=== PATIENT | female | born 1960 | race Two or more races ===

== ENCOUNTER 2016-09-22 09:34 | Day surgery (SDC) | payer OTHER ==
[2016-09-22 10:49] VITALS: BMI 33.9
[2016-09-22] MEDS ORDERED: PROPOFOL 20 ML ONE (11:37)
[2016-09-22] MEDS ORDERED: ONDANSETRON 4 MG/2 ML VIAL ONE (12:05)
[2016-09-22 12:24] VITALS: TEMP 97.8
[2016-09-22 13:53] VITALS: BP 107/68; PULSE 71
--- NOTE | 2016-09-23 15:02 | PATH ---
Surgical Pathology Report Patient Name: DEMARCO BERMEO [facility]. Rec. #: [id number] /Age/Gender: 1960 (Age: 55) / F Account: [id number] Location: U-ENDOSCOPY Taken: 09/22/2016 Received: 09/22/2016 Reported: 09/23/2016 Physicians: Gavin Montoya M.D. Specimen(s) Received A: POLYP DUODENAL BULB B: BX GASTRIC BODY Clinical History Epigastric pain, nausea, vomiting, rule out peptic ulcer disease Duodenal bulb polyp, erythema body Final Diagnosis A. DUODENAL POLYP, BIOPSY: HETEROTOPIC GASTRIC MUCOSA WITH CHRONIC INFLAMMATION. NO ADENOMATOUS CHANGE IDENTIFIED. NO HISTOLOGIC EVIDENCE OF GLUTEN SENSITIVE ENTEROPATHY (CELIAC SPRUE) IDENTIFIED. B. STOMACH, BODY, BIOPSY: MILD CHRONIC GASTRITIS. IMMUNOSTAIN FOR H. PYLORI IS POSITIVE (MANY ORGANISMS). Electronically Signed Dieudonne Canada M.D. Gross Description A. Received in formalin, labeled "biopsy polyp duodenal bulb" is a goode, irregular portion of soft tissue measuring 0.3 cm. in greatest dimension. The specimen is submitted in toto in one cassette. B. Received in formalin, labeled "biopsy gastric body" are 3 goode, irregular portions of soft tissue ranging from 0.1-0.3 cm. in greatest dimension. The specimens are submitted in toto in one cassette. 09/22/201609/22/2016
== END 2016-09-22 13:25 | disposition home or self-care (01) ==
LOC: JASU-ENDO 09:34
PROVIDERS: ATTEND Internal Medicine Gastroenterology
PROC: 0DB68ZX Excision of Stomach, Via Natural or Artificial Opening Endoscopic, Diagnostic (ICD-10-PCS; 2016-09-22)
PROC: 0DB98ZX Excision of Duodenum, Via Natural or Artificial Opening Endoscopic, Diagnostic (ICD-10-PCS; principal; 2016-09-22 10:30)
DX: K31.7 Polyp of stomach and duodenum (principal); K29.50 Unspecified chronic gastritis without bleeding
CPT/HCPCS: 88305-TC; 88342-TC

== ENCOUNTER 2017-01-05 14:43 | Emergency (ER) | payer OTHER ==
--- NOTE | 2017-01-05 14:48 | PDOC ---
Rapid Medical Evaluation Time Seen by Provider: 01/05/17 14:45 Medical Evaluation: Allergies Allergy/AdvReac Type Severity Reaction Status Date / Time iodine Allergy Rash Verified 01/05/17 14:45 naproxen [From Naprosyn] Allergy Verified 01/05/17 14:45 01/05/17 14:45 Pt arrives with complaints of: rt breast tender lump. no fever, no drainage, hx dm, no abx yet Brief exam : 2 cm tender hyperpigmented lump to rt breast, no drainange I have ordered: breast ultrasound Pt will go to : main ED Discharge Disposition - Diagnosis Mass of right breast - Referrals Referrals: Noris Garcia MD [Primary Care Provider] - - Patient Instructions - Post Discharge Activity
[2017-01-05 14:49] VITALS: BP 106/68; PULSE 78; TEMP 97.9; BMI 32.5
--- NOTE | 2017-01-05 15:40 | PDOC ---
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 She first noted the lump which was not painful, but within the next couple of days it turned red and tender. The pain is sharp and 6/10 at baseline and increases to 10/10 when pressure is applied. She has tried a hot compress without relief. She has not noted any drainage, streaking redness, or other changes. She denies fever, chills, nausea, vomiting, chest pain, SOB, headache, weight loss, night sweats, swollen lymph nodes, or other symptoms. Past History - Past Medical History Allergies/Adverse Reactions: Allergies Allergy/AdvReac Type Severity Reaction Status Date / Time iodine Allergy Rash Verified 01/05/17 14:45 naproxen [From Naprosyn] Allergy Verified 01/05/17 14:45 Home Medications: Ambulatory Orders Aspirin [ASA -] 81 mg PO DAILY 10/27/15 Cholecalciferol (Vitamin D3) [Vitamin D3] 5,000 unit PO WEEKLY 10/27/15 Gabapentin 100 mg PO TID 10/27/15 Metoprolol Tartrate 50 mg PO DAILY 10/27/15 Albuterol Sulfate [Proventil HFA Inhaler -] 1 - 2 inh PO PRN PRN 09/22/16 Insulin (Levemir) [Levemir Vial] 40 units SQ ACBK 09/22/16 Super Beet 1 packet PO HS 09/22/16 Tetrahydrz/Dext 70/Peg 400/Pvp [Eye Drops] 15 ml OP HS 09/22/16 Amox-Tr/K Cl [Augmentin - 500Mg Tablet] 1 tab PO BID #14 tab 01/05/17 Sulfamethoxazole/Trimethoprim [Bactrim Ds -] 1 tab PO BID #14 tablet 01/05/17 Asthma: Yes Cardiac Disorders: Yes (H/O CT AND STENT PLACEMENT IN 08/09/13) COPD: No Diabetes: Yes (IDDM) GI Disorders: Yes (COLON POLYP) Disorders: Yes (cyst on right kidney) HTN: Yes Hypercholesterolemia: Yes - Surgical History Abdominal Surgery: Yes Appendectomy: Yes Cardiac Surgery: Yes (stent placement) - Family Disease History Family Disease History: Heart Disease: Father, Mother - Suicide/Smoking/Psychosocial Hx Smoking History: Former smoker Have you smoked in the past 12 months: No If you are a former smoker, when did you quit?: 1994 Information on smoking cessation initiated: No Hx Alcohol Use: No Drug/Substance Use Hx: No Substance Use Type: None Hx Substance Use Treatment: No Review of Systems - Review of Systems Constitutional: No: Chills, Fever, Unexplained wgt Loss HEENTM: No: Nose Congestion, Throat Pain Respiratory: No: Cough, Shortness of Breath Cardiac (ROS): No: Chest Pain, Palpitations ABD/GI: No: Constipated, Diarrhea, Nausea, Vomiting : No: Burning, Dysuria Musculoskeletal: No: Back Pain, Neck Pain Integumentary: Yes: Other (boil to right upper chest wall). No: Bruising, Rash Neurological: No: Headache, Numbness, Tingling, Weakness, Dizziness Endocrine: No: Unexplained Weight Gain, Unexplained Weight Loss *Physical Exam - Vital Signs Last Vital Signs Temp Pulse Resp BP Pulse Ox 97.9 F 78 18 106/68 100 01/05/17 14:46 01/05/17 14:46 01/05/17 14:46 01/05/17 14:46 01/05/17 14:46 - Physical Exam General Appearance: Yes: Nourished, Appropriately Dressed, Obese, Other ( pleasant middle-aged female who is answering questions appropriately). No: Apparent Distress HEENT: positive: EOMI, Normal Voice, Hearing Grossly Normal. negative: Scleral Icterus (R), Scleral Icterus (L), Nasal Congestion Neck: positive: Trachea midline, Normal Thyroid, Supple. negative: Tender, Rigid Respiratory/Chest: positive: Lungs Clear, Normal Breath Sounds, Other (medial right upper chest wall with 2x2 cm area of erythema, warmth, induration, fluctuance, and moderate tenderness to palpation). negative: Respiratory Distress, Crackles, Rhonchi, Stridor, Wheezing Cardiovascular: positive: Regular Rhythm, Regular Rate. negative: Murmur Gastrointestinal/Abdominal: positive: Normal Bowel Sounds, Soft. negative: Tender, Organomegaly, Pulsatile Mass, Guarding Musculoskeletal: positive: Normal Inspection. negative: Decreased Range of Motion, Vertebral Tenderness Extremity: positive: Normal Capillary Refill, Normal Inspection, Normal Range of Motion. negative: Tender, Cyanosis Integumentary: positive: Normal Color, Dry, Warm, Erythema (as noted in chest wall exam), Other (no streaking erythema). negative: Rash, Bruising Neurologic: positive: investigator vice II-XII NML intact, Fully Oriented, Alert, Normal Mood/ Affect, Normal Response, Motor Strength 5/5 Medical Decision Making - Medical Decision Making 56 YOF with h/o IDDM, MRSA infection (tx with long-term vancomycin) p/w right chest wall abscess. On US the abscess is <1cm each dimension and is at least 15 cm from nipple. Most likely this is an uncomplicated boil and appears amenable to I&D. Vitals within normal limits, CBG elevated but Pt states did not take insulin this morning. Attempted needle aspiration without any fluid return. E-Rx for Augmentin and Bactrim are sent to the patient's pharmacy. She is appropriate for discharge home; return precautions are discussed and she will take the abx. *DC/Admit/Observation/Transfer Diagnosis at time of Disposition: Breast abscess - Discharge Dispostion Disposition: HOME Condition at time of disposition: Stable Admit: No - Prescriptions Prescriptions: Amox-Tr/K Cl [Augmentin - 500Mg Tablet] 1 tab PO BID #14 tab Sulfamethoxazole/Trimethoprim [Bactrim Ds -] 1 tab PO BID #14 tablet - Referrals Referrals: Noris Garcia MD [Primary Care Provider] - - Patient Instructions Additional Instructions: You were seen in the ER with a right breast abscess. We did an ultrasound which showed the fluid collection, so we attempted to do a needle aspiration of the fluid to both drain it and send a sample to be tested. We were unable to get the sample, probably because the fluid is too thick to pull up through the needle. We gave you doses of two different types of antibiotic here. We are also sending an electronic prescription to your pharmacy for courses of these two antibiotics. Please take the entire course of each at the same time, starting tomorrow morning. Use warm compresses to try to bring the fluid up to the surface. Put antibiotic ointment like bacitracin on the skin and you can protect the ointment with a light bandage. Please follow up with your regular doctor for a re-check, or you can always come back to the ER for new or worsening symptoms like fever, increasing size of the abscess, increasing area of redness, streaking redness, or other symptoms. - Post Discharge Activity
[2017-01-05] MEDS ORDERED: AMOX TR/POT CLAV 500MG/125MG TABLETS (FP) PO ONE (19:22)
[2017-01-05] MEDS ORDERED: SULFAMETHOXAZOLE/TRIMETHOPRIM 800MG/160MG D.S. TABLET PO ONE (19:25)
[2017-01-05] MEDS ORDERED: SULFAMETHOXAZOLE/TRIMETHOPRIM 800MG/160MG D.S. TABLET ONE (19:33)
[2017-01-05] MEDS ORDERED: AMOX TR/POT CLAV 500MG/125MG TABLETS (FP) ONE (19:33)
== END 2017-01-05 19:36 | disposition home or self-care (01) ==
LOC: JER 14:43
PROC: 0H9T3ZZ Drainage of Right Breast, Percutaneous Approach (ICD-10-PCS; principal; 2017-01-05)
DX: N61.1 Abscess of the breast and nipple (principal); I25.10 Atherosclerotic heart disease of native coronary artery without angina pectoris; I10 Essential (primary) hypertension; Z95.5 Presence of coronary angioplasty implant and graft; I25.2 Old myocardial infarction; E78.00 Pure hypercholesterolemia, unspecified; E10.9 Type 1 diabetes mellitus without complications; Z79.4 Long term (current) use of insulin; J45.909 Unspecified asthma, uncomplicated
CPT/HCPCS: 10160; 76642-TC-RT; 99281-25

== ENCOUNTER 2017-05-17 16:02 | Observation (INO) | payer OTHER ==
--- NOTE | 2017-05-17 16:21 | PDOC ---
Rapid Medical Evaluation Time Seen by Provider: 05/17/17 16:17 Medical Evaluation: Allergies Allergy/AdvReac Type Severity Reaction Status Date / Time iodine Allergy Rash Verified 05/17/17 16:17 naproxen [From Naprosyn] Allergy Verified 05/17/17 16:17 05/17/17 16:18 The patient presents with a chief complaint of: leg pain I have performed a brief in-person evaluation of this patient. Pertinent physical exam findings: vss I have ordered the following: labs, ekg The patient will proceed to the ED for further evaluation.
[2017-05-17 16:56] LABS: BASO % 0.6 % (0-2.0); EOS % 4.2 % (0-4.5); HEMATOCRIT 39.6 % (32.4-45.2); HEMOGLOBIN 13.6 GM/dL (10.7-15.3); LYMPH % 39.1 % (8-40); MCHC 34.3 g/dl (32.0-36.0); MEAN CELL VOLUME 96.3 fl (80-96); MEAN PLT VOLUME 9.6 fl (7.5-11.1); NEUT % 48.1 % (42.8-82.8); PLATELET COUNT 304 K/MM3 (134-434); RBC 4.11 M/mm3 (3.60-5.2); RDW 13.4 % (11.6-15.6); WHITE BLOOD COUNT 9.9 K/mm3 (4.0-10.0)
[2017-05-17 17:15] LABS: INR 0.95 (0.82-1.09); PROTHROMBIN TIME (PATIENT) 10.7 SEC (9.98-11.88)
[2017-05-17 17:17] LABS: ACTIVATED PTT 32.3 SECONDS (26.9-34.4)
[2017-05-17] MEDS ORDERED: morphine CARPU-JECT 4 MG/1 ML DISP.SYRIN IVPUSH ONE (17:29)
--- NOTE | 2017-05-17 17:35 | PDOC ---
History of Present Illness - General Chief Complaint: Pain Stated Complaint: LEG PAIN Time Seen by Provider: 05/17/17 16:17 History Source: Patient - History of Present Illness Occurred: reports: other Severity: Yes: severe Lower Extremity Pain Location: bilateral: leg Past History - Past Medical History Allergies/Adverse Reactions: Allergies Allergy/AdvReac Type Severity Reaction Status Date / Time iodine Allergy Rash Verified 05/17/17 16:17 naproxen [From Naprosyn] Allergy Verified 05/17/17 16:17 Home Medications: Ambulatory Orders Albuterol Sulfate [Proventil HFA Inhaler -] 1 - 2 inh PO QID PRN 05/17/17 Brimonidine Tartrate [Alphagan 0.2% -] 1 drop OU BID 05/17/17 Clopidogrel Bisulfate [Clopidogrel] 75 mg PO DAILY 05/17/17 Fluticasone Propionate [Flovent Diskus] 2 puff IH BID 05/17/17 Gabapentin 600 mg PO BID 05/17/17 Insulin (Levemir) [Levemir Vial] 25 unit SQ HS 05/17/17 Insulin Lispro [Humalog] 8 unit SQ TID 05/17/17 Isosorbide Dinitrate [Isordil -] 5 mg PO BID 05/17/17 Latanoprost 0.005% Eye Drops [Xalatan 0.005% Eye Drops -] 1 drop OU HS 05/17/17 Metoprolol Succinate 50 mg PO DAILY 05/17/17 Omeprazole 40 mg PO DAILY 05/17/17 Rosuvastatin [Crestor -] 20 mg PO HS 05/17/17 Timolol [Betimol] 5 ml OP BID 05/17/17 Asthma: Yes Cardiac Disorders: Yes (H/O [place] AND STENT PLACEMENT IN 08/09/13) COPD: No Diabetes: Yes (IDDM) GI Disorders: Yes (COLON POLYP) Disorders: Yes (cyst on right kidney) HTN: Yes Hypercholesterolemia: Yes - Surgical History Abdominal Surgery: Yes Appendectomy: Yes Cardiac Surgery: Yes (stent placement) - Family Disease History Family Disease History: Heart Disease: Father, Mother - Suicide/Smoking/Psychosocial Hx Smoking History: Never smoked Have you smoked in the past 12 months: No If you are a former smoker, when did you quit?: 1994 Hx Alcohol Use: No Drug/Substance Use Hx: No Substance Use Type: None Hx Substance Use Treatment: No Review of Systems - Review of Systems Constitutional: No: Chills, Fever Respiratory: No: Shortness of Breath Cardiac (ROS): No: Chest Pain, Palpitations *Physical Exam - Vital Signs Last Vital Signs Temp Pulse Resp BP Pulse Ox 98.3 F 84 18 132/78 97 05/17/17 16:19 05/17/17 16:19 05/17/17 16:19 05/17/17 16:19 05/17/17 16:19 - Physical Exam General Appearance: Yes: Appropriately Dressed, Moderate Distress HEENT: positive: Normal Voice Neck: positive: Supple Respiratory/Chest: positive: Lungs Clear, Normal Breath Sounds. negative: Respiratory Distress Cardiovascular: positive: Regular Rate, S1, S2 Extremity: positive: Normal Inspection, Normal Range of Motion, Tender (to calf b/l), Other (unable to palpate pulses, skin warm b/l, no wounds/ulcer). negative: Pedal Edema, Swelling Integumentary: positive: Dry, Warm Neurologic: positive: Fully Oriented, Alert, Normal Mood/Affect ED Treatment Course - LABORATORY CBC & Chemistry Diagram: 05/20/17 08:00 05/22/17 06:20 - ADDITIONAL ORDERS Additional order review: 05/17/17 16:41 RBC 4.11 MCV 96.3 H MCHC 34.3 RDW 13.4 MPV 9.6 Neutrophils % 48.1 Lymphocytes % 39.1 Monocytes % 8.0 Eosinophils % 4.2 Basophils % 0.6 - RADIOLOGY Radiology Studies Ordered: Category Date Time Status DUPLEX ART. LOWER COMPL US [US] Stat Ultrasound 05/17/17 17:27 Ordered DUPLEX VASCUL US-2LEGS [US] Stat Ultrasound 05/17/17 17:28 Ordered Medical Decision Making - Medical Decision Making 05/17/17 17:30 56-year-old female w/ history of diabetes, neuropathy, hypertension, hyperlipidemia, chronic SCHUSTER, CAD s/p multiple stents including stent placement at [facility], here with severe bilateral calf pain worse with ambulation. Pt admits that she has had similar pain for unclear duration, but that pain wasn 't as bad as it is now. Does not feel like her neuropathy, which is usually in her feet only No acute chest pain, shortness of breath, palpitations, nausea, vomiting, fever or chills. See exam Concern for b/l LE claudication, less likely DVT Unable to palpate/doppler pedal pulses, no cold extremity or wounds -pain control -labs -arterial/venous doppler pending -possible vascular consult 05/17/17 18:56 Signed out to LAILA Leger pending US *DC/Admit/Observation/Transfer Diagnosis at time of Disposition: Leg pain, Claudication of both lower extremities - Discharge Dispostion Condition at time of disposition: Stable - Referrals - Patient Instructions - Post Discharge Activity
[2017-05-17 17:43] LABS: ALBUMIN 3.5 g/dl (3.4-5.0); ANION GAP 7 (8-16); BLOOD UREA NITROGEN 37 mg/dL (7-18); CALCIUM 9.4 mg/dL (8.5-10.1); CHLORIDE 104 mmol/L (98-107); CO2 26 mmol/L (21-32); GLUCOSE,RANDOM 178 mg/dL (74-106); SODIUM 137 mmol/L (136-145)
[2017-05-17 17:47] LABS: ALK PHOS 111 U/L (45-117); BILIRUBIN,TOTAL 0.2 mg/dL (0.2-1.0); CREATININE 1.5 mg/dL (0.55-1.02); SGOT/AST 15 U/L (15-37); SGPT/ALT 18 U/L (12-78); TOT PROT 7.4 g/dl (6.4-8.2)
[2017-05-17] MEDS ORDERED: morphine SULFATE 4 MG/ML VIAL ONE (18:02)
--- NOTE | 2017-05-17 20:13 | PDOC ---
ED Treatment Course - LABORATORY CBC & Chemistry Diagram: 05/17/17 16:41 05/17/17 16:41 - ADDITIONAL ORDERS Additional order review: Laboratory Results 05/17/17 05/17/17 16:41 16:41 PT with INR 10.70 INR 0.95 PTT (Actin FS) 32.3 Sodium 137 Potassium 5.0 Chloride 104 Carbon Dioxide 26 Anion Gap 7 L BUN 37 H Creatinine 1.5 H Creat Clearance w eGFR 35.92 Random Glucose 178 H Calcium 9.4 Total Bilirubin 0.2 D AST 15 ALT 18 Alkaline Phosphatase 111 Total Protein 7.4 Albumin 3.5 05/17/17 16:41 RBC 4.11 MCV 96.3 H MCHC 34.3 RDW 13.4 MPV 9.6 Neutrophils % 48.1 Lymphocytes % 39.1 Monocytes % 8.0 Eosinophils % 4.2 Basophils % 0.6 - Medications Given in the ED: ED Medications Discontinued Medications Generic Name Dose Route Start Last Admin Trade Name Freq PRN Reason Stop Dose Admin Morphine Sulfate 4 mg 05/17/17 17:29 05/17/17 18:16 Morphine Injection - IVPUSH 05/17/17 17:30 4 mg ONCE ONE Administration Progress Note - Progress Note Progress Note: I have received report from LAILA Cristobal regarding this patient. Pt's initial chief complaint: b/l calf pain worse with ambulation. Pt's work up completed prior to sign out: labs, ekg Pt treatment given from prior staff: none Pt plan to be completed: awaiting vascular studies of b/l LEs. Dispo: pending Medical Decision Making - Medical Decision Making A/P: 56 y/o female with hx of CAD with multiple stents c/l b/l calf pain, worse with ambulation. Most likely claudication. Awaiting ultrasounds of legs. Duplex arterial LEs IMPRESSION: Monophasic flow within bilateral popliteal arteries suggesting significant inflow stenosis. Cannot confirm patent posterior tibial arteries. Venous Doppler LEs IMPRESSION: No DVTs Spoke with Dr. Garcia who accepts admission to [facility] for Vascular consult in the morning. Patient made aware of plan. *DC/Admit/Observation/Transfer Diagnosis at time of Disposition: Claudication of both lower extremities Leg pain Qualifiers: Laterality: bilateral Qualified Code(s): M79.604 - Pain in right leg - Discharge Dispostion Condition at time of disposition: Stable Admit: Yes - Referrals - Patient Instructions - Post Discharge Activity
[2017-05-17] MEDS ORDERED: ONDANSETRON 4 MG/2 ML VIAL IVPUSH ONE (20:37)
[2017-05-17] MEDS ORDERED: ONDANSETRON 4 MG/2 ML VIAL ONE (20:38)
--- NOTE | 2017-05-17 22:57 | HP ---
Admitting History and Physical - Primary Care Physician PCP: Noris Garcia - Admission History of Present Illness: 56-year-old female w/ history of diabetes, neuropathy, hypertension, hyperlipidemia, chronic SCHUSTER, CAD s/p multiple stents including stent placement at [facility], here with severe bilateral calf pain worse with ambulation. Pt admits that she has had similar pain for unclear duration, but that pain wasn 't as bad as it is now. Does not feel like her neuropathy, which is usually in her feet only No acute chest pain, shortness of breath, palpitations. 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 History of Recent Travel: No Home Medications - Allergies Allergies/Adverse Reactions: Allergies Allergy/AdvReac Type Severity Reaction Status Date / Time iodine Allergy Rash Verified 05/17/17 16:17 naproxen [From Naprosyn] Allergy Verified 05/17/17 16:17 - Home Medications Home Medications: Ambulatory Orders Albuterol Sulfate [Proventil HFA Inhaler -] 1 - 2 inh PO QID PRN 05/17/17 Brimonidine Tartrate [Alphagan 0.2% -] 1 drop OU BID 05/17/17 Clopidogrel Bisulfate [Clopidogrel] 75 mg PO DAILY 05/17/17 Fluticasone Propionate [Flovent Diskus] 2 puff IH BID 05/17/17 Gabapentin 600 mg PO BID 05/17/17 Insulin (Levemir) [Levemir Vial] 25 unit SQ HS 05/17/17 Insulin Lispro [Humalog] 8 unit SQ TID 05/17/17 Isosorbide Dinitrate [Isordil -] 5 mg PO BID 05/17/17 Latanoprost 0.005% Eye Drops [Xalatan 0.005% Eye Drops -] 1 drop OU HS 04/02/18 Metoprolol Succinate 50 mg PO DAILY 05/17/17 Omeprazole 40 mg PO DAILY 05/17/17 Rosuvastatin [Crestor -] 20 mg PO HS 05/17/17 Timolol [Betimol] 5 ml OP BID 05/17/17 Family Disease History - Family Disease History Family Disease History: Diabetes: Mother, Sister, Other: Father, Sister Physical Examination Vital Signs: Vital Signs Temperature 98.3 F 05/17/17 16:19 Pulse Rate 84 05/17/17 16:19 Respiratory Rate 18 05/17/17 16:19 Blood Pressure 132/78 05/17/17 16:19 O2 Sat by Pulse Oximetry (%) 97 05/17/17 16:19 Constitutional: Yes: Anxious HENT: Yes: Atraumatic Neck: Yes: Supple Cardiovascular: Yes: Regular Rate and Rhythm Respiratory: Yes: CTA Bilaterally Gastrointestinal: Yes: Normal Bowel Sounds Musculoskeletal: Yes: WNL Extremities: Yes: Calf Tenderness Edema: No Neurological: Yes: Alert, Oriented Labs: CBC, BMP 05/17/17 16:41 05/17/17 16:41 Problem List - Problems (1) Claudication of both lower extremities Assessment/Plan: awaiting vascular consult prn pain meds duplex scan report reviewed Code(s): I73.9 - PERIPHERAL VASCULAR DISEASE, UNSPECIFIED (2) Coronary artery disease Assessment/Plan: on meds stable Code(s): I25.10 - ATHSCL HEART DISEASE OF [place] CORONARY ARTERY W/O ANG PCTRS (3) Diabetes Assessment/Plan: on insulin and bgms Code(s): E11.9 - TYPE 2 DIABETES MELLITUS WITHOUT COMPLICATIONS (4) Neuropathy Assessment/Plan: on meds Code(s): G62.9 - POLYNEUROPATHY, UNSPECIFIED Assessment/Plan Laboratory Tests 05/17/17 05/17/17 05/17/17 16:41 16:41 16:41 WBC 9.9 RBC 4.11 Hgb 13.6 Hct 39.6 MCV 96.3 H MCH 33.0 MCHC 34.3 RDW 13.4 Plt Count 304 MPV 9.6 Neutrophils % 48.1 Lymphocytes % 39.1 Monocytes % 8.0 Eosinophils % 4.2 Basophils % 0.6 PT with INR 10.70 INR 0.95 PTT (Actin FS) 32.3 Sodium 137 Potassium 5.0 Chloride 104 Carbon Dioxide 26 Anion Gap 7 L BUN 37 H Creatinine 1.5 H Creat Clearance w eGFR 35.92 Random Glucose 178 H Calcium 9.4 Total Bilirubin 0.2 D AST 15 ALT 18 Alkaline Phosphatase 111 Total Protein 7.4 Albumin 3.5 Active Medications Generic Name Dose Route Start Last Admin Trade Name Freq PRN Reason Stop Dose Admin Brimonidine Tartrate 1 drop 05/18/17 10:00 05/19/17 09:43 Alphagan 0.2% - OU 1 drop BID EDYTA Administration Clopidogrel Bisulfate 75 mg 05/18/17 10:00 05/19/17 09:42 Plavix - PO 75 mg DAILY EDYTA Administration Gabapentin 600 mg 05/18/17 10:00 05/19/17 09:42 Neurontin - PO 600 mg BID EDYTA Administration Insulin Aspart 1 vial 05/18/17 22:00 05/19/17 12:10 Novolog Vial Sliding Scale - SQ 2 units ACHS EDYTA Administration Protocol Insulin Detemir 25 units 05/18/17 22:00 05/18/17 21:41 Levemir Vial SQ 25 units HS EDYTA Administration Isosorbide Dinitrate 5 mg 05/18/17 10:00 05/19/17 09:43 Isordil - PO 5 mg BIDISORDIL EDYTA Administration Latanoprost 1 drop 05/18/17 22:00 05/18/17 22:39 Xalatan 0.005% Eye Drops - OU 1 drop HS EDYTA Administration Metoprolol Succinate 50 mg 05/18/17 10:00 05/19/17 09:43 Toprol Xl - PO 50 mg DAILY EDYTA Administration Mometasone Furoate 2 puff 05/18/17 22:00 05/18/17 22:39 Asmanex 220mcg - IH 2 puff HS EDYTA Administration Non-Formulary Medication 5 ml 05/18/17 10:00 Timolol [Betimol] OP BID EDYTA Oxycodone HCl 5 mg 05/18/17 19:28 05/18/17 19:56 Roxicodone - PO 5 mg Q6H PRN Administration PAIN LEVEL 1-5 Pantoprazole Sodium 40 mg 05/18/17 10:00 05/19/17 09:42 Protonix - PO 40 mg DAILY EDYTA Administration Rosuvastatin Calcium 20 mg 05/18/17 22:00 05/18/17 21:37 Crestor - PO 20 mg HS EDYTA Administration
[2017-05-18] MEDS ORDERED: INSULIN (NOVOLOG) ASPART 100 UNITS/ML 10ML VIAL ONE (06:58)
[2017-05-18] MEDS: INSULIN (NOVOLOG) ASPART 100 UNITS/ML 10ML VIAL SQ SCH ×3 (07:00→18:25)
[2017-05-18] MEDS ORDERED: TIMOLOL OP SCH (10:00)
--- NOTE | 2017-05-18 10:10 | EKG ---
Test Reason : Blood Pressure : / mmHG Vent. Rate : 077 BPM Atrial Rate : 077 BPM P-R Int : 138 ms QRS Dur : 078 ms QT Int : 388 ms P-R-T Axes : 044 027 056 degrees QTc Int : 439 ms NORMAL SINUS RHYTHM NORMAL ECG Confirmed by Miguel Angel Molina MD ([id number]) on 05/18/2017 10:10:26 AM Referred By: Confirmed By:Miguel Angel Molina MD
[2017-05-18] MEDS: ISOSORBIDE DINITRATE 5 MG TABLET PO SCH ×3 (11:30→21:37)
[2017-05-18] MEDS: GABAPENTIN 300 MG CAPSULE (FP) PO SCH ×2 (11:30→21:37)
[2017-05-18] MEDS: PANTOPRAZOLE 40 MG TABLET (FP) PO SCH (11:30)
[2017-05-18] MEDS: CLOPIDOGREL BISULFATE 75 MG TABLET (FP) PO SCH (11:30)
[2017-05-18 11:43] VITALS: BMI 32.5
[2017-05-18] MEDS: BRIMONIDINE TARTRATE 0.2% OPHTHALMIC 5 ML BOTTLE OU SCH ×2 (13:19→23:02)
--- NOTE | 2017-05-18 17:14 | PN ---
Progress Note, Physician History of Present Illness: cramps in legs better - Current Medication List Current Medications: Active Medications Brimonidine Tartrate (Alphagan 0.2% -) 1 drop OU BID [facility] Last Admin: 05/18/17 13:19 Dose: Not Given Clopidogrel Bisulfate (Plavix -) 75 mg PO DAILY [facility] Last Admin: 05/18/17 11:30 Dose: 75 mg Gabapentin (Neurontin -) 600 mg PO BID [facility] Last Admin: 05/18/17 11:30 Dose: 600 mg Insulin Aspart (Novolog Vial) 8 units SQ TIDAC [facility] Last Admin: 05/18/17 07:00 Dose: 8 units Insulin Detemir (Levemir Vial) 25 units SQ [facility] Isosorbide Dinitrate (Isordil -) 5 mg PO BIDISORDIL [facility] Last Admin: 05/18/17 11:30 Dose: 5 mg Latanoprost (Xalatan 0.005% Eye Drops -) 1 drop OU HS [facility] Metoprolol Succinate (Toprol Xl -) 50 mg PO DAILY [facility] Last Admin: 05/18/17 11:30 Dose: 50 mg Mometasone Furoate (Asmanex 220mcg -) 2 puff IH [facility] Non-Formulary Medication (Timolol [Betimol]) 5 ml OP BID [facility] Pantoprazole Sodium (Protonix -) 40 mg PO DAILY [facility] Last Admin: 05/18/17 11:30 Dose: 40 mg Rosuvastatin Calcium (Crestor -) 20 mg PO [facility] - Objective Vital Signs: Vital Signs Temperature 98.7 F 05/18/17 15:17 Pulse Rate 82 05/18/17 15:17 Respiratory Rate 18 05/18/17 15:17 Blood Pressure 144/87 05/18/17 15:17 O2 Sat by Pulse Oximetry (%) 100 05/18/17 13:16 Constitutional: Yes: No Distress HENT: Yes: Atraumatic Neck: Yes: Supple Cardiovascular: Yes: Regular Rate and Rhythm Respiratory: Yes: CTA Bilaterally Gastrointestinal: Yes: Normal Bowel Sounds Extremities: Yes: WNL Edema: No Peripheral Pulses WNL: Yes Labs: CBC, BMP 05/17/17 16:41 05/17/17 16:41 INR, PTT INR 0.95 (0.82-1.09) 05/17/17 16:41 Problem List - Problems (1) Claudication of both lower extremities Assessment/Plan: awaiting vascular consult Code(s): I73.9 - PERIPHERAL VASCULAR DISEASE, UNSPECIFIED (2) Coronary artery disease Assessment/Plan: on meds stable Code(s): I25.10 - ATHSCL HEART DISEASE OF [place] CORONARY ARTERY W/O ANG PCTRS (3) Diabetes Assessment/Plan: on insulin and bgms Code(s): E11.9 - TYPE 2 DIABETES MELLITUS WITHOUT COMPLICATIONS (4) Neuropathy Code(s): G62.9 - POLYNEUROPATHY, UNSPECIFIED
[2017-05-18] MEDS ORDERED: PT OWN MED DRAWER 7, Y5N ONE (18:24)
[2017-05-18] MEDS: INSULIN SLIDING SCALE (NOVOLOG) 1 VIAL SQ SCH ×2 (18:28→21:41)
[2017-05-18] MEDS: oxyCODONE HCL 5 MG TABLET PO PRN (19:56)
[2017-05-18] MEDS: ROSUVASTATIN CA 20 MG TABLET (FP) PO SCH (21:37)
[2017-05-18] MEDS: INSULIN DETEMIR 100 UNITS/ML MDV SQ SCH (21:41)
[2017-05-18] MEDS: LATANOPROST 0.005% OPHTH SOLN 2.5ML BOTTLE OU SCH (22:39)
[2017-05-18] MEDS: MOMETASONE FUROATE 220 MCG/IH INHALER IH SCH (22:39)
[2017-05-19] MEDS: INSULIN SLIDING SCALE (NOVOLOG) 1 VIAL SQ SCH ×4 (06:59→22:51)
[2017-05-19] MEDS ORDERED: INSULIN (NOVOLOG) ASPART 100 UNITS/ML 10ML VIAL ONE ×2 (07:07→12:07)
[2017-05-19] MEDS ORDERED: PT OWN MED DRAWER 7, Y5N ONE ×4 (07:10→17:50)
[2017-05-19] MEDS: CLOPIDOGREL BISULFATE 75 MG TABLET (FP) PO SCH (09:42)
[2017-05-19] MEDS: GABAPENTIN 300 MG CAPSULE (FP) PO SCH ×2 (09:42→22:50)
[2017-05-19] MEDS: PANTOPRAZOLE 40 MG TABLET (FP) PO SCH (09:42)
[2017-05-19] MEDS: BRIMONIDINE TARTRATE 0.2% OPHTHALMIC 5 ML BOTTLE OU SCH ×2 (09:43→22:52)
[2017-05-19] MEDS: ISOSORBIDE DINITRATE 5 MG TABLET PO SCH ×2 (09:43→18:07)
--- NOTE | 2017-05-19 17:21 | PN ---
Progress Note, Physician History of Present Illness: cramps in legs better - Current Medication List Current Medications: Active Medications Brimonidine Tartrate (Alphagan 0.2% -) 1 drop OU BID [facility] Last Admin: 05/19/17 09:43 Dose: 1 drop Clopidogrel Bisulfate (Plavix -) 75 mg PO DAILY [facility] Last Admin: 05/19/17 09:42 Dose: 75 mg Gabapentin (Neurontin -) 600 mg PO BID [facility] Last Admin: 05/19/17 09:42 Dose: 600 mg Insulin Aspart (Novolog Vial Sliding Scale -) 1 vial SQ [facility] PRN Reason: Protocol Last Admin: 05/19/17 12:10 Dose: 2 units Insulin Detemir (Levemir Vial) 25 units SQ HS [facility] Last Admin: 05/18/17 21:41 Dose: 25 units Isosorbide Dinitrate (Isordil -) 5 mg PO BIDISORDIL [facility] Last Admin: 05/19/17 09:43 Dose: 5 mg Latanoprost (Xalatan 0.005% Eye Drops -) 1 drop OU [facility] Last Admin: 05/18/17 22:39 Dose: 1 drop Metoprolol Succinate (Toprol Xl -) 50 mg PO DAILY [facility] Last Admin: 05/19/17 09:43 Dose: 50 mg Mometasone Furoate (Asmanex 220mcg -) 2 puff IH [facility] Last Admin: 05/18/17 22:39 Dose: 2 puff Non-Formulary Medication (Timolol [Betimol]) 5 ml OP BID [facility] Oxycodone HCl (Roxicodone -) 5 mg PO Q6H PRN PRN Reason: PAIN LEVEL 1-5 Last Admin: 05/18/17 19:56 Dose: 5 mg Pantoprazole Sodium (Protonix -) 40 mg PO DAILY [facility] Last Admin: 05/19/17 09:42 Dose: 40 mg Rosuvastatin Calcium (Crestor -) 20 mg PO HS [facility] Last Admin: 05/18/17 21:37 Dose: 20 mg - Objective Vital Signs: Vital Signs Temperature 97.5 F L 05/19/17 14:03 Pulse Rate 63 05/19/17 14:03 Respiratory Rate 18 05/19/17 14:03 Blood Pressure 129/78 05/19/17 14:03 O2 Sat by Pulse Oximetry (%) 99 05/18/17 21:00 Constitutional: Yes: No Distress HENT: Yes: Atraumatic Neck: Yes: Supple Cardiovascular: Yes: Regular Rate and Rhythm Respiratory: Yes: CTA Bilaterally Gastrointestinal: Yes: Normal Bowel Sounds Extremities: Yes: WNL Edema: No Peripheral Pulses WNL: Yes Neurological: Yes: Alert, Oriented Labs: CBC, BMP 05/17/17 16:41 05/17/17 16:41 INR, PTT INR 0.95 (0.82-1.09) 05/17/17 16:41 Problem List - Problems (1) Claudication of both lower extremities Assessment/Plan: dr dickey to review vascular study reports Code(s): I73.9 - PERIPHERAL VASCULAR DISEASE, UNSPECIFIED (2) Coronary artery disease Assessment/Plan: on meds stable Code(s): I25.10 - ATHSCL HEART DISEASE OF [place] CORONARY ARTERY W/O ANG PCTRS (3) Diabetes Assessment/Plan: on insulin and bgms Code(s): E11.9 - TYPE 2 DIABETES MELLITUS WITHOUT COMPLICATIONS (4) Neuropathy Assessment/Plan: on meds Code(s): G62.9 - POLYNEUROPATHY, UNSPECIFIED
[2017-05-19 21:24] LABS: ALBUMIN 3.5 g/dl (3.4-5.0); ALK PHOS 107 U/L (45-117); ANION GAP 7 (8-16); BILIRUBIN,TOTAL 0.2 mg/dL (0.2-1.0); BLOOD UREA NITROGEN 44 mg/dL (7-18); CHLORIDE 102 mmol/L (98-107); CO2 27 mmol/L (21-32); SGOT/AST 12 U/L (15-37); SGPT/ALT 17 U/L (12-78); SODIUM 136 mmol/L (136-145); TOT PROT 7.5 g/dl (6.4-8.2)
[2017-05-19 21:26] LABS: GLUCOSE,RANDOM 309 mg/dL (74-106)
[2017-05-19] MEDS: SODIUM CHLORIDE 1,000 ML IV SCH (22:48)
[2017-05-19] MEDS: MOMETASONE FUROATE 220 MCG/IH INHALER IH SCH (22:49)
[2017-05-19] MEDS: oxyCODONE HCL 5 MG TABLET PO PRN (22:50)
[2017-05-19] MEDS: INSULIN DETEMIR 100 UNITS/ML MDV SQ SCH (22:51)
[2017-05-19] MEDS: ROSUVASTATIN CA 20 MG TABLET (FP) PO SCH (22:51)
[2017-05-19] MEDS: LATANOPROST 0.005% OPHTH SOLN 2.5ML BOTTLE OU SCH (22:52)
[2017-05-20] MEDS: INSULIN SLIDING SCALE (NOVOLOG) 1 VIAL SQ SCH ×4 (06:24→21:33)
[2017-05-20] MEDS ORDERED: INSULIN DETEMIR 100 UNITS/ML MDV SQ ONE (06:46)
[2017-05-20] MEDS ORDERED: INSULIN (NOVOLOG) ASPART 100 UNITS/ML 10ML VIAL ONE ×2 (06:46→20:58)
[2017-05-20 08:51] LABS: HEMATOCRIT 39.1 % (32.4-45.2); HEMOGLOBIN 12.9 GM/dL (10.7-15.3); MCH 32.3 pg (25.7-33.7); MEAN PLT VOLUME 9.5 fl (7.5-11.1); PLATELET COUNT 278 K/MM3 (134-434); RBC 3.99 M/mm3 (3.60-5.2); RDW 13.4 % (11.6-15.6); WHITE BLOOD COUNT 9.1 K/mm3 (4.0-10.0)
[2017-05-20 09:57] LABS: CHLORIDE 108 mmol/L (98-107); POTASSIUM 5.5 mmol/L (3.5-5.1); SODIUM 144 mmol/L (136-145)
[2017-05-20] MEDS ORDERED: PT OWN MED DRAWER 7, Y5N ONE (10:09)
[2017-05-20] MEDS: BRIMONIDINE TARTRATE 0.2% OPHTHALMIC 5 ML BOTTLE OU SCH ×2 (10:11→21:50)
[2017-05-20 10:12] LABS: ALBUMIN 3.2 g/dl (3.4-5.0); ALK PHOS 94 U/L (45-117); ANION GAP 8 (8-16); BILIRUBIN,TOTAL 0.1 mg/dL (0.2-1.0); BLOOD UREA NITROGEN 45 mg/dL (7-18); CALCIUM 9.1 mg/dL (8.5-10.1); CO2 28 mmol/L (21-32); CREATININE 1.8 mg/dL (0.55-1.02); GLUCOSE,RANDOM 158 mg/dL (74-106); SGOT/AST 14 U/L (15-37); SGPT/ALT 16 U/L (12-78); TOT PROT 6.8 g/dl (6.4-8.2)
[2017-05-20] MEDS: GABAPENTIN 300 MG CAPSULE (FP) PO SCH ×2 (10:12→21:33)
[2017-05-20] MEDS: PANTOPRAZOLE 40 MG TABLET (FP) PO SCH (10:12)
[2017-05-20] MEDS: CLOPIDOGREL BISULFATE 75 MG TABLET (FP) PO SCH (10:12)
[2017-05-20] MEDS: ISOSORBIDE DINITRATE 5 MG TABLET PO SCH (10:13)
[2017-05-20] MEDS: SODIUM CHLORIDE 1,000 ML IV SCH (14:51)
[2017-05-20] MEDS ORDERED: SODIUM CHLORIDE 1,000 ML IV SCH (15:05)
--- NOTE | 2017-05-20 15:07 | PN ---
Progress Note, Physician History of Present Illness: cramps in legs better - Current Medication List Current Medications: Active Medications Brimonidine Tartrate (Alphagan 0.2% -) 1 drop OU BID [facility] Last Admin: 05/20/17 10:11 Dose: 1 drop Clopidogrel Bisulfate (Plavix -) 75 mg PO DAILY [facility] Last Admin: 05/20/17 10:12 Dose: 75 mg Gabapentin (Neurontin -) 600 mg PO BID [facility] Last Admin: 05/20/17 10:12 Dose: 600 mg Sodium Chloride (Normal Saline -) 1,000 mls @ 100 mls/hr IV ASDIR [facility]PLAC[facility] Insulin Aspart (Novolog Vial Sliding Scale -) 1 vial SQ [facility] PRN Reason: Protocol Last Admin: 05/20/17 12:46 Dose: 6 units Insulin Detemir (Levemir Vial) 25 units SQ [facility] Last Admin: 05/19/17 22:51 Dose: 25 units Latanoprost (Xalatan 0.005% Eye Drops -) 1 drop OU [facility] Last Admin: 05/19/17 22:52 Dose: 1 drop Mometasone Furoate (Asmanex 220mcg -) 2 puff IH [facility] Last Admin: 05/19/17 22:49 Dose: Not Given Oxycodone HCl (Roxicodone -) 5 mg PO Q6H PRN PRN Reason: PAIN LEVEL 1-5 Last Admin: 05/19/17 22:50 Dose: 5 mg Pantoprazole Sodium (Protonix -) 40 mg PO DAILY [facility] Last Admin: 05/20/17 10:12 Dose: 40 mg Rosuvastatin Calcium (Crestor -) 20 mg PO [facility] Last Admin: 05/19/17 22:51 Dose: 20 mg Timolol Maleate (Timoptic 0.25%) 1 drop OU BID [facility] - Objective Vital Signs: Vital Signs Temperature 97.8 F 05/20/17 08:28 Pulse Rate 63 05/20/17 08:28 Respiratory Rate 19 05/20/17 08:28 Blood Pressure 141/86 05/20/17 08:28 O2 Sat by Pulse Oximetry (%) 99 05/19/17 21:00 Constitutional: Yes: No Distress HENT: Yes: Atraumatic Neck: Yes: Supple Cardiovascular: Yes: Regular Rate and Rhythm Respiratory: Yes: CTA Bilaterally Gastrointestinal: Yes: Normal Bowel Sounds Extremities: Yes: WNL Edema: LLE: Trace, RLE: Trace Peripheral Pulses WNL: Yes Neurological: Yes: Alert, Oriented Labs: CBC, BMP 05/20/17 08:00 05/20/17 08:00 INR, PTT INR 0.95 (0.82-1.09) 05/17/17 16:41 Problem List - Problems (1) Claudication of both lower extremities Assessment/Plan: will be seen by dr dickey Code(s): I73.9 - PERIPHERAL VASCULAR DISEASE, UNSPECIFIED (2) Coronary artery disease Assessment/Plan: on meds stable Code(s): I25.10 - ATHSCL HEART DISEASE OF [place] CORONARY ARTERY W/O ANG PCTRS (3) Diabetes Assessment/Plan: on insulin and bgms Code(s): E11.9 - TYPE 2 DIABETES MELLITUS WITHOUT COMPLICATIONS (4) Neuropathy Assessment/Plan: on meds Code(s): G62.9 - POLYNEUROPATHY, UNSPECIFIED
[2017-05-20] MEDS ORDERED: SODIUM POLYSTYRENE SULFONATE 15 GM/60 ML BOTTLE PO ONE (15:45)
[2017-05-20] MEDS ORDERED: SODIUM CHLORIDE 0.45% 500 ML IV SCH (16:15)
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
[2017-05-20] MEDS: SODIUM CHLORIDE 0.45% 1,000 ML IV SCH (17:30)
[2017-05-20 18:50] LABS: URINE APPEARANCE CLEAR; URINE BILIRUBIN NEGATIVE (<2.0 mg/dL); URINE BLOOD NEGATIVE (NEGATIVE); URINE COLOR COLORLESS; URINE GLUCOSE (UA) 3+ (NEGATIVE); URINE KETONE NEGATIVE (NEGATIVE); URINE LEUK ESTERASE NEGATIVE (NEGATIVE); URINE NITRITE NEGATIVE (NEGATIVE); URINE PROTEIN NEGATIVE (NEGATIVE); URINE UROBILINOGEN NEGATIVE mg/dL (0.2-1.0)
[2017-05-20] MEDS: MOMETASONE FUROATE 220 MCG/IH INHALER IH SCH (21:34)
[2017-05-20] MEDS: ROSUVASTATIN CA 20 MG TABLET (FP) PO SCH (21:34)
[2017-05-20] MEDS: LATANOPROST 0.005% OPHTH SOLN 2.5ML BOTTLE OU SCH (21:35)
[2017-05-20] MEDS: TIMOLOL 0.25% OPHTHALMIC SOL 5 ML BOTTLE OU SCH (21:35)
[2017-05-20] MEDS: INSULIN DETEMIR 100 UNITS/ML MDV SQ SCH (21:36)
[2017-05-21] MEDS: INSULIN SLIDING SCALE (NOVOLOG) 1 VIAL SQ SCH ×4 (06:18→22:23)
[2017-05-21] MEDS ORDERED: PT OWN MED DRAWER 7, Y5N ONE ×2 (10:03→20:46)
[2017-05-21] MEDS: CLOPIDOGREL BISULFATE 75 MG TABLET (FP) PO SCH (10:04)
[2017-05-21] MEDS: GABAPENTIN 300 MG CAPSULE (FP) PO SCH ×2 (10:04→22:20)
[2017-05-21] MEDS: PANTOPRAZOLE 40 MG TABLET (FP) PO SCH (10:07)
[2017-05-21] MEDS: TIMOLOL 0.25% OPHTHALMIC SOL 5 ML BOTTLE OU SCH ×2 (10:08→22:25)
[2017-05-21] MEDS: BRIMONIDINE TARTRATE 0.2% OPHTHALMIC 5 ML BOTTLE OU SCH ×2 (10:09→22:26)
[2017-05-21] MEDS ORDERED: INSULIN (NOVOLOG) ASPART 100 UNITS/ML 10ML VIAL ONE (11:33)
[2017-05-21] MEDS: oxyCODONE HCL 5 MG TABLET PO PRN ×2 (11:35→20:15)
[2017-05-21] MEDS: SODIUM CHLORIDE 0.45% 1,000 ML IV SCH ×3 (14:17→17:26)
[2017-05-21 15:59] LABS: ANION GAP 9 (8-16); BLOOD UREA NITROGEN 35 mg/dL (7-18); CALCIUM 9.1 mg/dL (8.5-10.1); CHLORIDE 105 mmol/L (98-107); CO2 27 mmol/L (21-32); CREATININE 1.2 mg/dL (0.55-1.02); GLUCOSE,RANDOM 249 mg/dL (74-106); POTASSIUM 4.6 mmol/L (3.5-5.1); SODIUM 141 mmol/L (136-145)
--- NOTE | 2017-05-21 16:53 | PN ---
Progress Note, Physician History of Present Illness: Pt seen and examined at bedside. She is awake and alert. She denies shortness of breath. - Current Medication List Current Medications: Active Medications Brimonidine Tartrate (Alphagan 0.2% -) 1 drop OU BID [facility] Last Admin: 05/21/17 10:09 Dose: 1 drop Clopidogrel Bisulfate (Plavix -) 75 mg PO DAILY [facility] Last Admin: 05/21/17 10:04 Dose: 75 mg Gabapentin (Neurontin -) 600 mg PO BID [facility] Last Admin: 05/21/17 10:04 Dose: 600 mg Sodium Chloride (1/2 Normal Saline) 1,000 mls @ 125 mls/hr IV ASDIR [facility] Last Admin: 05/21/17 16:40 Dose: 125 mls/hr Insulin Aspart (Novolog Vial Sliding Scale -) 1 vial SQ ACHS [facility] PRN Reason: Protocol Last Admin: 05/21/17 16:40 Dose: 4 units Insulin Detemir (Levemir Vial) 25 units SQ HS [facility] Last Admin: 05/20/17 21:36 Dose: 25 units Latanoprost (Xalatan 0.005% Eye Drops -) 1 drop OU HS [facility] Last Admin: 05/20/17 21:35 Dose: 1 drop Mometasone Furoate (Asmanex 220mcg -) 2 puff IH HS [facility] Last Admin: 05/20/17 21:34 Dose: 2 puff Oxycodone HCl (Roxicodone -) 5 mg PO Q6H PRN PRN Reason: PAIN LEVEL 1-5 Last Admin: 05/21/17 11:35 Dose: 5 mg Pantoprazole Sodium (Protonix -) 40 mg PO DAILY [facility] Last Admin: 05/21/17 10:07 Dose: 40 mg Rosuvastatin Calcium (Crestor -) 20 mg PO HS [facility] Last Admin: 05/20/17 21:34 Dose: 20 mg Timolol Maleate (Timoptic 0.25%) 1 drop OU BID [facility] Last Admin: 05/21/17 10:08 Dose: 1 drop - Objective Vital Signs: Vital Signs Temperature 97.8 F 05/21/17 14:32 Pulse Rate 63 05/21/17 14:32 Respiratory Rate 20 05/21/17 14:32 Blood Pressure 125/71 05/21/17 14:32 O2 Sat by Pulse Oximetry (%) 100 05/21/17 09:00 Constitutional: Yes: Calm Eyes: Yes: Conjunctiva Clear HENT: Yes: Atraumatic Neck: Yes: Supple Cardiovascular: Yes: S1, S2 Respiratory: Yes: CTA Bilaterally Gastrointestinal: Yes: Soft Genitourinary: Yes: WNL Musculoskeletal: Yes: WNL Neurological: Yes: Oriented Psychiatric: Yes: Oriented Labs: CBC, BMP 05/20/17 08:00 05/21/17 15:00 INR, PTT INR 0.95 (0.82-1.09) 05/17/17 16:41 Problem List - Problems (1) CKD (chronic kidney disease) Code(s): N18.9 - CHRONIC KIDNEY DISEASE, UNSPECIFIED (2) Hyperkalemia Code(s): E87.5 - HYPERKALEMIA (3) Claudication of both lower extremities Code(s): I73.9 - PERIPHERAL VASCULAR DISEASE, UNSPECIFIED (4) Leg pain Code(s): M79.606 - PAIN IN LEG, UNSPECIFIED Qualifiers: Qualified Code(s): M79.604 - Pain in right leg; M79.605 - Pain in left leg; M79.605 - Pain in left leg Assessment/Plan Current Medications Generic Name Dose Route Start Last Admin Trade Name Freq PRN Reason Stop Dose Admin Brimonidine Tartrate 1 drop 05/18/17 10:00 05/21/17 10:09 Alphagan 0.2% - OU 1 drop BID [facility] Administration Clopidogrel Bisulfate 75 mg 05/18/17 10:00 05/21/17 10:04 Plavix - PO 75 mg DAILY [facility] Administration Gabapentin 600 mg 05/18/17 10:00 05/21/17 10:04 Neurontin - PO 600 mg BID [facility] Administration Sodium Chloride 1,000 mls @ 125 mls/hr 05/20/17 16:00 05/21/17 16:40 1/2 Normal Saline IV 125 mls/hr ASDIR [facility] Administration Insulin Aspart 1 vial 05/18/17 22:00 05/21/17 16:40 Novolog Vial Sliding Scale - SQ 4 units ACHS [facility] Administration Protocol Insulin Detemir 25 units 05/18/17 22:00 05/20/17 21:36 Levemir Vial SQ 25 units HS [facility] Administration Latanoprost 1 drop 05/18/17 22:00 04/05/18 21:35 Xalatan 0.005% Eye Drops - OU 1 drop HS [facility] Administration Mometasone Furoate 2 puff 05/18/17 22:00 05/20/17 21:34 Asmanex 220mcg - IH 2 puff HS [facility] Administration Oxycodone HCl 5 mg 05/18/17 19:28 05/21/17 11:35 Roxicodone - PO 5 mg Q6H PRN Administration PAIN LEVEL 1-5 Pantoprazole Sodium 40 mg 05/18/17 10:00 05/21/17 10:07 Protonix - PO 40 mg DAILY [facility] Administration Rosuvastatin Calcium 20 mg 05/18/17 22:00 05/20/17 21:34 Crestor - PO 20 mg HS [facility] Administration Timolol Maleate 1 drop 05/20/17 22:00 05/21/17 10:08 Timoptic 0.25% OU 1 drop BID [facility] Administration Impression 1. CKD 2. hyperkalemia 3. DM 4. CAD 5. claudication 6. dyspnea 7. HTN 8. neuropathy Plan - potassium is improved - decrease rate of fluids - repeat labs in am - low potassium diet - renal ultrasound reviewed - will see pt in office - will follow Dr Mackenzie
--- NOTE | 2017-05-21 16:56 | PN ---
Progress Note, Physician History of Present Illness: doing well - Current Medication List Current Medications: Active Medications Brimonidine Tartrate (Alphagan 0.2% -) 1 drop OU BID [facility] Last Admin: 05/21/17 10:09 Dose: 1 drop Clopidogrel Bisulfate (Plavix -) 75 mg PO DAILY [facility] Last Admin: 05/21/17 10:04 Dose: 75 mg Gabapentin (Neurontin -) 600 mg PO BID [facility] Last Admin: 05/21/17 10:04 Dose: 600 mg Sodium Chloride (1/2 Normal Saline) 1,000 mls @ 75 mls/hr IV ASDIR [facility] Insulin Aspart (Novolog Vial Sliding Scale -) 1 vial SQ [facility] PRN Reason: Protocol Last Admin: 05/21/17 16:40 Dose: 4 units Insulin Detemir (Levemir Vial) 25 units SQ [facility] Last Admin: 05/20/17 21:36 Dose: 25 units Latanoprost (Xalatan 0.005% Eye Drops -) 1 drop OU [facility] Last Admin: 05/20/17 21:35 Dose: 1 drop Mometasone Furoate (Asmanex 220mcg -) 2 puff IH [facility] Last Admin: 05/20/17 21:34 Dose: 2 puff Oxycodone HCl (Roxicodone -) 5 mg PO Q6H PRN PRN Reason: PAIN LEVEL 1-5 Last Admin: 05/21/17 11:35 Dose: 5 mg Pantoprazole Sodium (Protonix -) 40 mg PO DAILY [facility] Last Admin: 05/21/17 10:07 Dose: 40 mg Rosuvastatin Calcium (Crestor -) 20 mg PO [facility] Last Admin: 05/20/17 21:34 Dose: 20 mg Timolol Maleate (Timoptic 0.25%) 1 drop OU BID [facility] Last Admin: 05/21/17 10:08 Dose: 1 drop - Objective Vital Signs: Vital Signs Temperature 97.8 F 05/21/17 14:32 Pulse Rate 63 05/21/17 14:32 Respiratory Rate 20 05/21/17 14:32 Blood Pressure 125/71 05/21/17 14:32 O2 Sat by Pulse Oximetry (%) 100 05/21/17 09:00 Constitutional: Yes: No Distress HENT: Yes: Atraumatic Neck: Yes: Supple Cardiovascular: Yes: Regular Rate and Rhythm Respiratory: Yes: CTA Bilaterally Gastrointestinal: Yes: Normal Bowel Sounds Extremities: Yes: WNL Neurological: Yes: Alert, Oriented Labs: CBC, BMP 05/20/17 08:00 05/21/17 15:00 INR, PTT INR 0.95 (0.82-1.09) 05/17/17 16:41 Problem List - Problems (1) Claudication of both lower extremities Assessment/Plan: will be seen by dr dickey Code(s): I73.9 - PERIPHERAL VASCULAR DISEASE, UNSPECIFIED (2) Coronary artery disease Assessment/Plan: on meds stable Code(s): I25.10 - ATHSCL HEART DISEASE OF [place] CORONARY ARTERY W/O ANG PCTRS (3) Diabetes Assessment/Plan: on insulin and bgms Code(s): E11.9 - TYPE 2 DIABETES MELLITUS WITHOUT COMPLICATIONS (4) Neuropathy Assessment/Plan: on meds Code(s): G62.9 - POLYNEUROPATHY, UNSPECIFIED
--- NOTE | 2017-05-21 18:16 | PN ---
Progress Note (short form) - Note Progress Note: Vascular Surgery Pt seen and examined. Arterial study reviewed. On exam pt has palpable popliteal pulses. Pt claims she has cramping, burning in her legs at rest. All her pain seems neurological. Will get neurology eval prior to getting CTA. Pt is allergic to iodine, and will need to be premedicated. Can do rest of vascular workup as outpt. Pain right now seems all neurological. Gokul Mckay DO
[2017-05-21] MEDS: INSULIN DETEMIR 100 UNITS/ML MDV SQ SCH (22:21)
[2017-05-21] MEDS: ROSUVASTATIN CA 20 MG TABLET (FP) PO SCH (22:21)
[2017-05-21] MEDS: MOMETASONE FUROATE 220 MCG/IH INHALER IH SCH (22:25)
[2017-05-21] MEDS: LATANOPROST 0.005% OPHTH SOLN 2.5ML BOTTLE OU SCH (22:37)
[2017-05-22] MEDS: INSULIN SLIDING SCALE (NOVOLOG) 1 VIAL SQ SCH ×4 (06:19→21:26)
[2017-05-22 08:05] LABS: CHLORIDE 108 mmol/L (98-107); POTASSIUM 4.6 mmol/L (3.5-5.1); SODIUM 142 mmol/L (136-145)
[2017-05-22 08:45] LABS: ANION GAP 8 (8-16); BLOOD UREA NITROGEN 32 mg/dL (7-18); CALCIUM 8.9 mg/dL (8.5-10.1); CO2 26 mmol/L (21-32); CREATININE 1.4 mg/dL (0.55-1.02); GLUCOSE,RANDOM 99 mg/dL (74-106)
[2017-05-22] MEDS ORDERED: PT OWN MED DRAWER 7, Y5N ONE (10:41)
[2017-05-22] MEDS: GABAPENTIN 300 MG CAPSULE (FP) PO SCH ×2 (10:44→21:24)
[2017-05-22] MEDS: CLOPIDOGREL BISULFATE 75 MG TABLET (FP) PO SCH (10:44)
[2017-05-22] MEDS: PANTOPRAZOLE 40 MG TABLET (FP) PO SCH (10:44)
[2017-05-22] MEDS: BRIMONIDINE TARTRATE 0.2% OPHTHALMIC 5 ML BOTTLE OU SCH ×2 (10:45→21:23)
[2017-05-22] MEDS: TIMOLOL 0.25% OPHTHALMIC SOL 5 ML BOTTLE OU SCH ×2 (10:46→21:24)
[2017-05-22] MEDS: SODIUM CHLORIDE 0.45% 1,000 ML IV SCH ×2 (15:13→19:00)
[2017-05-22] MEDS: oxyCODONE HCL 5 MG TABLET PO PRN (17:28)
[2017-05-22] MEDS ORDERED: INSULIN (NOVOLOG) ASPART 100 UNITS/ML 10ML VIAL ONE (17:40)
--- NOTE | 2017-05-22 19:01 | CONSULT ---
Consult - text type - Consultation Consultation Note: NEUROLOGY CONSULTATION is in coverage of Dr. Lester: This 56 yo RH woman with h/o Diabetes, asthma, chol, and GERD is on insulin, asmanex, rosuvastatin. Recently (04/14/17) is s/p CA stent- now on plavix. Seen by me a few years ago for chronic headaches c/w migraines and nocturnal burning pains in legs. Headaches reponded to topiramate and remain improved off Rx. W/U of leg pains, at that time, favored RLS over diabetic neuropathy and improved on Pramipexole Rx. Now of Gabapentin 600 q AM and 1200 mg qHS in order to sleep with "severe burning at night." Also has numbness and tingling of the hands at night (R>>L). More recently has developed crampy pains in feet and calves when first walking. It improves if she can go a little further. Dr. Mckay's consult and f/u notes are read and appreciated. Pt c/o diffuse itching after hydrocodone. GREGG: Mod. Obese. Neck supple. - SLR NEURO: MS/Speech : Normal CN II-XII: Normal Motor: Normal strength. Decreased LE reflexes. Toes downgoing Coord: No FTN dystaxia Sensory: Decreased vib over toes. Romberg - Gait: Stiff-legged. IMP: Non-focal exam Mild diabetic neuropathy may be present. Migraine headaches. Restless Limbs syndrome (RLS) R/o Claudication syndrome. SUGGEST: Check B12, Fe++, TIBC, Ferritin Continue gabapentin for now Try Pramipexole beginning with 0.125 mg BID after food for 2 days then 0.25 mg PO BID Thank you very much, Abebe Gage MD
[2017-05-22] MEDS: MOMETASONE FUROATE 220 MCG/IH INHALER IH SCH (21:22)
[2017-05-22] MEDS: LATANOPROST 0.005% OPHTH SOLN 2.5ML BOTTLE OU SCH (21:23)
[2017-05-22] MEDS: PRAMIPEXOLE DIHYDROCHLORIDE 0.125 MG TABLET PO SCH (21:24)
[2017-05-22] MEDS: ROSUVASTATIN CA 20 MG TABLET (FP) PO SCH (21:25)
[2017-05-22] MEDS: INSULIN DETEMIR 100 UNITS/ML MDV SQ SCH (21:25)
--- NOTE | 2017-05-22 23:34 | PN ---
Progress Note, Physician History of Present Illness: No new complaints - Current Medication List Current Medications: Active Medications Brimonidine Tartrate (Alphagan 0.2% -) 1 drop OU BID [facility] Last Admin: 05/22/17 21:23 Dose: 1 drop Clopidogrel Bisulfate (Plavix -) 75 mg PO DAILY [facility] Last Admin: 05/22/17 10:44 Dose: 75 mg Gabapentin (Neurontin -) 600 mg PO BID [facility] Last Admin: 05/22/17 21:24 Dose: 600 mg Sodium Chloride (1/2 Normal Saline) 1,000 mls @ 75 mls/hr IV ASDIR [facility] Last Admin: 05/22/17 19:00 Dose: Not Given Insulin Aspart (Novolog Vial Sliding Scale -) 1 vial SQ ACHS [facility] PRN Reason: Protocol Last Admin: 05/22/17 21:26 Dose: Not Given Insulin Detemir (Levemir Vial) 25 units SQ HS [facility] Last Admin: 05/22/17 21:25 Dose: 25 units Latanoprost (Xalatan 0.005% Eye Drops -) 1 drop OU HS [facility] Last Admin: 05/22/17 21:23 Dose: 1 drop Mometasone Furoate (Asmanex 220mcg -) 2 puff IH HS [facility] Last Admin: 05/22/17 21:22 Dose: 2 puff Oxycodone HCl (Roxicodone -) 5 mg PO Q6H PRN PRN Reason: PAIN LEVEL 1-5 Last Admin: 05/22/17 17:28 Dose: 5 mg Pantoprazole Sodium (Protonix -) 40 mg PO DAILY [facility] Last Admin: 05/22/17 10:44 Dose: 40 mg Pramipexole Dihydrochloride (Mirapex -) 0.125 mg PO BID [facility] Last Admin: 05/22/17 21:24 Dose: 0.125 mg Rosuvastatin Calcium (Crestor -) 20 mg PO HS [facility] Last Admin: 05/22/17 21:25 Dose: 20 mg Timolol Maleate (Timoptic 0.25%) 1 drop OU BID [facility] Last Admin: 05/22/17 21:24 Dose: 1 drop - Objective Vital Signs: Vital Signs Temperature 98.0 F 05/22/17 18:00 Pulse Rate 75 05/22/17 18:00 Respiratory Rate 18 05/22/17 18:00 Blood Pressure 148/91 05/22/17 18:00 O2 Sat by Pulse Oximetry (%) 100 05/22/17 17:00 Eyes: Yes: WNL HENT: Yes: WNL Neck: Yes: WNL, Supple Cardiovascular: Yes: WNL, Regular Rate and Rhythm Respiratory: Yes: WNL, Regular, CTA Bilaterally Gastrointestinal: Yes: WNL, Normal Bowel Sounds, Soft Extremities: Yes: WNL Edema: No Labs: CBC, BMP 05/20/17 08:00 05/22/17 06:20 INR, PTT INR 0.95 (0.82-1.09) 05/17/17 16:41 Problem List - Problems (1) CKD (chronic kidney disease) Code(s): N18.9 - CHRONIC KIDNEY DISEASE, UNSPECIFIED (2) Claudication of both lower extremities Code(s): I73.9 - PERIPHERAL VASCULAR DISEASE, UNSPECIFIED (3) Asthma Code(s): J45.909 - UNSPECIFIED ASTHMA, UNCOMPLICATED Qualifiers: Asthma severity: unspecified severity Asthma complication type: with acute exacerbation Qualified Code(s): J45.901 - Unspecified asthma with (acute) exacerbation (4) Diabetes Code(s): E11.9 - TYPE 2 DIABETES MELLITUS WITHOUT COMPLICATIONS (5) Neuropathy Code(s): G62.9 - POLYNEUROPATHY, UNSPECIFIED
[2017-05-23] MEDS: INSULIN SLIDING SCALE (NOVOLOG) 1 VIAL SQ SCH ×4 (06:40→22:28)
[2017-05-23] MEDS ORDERED: PT OWN MED DRAWER 7, Y5N ONE ×2 (11:41→11:52)
[2017-05-23] MEDS: GABAPENTIN 300 MG CAPSULE (FP) PO SCH ×2 (11:54→21:11)
[2017-05-23] MEDS: CLOPIDOGREL BISULFATE 75 MG TABLET (FP) PO SCH (11:54)
[2017-05-23] MEDS: PANTOPRAZOLE 40 MG TABLET (FP) PO SCH (11:54)
[2017-05-23] MEDS: BRIMONIDINE TARTRATE 0.2% OPHTHALMIC 5 ML BOTTLE OU SCH ×2 (11:55→21:12)
[2017-05-23] MEDS: PRAMIPEXOLE DIHYDROCHLORIDE 0.125 MG TABLET PO SCH ×2 (12:01→21:11)
[2017-05-23] MEDS: TIMOLOL 0.25% OPHTHALMIC SOL 5 ML BOTTLE OU SCH ×2 (12:04→21:13)
--- NOTE | 2017-05-23 19:11 | PN ---
Progress Note, Physician History of Present Illness: No new complaints - Current Medication List Current Medications: Active Medications Brimonidine Tartrate (Alphagan 0.2% -) 1 drop OU BID [facility] Last Admin: 05/23/17 11:55 Dose: 1 drop Clopidogrel Bisulfate (Plavix -) 75 mg PO DAILY [facility] Last Admin: 05/23/17 11:54 Dose: 75 mg Gabapentin (Neurontin -) 600 mg PO BID [facility] Last Admin: 05/23/17 11:54 Dose: 600 mg Sodium Chloride (1/2 Normal Saline) 1,000 mls @ 75 mls/hr IV ASDIR [facility] Last Admin: 05/22/17 19:00 Dose: Not Given Insulin Aspart (Novolog Vial Sliding Scale -) 1 vial SQ [facility] PRN Reason: Protocol Last Admin: 05/23/17 17:53 Dose: 10 units Insulin Detemir (Levemir Vial) 25 units SQ [facility] Last Admin: 05/22/17 21:25 Dose: 25 units Latanoprost (Xalatan 0.005% Eye Drops -) 1 drop OU [facility] Last Admin: 05/22/17 21:23 Dose: 1 drop Mometasone Furoate (Asmanex 220mcg -) 2 puff IH [facility] Last Admin: 05/22/17 21:22 Dose: 2 puff Pantoprazole Sodium (Protonix -) 40 mg PO DAILY [facility] Last Admin: 05/23/17 11:54 Dose: 40 mg Pramipexole Dihydrochloride (Mirapex -) 0.125 mg PO BID [facility] Last Admin: 05/23/17 12:01 Dose: Not Given Rosuvastatin Calcium (Crestor -) 20 mg PO [facility] Last Admin: 05/22/17 21:25 Dose: 20 mg Timolol Maleate (Timoptic 0.25%) 1 drop OU BID [facility] Last Admin: 05/23/17 12:04 Dose: 1 drop - Objective Vital Signs: Vital Signs Temperature 97.9 F 05/23/17 18:00 Pulse Rate 73 05/23/17 18:00 Respiratory Rate 18 05/23/17 18:00 Blood Pressure 118/72 05/23/17 18:00 O2 Sat by Pulse Oximetry (%) 100 05/23/17 09:00 Constitutional: Yes: Well Nourished Neck: Yes: WNL, Supple Cardiovascular: Yes: WNL, Regular Rate and Rhythm Respiratory: Yes: WNL, Regular, CTA Bilaterally Gastrointestinal: Yes: WNL, Normal Bowel Sounds, Soft, Abdomen, Obese Labs: CBC, BMP 05/20/17 08:00 05/22/17 06:20 INR, PTT INR 0.95 (0.82-1.09) 05/17/17 16:41 Problem List - Problems (1) Claudication of both lower extremities Assessment/Plan: As per vasc further w/u could be as outpt however pt wants testing done now Will check creatinine in am Proceed w/ CTA as per primary team(due to history of allergies to contrast) Code(s): I73.9 - PERIPHERAL VASCULAR DISEASE, UNSPECIFIED (2) Asthma Code(s): J45.909 - UNSPECIFIED ASTHMA, UNCOMPLICATED Qualifiers: Asthma severity: unspecified severity Asthma complication type: with acute exacerbation Qualified Code(s): J45.901 - Unspecified asthma with (acute) exacerbation (3) Diabetes Code(s): E11.9 - TYPE 2 DIABETES MELLITUS WITHOUT COMPLICATIONS
[2017-05-23] MEDS ORDERED: INSULIN (NOVOLOG) ASPART 100 UNITS/ML 10ML VIAL ONE (20:55)
[2017-05-23] MEDS: SODIUM CHLORIDE 0.45% 1,000 ML IV SCH (21:09)
[2017-05-23] MEDS: ROSUVASTATIN CA 20 MG TABLET (FP) PO SCH (21:10)
[2017-05-23] MEDS: MOMETASONE FUROATE 220 MCG/IH INHALER IH SCH (21:11)
[2017-05-23] MEDS: INSULIN DETEMIR 100 UNITS/ML MDV SQ SCH (21:12)
[2017-05-23] MEDS: LATANOPROST 0.005% OPHTH SOLN 2.5ML BOTTLE OU SCH (21:14)
[2017-05-24] MEDS: INSULIN SLIDING SCALE (NOVOLOG) 1 VIAL SQ SCH ×4 (06:19→21:57)
[2017-05-24 09:13] LABS: BASO % 0.8 % (0-2.0); EOS % 3.7 % (0-4.5); HEMATOCRIT 40.2 % (32.4-45.2); HEMOGLOBIN 13.6 GM/dL (10.7-15.3); LYMPH % 30.1 % (8-40); MCH 32.3 pg (25.7-33.7); MCHC 33.9 g/dl (32.0-36.0); MEAN CELL VOLUME 95.2 fl (80-96); MEAN PLT VOLUME 9.4 fl (7.5-11.1); MONO % 7.3 % (3.8-10.2); NEUT % 58.1 % (42.8-82.8); PLATELET COUNT 321 K/MM3 (134-434); RBC 4.22 M/mm3 (3.60-5.2); RDW 13.1 % (11.6-15.6); WHITE BLOOD COUNT 9.4 K/mm3 (4.0-10.0)
[2017-05-24 09:19] LABS: ALBUMIN 3.5 g/dl (3.4-5.0); ANION GAP 8 (8-16); BLOOD UREA NITROGEN 22 mg/dL (7-18); CALCIUM 9.5 mg/dL (8.5-10.1); CHLORIDE 110 mmol/L (98-107); CO2 24 mmol/L (21-32); GLUCOSE,RANDOM 122 mg/dL (74-106); POTASSIUM 4.7 mmol/L (3.5-5.1); SODIUM 142 mmol/L (136-145)
[2017-05-24] MEDS ORDERED: PT OWN MED DRAWER 7, Y5N ONE ×2 (09:20→21:38)
[2017-05-24 09:21] LABS: ALK PHOS 106 U/L (45-117); BILIRUBIN,TOTAL 0.3 mg/dL (0.2-1.0); CREATININE 1.2 mg/dL (0.55-1.02); SGOT/AST 21 U/L (15-37); SGPT/ALT 22 U/L (12-78); TOT PROT 7.8 g/dl (6.4-8.2)
[2017-05-24] MEDS: CLOPIDOGREL BISULFATE 75 MG TABLET (FP) PO SCH (09:24)
[2017-05-24] MEDS: GABAPENTIN 300 MG CAPSULE (FP) PO SCH ×2 (09:24→22:01)
[2017-05-24] MEDS: PANTOPRAZOLE 40 MG TABLET (FP) PO SCH (09:25)
[2017-05-24] MEDS: PRAMIPEXOLE DIHYDROCHLORIDE 0.125 MG TABLET PO SCH ×2 (09:25→22:01)
[2017-05-24] MEDS: BRIMONIDINE TARTRATE 0.2% OPHTHALMIC 5 ML BOTTLE OU SCH ×2 (09:27→21:54)
[2017-05-24] MEDS: TIMOLOL 0.25% OPHTHALMIC SOL 5 ML BOTTLE OU SCH ×2 (09:32→21:59)
[2017-05-24] MEDS: SODIUM CHLORIDE 0.45% 1,000 ML IV SCH ×2 (12:28→20:39)
--- NOTE | 2017-05-24 14:34 | PN ---
Progress Note, Physician History of Present Illness: Pt seen and examined at bedside. She is awake and alert. She denies shortness of breath. She is tolerating diet. - Current Medication List Current Medications: Active Medications Brimonidine Tartrate (Alphagan 0.2% -) 1 drop OU BID [facility] Last Admin: 05/24/17 09:27 Dose: 1 drop Clopidogrel Bisulfate (Plavix -) 75 mg PO DAILY [facility] Last Admin: 05/24/17 09:24 Dose: 75 mg Gabapentin (Neurontin -) 600 mg PO BID [facility] Last Admin: 05/24/17 09:24 Dose: 600 mg Sodium Chloride (1/2 Normal Saline) 1,000 mls @ 75 mls/hr IV ASDIR [facility] Last Admin: 05/24/17 12:28 Dose: 75 mls/hr Insulin Aspart (Novolog Vial Sliding Scale -) 1 vial SQ [facility] PRN Reason: Protocol Last Admin: 05/24/17 12:19 Dose: 4 units Insulin Detemir (Levemir Vial) 25 units SQ [facility] Last Admin: 05/23/17 21:12 Dose: 25 units Latanoprost (Xalatan 0.005% Eye Drops -) 1 drop OU HS [facility] Last Admin: 05/23/17 21:14 Dose: 1 drop Mometasone Furoate (Asmanex 220mcg -) 2 puff IH [facility] Last Admin: 05/23/17 21:11 Dose: 2 puff Pantoprazole Sodium (Protonix -) 40 mg PO DAILY [facility] Last Admin: 05/24/17 09:25 Dose: 40 mg Pramipexole Dihydrochloride (Mirapex -) 0.125 mg PO BID [facility] Last Admin: 05/24/17 09:25 Dose: 0.125 mg Rosuvastatin Calcium (Crestor -) 20 mg PO HS [facility] Last Admin: 05/23/17 21:10 Dose: 20 mg Timolol Maleate (Timoptic 0.25%) 1 drop OU BID [facility] Last Admin: 05/24/17 09:32 Dose: 1 drop - Objective Vital Signs: Vital Signs Temperature 98.4 F 05/24/17 08:30 Pulse Rate 78 05/24/17 12:15 Respiratory Rate 20 05/24/17 12:15 Blood Pressure 121/77 05/24/17 12:15 O2 Sat by Pulse Oximetry (%) 97 05/24/17 10:05 Constitutional: Yes: Calm Eyes: Yes: Conjunctiva Clear HENT: Yes: Atraumatic Neck: Yes: Supple Cardiovascular: Yes: S1, S2 Respiratory: Yes: CTA Bilaterally Gastrointestinal: Yes: Soft, Abdomen, Obese Genitourinary: Yes: WNL Musculoskeletal: Yes: WNL Edema: Yes Edema: LLE: Trace, RLE: Trace Neurological: Yes: Oriented Psychiatric: Yes: Oriented Labs: CBC, BMP 05/24/17 08:45 05/24/17 08:25 INR, PTT INR 0.95 (0.82-1.09) 05/17/17 16:41 Problem List - Problems (1) CKD (chronic kidney disease) Code(s): N18.9 - CHRONIC KIDNEY DISEASE, UNSPECIFIED (2) Hyperkalemia Code(s): E87.5 - HYPERKALEMIA (3) Claudication of both lower extremities Code(s): I73.9 - PERIPHERAL VASCULAR DISEASE, UNSPECIFIED (4) Leg pain Code(s): M79.606 - PAIN IN LEG, UNSPECIFIED Qualifiers: Laterality: bilateral Qualified Code(s): M79.604 - Pain in right leg; M79.605 - Pain in left leg; M79.605 - Pain in left leg Assessment/Plan Current Medications Generic Name Dose Route Start Last Admin Trade Name Freq PRN Reason Stop Dose Admin Brimonidine Tartrate 1 drop 05/18/17 10:00 05/24/17 09:27 Alphagan 0.2% - OU 1 drop BID [facility] Administration Clopidogrel Bisulfate 75 mg 05/18/17 10:00 05/24/17 09:24 Plavix - PO 75 mg DAILY [facility] Administration Gabapentin 600 mg 05/18/17 10:00 05/24/17 09:24 Neurontin - PO 600 mg BID [facility] Administration Sodium Chloride 1,000 mls @ 75 mls/hr 05/21/17 16:53 05/24/17 12:28 1/2 Normal Saline IV 75 mls/hr ASDIR [facility] Administration Insulin Aspart 1 vial 05/18/17 22:00 05/24/17 12:19 Novolog Vial Sliding Scale - SQ 4 units ACHS [facility] Administration Protocol Insulin Detemir 25 units 05/18/17 22:00 05/23/17 21:12 Levemir Vial SQ 25 units HS [facility] Administration Latanoprost 1 drop 05/18/17 22:00 05/23/17 21:14 Xalatan 0.005% Eye Drops - OU 1 drop HS [facility] Administration Mometasone Furoate 2 puff 05/18/17 22:00 05/23/17 21:11 Asmanex 220mcg - IH 2 puff HS [facility] Administration Pantoprazole Sodium 40 mg 05/18/17 10:00 05/24/17 09:25 Protonix - PO 40 mg DAILY [facility] Administration Pramipexole Dihydrochloride 0.125 mg 05/22/17 22:00 05/24/17 09:25 Mirapex - PO 0.125 mg BID [facility] Administration Rosuvastatin Calcium 20 mg 05/18/17 22:00 05/23/17 21:10 Crestor - PO 20 mg HS [facility] Administration Timolol Maleate 1 drop 05/20/17 22:00 05/24/17 09:32 Timoptic 0.25% OU 1 drop BID [facility] Administration Impression 1. CKD 2. hyperkalemia 3. DM 4. CAD 5. claudication 6. dyspnea 7. HTN 8. neuropathy Plan - renal function has stabilized - pt is at risk for EVERARDO from contrast, this was explained to pt - cont with fluids if pt is going for the ct scan - vascular follow up for plan - potassium stable - will see in office for renal workup - will follow Dr Mackenzie
--- NOTE | 2017-05-24 15:02 | PN ---
Progress Note, Physician History of Present Illness: feeling good - Current Medication List Current Medications: Active Medications Brimonidine Tartrate (Alphagan 0.2% -) 1 drop OU BID [facility] Last Admin: 05/24/17 09:27 Dose: 1 drop Clopidogrel Bisulfate (Plavix -) 75 mg PO DAILY [facility] Last Admin: 05/24/17 09:24 Dose: 75 mg Gabapentin (Neurontin -) 600 mg PO BID [facility] Last Admin: 05/24/17 09:24 Dose: 600 mg Sodium Chloride (1/2 Normal Saline) 1,000 mls @ 75 mls/hr IV ASDIR [facility] Last Admin: 05/24/17 12:28 Dose: 75 mls/hr Insulin Aspart (Novolog Vial Sliding Scale -) 1 vial SQ [facility] PRN Reason: Protocol Last Admin: 05/24/17 12:19 Dose: 4 units Insulin Detemir (Levemir Vial) 25 units SQ HS [facility] Last Admin: 05/23/17 21:12 Dose: 25 units Latanoprost (Xalatan 0.005% Eye Drops -) 1 drop OU [facility] Last Admin: 05/23/17 21:14 Dose: 1 drop Metoprolol Succinate (Toprol Xl -) 50 mg PO DAILY [facility] Mometasone Furoate (Asmanex 220mcg -) 2 puff IH [facility] Last Admin: 05/23/17 21:11 Dose: 2 puff Pantoprazole Sodium (Protonix -) 40 mg PO DAILY [facility] Last Admin: 05/24/17 09:25 Dose: 40 mg Pramipexole Dihydrochloride (Mirapex -) 0.125 mg PO BID [facility] Last Admin: 05/24/17 09:25 Dose: 0.125 mg Rosuvastatin Calcium (Crestor -) 20 mg PO HS [facility] Last Admin: 05/23/17 21:10 Dose: 20 mg Timolol Maleate (Timoptic 0.25%) 1 drop OU BID [facility] Last Admin: 05/24/17 09:32 Dose: 1 drop - Objective Vital Signs: Vital Signs Temperature 97.3 F L 05/24/17 14:42 Pulse Rate 77 05/24/17 14:42 Respiratory Rate 18 05/24/17 14:42 Blood Pressure 117/78 05/24/17 14:42 O2 Sat by Pulse Oximetry (%) 97 05/24/17 10:05 Constitutional: Yes: No Distress HENT: Yes: Atraumatic Neck: Yes: Supple Cardiovascular: Yes: Regular Rate and Rhythm Respiratory: Yes: CTA Bilaterally Gastrointestinal: Yes: Normal Bowel Sounds Extremities: Yes: WNL Peripheral Pulses WNL: Yes Neurological: Yes: Alert, Oriented Labs: CBC, BMP 05/24/17 08:45 05/24/17 08:25 INR, PTT INR 0.95 (0.82-1.09) 05/17/17 16:41 Problem List - Problems (1) Claudication of both lower extremities Assessment/Plan: symptoms resolved Code(s): I73.9 - PERIPHERAL VASCULAR DISEASE, UNSPECIFIED (2) Coronary artery disease Assessment/Plan: on meds stable Code(s): I25.10 - ATHSCL HEART DISEASE OF [place] CORONARY ARTERY W/O ANG PCTRS (3) Diabetes Assessment/Plan: on insulin and bgms Code(s): E11.9 - TYPE 2 DIABETES MELLITUS WITHOUT COMPLICATIONS (4) Neuropathy Assessment/Plan: on meds neuro consult noted Code(s): G62.9 - POLYNEUROPATHY, UNSPECIFIED Assessment/Plan dc in am fu dr dickey and dr cano
[2017-05-24] MEDS ORDERED: INSULIN (NOVOLOG) ASPART 100 UNITS/ML 10ML VIAL ONE ×2 (17:53→21:11)
[2017-05-24] MEDS: MOMETASONE FUROATE 220 MCG/IH INHALER IH SCH (21:54)
[2017-05-24] MEDS: LATANOPROST 0.005% OPHTH SOLN 2.5ML BOTTLE OU SCH (21:58)
[2017-05-24] MEDS: ROSUVASTATIN CA 20 MG TABLET (FP) PO SCH (21:59)
[2017-05-24] MEDS: INSULIN DETEMIR 100 UNITS/ML MDV SQ SCH (22:00)
[2017-05-25] MEDS: INSULIN SLIDING SCALE (NOVOLOG) 1 VIAL SQ SCH ×2 (06:36→11:27)
[2017-05-25 08:42] LABS: CHLORIDE 104 mmol/L (98-107); SODIUM 143 mmol/L (136-145)
[2017-05-25 08:49] LABS: ANION GAP 9 (8-16); BLOOD UREA NITROGEN 22 mg/dL (7-18); CALCIUM 10.4 mg/dL (8.5-10.1); CO2 30 mmol/L (21-32); CREATININE 1.3 mg/dL (0.55-1.02); GLUCOSE,RANDOM 165 mg/dL (74-106)
[2017-05-25] MEDS ORDERED: PT OWN MED DRAWER 7, Y5N ONE ×2 (09:19→09:52)
[2017-05-25] MEDS: CLOPIDOGREL BISULFATE 75 MG TABLET (FP) PO SCH (09:29)
[2017-05-25] MEDS: TIMOLOL 0.25% OPHTHALMIC SOL 5 ML BOTTLE OU SCH (09:29)
[2017-05-25] MEDS: PANTOPRAZOLE 40 MG TABLET (FP) PO SCH (09:29)
[2017-05-25] MEDS: GABAPENTIN 300 MG CAPSULE (FP) PO SCH (09:29)
[2017-05-25] MEDS: BRIMONIDINE TARTRATE 0.2% OPHTHALMIC 5 ML BOTTLE OU SCH (09:29)
[2017-05-25] MEDS: PRAMIPEXOLE DIHYDROCHLORIDE 0.125 MG TABLET PO SCH (09:35)
[2017-05-25 11:12] VITALS: BP 149/90; PULSE 71; TEMP 98.4
--- NOTE | 2017-05-25 18:20 | DS ---
Physical Examination Vital Signs: Vital Signs Temperature 98.4 F 05/25/17 10:00 Pulse Rate 71 05/25/17 10:00 Respiratory Rate 18 05/25/17 10:00 Blood Pressure 149/90 05/25/17 10:00 O2 Sat by Pulse Oximetry (%) 99 05/25/17 10:00 Labs: CBC, BMP 05/24/17 08:45 05/25/17 07:57 Discharge Summary Reason For Visit: CLAUDICATION OF BOTH LOWER EXTREMITIES Condition: Stable - Instructions Diet, Activity, Other Instructions: check serum creatinine in 2-3 days see kidney doctor next week see dr dickey next week Referrals: Noris Garcia MD [Staff Physician] - Gokul Dickey MD [Staff Physician] - Vu Mackenzie MD [Staff Physician] - Disposition: HOME - Home Medications Comprehensive Discharge Medication List: Ambulatory Orders Albuterol Sulfate [Proventil HFA Inhaler -] 1 - 2 inh PO QID PRN 05/17/17 Brimonidine Tartrate [Alphagan 0.2% -] 1 drop OU BID 05/17/17 Clopidogrel Bisulfate [Clopidogrel] 75 mg PO DAILY 05/17/17 Fluticasone Propionate [Flovent Diskus] 2 puff IH BID 05/17/17 Gabapentin 600 mg PO BID 05/17/17 Insulin (Levemir) [Levemir Vial] 25 unit SQ HS 05/17/17 Insulin Lispro [Humalog] 8 unit SQ TID 05/17/17 Isosorbide Dinitrate [Isordil -] 5 mg PO BID 05/17/17 Latanoprost 0.005% Eye Drops [Xalatan 0.005% Eye Drops -] 1 drop OU HS 05/17/17 Metoprolol Succinate 50 mg PO DAILY 05/17/17 Omeprazole 40 mg PO DAILY 05/17/17 Rosuvastatin [Crestor -] 20 mg PO HS 05/17/17 Timolol [Betimol] 5 ml OP BID 05/17/17 [facility]
== END 2017-05-25 11:26 | disposition home or self-care (01) ==
LOC: JER 16:02 → JERBED 20:27 → J5S 05-18 14:15
PROVIDERS: ADMIT Internal Medicine; ATTEND Internal Medicine
PROC: 3E033NZ Introduction of Analgesics, Hypnotics, Sedatives into Peripheral Vein, Percutaneous Approach (ICD-10-PCS; principal; 2017-05-17)
PROC: 3E033GC Introduction of Other Therapeutic Substance into Peripheral Vein, Percutaneous Approach (ICD-10-PCS; 2017-05-17)
PROC: 3E0337Z Introduction of Electrolytic and Water Balance Substance into Peripheral Vein, Percutaneous Approach (ICD-10-PCS; 2017-05-17)
PROC: 3E013VG Introduction of Insulin into Subcutaneous Tissue, Percutaneous Approach (ICD-10-PCS; 2017-05-17)
DX: I73.9 Peripheral vascular disease, unspecified (principal); M79.662 Pain in left lower leg; M79.661 Pain in right lower leg; I25.10 Atherosclerotic heart disease of native coronary artery without angina pectoris; I25.2 Old myocardial infarction; I12.9 Hypertensive chronic kidney disease with stage 1 through stage 4 chronic kidney disease, or unspecified chronic kidney disease; E11.22 Type 2 diabetes mellitus with diabetic chronic kidney disease; N18.9 Chronic kidney disease, unspecified; E78.5 Hyperlipidemia, unspecified; E87.5 Hyperkalemia; G62.9 Polyneuropathy, unspecified; J45.909 Unspecified asthma, uncomplicated; R06.09 Other forms of dyspnea; G25.81 Restless legs syndrome; Z79.4 Long term (current) use of insulin; Z95.5 Presence of coronary angioplasty implant and graft; Z88.8 Allergy status to other drugs, medicaments and biological substances
CPT/HCPCS: 36415; 71045-TC-FY; 76775-TC; 80048; 80053; 81003; 82436; 82962; 83930; 83935; 84132; 84133; 84300; 85025; 85027; 85610; 85730; 93005; 93010; 93925-TC; 93970-TC; 96361; 96372; 96374; 96375; 99284-25; G0378; J7030

== ENCOUNTER 2017-07-07 08:29 | Day surgery (SDC) | payer OTHER ==
[2017-07-06 18:17] VITALS: BMI 33.9
[2017-07-07] MEDS ORDERED: HEPARIN NA (PORCINE) 5,000 UNITS/ML 1ML VIAL ONE (10:17)
[2017-07-07] MEDS ORDERED: LIDOCAINE HCL 1%, 10 MG/ML (20ML VIAL) ONE (10:17)
[2017-07-07] MEDS ORDERED: MIDAZOLAM HCL 2 MG/2 ML SINGLE DOSE VIAL ONE ×2 (10:37)
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
[2017-07-07] MEDS ORDERED: ceFAZolin SODIUM 1 GM VIAL IVPB ONE (10:40)
[2017-07-07] MEDS ORDERED: ceFAZolin SODIUM 1 GM VIAL ONE (10:59)
[2017-07-07] MEDS ORDERED: LIDOCAINE HCL 1%, 10 MG/ML (50 mL VIAL) IJ ONE ×2 (11:02)
--- NOTE | 2017-07-07 11:31 | OP ---
Operative Note - Note: Operative Date: 07/07/17 Pre-Operative Diagnosis: LLE claudication Operation: CO2 Aortogram, LLE angiogram Findings: no areas of stenosis. Infrapopliteal disease with collaterals. DP main runoff. Post-Operative Diagnosis: Same as Pre-op Surgeon: Gokul Mckay Anesthesia: Fractional Estimated Blood Loss (mls): 10 Operative Report Dictated: Yes
--- NOTE | 2017-07-07 13:40 | OP ---
DATE OF OPERATION: 07/07/2017 PREOPERATIVE DIAGNOSIS: Left lower extremity claudication. POSTOPERATIVE DIAGNOSIS: Left lower extremity claudication. PROCEDURE: CO2 aortogram with left lower extremity angiogram with CO2. SURGEON: Gokul Kovacs DO ANESTHESIA: Fractional. BLOOD LOSS: 10 mL. INDICATIONS: The patient is a 56-year-old female who complains of bilateral lower extremity pain. She has severe back pain, and a lot of her pain that she has in her lower extremities could be neurological. She had a preoperative ultrasound that showed infrapopliteal disease in bilateral lower extremities. It was decided that we can do a diagnostic angiogram. When she had her blood drawn on June 28, 2017, her creatinine came back at 1.7, so we decided that she would only get CO2 during the case. The patient came into Ambulatory Surgery. The patient was consented for the procedure understanding all risks, benefits, and alternatives and taken to the operating room. DESCRIPTION OF PROCEDURE: Once in the operating room, she was laid on the operating room table in a supine manner. The area of the right and left groin was prepped and draped in a sterile surgical manner. We then went ahead and injected 10 mL of lidocaine 1% over the right common femoral artery. We then used our micropuncture needle to puncture the right common femoral artery. Micropuncture wire was inserted. A traditional 5-Czech sheath was inserted. A 0.035 floppy guidewire was placed into the aorta followed by an Omni Flush catheter. We then shot a CO2 aortogram via hand injection showing that the aorta and the iliac arteries were without any disease. We then placed our 0.035 floppy guidewire up and over to the left common femoral artery followed by the Omni Flush catheter. We then shot a CO2 angiogram of the left lower extremity showing that the common femoral artery, the profunda, and the SFA were patent. The popliteal artery was patent. Below the knee there was significant infrapopliteal disease where there was all collateral circulation going down into the foot and the main runoff being the DP going into the foot. At this point, there was no stenosis or occlusion that warranted needing angioplasty so at this point we brought our Omni Flush catheter up and over. We then took out our sheath. Pressure was held on the right groin for 5 minutes after which there was no bleeding. The area was wet and dried, and Dermabond was placed. The patient tolerated the procedure with no complications. We will now investigate her neurological condition from her back due to her back pain, and we will also work on her diabetes. She has a hemoglobin A1C of 13, and that should help with her neuropathic pain. The patient was transferred to PACU in stable condition with no complications. GOKUL KOVACS DO NP/[id number]
[2017-07-07] MEDS ORDERED: ACETAMINOPHEN 325 MG TABLET (FP) PO ONE (14:14)
[2017-07-07 17:35] VITALS: BP 144/88; PULSE 82; TEMP 97.8
--- NOTE | 2017-07-21 13:17 | OP ---
DATE OF OPERATION: 07/07/2017 PREOPERATIVE DIAGNOSIS: Left lower extremity claudication. POSTOPERATIVE DIAGNOSIS: Left lower extremity claudication. PROCEDURE PERFORMED: Carbon dioxide aortogram, carbon dioxide left lower extremity angiogram. SURGEON: Gokul Kovacs DO ANESTHESIA: Fractional. BLOOD LOSS: 10 mL. INDICATIONS: The patient is a 56-year-old female complaining of left lower extremity claudication. Preoperatively, she had an ultrasound done showing she has infrapopliteal disease, and it was decided that she would need an angiogram. Considering her creatinine was a little elevated at 1.7, we decided that we would use CO2. DESCRIPTION OF PROCEDURE: The patient was consented for the procedure, understanding all risks, benefits and alternatives, and then taken to the operating room. Once in the operating room, the patient was laid on the operating table in the supine manner. The areas of the left and left groin were prepped and draped in a sterile surgical manner. We then injected 10 mL of lidocaine 1% over the right common femoral artery. We then used our Micropuncture needle and punctured the right common femoral artery. Micropuncture wire was inserted. Micropuncture sheath was inserted, and an additional 5-English sheath was inserted. We then placed a 0.035 floppy guidewire up into the aorta, followed by an Omni Flush catheter. We then shot a CO2 aortogram by hand injection, showing that aorta and iliac arteries were without any disease. We then used our 0.035 floppy guidewire and went up and over to the left common femoral artery. Using CO2, we shot a CO2 left lower extremity angiogram, showing that the common femoral artery, the profunda and the SFA were patent. The popliteal artery was patent. The patient had 1-vessel runoff into the foot, which was peroneal. At this point no intervention was needed. There was no bypassable disease. There were no areas of stenosis. We brought our Omni Flush catheter up and over. We removed our sheath. Pressure was held on the right groin for 5 minutes. After that there was no more bleeding. The area was wet and dried, and Dermabond was placed. The patient tolerated the procedure with no complication. The patient was transferred to the PACU in stable condition. GOKUL KOVACS DO LUSTER REPAIRER/[id number]
== END 2017-07-07 16:20 | disposition home or self-care (01) ==
LOC: JASU-SURG 08:29
PROVIDERS: ATTEND Surgery Vascular Surgery
PROC: B40DYZZ Plain Radiography of Aorta and Bilateral Lower Extremity Arteries using Other Contrast (ICD-10-PCS; principal; 2017-07-07 10:30)
DX: I70.212 Atherosclerosis of native arteries of extremities with intermittent claudication, left leg (principal); I12.9 Hypertensive chronic kidney disease with stage 1 through stage 4 chronic kidney disease, or unspecified chronic kidney disease; E11.22 Type 2 diabetes mellitus with diabetic chronic kidney disease; N18.9 Chronic kidney disease, unspecified
CPT/HCPCS: 75716-TC-FY; 76000-TC-FY; 82962; 94760; J1644

== ENCOUNTER 2017-07-31 18:50 | Observation (INO) | payer OTHER ==
--- NOTE | 2017-07-31 19:31 | PDOC ---
History of Present Illness - General History Source: Patient Exam Limitations: No Limitations - History of Present Illness Initial Comments: 07/31/17 20:14 The patient is a 56 year old female, with a significant past medical history of Asthma, CAD s/p TX and stent placement, IDDM, HTN, HLD, PAD who presents to the emergency department with chest pain. Patient reports traveling from [place] (2 hr ride) via airplane today when she experienced this pain on flight. Patient reports sudden onset of L sided sharp chest pain, 9/10 in severity, nonradiating associated with SOB upon deep inspiration. After the plane ride, patient took nitro however reports minimal relief. Patient notes pain is not similar in nature to her TX in the past but presents to the ED for further evaluation. Patient recently had RLE claudication one week ago with Dr. Mckay and denied any complications with the procedure. Patient denies any hx of GI bleed or bleeding disorders. Patient denies palpitations, diaphoresis, headache or dizziness. Patient denies fever, chills, abdominal pain, nausea, vomit, diarrhea or constipation. Patient denies dysuria, frequency, urgency or hematuria. Patient denies sick contacts. Allergies: IV contrast, naproxen Past surgical history: RLE claudication Social history: denies etoh, smoking, recreational drug use PCP: Dr. Garcia Vascular: Ashok Mckay <Vy Nicholas - Last Filed: 07/31/17 21:20> - General History Source: Patient Exam Limitations: No Limitations <Lucina Rivers - Last Filed: 08/02/17 00:08> - General Chief Complaint: Pain Stated Complaint: CHEST PAIN Time Seen by Provider: 07/31/17 19:31 Past History <Vy Nicholas - Last Filed: 07/31/17 21:20> - Past Medical History Anemia: No Asthma: Yes Cancer: No Cardiac Disorders: Yes (H/O TX AND STENT PLACEMENT IN 08/09/13) CVA: No COPD: No DVT: No Dementia: No Diabetes: Yes (IDDM) GI Disorders: Yes (COLON POLYP) Disorders: Yes (cyst on right kidney) HTN: Yes Hypercholesterolemia: Yes Liver Disease: No Seizures: No Thyroid Disease: No - Surgical History Abdominal Surgery: Yes Appendectomy: Yes Cardiac Surgery: Yes (stent placement) Cholecystectomy: No Lung Surgery: No Neurologic Surgery: No Orthopedic Surgery: Yes (ARTHROSCOPY RIGHT KNEE) - Family Disease History Family Disease History: Heart Disease: Father, Mother - Suicide/Smoking/Psychosocial Hx Smoking History: Never smoked Have you smoked in the past 12 months: No If you are a former smoker, when did you quit?: 1994 Hx Alcohol Use: No Drug/Substance Use Hx: No Substance Use Type: None Hx Substance Use Treatment: No <Lucina Rivers - Last Filed: 08/02/17 00:08> - Past Medical History Allergies/Adverse Reactions: Allergies Allergy/AdvReac Type Severity Reaction Status Date / Time iodine Allergy Severe Rash Verified 07/31/17 18:57 naproxen [From Naprosyn] Allergy Severe Verified 07/31/17 18:57 Home Medications: Ambulatory Orders Albuterol Sulfate [Proventil HFA Inhaler -] 1 - 2 inh PO QID PRN 05/17/17 Brimonidine Tartrate [Alphagan 0.2% -] 1 drop OU BID 05/17/17 Clopidogrel Bisulfate [Clopidogrel] 75 mg PO DAILY 05/17/17 Gabapentin 600 mg PO BID 05/17/17 Insulin (Levemir) [Levemir Vial] 25 unit SQ HS 05/17/17 Insulin Lispro [Humalog] 8 unit SQ TID 05/17/17 Isosorbide Dinitrate [Isordil -] 5 mg PO BID 05/17/17 Latanoprost 0.005% Eye Drops [Xalatan 0.005% Eye Drops -] 1 drop OU HS 05/17/17 Metoprolol Succinate 50 mg PO DAILY 05/17/17 Rosuvastatin [Crestor -] 20 mg PO HS 05/17/17 Timolol [Betimol] 5 ml OP BID 05/17/17 Aspirin [Aspirin EC] 81 mg PO ASDIR 07/06/17 Oxycodone HCl 5 mg PO PRN 07/21/17 Review of Systems - Review of Systems Able to Perform ROS?: Yes Comments:: 07/31/17 20:14 GENERAL/CONSTITUTIONAL: No: fever, chills, weakness, loss of appetite. HEAD, EYES, EARS, NOSE AND THROAT: No: change in vision, ear pain, discharge, sore throat, throat swelling. CARDIOVASCULAR:+ chest pain. No:lightheadedness, palpitations, syncope RESPIRATORY: No: cough, shortness of breath, wheezing, hemoptysis, stridor. GASTROINTESTINAL: No: nausea, vomiting, abdominal cramping, diarrhea, rectal bleeding, constipation. GENITOURINARY: No: dysuria, hematuria, frequency, urgency, flank pain. MUSCULOSKELETAL: No: back pain, neck pain, joint pain, muscle swelling or pain SKIN: No: lesions, pallor, rash or easy bruising. NEUROLOGIC: No: headache, vertigo, paresthesias, weakness ENDOCRINE: No: unexplained weight gain or loss HEMATOLOGIC/LYMPHATIC: No: anemia, easy bleeding, swelling nodes <Vy Nicholas - Last Filed: 07/31/17 21:20> *Physical Exam - Vital Signs Last Vital Signs Temp Pulse Resp BP Pulse Ox 98 F 78 18 134/73 100 07/31/17 18:54 07/31/17 18:54 07/31/17 18:54 07/31/17 18:54 07/31/17 18:54 - Physical Exam Comments: 07/31/17 20:14 GENERAL: The patient is in no acute distress. HEAD: Normal with no signs of trauma. EYES: PERRLA, EOMI, sclera anicteric, conjunctiva clear. ENT: Ears normal, nares patent, oropharynx clear without exudates. Moist mucous membranes. NECK: Normal range of motion, supple without lymphadenopathy, JVD, or masses. LUNGS: Breath sounds equal, clear to auscultation bilaterally. No wheezes, and no crackles. HEART:Regular rate and rhythm, normal S1 and S2 without murmur, rub or gallop. ABDOMEN: Soft, nontender, normoactive bowel sounds. No guarding, no rebound. EXTREMITIES: Normal range of motion, no edema. No clubbing or cyanosis. No erythema, or tenderness. NEUROLOGICAL: Cranial nerves II through XII grossly intact. Normal speech. No focal neurological deficits. MUSCULOSKELETAL: Back nontender to palpation, no CVA tenderness SKIN: Warm, Dry, normal turgor, no rashes or lesions noted. <Vy Nicholas - Last Filed: 07/31/17 21:20> - Vital Signs Last Vital Signs Temp Pulse Resp BP Pulse Ox 98 F 78 18 134/73 100 07/31/17 18:54 07/31/17 18:54 07/31/17 18:54 07/31/17 18:54 07/31/17 18:54 <Lucina Rivers - Last Filed: 08/02/17 00:08> ED Treatment Course - LABORATORY CBC & Chemistry Diagram: 07/31/17 19:50 07/31/17 19:50 - ADDITIONAL ORDERS Additional order review: 07/31/17 19:50 RBC 4.30 MCV 94.7 MCHC 33.5 RDW 13.1 MPV 9.7 Neutrophils % 46.3 D Lymphocytes % 41.6 H D Monocytes % 7.4 Eosinophils % 4.0 Basophils % 0.7 <Vy Nicholas - Last Filed: 07/31/17 21:20> - LABORATORY CBC & Chemistry Diagram: 08/01/17 06:00 08/01/17 06:00 <Lucina Rivers - Last Filed: 08/02/17 00:08> Medical Decision Making - Medical Decision Making 07/31/17 20:[address] Garcia via phone answering service. Awaiting call back. 07/31/17 21:[address] Garcia via phone answering service. <Vy Nicholas - Last Filed: 07/31/17 21:20> - Medical Decision Making 56 yo F h/o HTN, HLD, borderline DM, CAD s/p TX and stent (most recent last year ) who presents to the ER with severe midsternal/left sided chest pain which has not improved with nitro Pt states she returned from [place] Prior to take off she noted chest pain " which took the air out of her" Rated 10/10, no radiation to the arm, jaw or back (which is different than her admission for ACS) No fevers or chills No cough No nausea or vomiting Pain worse with deep breath Pt s/p recent procedure left lower extremity DD: ACS, PE, Pneumothorax, Pleural effusion, Pneumonia 07/31/17 21:06 Laboratory Tests 07/31/17 07/31/17 19:50 19:50 WBC 10.3 H Hgb 13.6 Hct 40.7 Plt Count 351 BUN 35 H Creatinine 1.4 H Creatine Kinase 118 Troponin I < 0.02 CTA ordered Pt has contrast allergy (Hives) will pre medicate Labs reveal WADE Call placed to industrial technology teacher States pt can not be scanned Will hydrate Will give Lovenox Will admit Trop is negative EKG : SR rate of 76 bpm, axis nml, St segments II with .5 mm elevation (similar to prior), t waves upright EKG unchanged 07/31/17 21:15 07/31/17 21:18 07/31/17 22:13 Unable to reach pmd Hospitalist contacted Will admit to their service <Lucina Rivers - Last Filed: 08/02/17 00:08> *DC/Admit/Observation/Transfer - Attestations Scribe Attestion: 07/31/17 20:15 Documentation prepared by Vy Nicholas, acting as medical research scientist for Lucina Rivers MD <Vy Nicholas - Last Filed: 07/31/17 21:20> - Discharge Dispostion Decision to Admit order: Yes <Lucina Rivers - Last Filed: 08/02/17 00:08> Diagnosis at time of Disposition: Chest pain Qualifiers: Chest pain type: unspecified Qualified Code(s): R07.9 - Chest pain, unspecified - Discharge Dispostion Condition at time of disposition: Stable
[2017-07-31] MEDS ORDERED: morphine CARPU-JECT 4 MG/1 ML DISP.SYRIN IVPUSH ONE (19:48)
[2017-07-31] MEDS ORDERED: ASPIRIN 81 MG CHEWABLE TABLETS PO ONE (19:48)
[2017-07-31] MEDS ORDERED: methylPREDNISolone NA SUCC 125 MG/2 ML VIAL IVPUSH ONE (19:49)
[2017-07-31 19:58] LABS: BASO % 0.7 % (0-2.0); HEMATOCRIT 40.7 % (32.4-45.2); HEMOGLOBIN 13.6 GM/dL (10.7-15.3); LYMPH % 41.6 % (8-40); MCH 31.7 pg (25.7-33.7); MCHC 33.5 g/dl (32.0-36.0); MEAN CELL VOLUME 94.7 fl (80-96); MEAN PLT VOLUME 9.7 fl (7.5-11.1); MONO % 7.4 % (3.8-10.2); NEUT % 46.3 % (42.8-82.8); PLATELET COUNT 351 K/MM3 (134-434); RDW 13.1 % (11.6-15.6); WHITE BLOOD COUNT 10.3 K/mm3 (4.0-10.0)
[2017-07-31 20:18] LABS: ALBUMIN 3.5 g/dl (3.4-5.0); ANION GAP 8 (8-16); BILIRUBIN,TOTAL 0.3 mg/dL (0.2-1.0); BLOOD UREA NITROGEN 35 mg/dL (7-18); CALCIUM 9.7 mg/dL (8.5-10.1); CHLORIDE 104 mmol/L (98-107); CO2 28 mmol/L (21-32); CREATININE 1.4 mg/dL (0.55-1.02); GLUCOSE,RANDOM 281 mg/dL (74-106); POTASSIUM 4.9 mmol/L (3.5-5.1); SGOT/AST 15 U/L (15-37); SGPT/ALT 23 U/L (12-78); SODIUM 140 mmol/L (136-145); TOT PROT 7.8 g/dl (6.4-8.2)
[2017-07-31 20:21] LABS: ALK PHOS 127 U/L (45-117)
[2017-07-31] MEDS ORDERED: morphine SULFATE 4 MG/ML VIAL ONE (20:27)
[2017-07-31] MEDS ORDERED: ASPIRIN 81 MG CHEWABLE TABLETS ONE (20:27)
[2017-07-31] MEDS: SODIUM CHLORIDE 1,000 ML IV SCH (20:42)
[2017-07-31] MEDS ORDERED: methylPREDNISolone NA SUCC 125 MG/2 ML VIAL ONE (21:40)
[2017-07-31 22:07] LABS: URINE APPEARANCE CLEAR; URINE BILIRUBIN NEGATIVE (<2.0 mg/dL); URINE COLOR LTYELLOW; URINE GLUCOSE (UA) 3+ (NEGATIVE); URINE KETONE NEGATIVE (NEGATIVE); URINE LEUK ESTERASE NEGATIVE (NEGATIVE); URINE NITRITE NEGATIVE (NEGATIVE); URINE UROBILINOGEN NEGATIVE mg/dL (0.2-1.0)
[2017-07-31 22:18] LABS: URINE PROTEIN 1+ (NEGATIVE)
[2017-07-31 22:20] LABS: EPI CELLS MODERATE /HPF (FEW); URINE BACTERIA FEW /hpf (NONE SEEN); URINE HYALINE CAST 2 /lpf; URINE MUCUS MANY
[2017-08-01] MEDS ORDERED: ENOXAPARIN NA (PORCINE) 100 MG/1 ML DISP.SYRIN SQ ONE (00:53)
[2017-08-01] MEDS: ENOXAPARIN NA (PORCINE) 80 MG/0.8 ML DISP.SYRIN SQ SCH (00:54)
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
[2017-08-01 02:46] VITALS: BMI 35.3
[2017-08-01] MEDS ORDERED: ACETAMINOPHEN 500 MG TABLET (FP) PO PRN (02:51)
[2017-08-01] MEDS ORDERED: ALBUTEROL SO4 18 GM HFA INHALER IH PRN (02:56)
--- NOTE | 2017-08-01 06:28 | PN ---
Teaching Attending Note Name of Resident: Fiordaliza Nair ATTENDING PHYSICIAN STATEMENT I saw and evaluated the patient. Chart, data, imaging reviewed. I reviewed the resident's note and discussed the case with the resident. I agree with the resident's findings and plan as documented. SUBJECTIVE: 56 y/o F with PMH asthma, CAD s/o [place] (two stents), 2011, 2018, recent b/l lower extremity angiography (no stents placed as per pt), CKD, DM56 was returning from [place] on airplane yesterday when she heard a pop in her left upper extremity (unknown exactly where) when she was reaching to place earplug into her left ear. Patient then experienced a tremendous pain in her entire left upper extremity, heard "pop", associated with decreased ROM of shoulder and tenderness. Pain was reported as different from previous cardiac pain. No shortness of breath. Minimal to no alleviation of left arm/chest pain to NGL. ROS -negative except for above mentioned OBJECTIVE: Last Vital Signs Temp Pulse Resp BP Pulse Ox 97.9 F 77 20 126/85 99 08/01/17 05:33 08/01/17 05:33 08/01/17 05:33 08/01/17 05:33 08/01/17 02:30 General- nad, aaox3 heent- at, nc, moist oral mucosa neck -supple cv -s1+s2+rrr chest -clear lungs MSK- left shoulder extreme tenderness to palpation- unable to abduct left arm laterally or anteriorly, no gross deformities noted Abnormal Lab Results 07/31/17 07/31/17 07/31/17 19:50 19:50 21:50 WBC 10.3 H Lymphocytes % 41.6 H D BUN 35 H Creatinine 1.4 H Random Glucose 281 H Alkaline Phosphatase 127 H Urine Protein 1+ H Urine Glucose (UA) 3+ H ekg -reviewed, nsr, no ischemic changes CT of chest reviewed- clear lung parenchyma ASSESSMENT AND PLAN: #56 yo woman with acute onset of musculoskeletal pain involving left shoulder- should r/o left shoulder dislocation and rotator cuff injury as cannot abduct arm. Less likely to be ACS given much more likely alternative diagnosis given physical exam. Do not suspect- Wells score was 1.5. Patient is not hypoxemic or tachycardic. -admit to tele/obs -trend troponin -tylenol and morphine IV prn for pain control -orthopedics consult -immbolization of left arm in sling -xray of left shoulder to check for dislocation -mri of left shoulder to assess fort joint capsule injury -EKG -c/w antiplatelet therapy for Hx of stents #DVT prophylaxis -heparin sc -low Na, low fat diet
[2017-08-01 07:33] LABS: HEMATOCRIT 38.1 % (32.4-45.2); MCH 32.1 pg (25.7-33.7); MCHC 34.1 g/dl (32.0-36.0); MEAN CELL VOLUME 94.2 fl (80-96); MEAN PLT VOLUME 9.4 fl (7.5-11.1); PLATELET COUNT 321 K/MM3 (134-434); RBC 4.05 M/mm3 (3.60-5.2); RDW 12.9 % (11.6-15.6); WHITE BLOOD COUNT 9.1 K/mm3 (4.0-10.0)
[2017-08-01 07:51] LABS: INR 1.01 (0.82-1.09); PROTHROMBIN TIME (PATIENT) 11.4 SEC (9.7-13.0)
[2017-08-01 07:58] LABS: ANION GAP 6 (8-16); BLOOD UREA NITROGEN 33 mg/dL (7-18); CALCIUM 9.2 mg/dL (8.5-10.1); CHLORIDE 104 mmol/L (98-107); CHOLESTEROL 162 mg/dL (50-200); CO2 29 mmol/L (21-32); CREATININE 1.3 mg/dL (0.55-1.02); GLUCOSE,RANDOM 275 mg/dL (74-106); HDL CHOLESTEROL 61 mg/dL (40-60); PHOSPHOROUS 3.9 mg/dL (2.5-4.9); POTASSIUM 4.9 mmol/L (3.5-5.1); SODIUM 139 mmol/L (136-145); TRIGLYCERIDES 254 mg/dL (35-160)
[2017-08-01] MEDS ORDERED: PT OWN MED DRAWER 7, Y5N ONE ×4 (09:24→22:20)
[2017-08-01] MEDS: CLOPIDOGREL BISULFATE 75 MG TABLET (FP) PO SCH (09:52)
[2017-08-01] MEDS: MORPHINE SULFATE 2 MG/ML VIAL IVPUSH PRN ×2 (09:52→22:00)
[2017-08-01] MEDS: BRIMONIDINE TARTRATE 0.2% OPHTHALMIC 5 ML BOTTLE OU SCH ×2 (09:53→21:50)
[2017-08-01] MEDS: GABAPENTIN 300 MG CAPSULE (FP) PO SCH ×2 (09:53→21:49)
[2017-08-01] MEDS: ASPIRIN COATED 81 MG TABLET.EC PO SCH (09:53)
[2017-08-01] MEDS: TIMOLOL 0.5% OPHTHALMIC SOL 5 ML BOTTLE OU SCH ×2 (09:54→21:50)
[2017-08-01] MEDS: ISOSORBIDE DINITRATE 5 MG TABLET PO SCH ×2 (10:38→21:49)
--- NOTE | 2017-08-01 12:52 | PN ---
Progress Note (short form) - Note Progress Note: Pt seen and examined. She denies any recent h/o trauma. She c/o 1 month of left shoulder pain. No recent infections. Her pain increases with upward motion. No neurologic sx. AVSS PE LUE is NVI Full, nl ROM at the left elbow, wrist, hand, c-spine Any upward motion of the left shoulder causes severe pain. Limited FF, ER, IR, abd Xrays Left shoulder - are nl, no acute pathology Imp` Subacute (over 1 month) of increasing left shoulder pain, L shoulder bursitis. Rec Cortisone injection either as an in patient or out patient. Can't take NSAIDS, on Plavix
[2017-08-01] MEDS ORDERED: methylPREDNISolone ACET (DEPO) 80 MG/1 ML VIAL IAR ONE (12:57)
[2017-08-01] MEDS ORDERED: INSULIN (NOVOLOG) ASPART 100 UNITS/ML 10ML VIAL SQ ONE (18:15)
--- NOTE | 2017-08-01 19:39 | EKG ---
Test Reason : Blood Pressure : / mmHG Vent. Rate : 072 BPM Atrial Rate : 072 BPM P-R Int : 146 ms QRS Dur : 070 ms QT Int : 404 ms P-R-T Axes : 046 021 049 degrees QTc Int : 442 ms NORMAL SINUS RHYTHM NORMAL ECG WHEN COMPARED WITH ECG OF 17-MAY-2017 16:30, NO SIGNIFICANT CHANGE WAS FOUND Confirmed by LOUIE CARLOS MD ([id number]) on 08/01/2017 7:39:31 PM Referred By: Confirmed By:LOUIE CARLOS MD
[2017-08-01] MEDS: SODIUM CHLORIDE 1,000 ML IV SCH (20:32)
--- NOTE | 2017-08-01 20:35 | PN ---
Progress Note, Physician - Current Medication List Current Medications: Active Medications Acetaminophen (Tylenol -) 500 mg PO Q6H PRN PRN Reason: FEVER/PAIN LEVEL 1-5 Albuterol Sulfate (Ventolin Hfa Inhaler -) 2 puff IH Q6H PRN PRN Reason: SHORT OF BREATH/WHEEZING Aspirin (Ecotrin -) 81 mg PO Q2D@1000 [facility] Last Admin: 08/01/17 09:53 Dose: 81 mg Brimonidine Tartrate (Alphagan 0.2% -) 1 drop OU BID [facility] Last Admin: 08/01/17 09:53 Dose: 1 drop Clopidogrel Bisulfate (Plavix -) 75 mg PO DAILY [facility] Last Admin: 08/01/17 09:52 Dose: 75 mg Enoxaparin Sodium (Lovenox -) 90 mg SQ ONCE [facility] Last Admin: 08/01/17 00:54 Dose: 90 mg Gabapentin (Neurontin -) 600 mg PO BID [facility] Last Admin: 08/01/17 09:53 Dose: 600 mg Sodium Chloride (Normal Saline -) 1,000 mls @ 100 mls/hr IV ASDIR [facility] Last Admin: 08/01/17 20:32 Dose: Not Given Insulin Detemir (Levemir Vial) 25 units SQ HS [facility] Isosorbide Dinitrate (Isordil -) 5 mg PO BID [facility] Last Admin: 08/01/17 10:38 Dose: 5 mg Latanoprost (Xalatan 0.005% Eye Drops -) 1 drop OU HS [facility] Methylprednisolone Acetate (Depo-Medrol -) 80 mg IAR ONCE ONE Stop: 08/01/17 15:31 Metoprolol Succinate (Toprol Xl -) 50 mg PO DAILY [facility] Last Admin: 08/01/17 09:53 Dose: 50 mg Morphine Sulfate (Morphine Sulfate) 2 mg IVPUSH Q6H PRN PRN Reason: PAIN LEVEL 7 - 10 Last Admin: 08/01/17 09:52 Dose: 2 mg Rosuvastatin Calcium (Crestor -) 20 mg PO HS [facility] Timolol Maleate (Timoptic 0.5%) 1 drop OU BID [facility] Last Admin: 08/01/17 09:54 Dose: 1 drop - Objective Vital Signs: Vital Signs Temperature 97.9 F 08/01/17 14:00 Pulse Rate 64 08/01/17 14:00 Respiratory Rate 20 08/01/17 14:00 Blood Pressure 107/58 08/01/17 14:00 O2 Sat by Pulse Oximetry (%) 99 08/01/17 09:00 Constitutional: Yes: No Distress HENT: Yes: Atraumatic Neck: Yes: Supple Cardiovascular: Yes: Regular Rate and Rhythm Respiratory: Yes: CTA Bilaterally Gastrointestinal: Yes: Normal Bowel Sounds Extremities: Yes: WNL Edema: No Peripheral Pulses WNL: Yes Neurological: Yes: Alert, Oriented Labs: CBC, BMP 08/01/17 06:00 08/01/17 06:00 INR, PTT INR 1.01 (0.82-1.09) 08/01/17 06:00 Problem List - Problems (1) Left shoulder pain Assessment/Plan: ortho note reviewed for mri prn pain meds Code(s): M25.512 - PAIN IN LEFT SHOULDER (2) Chest pain Assessment/Plan: fu troponins dvt negative Code(s): R07.9 - CHEST PAIN, UNSPECIFIED Qualifiers: Chest pain type: unspecified Qualified Code(s): R07.9 - Chest pain, unspecified (3) Diabetes Assessment/Plan: on insulin and bgms Code(s): E11.9 - TYPE 2 DIABETES MELLITUS WITHOUT COMPLICATIONS
[2017-08-01] MEDS: INSULIN (LEVEMIR) 100 UNITS/ML UNITS SQ SCH (21:49)
[2017-08-01] MEDS: ROSUVASTATIN CA 20 MG TABLET (FP) PO SCH (21:49)
[2017-08-01] MEDS: LATANOPROST 0.005% OPHTH SOLN 2.5ML BOTTLE OU SCH (21:50)
--- NOTE | 2017-08-02 08:36 | PN ---
Progress Note (short form) - Note Progress Note: Ortho Pt seen and examined- left shoulder pain is improving + ttp, FF- 90, ER 20, Abd 60, IR- buttock, + neer, + baugh, ? empty can nvi a/p MRI today r/o RCT vs impingement f/u after MRI d/w Dr. Pennington
[2017-08-02] MEDS ORDERED: PT OWN MED DRAWER 7, Y5N ONE ×2 (09:17→21:59)
[2017-08-02] MEDS: GABAPENTIN 300 MG CAPSULE (FP) PO SCH ×2 (09:29→21:45)
[2017-08-02] MEDS: CLOPIDOGREL BISULFATE 75 MG TABLET (FP) PO SCH (09:30)
[2017-08-02] MEDS: ENOXAPARIN NA (PORCINE) 80 MG/0.8 ML DISP.SYRIN SQ SCH ×2 (09:30→22:49)
[2017-08-02] MEDS: ISOSORBIDE DINITRATE 5 MG TABLET PO SCH ×2 (09:30→18:03)
[2017-08-02] MEDS: BRIMONIDINE TARTRATE 0.2% OPHTHALMIC 5 ML BOTTLE OU SCH ×2 (09:31→21:46)
[2017-08-02] MEDS: TIMOLOL 0.5% OPHTHALMIC SOL 5 ML BOTTLE OU SCH ×2 (09:32→21:46)
[2017-08-02] MEDS: MORPHINE SULFATE 2 MG/ML VIAL IVPUSH PRN ×3 (09:56→21:52)
--- NOTE | 2017-08-02 16:31 | PN ---
Progress Note, Physician - Current Medication List Current Medications: Active Medications Acetaminophen (Tylenol -) 500 mg PO Q6H PRN PRN Reason: FEVER/PAIN LEVEL 1-5 Albuterol Sulfate (Ventolin Hfa Inhaler -) 2 puff IH Q6H PRN PRN Reason: SHORT OF BREATH/WHEEZING Aspirin (Ecotrin -) 81 mg PO Q2D@1000 [facility] Last Admin: 08/01/17 09:53 Dose: 81 mg Brimonidine Tartrate (Alphagan 0.2% -) 1 drop OU BID [facility] Last Admin: 08/02/17 09:31 Dose: 1 drop Clopidogrel Bisulfate (Plavix -) 75 mg PO DAILY [facility] Last Admin: 08/02/17 09:30 Dose: 75 mg Enoxaparin Sodium (Lovenox -) 90 mg SQ ONCE [facility] Last Admin: 08/02/17 09:30 Dose: Not Given Gabapentin (Neurontin -) 600 mg PO BID [facility] Last Admin: 08/02/17 09:29 Dose: 600 mg Insulin Detemir (Levemir Vial) 25 units SQ [facility] Last Admin: 08/01/17 21:49 Dose: 25 units Isosorbide Dinitrate (Isordil -) 5 mg PO BIDISORDIL [facility] Last Admin: 08/02/17 09:30 Dose: 5 mg Latanoprost (Xalatan 0.005% Eye Drops -) 1 drop OU [facility] Last Admin: 08/01/17 21:50 Dose: 1 drop Metoprolol Succinate (Toprol Xl -) 50 mg PO DAILY [facility] Last Admin: 08/02/17 09:29 Dose: 50 mg Morphine Sulfate (Morphine Sulfate) 2 mg IVPUSH Q6H PRN PRN Reason: PAIN LEVEL 7 - 10 Last Admin: 08/02/17 15:48 Dose: 2 mg Rosuvastatin Calcium (Crestor -) 20 mg PO [facility] Last Admin: 08/01/17 21:49 Dose: 20 mg Timolol Maleate (Timoptic 0.5%) 1 drop OU BID [facility] Last Admin: 08/02/17 09:32 Dose: 1 drop - Objective Vital Signs: Vital Signs Temperature 98.6 F 08/02/17 14:00 Pulse Rate 65 08/02/17 14:00 Respiratory Rate 20 08/02/17 09:00 Blood Pressure 96/62 08/02/17 14:00 O2 Sat by Pulse Oximetry (%) 99 08/02/17 09:00 Constitutional: Yes: No Distress HENT: Yes: Atraumatic Neck: Yes: Supple Cardiovascular: Yes: Regular Rate and Rhythm Respiratory: Yes: CTA Bilaterally Gastrointestinal: Yes: Normal Bowel Sounds Extremities: Yes: WNL Edema: No Peripheral Pulses WNL: Yes Neurological: Yes: Alert, Oriented Labs: CBC, BMP 08/01/17 06:00 08/01/17 06:00 INR, PTT INR 1.01 (0.82-1.09) 08/01/17 06:00 Problem List - Problems (1) Left shoulder pain Assessment/Plan: ortho note reviewed awaiting mri Code(s): M25.512 - PAIN IN LEFT SHOULDER (2) Chest pain Assessment/Plan: troponins negative all notes and reports reviewed dvt negative Code(s): R07.9 - CHEST PAIN, UNSPECIFIED Qualifiers: Chest pain type: unspecified Qualified Code(s): R07.9 - Chest pain, unspecified (3) Diabetes Assessment/Plan: on insulin and bgms Code(s): E11.9 - TYPE 2 DIABETES MELLITUS WITHOUT COMPLICATIONS
[2017-08-02] MEDS: ROSUVASTATIN CA 20 MG TABLET (FP) PO SCH (21:45)
[2017-08-02] MEDS: INSULIN (LEVEMIR) 100 UNITS/ML UNITS SQ SCH (21:46)
[2017-08-02] MEDS: LATANOPROST 0.005% OPHTH SOLN 2.5ML BOTTLE OU SCH (21:46)
[2017-08-03] MEDS: MORPHINE SULFATE 2 MG/ML VIAL IVPUSH PRN ×2 (09:08→17:13)
[2017-08-03] MEDS: CLOPIDOGREL BISULFATE 75 MG TABLET (FP) PO SCH (09:12)
[2017-08-03] MEDS: ASPIRIN COATED 81 MG TABLET.EC PO SCH (09:12)
[2017-08-03] MEDS: GABAPENTIN 300 MG CAPSULE (FP) PO SCH ×2 (09:12→21:24)
[2017-08-03] MEDS: ISOSORBIDE DINITRATE 5 MG TABLET PO SCH ×2 (09:13→17:32)
[2017-08-03] MEDS: TIMOLOL 0.5% OPHTHALMIC SOL 5 ML BOTTLE OU SCH ×2 (09:13→21:24)
[2017-08-03] MEDS: BRIMONIDINE TARTRATE 0.2% OPHTHALMIC 5 ML BOTTLE OU SCH ×2 (09:13→21:24)
[2017-08-03] MEDS: methylPREDNISolone ACET (DEPO) 80 MG/1 ML VIAL IAR ONE (09:37)
--- NOTE | 2017-08-03 17:33 | PN ---
Progress Note, Physician History of Present Illness: feeling better - Current Medication List Current Medications: Active Medications Acetaminophen (Tylenol -) 500 mg PO Q6H PRN PRN Reason: FEVER/PAIN LEVEL 1-5 Last Admin: 08/02/17 19:54 Dose: 500 mg Albuterol Sulfate (Ventolin Hfa Inhaler -) 2 puff IH Q6H PRN PRN Reason: SHORT OF BREATH/WHEEZING Aspirin (Ecotrin -) 81 mg PO Q2D@1000 [facility] Last Admin: 08/03/17 09:12 Dose: 81 mg Brimonidine Tartrate (Alphagan 0.2% -) 1 drop OU BID [facility] Last Admin: 08/03/17 09:13 Dose: 1 drop Clopidogrel Bisulfate (Plavix -) 75 mg PO DAILY [facility] Last Admin: 08/03/17 09:12 Dose: 75 mg Gabapentin (Neurontin -) 600 mg PO BID [facility] Last Admin: 08/03/17 09:12 Dose: 600 mg Insulin Detemir (Levemir Vial) 25 units SQ [facility] Last Admin: 08/02/17 21:46 Dose: 25 units Isosorbide Dinitrate (Isordil -) 5 mg PO BIDISORDIL [facility] Last Admin: 08/03/17 17:32 Dose: 5 mg Latanoprost (Xalatan 0.005% Eye Drops -) 1 drop OU [facility] Last Admin: 08/02/17 21:46 Dose: 1 drop Metoprolol Succinate (Toprol Xl -) 50 mg PO DAILY [facility] Last Admin: 08/03/17 09:12 Dose: 50 mg Morphine Sulfate (Morphine Sulfate) 2 mg IVPUSH Q6H PRN PRN Reason: PAIN LEVEL 7 - 10 Last Admin: 08/03/17 17:13 Dose: 2 mg Rosuvastatin Calcium (Crestor -) 20 mg PO HS [facility] Last Admin: 08/02/17 21:45 Dose: 20 mg Timolol Maleate (Timoptic 0.5%) 1 drop OU BID [facility] Last Admin: 08/03/17 09:13 Dose: 1 drop - Objective Vital Signs: Vital Signs Temperature 98.2 F 08/03/17 14:00 Pulse Rate 102 H 08/03/17 14:00 Respiratory Rate 18 08/03/17 08:28 Blood Pressure 159/91 08/03/17 14:00 O2 Sat by Pulse Oximetry (%) 99 08/03/17 08:28 Constitutional: Yes: No Distress HENT: Yes: Atraumatic Neck: Yes: Supple Cardiovascular: Yes: Regular Rate and Rhythm Respiratory: Yes: CTA Bilaterally Gastrointestinal: Yes: Normal Bowel Sounds Extremities: Yes: WNL Edema: No Peripheral Pulses WNL: Yes Neurological: Yes: Alert, Oriented Labs: CBC, BMP 08/01/17 06:00 08/01/17 06:00 INR, PTT INR 1.01 (0.82-1.09) 08/01/17 06:00 Problem List - Problems (1) Left shoulder pain Assessment/Plan: ortho note reviewed mri done report reviewed ortho input Code(s): M25.512 - PAIN IN LEFT SHOULDER (2) Chest pain Code(s): R07.9 - CHEST PAIN, UNSPECIFIED Qualifiers: Chest pain type: unspecified Qualified Code(s): R07.9 - Chest pain, unspecified (3) Diabetes Code(s): E11.9 - TYPE 2 DIABETES MELLITUS WITHOUT COMPLICATIONS
[2017-08-03] MEDS: ROSUVASTATIN CA 20 MG TABLET (FP) PO SCH (21:24)
[2017-08-03] MEDS: LATANOPROST 0.005% OPHTH SOLN 2.5ML BOTTLE OU SCH (21:24)
[2017-08-03] MEDS: INSULIN (LEVEMIR) 100 UNITS/ML UNITS SQ SCH (21:25)
[2017-08-04] MEDS: MORPHINE SULFATE 2 MG/ML VIAL IVPUSH PRN (00:41)
[2017-08-04] MEDS ORDERED: MORPHINE SULFATE 2 MG/ML VIAL IVPUSH PRN (08:55)
[2017-08-04] MEDS: CLOPIDOGREL BISULFATE 75 MG TABLET (FP) PO SCH (09:27)
[2017-08-04] MEDS: GABAPENTIN 300 MG CAPSULE (FP) PO SCH (09:27)
[2017-08-04] MEDS: BRIMONIDINE TARTRATE 0.2% OPHTHALMIC 5 ML BOTTLE OU SCH (09:28)
[2017-08-04] MEDS: ISOSORBIDE DINITRATE 5 MG TABLET PO SCH (09:28)
[2017-08-04] MEDS: TIMOLOL 0.5% OPHTHALMIC SOL 5 ML BOTTLE OU SCH (09:28)
[2017-08-04] MEDS ORDERED: PT OWN MED DRAWER 7, Y5N ONE (09:32)
[2017-08-04] MEDS ORDERED: LIDOCAINE HCL 1%, 10 MG/ML (20ML VIAL) ONE (09:35)
[2017-08-04] MEDS: methylPREDNISolone ACET (DEPO) 80 MG/1 ML VIAL IAR ONE (09:40)
--- NOTE | 2017-08-04 09:44 | PN ---
Progress Note (short form) - Note Progress Note: MRI DOES NOT SHOW ANY RC TEAR OR FX JUST INFLAMMATORY PROCESS PLAN: LEFT SUBACROMIAL SPACE INJECTED WITH DEPO/LIDO, NSAIDS, DC AND F/U IN MY OFFICE X 10 DAYS
--- NOTE | 2017-08-04 12:22 | DS ---
Physical Examination Vital Signs: Vital Signs Temperature 98.3 F 08/04/17 05:45 Pulse Rate 69 08/04/17 05:45 Respiratory Rate 18 08/04/17 05:45 Blood Pressure 129/86 08/04/17 05:45 O2 Sat by Pulse Oximetry (%) 98 08/03/17 21:00 Constitutional: Yes: No Distress HENT: Yes: Atraumatic Neck: Yes: Supple Cardiovascular: Yes: Regular Rate and Rhythm Respiratory: Yes: CTA Bilaterally Gastrointestinal: Yes: Normal Bowel Sounds Extremities: Yes: WNL Neurological: Yes: Alert, Oriented Labs: CBC, BMP 08/01/17 06:00 08/01/17 06:00 Discharge Summary Reason For Visit: CHEST PAIN Current Active Problems Chest pain (Acute) Left shoulder pain (Acute) Condition: Stable - Instructions Diet, Activity, Other Instructions: prn motrin 600 mg po tid Referrals: Gonzalo Pennington MD [Staff Physician] - - Home Medications Comprehensive Discharge Medication List: Ambulatory Orders Albuterol Sulfate [Proventil HFA Inhaler -] 1 - 2 inh PO QID PRN 05/17/17 Brimonidine Tartrate [Alphagan 0.2% -] 1 drop OU BID 05/17/17 Clopidogrel Bisulfate [Clopidogrel] 75 mg PO DAILY 05/17/17 Gabapentin 600 mg PO BID 05/17/17 Insulin (Levemir) [Levemir Vial] 25 unit SQ HS 05/17/17 Insulin Lispro [Humalog] 8 unit SQ TID 05/17/17 Isosorbide Dinitrate [Isordil -] 5 mg PO BID 05/17/17 Latanoprost 0.005% Eye Drops [Xalatan 0.005% Eye Drops -] 1 drop OU HS 05/17/17 Metoprolol Succinate 50 mg PO DAILY 05/17/17 Rosuvastatin [Crestor -] 20 mg PO HS 05/17/17 Timolol [Betimol] 5 ml OP BID 05/17/17 Aspirin [Aspirin EC] 81 mg PO ASDIR 07/06/17 Oxycodone HCl 5 mg PO PRN 07/21/17 [facility] home
[2017-08-04 18:53] VITALS: BP 147/86; PULSE 71; TEMP 98.8
== END 2017-08-04 17:52 | disposition home or self-care (01) ==
LOC: JER 18:50 → JERBED 22:14 → J4W 08-01 02:05
PROVIDERS: ADMIT Internal Medicine; ATTEND Internal Medicine
PROC: 3E033NZ Introduction of Analgesics, Hypnotics, Sedatives into Peripheral Vein, Percutaneous Approach (ICD-10-PCS; principal; 2017-07-31)
PROC: 3E033GC Introduction of Other Therapeutic Substance into Peripheral Vein, Percutaneous Approach (ICD-10-PCS; 2017-07-31)
PROC: 3E013VG Introduction of Insulin into Subcutaneous Tissue, Percutaneous Approach (ICD-10-PCS; 2017-07-31)
DX: R07.9 Chest pain, unspecified (principal); M25.512 Pain in left shoulder; E11.22 Type 2 diabetes mellitus with diabetic chronic kidney disease; I12.9 Hypertensive chronic kidney disease with stage 1 through stage 4 chronic kidney disease, or unspecified chronic kidney disease; N18.9 Chronic kidney disease, unspecified; Z79.4 Long term (current) use of insulin; E78.5 Hyperlipidemia, unspecified; I25.10 Atherosclerotic heart disease of native coronary artery without angina pectoris; I25.2 Old myocardial infarction; I73.9 Peripheral vascular disease, unspecified; J45.909 Unspecified asthma, uncomplicated; Z79.01 Long term (current) use of anticoagulants; Z95.5 Presence of coronary angioplasty implant and graft; Z79.82 Long term (current) use of aspirin
CPT/HCPCS: 36415; 71045-TC-FY; 71250-TC; 73030-TC-LT-FY; 73218-TC-LT; 80048; 80053; 80061; 81003; 81015; 82550; 82962; 83036; 83721; 83735; 84100; 84484; 85025; 85027; 85610; 87086; 93005; 93010; 93971-TC; 96372; 96374; 96375; 96376; 99281-25; G0378; J7030

== ENCOUNTER 2017-10-21 11:04 | Emergency (ER) | payer OTHER ==
[2017-10-21 11:16] VITALS: BMI 33.9
--- NOTE | 2017-10-21 11:20 | PDOC ---
History of Present Illness - General Stated Complaint: R/O CVA Time Seen by Provider: 10/21/17 11:20 - History of Present Illness Initial Comments: 10/21/17 11:58 Ms. Felix is a 56 yo female w/ pmh of CAD s/p [place] (s/p 2 stents July 2011 and Mar 2017 - on plavix since) asthma, HTN, HLD, PAD who presents for evaluation of 1 day history of right sided facial tingling. Patient reports that the area next to her right eye was tingling last night and that it progressed to involve her forehead this morning while on the way to her Neurologist (patient being evaluated by Dr. Kaba for leg pain thought to be neurological in nature). Neurologist sent her in for MRI for further evaluation. Patient has no other complaints at this time. The patient denies chest pain, shortness of breath, headache and dizziness. Denies fever, chills, nausea, vomit, diarrhea and constipation. Denies dysuria, frequency, urgency and hematuria. NIH Stroke Scale - Last Known Well Date/Time & Onset Date Last Known Well: 10/20/17 Time Last Known Well: 19:00 - Initial Evaluation Level of consciousness: Alert Ask patient the month and their age: Answers both correctly Ask patient to open & close eyes; make fist and let go: Obeys both correctly Best gaze (horizontal eye movement): Normal Visual field testing: No visual field loss Facial paresis (Show teeth/raise eyebrows/close eyes tight): Normal symmetrical movement Motor Function: Left Arm: Normal Motor Function: Right Arm: Normal (extends arm 90 (or 45) degrees for 10 seconds without drift Motor Function: Left Leg: Normal (extends leg 30 degrees for 5 seconds without drift) Motor Function: Right Leg: Normal (extends leg 30 degrees for 5 seconds without drift) Limb Ataxia: No ataxia Sensory(Use pinprick test arms,legs,trunk,face/side to side): Normal Best language (Describe picture, name items, read sentences): No Aphasia Dysarthria (read several words): Normal articulation Extinction and Inattention: No abnormality - Total Score NIH Stroke Scale Score: 0 Past History - Past Medical History Allergies/Adverse Reactions: Allergies Allergy/AdvReac Type Severity Reaction Status Date / Time iodine Allergy Severe Rash Verified 10/21/17 11:07 naproxen [From Naprosyn] Allergy Severe Verified 10/21/17 11:07 Home Medications: Ambulatory Orders Brimonidine Tartrate [Alphagan 0.2% -] 1 drop OU BID 05/17/17 Clopidogrel Bisulfate [Clopidogrel] 75 mg PO DAILY 05/17/17 Gabapentin 800 mg PO BID 05/17/17 Insulin (Levemir) [Levemir Vial] 25 unit SQ HS 05/17/17 Insulin Lispro [Humalog] 8 unit SQ TID 05/17/17 Isosorbide Dinitrate [Isordil -] 5 mg PO BID 05/17/17 Latanoprost 0.005% Eye Drops [Xalatan 0.005% Eye Drops -] 1 drop OU HS 05/17/17 Metoprolol Succinate 50 mg PO DAILY 05/17/17 Rosuvastatin [Crestor -] 20 mg PO HS 05/17/17 Timolol [Betimol] 5 ml OP BID 05/17/17 Aspirin [Aspirin EC] 81 mg PO ASDIR 07/06/17 Albuterol Sulfate [Proventil HFA Inhaler -] 1 - 2 inh PO QID PRN #1 [id number].[email or web address].[email or web address] 08/04/17 Anemia: No Asthma: Yes Cancer: No Cardiac Disorders: Yes (H/O [place] AND STENT PLACEMENT IN 08/09/13) CVA: No COPD: No DVT: No Dementia: No Diabetes: Yes (IDDM) GI Disorders: Yes (COLON POLYP) Disorders: Yes (cyst on right kidney) HTN: Yes Hypercholesterolemia: Yes Liver Disease: No Seizures: No Thyroid Disease: No - Surgical History Abdominal Surgery: Yes Appendectomy: Yes Cardiac Surgery: Yes (stent placement) Cholecystectomy: No Lung Surgery: No Neurologic Surgery: No Orthopedic Surgery: Yes (ARTHROSCOPY RIGHT KNEE) - Family Disease History Family Disease History: Heart Disease: Father, Mother - Suicide/Smoking/Psychosocial Hx Smoking History: Never smoked Have you smoked in the past 12 months: No If you are a former smoker, when did you quit?: 1994 Hx Alcohol Use: No Drug/Substance Use Hx: No Substance Use Type: None Hx Substance Use Treatment: No Review of Systems - Review of Systems Comments:: 10/21/17 12:01 GENERAL/CONSTITUTIONAL: No fever or chills. No weakness. HEAD, EYES, EARS, NOSE AND THROAT: +Facial symptoms as described. No change in vision. No ear pain or discharge. No sore throat. CARDIOVASCULAR: No chest pain or shortness of breath RESPIRATORY: No cough, wheezing, or hemoptysis. GASTROINTESTINAL: No nausea, vomiting, diarrhea or constipation. GENITOURINARY: No dysuria, frequency, or change in urination. MUSCULOSKELETAL: No joint or muscle swelling or pain. No neck or back pain. SKIN: No rash NEUROLOGIC: No headache, vertigo, loss of consciousness, or change in strength/ sensation. ENDOCRINE: No increased thirst. No abnormal weight change HEMATOLOGIC/LYMPHATIC: No anemia, easy bleeding, or history of blood clots. ALLERGIC/IMMUNOLOGIC: No hives or skin allergy. *Physical Exam - Vital Signs Last Vital Signs Temp Pulse Resp BP Pulse Ox 98.9 F 91 H 18 163/98 98 10/21/17 11:14 10/21/17 11:14 10/21/17 11:14 10/21/17 11:14 10/21/17 11:14 - Physical Exam Comments: 10/21/17 12:02 GENERAL: Awake, alert, and fully oriented, in no acute distress HEAD: No signs of trauma, normocephalic, atraumatic EYES: PERRLA, EOMI, sclera anicteric, conjunctiva clear ENT: Auricles normal inspection, hearing grossly normal, nares patent, oropharynx clear without exudates. Moist mucosa NECK: Normal ROM, supple, no lymphadenopathy, JVD, or masses LUNGS: No distress, speaks full sentences, clear to auscultation bilaterally HEART: Regular rate and rhythm, normal S1 and S2, no murmurs, rubs or gallops, peripheral pulses normal and equal bilaterally. ABDOMEN: Soft, nontender, normoactive bowel sounds. No guarding, no rebound. No masses EXTREMITIES: Normal inspection, Normal range of motion, no edema. No clubbing or cyanosis. NEUROLOGICAL: Cranial nerves II through XII grossly intact. Normal speech, normal gait, no focal sensorimotor deficits SKIN: Warm, Dry, normal turgor, no rashes or lesions noted. ED Treatment Course - LABORATORY CBC & Chemistry Diagram: 10/21/17 11:57 10/21/17 11:57 Medical Decision Making - Medical Decision Making 10/21/17 17:10 Ms. Felix is a 56 yo female w/ pmh as described who presents for evaluation of facial tingling. Reglan and fluids given for symptomatic relief. Patient ordered MRI upon arrival for evaluation. Currently continues to await brain MRI. 10/21/17 18:51 Patient received MRI, currently awaiting read for dispo. Patient signed out to Dr. Rao for further evaluation. *DC/Admit/Observation/Transfer Diagnosis at time of Disposition: Facial tingling - Referrals Referrals: Mariah Garcia MD [Primary Care Provider] - - Patient Instructions - Post Discharge Activity
--- NOTE | 2017-10-21 11:56 | PDOC ---
Attending Attestation - Resident Resident Name: Danny Rios - ED Attending Attestation I have performed the following: I have examined & evaluated the patient, The case was reviewed & discussed with the resident, I agree w/resident's findings & plan, Exceptions are as noted - HPI HPI: 10/21/17 11:54 56y F hx of asthma cad s/p stents, htn, hl, presents with compalint of facial numbenss. The patient notes she had some tingling/pressure like pain in her L face starting yesterday. Pt dneis formal pain, or decrased sensation - just states there is a pressure like discomfort in her L face/cheek/forehead. pt denies any fever/chills, neck pain, cp, palpitations, n/v, vision changes (pt has poor vision at baseline), numbnes/tingling/weakness in the extremities - shewent to her neurologist who referred the pt to the ED for evaluation. GENERAL: The patient is awake, alert, and fully oriented, Nontoxic - in no acute distress. HEAD: Normocephalic, atraumatic. EYES: extraocular movements intact, sclera anicteric, conjunctiva clear. LUNGS: Breath sounds equal, clear to auscultation bilaterally. No wheezes, no rhonchi, no rales. HEART: Regular rate and rhythm, normal S1 and S2 without murmur, rub or gallop. ABDOMEN: Soft, nontender, normoactive bowel sounds. No guarding, no rebound. . No CVA tenderness EXTREMITIES: Normal range of motion, no edema. PSYCH: Normal mood, normal affect. SKIN: Warm, Dry, normal turgor, NEURO: Mental status: The patient is oriented x3. Cranial nerves: Cranial nerves II through XII are intact Motor: The upper extremities are 5 over 5 in all muscle groups. The lower extremities are 5 over 5 in all muscle groups. Negative pronator drift Sensation: Sensation is intact to light touch throughout. romberg negative Cerebellar: Fikdew-ppttmr-idvs is normal in both upper extremities. Heel-knee- marshall is normal in both lower extremities. rapid alternating movements are normal. Reflexes: 2+ and symmetric in the upper and lower extremities. Gait: Normal. Differential for the patient's symptoms includes possible complex migraine, consider possible CVA, trigeminal neurologist Will give Reglan, acetaminophen, blood work will obtain MRI per neuro request
[2017-10-21] MEDS ORDERED: METOCLOPRAMIDE HCL INJECTION 10 MG/2 ML VIAL IVPB ONE (11:57)
[2017-10-21] MEDS ORDERED: SODIUM CHLORIDE 1,000 ML IV STA (11:57)
[2017-10-21] MEDS ORDERED: METOCLOPRAMIDE HCL INJECTION 10 MG/2 ML VIAL ONE (12:03)
[2017-10-21 12:10] LABS: BASO % 0.3 % (0-2.0); EOS % 3.1 % (0-4.5); HEMATOCRIT 41.1 % (32.4-45.2); HEMOGLOBIN 13.5 GM/dL (10.7-15.3); LYMPH % 25.6 % (8-40); MCH 31.3 pg (25.7-33.7); MCHC 32.9 g/dl (32.0-36.0); MEAN CELL VOLUME 95.2 fl (80-96); MEAN PLT VOLUME 9.5 fl (7.5-11.1); MONO % 7.2 % (3.8-10.2); NEUT % 63.8 % (42.8-82.8); PLATELET COUNT 333 K/MM3 (134-434); RBC 4.32 M/mm3 (3.60-5.2); RDW 13.8 % (11.6-15.6); WHITE BLOOD COUNT 11.5 K/mm3 (4.0-10.0)
[2017-10-21 12:38] LABS: ALBUMIN 3.5 g/dl (3.4-5.0); ALK PHOS 104 U/L (45-117); ANION GAP 11 MMOL/L (8-16); BILIRUBIN,TOTAL 0.3 mg/dL (0.2-1.0); BLOOD UREA NITROGEN 34 mg/dL (7-18); CALCIUM 9.5 mg/dL (8.5-10.1); CHLORIDE 106 mmol/L (98-107); CO2 25 mmol/L (21-32); CREATININE 1.4 mg/dL (0.55-1.02); GLUCOSE,RANDOM 228 mg/dL (74-106); POTASSIUM 5.1 mmol/L (3.5-5.1); SGOT/AST 17 U/L (15-37); SGPT/ALT 19 U/L (12-78); SODIUM 142 mmol/L (136-145); TOT PROT 7.5 g/dl (6.4-8.2)
--- NOTE | 2017-10-21 15:56 | EKG ---
Test Reason : Blood Pressure : / mmHG Vent. Rate : 091 BPM Atrial Rate : 091 BPM P-R Int : 136 ms QRS Dur : 064 ms QT Int : 364 ms P-R-T Axes : 057 018 033 degrees QTc Int : 447 ms POOR DATA QUALITY, INTERPRETATION MAY BE ADVERSELY AFFECTED NORMAL SINUS RHYTHM NORMAL ECG WHEN COMPARED WITH ECG OF 31-JUL-2017 20:33, NO SIGNIFICANT CHANGE WAS FOUND Confirmed by VIET GALO, CARLIN ([id number]) on 10/21/2017 3:56:20 PM Referred By: Confirmed By:CARLIN LLANOS MD
[2017-10-21 16:40] VITALS: BP 143/86; PULSE 77; TEMP 97.7
--- NOTE | 2017-10-21 19:36 | PDOC ---
*Physical Exam - Vital Signs Last Vital Signs Temp Pulse Resp BP Pulse Ox 97.7 F 77 18 143/86 100 10/21/17 16:40 10/21/17 16:40 10/21/17 16:40 10/21/17 16:40 10/21/17 16:40 - Physical Exam Comments: 10/21/17 19:43 GENERAL: Awake, alert, and fully oriented, in no acute distress HEAD: No signs of trauma, normocephalic, atraumatic EYES: PERRLA, EOMI, sclera anicteric, conjunctiva clear ENT: Auricles normal inspection, hearing grossly normal, nares patent, oropharynx clear without exudates. Moist mucosa NECK: Normal ROM, supple, no lymphadenopathy, JVD, or masses LUNGS: No distress, speaks full sentences, clear to auscultation bilaterally HEART: Regular rate and rhythm, normal S1 and S2, no murmurs, rubs or gallops, peripheral pulses normal and equal bilaterally. EXTREMITIES : Normal inspection, Normal range of motion, no edema. No clubbing or cyanosis. NEUROLOGICAL: Cranial nerves II through XII grossly intact. Normal speech, normal gait, no focal sensorimotor deficits SKIN: Warm, Dry, normal turgor, no rashes or lesions noted ED Treatment Course - LABORATORY CBC & Chemistry Diagram: 10/21/17 11:57 10/21/17 11:57 - ADDITIONAL ORDERS Additional order review: Laboratory Results 10/21/17 11:57 Sodium 142 Potassium 5.1 Chloride 106 Carbon Dioxide 25 Anion Gap 11 BUN 34 H Creatinine 1.4 H Creat Clearance w eGFR 38.90 Random Glucose 228 H Calcium 9.5 Total Bilirubin 0.3 AST 17 ALT 19 Alkaline Phosphatase 104 Total Protein 7.5 Albumin 3.5 10/21/17 11:57 RBC 4.32 MCV 95.2 MCHC 32.9 RDW 13.8 MPV 9.5 Neutrophils % 63.8 D Lymphocytes % 25.6 D Monocytes % 7.2 Eosinophils % 3.1 Basophils % 0.3 - Medications Given in the ED: ED Medications Discontinued Medications Generic Name Dose Route Start Last Admin Trade Name Freq PRN Reason Stop Dose Admin Sodium Chloride 1,000 mls @ 1,000 mls/hr 10/21/17 11:57 10/21/17 12:05 Normal Saline - IV 10/21/17 12:56 1,000 mls/hr ASDIR STA Administration Metoclopramide HCl 10 mg 10/21/17 11:57 10/21/17 12:05 Reglan Injection - IVPB 10/21/17 11:58 10 mg ONCE ONE Administration Medical Decision Making - Medical Decision Making 10/21/17 19:37 56 yo F with h/o Asthma, HTN, HLD, PAD CAD s/p [place] (x 2 stents 07/2011 - 03/2017 , on plavix ) who p/w 1 day history of R sided facial tingling. to right eyelid progressing to right forehead this AM while on her drive to Neurologist ( Dr. Kaba being evaluated for neurogenic leg pain). Patient sent in Neurologist sent in for MRI for further evaluation. Patient with no other complaints. BP 163 /98, vitals otherwise wnl, AF. Absent neuro deficits on physical exam. Patient signed out by Dr. Rios. ED course notable for CBC, and CMP unremarkable. EKG with NSR and absent ELY, STD. Nml interval change and axis. Pending MRI BRAIN. 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 10/21/17 20:[address] Kaba answering service. 10/21/17 21:[address] Forman and patient stable for d/c with return precautions. Advised to f/u with neurology next week in office. Explained MRI HEAD findings with patient. *DC/Admit/Observation/Transfer Diagnosis at time of Disposition: Facial tingling - Discharge Dispostion Disposition: HOME Condition at time of disposition: Stable Decision to Admit order: No - Referrals Referrals: Mariah Garcia MD [Primary Care Provider] - Shayne Kaba DO [Staff Physician] - - Patient Instructions Printed Discharge Instructions: DI for Numbness/tingling Additional Instructions: Please return to the emergency department with any new or worsening symptoms or concerns. Please follow up with your primary care physician within 72 hours. Please follow up with neurology within one week. - Post Discharge Activity - Attestations Physician Attestion: 10/21/17 20:09 I attest to the information provided in this note.
== END 2017-10-21 22:00 | disposition home or self-care (01) ==
LOC: JER 11:04
PROC: 3E033GC Introduction of Other Therapeutic Substance into Peripheral Vein, Percutaneous Approach (ICD-10-PCS; principal; 2017-10-21)
DX: R20.2 Paresthesia of skin (principal); I25.10 Atherosclerotic heart disease of native coronary artery without angina pectoris; Z95.5 Presence of coronary angioplasty implant and graft; I10 Essential (primary) hypertension; I25.2 Old myocardial infarction; E11.9 Type 2 diabetes mellitus without complications; Z87.19 Personal history of other diseases of the digestive system; Z79.01 Long term (current) use of anticoagulants
CPT/HCPCS: 36415; 70551-TC; 80053; 85025; 93005; 93010; 99282-25; J7030

== ENCOUNTER 2017-11-04 16:12 | Inpatient (IN) | payer OTHER ==
--- NOTE | 2017-11-04 16:19 | PDOC ---
Rapid Medical Evaluation Time Seen by Provider: 11/04/17 16:13 Medical Evaluation: Allergies Allergy/AdvReac Type Severity Reaction Status Date / Time iodine Allergy Severe Rash Verified 10/21/17 11:07 naproxen [From Naprosyn] Allergy Severe Verified 10/21/17 11:07 11/04/17 16:13 I have performed a brief in-person evaluation of this patient. The patient presents with a chief complaint of: lower back and right wrist pain today. Patient reports fell while walking down steps today. Denies head strike no dizziness before or after fall. Pertinent physical exam findings are NAD, crying in triage. even and unlabored breathing No abrasion or swelling of right wrist noted I have ordered the following: The patient will proceed to Ed for further evaluation
--- NOTE | 2017-11-04 16:50 | PDOC ---
History of Present Illness - General Chief Complaint: Weakness Stated Complaint: WEAKNESS Time Seen by Provider: 11/04/17 16:13 History Source: Patient Exam Limitations: No Limitations - History of Present Illness Initial Comments: 11/04/17 17:15 CHIEF COMPLAINT: Leg weakness HISTORY OF PRESENT ILLNESS: This is a 56-year-old female with a history of IDDM , CAD s/p stents, HTN, and asthma. She has been recently worked up for symptoms of lower extremity pain/burning, including an angiogram showing tibial disease ( no stents placed) on 07/21 and nerve studies with Dr. Kaba showing diabetic nephropathy per patient report. She states that she was walking downstairs today when she suddenly felt weak and "wobbly" in both legs. She fell down 4 steps onto her right side. She did not strike her head or lose consciousness. She complains of some right wrist pain and low back pain. She again nearly fell because of leg weakness while ambulating into the emergency department. She denies headache, lightheadedness, change in vision, change in speech, changes in sensation, or any other symptoms. Vital signs on arrival are notable only for HTN: 169/79. REVIEW OF SYSTEMS: GENERAL/CONSTITUTIONAL: No fever or chills. No weight change. HEAD, EYES, EARS, NOSE AND THROAT: No change in vision. No ear pain or discharge. No sore throat. CARDIOVASCULAR: No chest pain or palpitations. RESPIRATORY: No cough, wheezing, or shortness of breath. GASTROINTESTINAL: No nausea, vomiting, diarrhea or constipation. GENITOURINARY: No dysuria, frequency, or change in urination. MUSCULOSKELETAL: Right wrist pain, low back pain. SKIN: No rash or easy bruising. NEUROLOGIC: New bilat LE weakness/difficulty ambulating. PSYCHIATRIC: No depression or anxiety. ENDOCRINE: No increased thirst. No abnormal weight change. HEMATOLOGIC/LYMPHATIC: No anemia, easy bleeding, or history of blood clots. ALLERGIC/IMMUNOLOGIC: No hives or skin allergy. No latex allergy. PHYSICAL EXAM: GENERAL: The patient is awake, alert, and fully oriented, in no acute distress. HEAD: Normal with no signs of trauma. ENT: Pupils equal, round and reactive to light, extraocular movements intact, sclera anicteric, conjunctiva clear. Neck supple. LUNGS: Clear to auscultation bilaterally. Normal excursion. No respiratory distress or use of accessory muscles. CV: RRR, S1/S2, no MRG. Cap refill < 2 sec. ABDOMEN: Soft, non-distended, non-tender. EXTREMITIES: Normal range of motion, no edema. 4/5 lower extremity strength bilaterally. No saddle anesthesia. NEUROLOGICAL: Normal speech. CN II-XII grossly intact. Normoreflexic. Exquisite tenderness L4/L5. PSYCH: Normal mood, normal affect. SKIN: Warm, dry, normal turgor, no rashes or lesions noted. Past History - Past Medical History Allergies/Adverse Reactions: Allergies Allergy/AdvReac Type Severity Reaction Status Date / Time iodine Allergy Severe Rash Verified 11/04/17 16:13 naproxen [From Naprosyn] Allergy Severe Verified 11/04/17 16:13 Home Medications: Ambulatory Orders Brimonidine Tartrate [Alphagan 0.2% -] 1 drop OU BID 05/17/17 Clopidogrel Bisulfate [Clopidogrel] 75 mg PO DAILY 05/17/17 Gabapentin 800 mg PO BID 05/17/17 Insulin (Levemir) [Levemir Vial] 25 unit SQ HS 05/17/17 Insulin Lispro [Humalog] 8 unit SQ TID 05/17/17 Isosorbide Dinitrate [Isordil -] 5 mg PO BID 05/17/17 Latanoprost 0.005% Eye Drops [Xalatan 0.005% Eye Drops -] 1 drop OU HS 05/17/17 Metoprolol Succinate 50 mg PO DAILY 05/17/17 Rosuvastatin [Crestor -] 20 mg PO HS 05/17/17 Timolol [Betimol] 5 ml OP BID 05/17/17 Aspirin [Aspirin EC] 81 mg PO ASDIR 07/06/17 Albuterol Sulfate [Proventil HFA Inhaler -] 1 - 2 inh PO QID PRN #1 hfa.aer.ad 08/04/17 Anemia: No Asthma: Yes Cancer: No Cardiac Disorders: Yes (H/O [place] AND STENT PLACEMENT IN 08/09/13) CVA: No COPD: No DVT: No Dementia: No Diabetes: Yes (IDDM) GI Disorders: Yes (COLON POLYP) Disorders: Yes (cyst on right kidney) HTN: Yes Hypercholesterolemia: Yes Liver Disease: No Seizures: No Thyroid Disease: No - Surgical History Abdominal Surgery: Yes Appendectomy: Yes Cardiac Surgery: Yes (stent placement) Cholecystectomy: No Lung Surgery: No Neurologic Surgery: No Orthopedic Surgery: Yes (ARTHROSCOPY RIGHT KNEE) - Family Disease History Family Disease History: Heart Disease: Father, Mother - Suicide/Smoking/Psychosocial Hx Smoking History: Former smoker Have you smoked in the past 12 months: No If you are a former smoker, when did you quit?: 1994 Information on smoking cessation initiated: No Hx Alcohol Use: No Drug/Substance Use Hx: No Substance Use Type: None Hx Substance Use Treatment: No *Physical Exam - Vital Signs Last Vital Signs Temp Pulse Resp BP Pulse Ox 98 F 88 18 169/79 99 11/04/17 16:16 11/04/17 16:16 11/04/17 16:16 11/04/17 16:16 11/04/17 16:16 ED Treatment Course - LABORATORY CBC & Chemistry Diagram: 11/04/17 17:12 11/04/17 17:12 Medical Decision Making - Medical Decision Making 11/04/17 17:21 A/P: 56-year-old female with chronic lower extremity pain/claudication symptoms , today with new bilateral lower extremity weakness causing her to fall down 4 steps. Differential includes but is not limited to: neuromuscular disorder, spinal pathology, electrolyte disturbance. 1. Labs including CBC, CMP, magnesium 2. CT lumbar spine 3. Tramadol for pain 4. Attempted to ambulate patient and she was unable to stand independently 5. Dr. Kaba paged to discuss 11/04/17 18:19 CT: mild degenerative changes, no acute pathology. Patient is unable to stand and ambulate independently, so will request observation with neurology consultation. Discussed with Dr. Garcia who accepts. *DC/Admit/Observation/Transfer Diagnosis at time of Disposition: Lower extremity weakness Qualifiers: Laterality: bilateral Qualified Code(s): R29.898 - Other symptoms and signs involving the musculoskeletal system - Discharge Dispostion Condition at time of disposition: Guarded Decision to Admit order: Yes - Referrals Referrals: Noris Garcia MD [Primary Care Provider] - - Patient Instructions - Post Discharge Activity
[2017-11-04] MEDS ORDERED: traMADol HCL 50 MG TABLET PO ONE (17:13)
[2017-11-04] MEDS ORDERED: traMADol HCL 50 MG TABLET ONE (17:18)
[2017-11-04 17:56] LABS: URINE APPEARANCE CLEAR; URINE BILIRUBIN NEGATIVE (<2.0 mg/dL); URINE COLOR LTYELLOW; URINE GLUCOSE (UA) 3+ (NEGATIVE); URINE KETONE NEGATIVE (NEGATIVE); URINE LEUK ESTERASE NEGATIVE (NEGATIVE); URINE NITRITE NEGATIVE (NEGATIVE); URINE UROBILINOGEN NEGATIVE mg/dL (0.2-1.0)
[2017-11-04 17:58] LABS: URINE PROTEIN 2+ (NEGATIVE)
[2017-11-04 18:07] LABS: EPI CELLS RARE /HPF (FEW); URINE BACTERIA RARE /hpf (NONE SEEN)
--- NOTE | 2017-11-04 18:30 | PDOC ---
*Physical Exam - Vital Signs Last Vital Signs Temp Pulse Resp BP Pulse Ox 98 F 88 18 169/79 99 11/04/17 16:16 11/04/17 16:16 11/04/17 16:16 11/04/17 16:16 11/04/17 16:16 - Physical Exam Comments: 11/04/17 18:23 awake alert lungs clear bilaterally heart rrr no mrg. abd soft nt nd. ext wwp. no edema. nuero 5/5 all four ext cn intact. speech clear. relfexes unable to elicit right patellar reflex ( prior surgery ) left reflex patellar normal. skin warm and dry. no rash ED Treatment Course - ADDITIONAL ORDERS Additional order review: Laboratory Results 11/04/17 17:29 Urine Color Ltyellow Urine Appearance Clear Urine pH 5.0 Ur Specific [place] 1.021 Urine Protein 2+ H Urine Glucose (UA) 3+ H Urine Ketones Negative Urine Blood Negative Urine Nitrite Negative Urine Bilirubin Negative Urine Urobilinogen Negative Ur Leukocyte Esterase Negative Urine WBC (Auto) 1 Urine RBC (Auto) <1 Ur Epithelial Cells Rare Urine Bacteria Rare - Medications Given in the ED: ED Medications Discontinued Medications Generic Name Dose Route Start Last Admin Trade Name Freq PRN Reason Stop Dose Admin Tramadol HCl 50 mg 11/04/17 17:13 11/04/17 17:19 Ultram - PO 11/04/17 17:14 50 mg ONCE ONE Administration Medical Decision Making - Medical Decision Making 11/04/17 18:30 56-year-old female history of hypertension diabetes coronary disease and diabetic neuropathy currently being evaluated by Dr. jyoti longoria and Dr. Kaba for neuropathy in addition to Dr. Mckay for peripheral acid disease. Patient is here today following an episode of falling down the stairs after leaving from visiting her who is incarcerated. Patient states suddenly her legs gave out underneath her she fell on her side patient has been unable to walk normally since then after brief periods of walking patient states her legs are giving out underneath her she is also complaining of lower back pain no fever no chills no urinary complaints no new numbness or tingling aside from what she has presented for in the past. Patient did recently have an MRI of the brain denies any back pain prior to her fall On exam neurologically the patient has 5 and 5 all 4 strength gait wasn't tested due to episodes of near falling on the way into the ED. Differential diagnosis includes traumatic injury to the lower spine prior lumbar or spinal lesion causing lower extremity weakness Asa any muscle weakness such as D'Sher however that I am unable to elicit any weakness on her exam other neuromuscular disease plan CT lumbar spine UA labs patient will likely require admission due to inability to walk Will discuss with Dr. Kaba the neurologist or whoever is covering patient was seen and examined in conjunction with Denita Villalpando agree with her assessment and plan *DC/Admit/Observation/Transfer - Referrals Referrals: Noris Garcia MD [Primary Care Provider] - - Patient Instructions - Post Discharge Activity
[2017-11-04 18:37] LABS: BASO % 0.3 % (0-2.0); EOS % 2.7 % (0-4.5); HEMATOCRIT 41.8 % (32.4-45.2); HEMOGLOBIN 13.6 GM/dL (10.7-15.3); LYMPH % 26.8 % (8-40); MCH 31.8 pg (25.7-33.7); MCHC 32.7 g/dl (32.0-36.0); MEAN CELL VOLUME 97.3 fl (80-96); MONO % 8.4 % (3.8-10.2); NEUT % 61.8 % (42.8-82.8); PLATELET COUNT 338 K/MM3 (134-434); RBC 4.29 M/mm3 (3.60-5.2); RDW 13.7 % (11.6-15.6); WHITE BLOOD COUNT 13.3 K/mm3 (4.0-10.0)
[2017-11-04 19:29] LABS: ALBUMIN 3.7 g/dl (3.4-5.0); ALK PHOS 129 U/L (45-117); ANION GAP 11 MMOL/L (8-16); BILIRUBIN,TOTAL 0.3 mg/dL (0.2-1); BLOOD UREA NITROGEN 31 mg/dL (7-18); CALCIUM 10.3 mg/dL (8.5-10.1); CHLORIDE 102 mmol/L (98-107); CO2 26 mmol/L (21-32); CREATININE 1.3 mg/dL (0.55-1.3); MAGNESIUM 1.9 mg/dL (1.8-2.4); POTASSIUM 4.6 mmol/L (3.5-5.1); SGOT/AST 11 U/L (15-37); SGPT/ALT 20 U/L (13-61); SODIUM 138 mmol/L (136-145); TOT PROT 7.7 g/dl (6.4-8.2)
[2017-11-04 19:31] LABS: GLUCOSE,RANDOM 449 mg/dL (74-106)
[2017-11-04] MEDS ORDERED: SODIUM CHLORIDE 0.9% 1000 ML INFUS.BAG IV ONE (19:37)
[2017-11-04] MEDS: GABAPENTIN 400 MG CAPSULE (FP) PO SCH (22:45)
[2017-11-04] MEDS: ROSUVASTATIN CA 20 MG TABLET (FP) PO SCH (22:45)
[2017-11-04] MEDS: TIMOLOL 0.5% OPHTHALMIC SOL 5 ML BOTTLE OU SCH (22:45)
[2017-11-04] MEDS: BRIMONIDINE TARTRATE 0.2% OPHTHALMIC 5 ML BOTTLE OU SCH (22:45)
[2017-11-04] MEDS: LATANOPROST 0.005% OPHTH SOLN 2.5ML BOTTLE OU SCH (22:45)
[2017-11-04] MEDS ORDERED: INSULIN (LEVEMIR) 100 UNITS/ML UNITS SQ ONE (22:57)
[2017-11-04] MEDS: INSULIN (LEVEMIR) 100 UNITS/ML UNITS SQ SCH (23:00)
[2017-11-04] MEDS ORDERED: INSULIN REGULAR HUMAN 100 UNITS/ML *VIAL ONE (23:17)
[2017-11-05 11:39] VITALS: BMI 35.7
[2017-11-05] MEDS: ASPIRIN COATED 81 MG TABLET.EC PO SCH (11:40)
[2017-11-05] MEDS: CLOPIDOGREL BISULFATE 75 MG TABLET (FP) PO SCH (11:40)
[2017-11-05] MEDS: GABAPENTIN 400 MG CAPSULE (FP) PO SCH ×2 (11:40→22:17)
[2017-11-05] MEDS: BRIMONIDINE TARTRATE 0.2% OPHTHALMIC 5 ML BOTTLE OU SCH ×2 (11:41→22:19)
[2017-11-05] MEDS: TIMOLOL 0.5% OPHTHALMIC SOL 5 ML BOTTLE OU SCH ×2 (11:42→22:19)
[2017-11-05 12:53] LABS: URINE APPEARANCE SLCLOUDY; URINE BILIRUBIN NEGATIVE (<2.0 mg/dL); URINE COLOR YELLOW; URINE GLUCOSE (UA) 2+ (NEGATIVE); URINE KETONE NEGATIVE (NEGATIVE); URINE LEUK ESTERASE NEGATIVE (NEGATIVE); URINE NITRITE NEGATIVE (NEGATIVE); URINE UROBILINOGEN NEGATIVE mg/dL (0.2-1.0)
[2017-11-05 13:12] LABS: URINE PROTEIN 1+ (NEGATIVE)
[2017-11-05 13:17] LABS: EPI CELLS RARE /HPF (FEW); URINE BACTERIA RARE /hpf (NONE SEEN); URINE MUCUS RARE; YEAST RARE
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
[2017-11-05] MEDS: INSULIN SLIDING SCALE (NOVOLOG) 1 VIAL SQ SCH ×2 (17:38→22:18)
[2017-11-05] MEDS ORDERED: PT OWN MED DRAWER 7, Y5N ONE (20:13)
[2017-11-05] MEDS: ISOSORBIDE DINITRATE 5 MG TABLET PO SCH (20:15)
[2017-11-05] MEDS ORDERED: ROSUVASTATIN CA 10 MG TABLET (FP) ONE (22:09)
[2017-11-05] MEDS: ROSUVASTATIN CA 20 MG TABLET (FP) PO SCH (22:17)
[2017-11-05] MEDS: INSULIN (LEVEMIR) 100 UNITS/ML UNITS SQ SCH (22:18)
[2017-11-05] MEDS: LATANOPROST 0.005% OPHTH SOLN 2.5ML BOTTLE OU SCH (22:19)
[2017-11-05] MEDS: traMADol HCL 50 MG TABLET PO PRN (23:15)
[2017-11-06] MEDS: INSULIN SLIDING SCALE (NOVOLOG) 1 VIAL SQ SCH ×4 (06:02→21:16)
[2017-11-06] MEDS: GABAPENTIN 400 MG CAPSULE (FP) PO SCH ×2 (09:21→21:13)
[2017-11-06] MEDS: CLOPIDOGREL BISULFATE 75 MG TABLET (FP) PO SCH (09:22)
[2017-11-06] MEDS: traMADol HCL 50 MG TABLET PO PRN (09:22)
[2017-11-06] MEDS: ISOSORBIDE DINITRATE 5 MG TABLET PO SCH ×2 (09:23→18:45)
[2017-11-06] MEDS: TIMOLOL 0.5% OPHTHALMIC SOL 5 ML BOTTLE OU SCH ×2 (09:25→21:49)
[2017-11-06] MEDS: BRIMONIDINE TARTRATE 0.2% OPHTHALMIC 5 ML BOTTLE OU SCH ×2 (09:25→21:55)
--- NOTE | 2017-11-06 10:21 | PN ---
Progress Note, Physician Chief Complaint: Fall, Leg pain and weakness History of Present Illness: Patient had gone to visit her in [place] and was allegedly denied access to handicapped spot. Reports that she had to walk and excessively long distance and then down many stairs to get to her destination and while walking she felt her legs freeze. She denied associated pain, but he legs felt like "jelly" and started to "buckle". Ultimately she gently slid to the ground without injury, and had difficulty getting herself up. A stranger assisted her after a while and she was able to slowly make her way to her , while holding onto the cars around her. Afterwards, she very slowly and carefully walked back, also holding on to avoid a similar outcome. She denies having ever had this before. - Current Medication List Current Medications: Active Medications Aspirin (Ecotrin -) 81 mg PO Q2D@1000 [facility] Last Admin: 11/05/17 11:40 Dose: 81 mg Brimonidine Tartrate (Alphagan 0.2% -) 1 drop OU BID [facility] Last Admin: 11/06/17 09:25 Dose: 1 drop Clopidogrel Bisulfate (Plavix -) 75 mg PO DAILY [facility] Last Admin: 11/06/17 09:22 Dose: 75 mg Gabapentin (Neurontin -) 800 mg PO BID [facility] Last Admin: 11/06/17 09:21 Dose: 800 mg Insulin Aspart (Novolog Vial Sliding Scale -) 1 vial SQ [facility]; Protocol Last Admin: 11/06/17 06:02 Dose: 2 units Insulin Detemir (Levemir Vial) 25 units SQ [facility] Last Admin: 11/05/17 22:18 Dose: 25 unit Isosorbide Dinitrate (Isordil -) 5 mg PO BIDISORDIL [facility] Last Admin: 11/06/17 09:23 Dose: 5 mg Latanoprost (Xalatan 0.005% Eye Drops -) 1 drop OU [facility] Last Admin: 11/05/17 22:19 Dose: 1 drop Metoprolol Succinate (Toprol Xl -) 50 mg PO DAILY [facility] Last Admin: 11/06/17 09:22 Dose: 50 mg Rosuvastatin Calcium (Crestor -) 20 mg PO [facility] Last Admin: 11/05/17 22:17 Dose: 20 mg Timolol Maleate (Timoptic 0.5%) 1 drop OU BID [facility] Last Admin: 11/06/17 09:25 Dose: 1 drop Tramadol HCl (Ultram -) 50 mg PO Q6H PRN PRN Reason: PAIN LEVEL 6-10 Last Admin: 11/06/17 09:22 Dose: 50 mg - Objective Vital Signs: Vital Signs Temperature 98.5 F 11/06/17 06:00 Pulse Rate 73 11/06/17 06:00 Respiratory Rate 20 11/06/17 06:00 Blood Pressure 143/83 11/06/17 06:00 O2 Sat by Pulse Oximetry (%) 99 11/05/17 23:00 Constitutional: Yes: No Distress, Obese Peripheral Pulses WNL: No (I am unable to appreciate pedal pulses) Peripheral Pulses: Left Doralis Pedis: 0, Right Dorsalis Pedis: 0 Neurological: Yes: Alert, Oriented, Cran Nerves II-XII Intact, Loss of Sensation (stocking sensory loss), Weakness (bilateral legs 4/5 somewhat giveway in nature) Labs: CBC, BMP 11/04/17 17:12 11/04/17 17:12 - ....Imaging Cat Scan: Report Reviewed, Image Reviewed MRI: Image Reviewed (report pending) Problem List - Problems (1) Peripheral vascular disease Code(s): I73.9 - PERIPHERAL VASCULAR DISEASE, UNSPECIFIED (2) Diabetic neuropathy Code(s): E11.40 - TYPE 2 DIABETES MELLITUS WITH DIABETIC NEUROPATHY, UNSP (3) Lower extremity weakness Code(s): R29.898 - OTH SYMPTOMS AND SIGNS INVOLVING THE MUSCULOSKELETAL SYSTEM Qualifiers: Laterality: bilateral Qualified Code(s): R29.898 - Other symptoms and signs involving the musculoskeletal system (4) Bilateral leg pain Code(s): M79.604 - PAIN IN RIGHT LEG; M79.605 - PAIN IN LEFT LEG Assessment/Plan 56 year old obese diabetic with lumbar spine disease, peripheral arterial disease, and diabetic neuropathy who had an incident where after exercising her legs more than usual, she felt them grow weak and buckle, painlessly. She took a few minutes to recuperate and this has not recurred or happened before, but I doubt that she has ever stressed her legs in that way in a long time. I suspect that this may have been more of a peripheral vascular event (though atypical in that there was no pain) rather than neurologic claudication, though both are possible. The CT LS spine shows a small lower disc herniation and my visualization of the MRI didn't show any major neural compromise. I don't see anything acute, or requiring acute intervention. Based on what I have read in prior notes, she does have known tibial arterial stenosis and I was not able to appreciate any dorsal pedal pulses. In any case, she is better, and I don't think that I see a neurologic reason to maintain her hospitalized status. We can follow her in the office (Dr. Kaba knows her). If you see fit, you could also have her follow up with vascular surgery. We'll sign off for now. Please call back if you have further questions. Thanks.
[2017-11-06] MEDS ORDERED: SODIUM CHLORIDE 500 ML IV STA (16:14)
--- NOTE | 2017-11-06 16:38 | HOSP ---
Subjective - Review of Symptoms Events since last encounter: called to evaluate this patient due to hypotension and not feeling well . upon arrival. patient feels light headed . has chest pressure started 30 min ago , has no fever or chills. feels SOB. no cough. BP 85/51. HR 62 . awake , alert , cooperative CV; RRR, NO MRG , NO JVD Lungs: CATB Ext : no erythema or edema . TTP over L calf MS: TTP in lower sternal area a/p 56 y/o lady with h/o IDDM, CAD s/p stents, HTN, asthma, and diabetic nephropathy , PVD , who is being admitted and managed after a fall. Now hypotensive with CP - hypotension : unclear etiology. took metoprolol and imdur this am .also on opioids. - CP. plan : - [facility].pos[facility] - started IV NS bolus , 500 cc - BP after 3 m in of starting the fluids , 141/70 . HR 58. - BP rechecked in sitting position : 154/90. HR 60 . - EKG obtained: NSR, TWI in V1, and AVL , with J point elevation in II , not changed form one in 08/02. - will check trop x 2 - dc fluid bolus and start NS 1t 75 cc x 12 hrs only. - sugar 109 in conclusion: transient hypotension could be due to BP meds and opioids. No suspicion for ACS as pain is reproducible. EKG not changed form prior. follow trops. IVF . time spent 25 min Physical Examination Vital Signs: Vital Signs Temperature 98.3 F 11/06/17 14:00 Pulse Rate 61 11/06/17 14:00 Respiratory Rate 20 11/06/17 15:00 Blood Pressure 85/51 L 11/06/17 14:00 O2 Sat by Pulse Oximetry (%) 99 11/06/17 15:00 Labs: CBC, BMP 11/04/17 17:12 11/04/17 17:12
[2017-11-06] MEDS ORDERED: ONDANSETRON 4 MG/2 ML VIAL IVPUSH ONE (16:48)
[2017-11-06] MEDS ORDERED: SODIUM CHLORIDE 1,000 ML IV SCH (17:00)
--- NOTE | 2017-11-06 18:03 | PN ---
Progress Note, Physician History of Present Illness: Pt still complains of lower extremity weakness and loer back pain - Current Medication List Current Medications: Active Medications Aspirin (Ecotrin -) 81 mg PO Q2D@1000 [facility] Last Admin: 11/05/17 11:40 Dose: 81 mg Brimonidine Tartrate (Alphagan 0.2% -) 1 drop OU BID [facility] Last Admin: 11/06/17 09:25 Dose: 1 drop Clopidogrel Bisulfate (Plavix -) 75 mg PO DAILY [facility] Last Admin: 11/06/17 09:22 Dose: 75 mg Gabapentin (Neurontin -) 800 mg PO BID [facility] Last Admin: 11/06/17 09:21 Dose: 800 mg Sodium Chloride (Normal Saline -) 1,000 mls @ 75 mls/hr IV ASDIR [facility] Stop: 11/07/17 04:59 Insulin Aspart (Novolog Vial Sliding Scale -) 1 vial SQ [facility]; Protocol Last Admin: 11/06/17 17:16 Dose: Not Given Insulin Detemir (Levemir Vial) 25 units SQ [facility] Last Admin: 11/05/17 22:18 Dose: 25 unit Isosorbide Dinitrate (Isordil -) 5 mg PO BIDISORDIL [facility] Last Admin: 11/06/17 09:23 Dose: 5 mg Latanoprost (Xalatan 0.005% Eye Drops -) 1 drop OU [facility] Last Admin: 11/05/17 22:19 Dose: 1 drop Metoprolol Succinate (Toprol Xl -) 50 mg PO DAILY [facility] Last Admin: 11/06/17 09:22 Dose: 50 mg Rosuvastatin Calcium (Crestor -) 20 mg PO [facility] Last Admin: 11/05/17 22:17 Dose: 20 mg Timolol Maleate (Timoptic 0.5%) 1 drop OU BID [facility] Last Admin: 11/06/17 09:25 Dose: 1 drop Tramadol HCl (Ultram -) 50 mg PO Q6H PRN PRN Reason: PAIN LEVEL 6-10 Last Admin: 11/06/17 09:22 Dose: 50 mg - Objective Vital Signs: Vital Signs Temperature 98.1 F 11/06/17 17:02 Pulse Rate 58 L 11/06/17 17:02 Respiratory Rate 20 11/06/17 17:02 Blood Pressure 142/77 11/06/17 17:02 O2 Sat by Pulse Oximetry (%) 99 11/06/17 15:00 Neck: Yes: WNL, Supple Cardiovascular: Yes: WNL, Regular Rate and Rhythm Respiratory: Yes: WNL, Regular, CTA Bilaterally Gastrointestinal: Yes: WNL, Normal Bowel Sounds, Soft Neurological: Yes: Other (AXOX3 B/L lower extremity weakness) Labs: CBC, BMP 11/04/17 17:12 11/04/17 17:12 Problem List - Problems (1) Lower extremity weakness Assessment/Plan: Due to lumbar radiculipathy MRI LS spine showed degenerative changes and herniation of L5-S1 As per neuro Possible NSG consult Cont gabapentin ?Physical therapy Code(s): R29.898 - OTH SYMPTOMS AND SIGNS INVOLVING THE MUSCULOSKELETAL SYSTEM Qualifiers: Laterality: bilateral Qualified Code(s): R29.898 - Other symptoms and signs involving the musculoskeletal system (2) Diabetic neuropathy Assessment/Plan: Cont gabapentin Code(s): E11.40 - TYPE 2 DIABETES MELLITUS WITH DIABETIC NEUROPATHY, UNSP (3) Asthma Assessment/Plan: Stable Code(s): J45.909 - UNSPECIFIED ASTHMA, UNCOMPLICATED Qualifiers: Asthma severity: unspecified severity Asthma complication type: with acute exacerbation Qualified Code(s): J45.901 - Unspecified asthma with (acute) exacerbation (4) Diabetes Assessment/Plan: Cont levemir/sliding scale w/ coverage Code(s): E11.9 - TYPE 2 DIABETES MELLITUS WITHOUT COMPLICATIONS (5) HTN (hypertension) Assessment/Plan: Cont toprol/isosorbide Code(s): I10 - ESSENTIAL (PRIMARY) HYPERTENSION (6) HLD (hyperlipidemia) Assessment/Plan: Cont crestor Code(s): E78.5 - HYPERLIPIDEMIA, UNSPECIFIED (7) CAD (coronary artery disease) Assessment/Plan: Cont plavix Code(s): I25.10 - ATHSCL HEART DISEASE OF [place] CORONARY ARTERY W/O ANG PCTRS (8) Obesity Code(s): E66.9 - OBESITY, UNSPECIFIED
[2017-11-06] MEDS ORDERED: ROSUVASTATIN CA 10 MG TABLET (FP) ONE (20:28)
[2017-11-06] MEDS ORDERED: PT OWN MED DRAWER 7, Y5N ONE (20:30)
[2017-11-06] MEDS ORDERED: INSULIN (NOVOLOG) ASPART 100 UNITS/ML 10ML VIAL ONE (21:03)
[2017-11-06] MEDS: ROSUVASTATIN CA 20 MG TABLET (FP) PO SCH (21:14)
[2017-11-06] MEDS: INSULIN (LEVEMIR) 100 UNITS/ML UNITS SQ SCH (21:16)
[2017-11-06] MEDS: LATANOPROST 0.005% OPHTH SOLN 2.5ML BOTTLE OU SCH (21:49)
[2017-11-07] MEDS: INSULIN SLIDING SCALE (NOVOLOG) 1 VIAL SQ SCH ×4 (06:15→21:21)
[2017-11-07] MEDS ORDERED: PT OWN MED DRAWER 7, Y5N ONE (09:30)
[2017-11-07] MEDS: CLOPIDOGREL BISULFATE 75 MG TABLET (FP) PO SCH (09:31)
[2017-11-07] MEDS: GABAPENTIN 400 MG CAPSULE (FP) PO SCH ×2 (09:31→21:08)
[2017-11-07] MEDS: ASPIRIN COATED 81 MG TABLET.EC PO SCH (09:31)
[2017-11-07] MEDS: ISOSORBIDE DINITRATE 5 MG TABLET PO SCH ×2 (09:32→17:05)
[2017-11-07] MEDS: BRIMONIDINE TARTRATE 0.2% OPHTHALMIC 5 ML BOTTLE OU SCH ×2 (09:33→21:16)
[2017-11-07] MEDS: TIMOLOL 0.5% OPHTHALMIC SOL 5 ML BOTTLE OU SCH ×2 (09:33→21:16)
--- NOTE | 2017-11-07 17:07 | EKG ---
Test Reason : Blood Pressure : / mmHG Vent. Rate : 059 BPM Atrial Rate : 059 BPM P-R Int : 140 ms QRS Dur : 084 ms QT Int : 436 ms P-R-T Axes : 047 023 056 degrees QTc Int : 431 ms SINUS BRADYCARDIA OTHERWISE NORMAL ECG WHEN COMPARED WITH ECG OF 21-OCT-2017 11:04, VENT. RATE HAS DECREASED BY 32 BPM Confirmed by MD Barnett Daniel ([id number]) on 11/07/2017 5:07:16 PM Referred By: Confirmed By:Cristopher Barnett MD
[2017-11-07] MEDS: traMADol HCL 50 MG TABLET PO PRN (18:10)
--- NOTE | 2017-11-07 19:34 | PN ---
Progress Note, Physician - Current Medication List Current Medications: Active Medications Aspirin (Ecotrin -) 81 mg PO Q2D@1000 [facility] Last Admin: 11/07/17 09:31 Dose: 81 mg Brimonidine Tartrate (Alphagan 0.2% -) 1 drop OU BID [facility] Last Admin: 11/07/17 09:33 Dose: 1 drop Clopidogrel Bisulfate (Plavix -) 75 mg PO DAILY [facility] Last Admin: 11/07/17 09:31 Dose: 75 mg Gabapentin (Neurontin -) 800 mg PO BID [facility] Last Admin: 11/07/17 09:31 Dose: 800 mg Insulin Aspart (Novolog Vial Sliding Scale -) 1 vial SQ [facility]; Protocol Last Admin: 11/07/17 17:08 Dose: 8 units Insulin Detemir (Levemir Vial) 25 units SQ [facility] Last Admin: 11/06/17 21:16 Dose: 25 unit Isosorbide Dinitrate (Isordil -) 5 mg PO BIDISORDIL [facility] Last Admin: 11/07/17 17:05 Dose: Not Given Latanoprost (Xalatan 0.005% Eye Drops -) 1 drop OU [facility] Last Admin: 11/06/17 21:49 Dose: 1 drop Metoprolol Succinate (Toprol Xl -) 50 mg PO DAILY [facility] Last Admin: 11/07/17 09:31 Dose: 50 mg Rosuvastatin Calcium (Crestor -) 20 mg PO [facility] Last Admin: 11/06/17 21:14 Dose: 20 mg Timolol Maleate (Timoptic 0.5%) 1 drop OU BID [facility] Last Admin: 11/07/17 09:33 Dose: 1 drop Tramadol HCl (Ultram -) 50 mg PO Q6H PRN PRN Reason: PAIN LEVEL 6-10 Last Admin: 11/07/17 18:10 Dose: 50 mg - Objective Vital Signs: Vital Signs Temperature 98.6 F 11/07/17 18:20 Pulse Rate 62 11/07/17 18:20 Respiratory Rate 18 11/07/17 18:20 Blood Pressure 92/60 11/07/17 18:20 O2 Sat by Pulse Oximetry (%) 98 11/07/17 09:00 Constitutional: Yes: No Distress HENT: Yes: Atraumatic Neck: Yes: Supple Cardiovascular: Yes: Regular Rate and Rhythm Respiratory: Yes: CTA Bilaterally Gastrointestinal: Yes: Normal Bowel Sounds Extremities: Yes: WNL Neurological: Yes: Alert, Oriented Labs: CBC, BMP 11/04/17 17:12 11/04/17 17:12 Problem List - Problems (1) Lower extremity weakness Assessment/Plan: little better in walking suggest snf Code(s): R29.898 - OTH SYMPTOMS AND SIGNS INVOLVING THE MUSCULOSKELETAL SYSTEM Qualifiers: Laterality: bilateral Qualified Code(s): R29.898 - Other symptoms and signs involving the musculoskeletal system (2) Asthma Assessment/Plan: stable Code(s): J45.909 - UNSPECIFIED ASTHMA, UNCOMPLICATED Qualifiers: Asthma severity: unspecified severity Asthma complication type: with acute exacerbation Qualified Code(s): J45.901 - Unspecified asthma with (acute) exacerbation (3) Diabetes Assessment/Plan: on insulin bgms Code(s): E11.9 - TYPE 2 DIABETES MELLITUS WITHOUT COMPLICATIONS
[2017-11-07] MEDS ORDERED: ROSUVASTATIN CA 10 MG TABLET (FP) ONE (20:34)
[2017-11-07] MEDS: ROSUVASTATIN CA 20 MG TABLET (FP) PO SCH (21:08)
[2017-11-07] MEDS: LATANOPROST 0.005% OPHTH SOLN 2.5ML BOTTLE OU SCH (21:16)
[2017-11-07] MEDS: INSULIN (LEVEMIR) 100 UNITS/ML UNITS SQ SCH (21:17)
[2017-11-07] MEDS ORDERED: INSULIN (NOVOLOG) ASPART 100 UNITS/ML 10ML VIAL ONE (21:21)
[2017-11-08] MEDS: traMADol HCL 50 MG TABLET PO PRN (02:56)
[2017-11-08] MEDS: INSULIN SLIDING SCALE (NOVOLOG) 1 VIAL SQ SCH ×4 (06:11→21:47)
[2017-11-08 08:10] LABS: BASO % 0.4 % (0-2.0); EOS % 4.9 % (0-4.5); HEMATOCRIT 37.3 % (32.4-45.2); HEMOGLOBIN 12.6 GM/dL (10.7-15.3); LYMPH % 42.7 % (8-40); MCH 31.9 pg (25.7-33.7); MCHC 33.7 g/dl (32.0-36.0); MEAN CELL VOLUME 94.7 fl (80-96); MEAN PLT VOLUME 9.4 fl (7.5-11.1); MONO % 7.7 % (3.8-10.2); NEUT % 44.3 % (42.8-82.8); PLATELET COUNT 296 K/MM3 (134-434); RBC 3.94 M/mm3 (3.60-5.2); RDW 13.7 % (11.6-15.6); WHITE BLOOD COUNT 9.7 K/mm3 (4.0-10.0)
[2017-11-08 08:42] LABS: ALBUMIN 2.9 g/dl (3.4-5.0); ALK PHOS 100 U/L (45-117); ANION GAP 5 MMOL/L (8-16); BILIRUBIN,TOTAL 0.2 mg/dL (0.2-1); BLOOD UREA NITROGEN 32 mg/dL (7-18); CALCIUM 9.1 mg/dL (8.5-10.1); CHLORIDE 105 mmol/L (98-107); CO2 29 mmol/L (21-32); CREATININE 1.2 mg/dL (0.55-1.3); GLUCOSE,RANDOM 136 mg/dL (74-106); POTASSIUM 4.5 mmol/L (3.5-5.1); SGOT/AST 16 U/L (15-37); SGPT/ALT 18 U/L (13-61); SODIUM 139 mmol/L (136-145); TOT PROT 6.8 g/dl (6.4-8.2)
[2017-11-08] MEDS: GABAPENTIN 400 MG CAPSULE (FP) PO SCH ×2 (09:37→21:45)
[2017-11-08] MEDS: CLOPIDOGREL BISULFATE 75 MG TABLET (FP) PO SCH (09:38)
[2017-11-08] MEDS: TIMOLOL 0.5% OPHTHALMIC SOL 5 ML BOTTLE OU SCH ×2 (09:39→21:50)
[2017-11-08] MEDS: ISOSORBIDE DINITRATE 5 MG TABLET PO SCH ×2 (09:39→18:27)
[2017-11-08] MEDS: BRIMONIDINE TARTRATE 0.2% OPHTHALMIC 5 ML BOTTLE OU SCH ×2 (09:40→21:50)
[2017-11-08] MEDS ORDERED: PT OWN MED DRAWER 7, Y5N ONE (18:25)
--- NOTE | 2017-11-08 21:04 | PN ---
Progress Note, Physician History of Present Illness: feeling good was able to walk without support - Current Medication List Current Medications: Active Medications Aspirin (Ecotrin -) 81 mg PO Q2D@1000 [facility] Last Admin: 11/07/17 09:31 Dose: 81 mg Brimonidine Tartrate (Alphagan 0.2% -) 1 drop OU BID [facility] Last Admin: 11/08/17 09:40 Dose: 1 drop Clopidogrel Bisulfate (Plavix -) 75 mg PO DAILY [facility] Last Admin: 11/08/17 09:38 Dose: 75 mg Gabapentin (Neurontin -) 800 mg PO BID [facility] Last Admin: 11/08/17 09:37 Dose: 800 mg Insulin Aspart (Novolog Vial Sliding Scale -) 1 vial SQ [facility]; Protocol Last Admin: 11/08/17 18:21 Dose: 2 units Insulin Detemir (Levemir Vial) 25 units SQ [facility] Last Admin: 11/07/17 21:17 Dose: 25 unit Isosorbide Dinitrate (Isordil -) 5 mg PO BIDISORDIL [facility] Last Admin: 11/08/17 18:27 Dose: 5 mg Latanoprost (Xalatan 0.005% Eye Drops -) 1 drop OU [facility] Last Admin: 11/07/17 21:16 Dose: 1 drop Metoprolol Succinate (Toprol Xl -) 50 mg PO DAILY [facility] Last Admin: 11/08/17 09:37 Dose: 50 mg Rosuvastatin Calcium (Crestor -) 20 mg PO [facility] Last Admin: 11/07/17 21:08 Dose: 20 mg Timolol Maleate (Timoptic 0.5%) 1 drop OU BID [facility] Last Admin: 11/08/17 09:39 Dose: 1 drop Tramadol HCl (Ultram -) 50 mg PO Q6H PRN PRN Reason: PAIN LEVEL 6-10 Last Admin: 11/08/17 02:56 Dose: 50 mg - Objective Vital Signs: Vital Signs Temperature 98.6 F 11/08/17 18:10 Pulse Rate 56 L 11/08/17 18:10 Respiratory Rate 18 11/08/17 18:10 Blood Pressure 134/75 11/08/17 18:10 O2 Sat by Pulse Oximetry (%) 98 11/07/17 21:00 Constitutional: Yes: No Distress HENT: Yes: Atraumatic Neck: Yes: Supple Cardiovascular: Yes: Regular Rate and Rhythm Respiratory: Yes: CTA Bilaterally Gastrointestinal: Yes: Normal Bowel Sounds Extremities: Yes: WNL Edema: No Peripheral Pulses WNL: Yes Neurological: Yes: Alert, Oriented ...Motor Strength: WNL Labs: CBC, BMP 11/08/17 07:30 11/08/17 07:30 Problem List - Problems (1) Lower extremity weakness Assessment/Plan: little better in walking suggest snf Code(s): R29.898 - OTH SYMPTOMS AND SIGNS INVOLVING THE MUSCULOSKELETAL SYSTEM Qualifiers: Laterality: bilateral Qualified Code(s): R29.898 - Other symptoms and signs involving the musculoskeletal system (2) Asthma Assessment/Plan: stable Code(s): J45.909 - UNSPECIFIED ASTHMA, UNCOMPLICATED Qualifiers: Asthma severity: unspecified severity Asthma complication type: with acute exacerbation (3) Diabetes Assessment/Plan: on insulin bgms Code(s): E11.9 - TYPE 2 DIABETES MELLITUS WITHOUT COMPLICATIONS
[2017-11-08] MEDS ORDERED: ACETAMINOPHEN 325 MG TABLET (FP) PO PRN (21:30)
[2017-11-08] MEDS ORDERED: INSULIN (NOVOLOG) ASPART 100 UNITS/ML 10ML VIAL ONE (21:39)
[2017-11-08] MEDS ORDERED: ROSUVASTATIN CA 10 MG TABLET (FP) ONE (21:40)
[2017-11-08] MEDS: ROSUVASTATIN CA 20 MG TABLET (FP) PO SCH (21:45)
[2017-11-08] MEDS: INSULIN (LEVEMIR) 100 UNITS/ML UNITS SQ SCH (21:46)
[2017-11-08] MEDS: LATANOPROST 0.005% OPHTH SOLN 2.5ML BOTTLE OU SCH (21:50)
[2017-11-09] MEDS: INSULIN SLIDING SCALE (NOVOLOG) 1 VIAL SQ SCH (06:03)
[2017-11-09] MEDS ORDERED: PT OWN MED DRAWER 7, Y5N ONE (09:59)
[2017-11-09] MEDS: GABAPENTIN 400 MG CAPSULE (FP) PO SCH (10:13)
[2017-11-09] MEDS: CLOPIDOGREL BISULFATE 75 MG TABLET (FP) PO SCH (10:13)
[2017-11-09] MEDS: ASPIRIN COATED 81 MG TABLET.EC PO SCH (10:13)
[2017-11-09] MEDS: BRIMONIDINE TARTRATE 0.2% OPHTHALMIC 5 ML BOTTLE OU SCH (10:14)
[2017-11-09] MEDS: ISOSORBIDE DINITRATE 5 MG TABLET PO SCH (10:14)
[2017-11-09] MEDS: TIMOLOL 0.5% OPHTHALMIC SOL 5 ML BOTTLE OU SCH (10:15)
[2017-11-09 17:14] VITALS: BP 160/100; PULSE 68; TEMP 98.5
--- NOTE | 2017-11-09 20:07 | DS ---
Physical Examination Vital Signs: Vital Signs Temperature 98.5 F 11/09/17 16:15 Pulse Rate 68 11/09/17 16:15 Respiratory Rate 20 11/09/17 16:15 Blood Pressure 160/100 11/09/17 16:15 O2 Sat by Pulse Oximetry (%) 98 11/09/17 09:00 Labs: CBC, BMP 11/08/17 07:30 11/08/17 07:30 Discharge Summary Reason For Visit: WEAKNESS OF LOWER EXTREMITY Condition: Guarded - Instructions Referrals: Noris Garcia MD [Primary Care Provider] - Disposition: VNS/HOME HEALTH CARE - Home Medications Comprehensive Discharge Medication List: Ambulatory Orders Brimonidine Tartrate [Alphagan 0.2% -] 1 drop OU BID 05/17/17 Clopidogrel Bisulfate [Clopidogrel] 75 mg PO DAILY 05/17/17 Gabapentin 800 mg PO BID 05/17/17 Insulin (Levemir) [Levemir Vial] 25 unit SQ HS 05/17/17 Insulin Lispro [Humalog] 8 unit SQ TID 05/17/17 Isosorbide Dinitrate [Isordil -] 5 mg PO BID 05/17/17 Latanoprost 0.005% Eye Drops [Xalatan 0.005% Eye Drops -] 1 drop OU HS 05/17/17 Metoprolol Succinate 50 mg PO DAILY 05/17/17 Rosuvastatin [Crestor -] 20 mg PO HS 05/17/17 Timolol [Betimol] 5 ml OU BID 05/17/17 Aspirin [Aspirin EC] 81 mg PO ASDIR 07/06/17 Albuterol Sulfate [Proventil HFA Inhaler -] 1 - 2 inh PO QID PRN #1 hfa.[email or web address] 08/04/17 spoke to patient on phone, she wants to go home as she said her strength is back to normal as she was before she fell, she also said as her nephew is moving in so she wont be alone, she does want to do PT at home her friend will pick her from hosp spoke to nurse vasiliy, she said patient walking in hallway without support and seems fine
== END 2017-11-09 17:00 | disposition home health service (06) | DRG 48 ==
LOC: JER 16:12 → JERBED 18:38 → J8W 11-05 08:26 → OBSVTOIN 11-05 15:17
PROVIDERS: ADMIT Internal Medicine; ATTEND Internal Medicine
DX: E11.42 Type 2 diabetes mellitus with diabetic polyneuropathy (principal); I25.10 Atherosclerotic heart disease of native coronary artery without angina pectoris; I10 Essential (primary) hypertension; M51.17 Intervertebral disc disorders with radiculopathy, lumbosacral region; M54.5 Low back pain; J45.901 Unspecified asthma with (acute) exacerbation; N28.1 Cyst of kidney, acquired; E11.51 Type 2 diabetes mellitus with diabetic peripheral angiopathy without gangrene; K63.5 Polyp of colon; I25.2 Old myocardial infarction; E66.8 Other obesity; Z68.35 Body mass index [BMI] 35.0-35.9, adult; E78.00 Pure hypercholesterolemia, unspecified; R29.898 Other symptoms and signs involving the musculoskeletal system; G43.909 Migraine, unspecified, not intractable, without status migrainosus; Z87.891 Personal history of nicotine dependence; Z95.5 Presence of coronary angioplasty implant and graft; M79.604 Pain in right leg; Z79.4 Long term (current) use of insulin
CPT/HCPCS: 36415; 72131-TC; 72148-TC; 80053; 81003; 81015; 82962; 83735; 84484; 85025; 93005; 93010; 93970-TC; 97116-GP; 97162-GP; 99285-25; G0378; J7030

== ENCOUNTER 2018-05-23 08:41 | Emergency (ER) | payer OTHER ==
[2018-05-23 08:53] VITALS: TEMP 98; BMI 33.9
[2018-05-23] MEDS ORDERED: RANITIDINE HCL 150 MG TABLET (FP) PO ONE (09:58)
--- NOTE | 2018-05-23 10:02 | PDOC ---
History of Present Illness - General Chief Complaint: Pain, Acute Stated Complaint: ABDOMINAL PAIN Time Seen by Provider: 05/23/18 09:26 History Source: Patient - History of Present Illness Initial Comments: 05/23/18 11:05 57 y/o female with PMH of CAD (s/p 2 stents), DM, HLD presented with abdominal pain. She states the pain started on wednesday after she ate wonton soup- she describes it as a burning pain, feels almost like acid reflux pain. She has had a decrease in appetite as well. She states she feels the burning sensation in her epigastric region, however, has not tried to take anything for her pain. She has not had any vomiting, however feels as if she has to vomit. She is also complaining of some dizziness that started last night. She states that she feels like she is dehydrated. She has had an endoscopy with Dr. Montoya, a few years ago which she recalls as being normal. she does endorse taking more Advil this past month as she has been having back pain. She rates the pain an 8/10 this morning, mainly in her epigastric/upper abdomen region with no radiation. She denies any urinary symptoms. Timing/Duration: getting worse Severity: moderate Associated Symptoms: reports: fever/chills Past History - Travel Traveled outside of the country in the last 30 days: No Close contact w/someone who was outside of country & ill: No - Past Medical History Allergies/Adverse Reactions: Allergies Allergy/AdvReac Type Severity Reaction Status Date / Time iodine Allergy Severe Rash Verified 05/23/18 08:52 naproxen [From Naprosyn] Allergy Severe Verified 05/23/18 08:52 Home Medications: Ambulatory Orders Brimonidine Tartrate [Alphagan 0.2% -] 1 drop OU BID 05/17/17 Clopidogrel Bisulfate [Clopidogrel] 75 mg PO DAILY 05/17/17 Gabapentin 800 mg PO BID 05/17/17 Insulin Lispro [Humalog] 0 unit SQ TID 05/17/17 Isosorbide Dinitrate [Isordil -] 5 mg PO BID 05/17/17 Latanoprost 0.005% Eye Drops [Xalatan 0.005% Eye Drops -] 1 drop OU HS 05/17/17 Metoprolol Succinate 50 mg PO DAILY 05/17/17 Rosuvastatin [Crestor -] 20 mg PO HS 05/17/17 Timolol [Betimol] 5 ml OU BID 05/17/17 Aspirin [Aspirin EC] 81 mg PO ASDIR 07/06/17 Albuterol Sulfate [Proventil HFA Inhaler -] 1 - 2 inh PO QID PRN #1 hfa.aer.ad 08/04/17 Anemia: No Asthma: Yes Cancer: No Cardiac Disorders: Yes (H/O TN AND STENT PLACEMENT IN 08/09/13) CVA: No COPD: No DVT: No Dementia: No Diabetes: Yes (IDDM) GI Disorders: Yes (COLON POLYP) Disorders: Yes (cyst on right kidney) HTN: Yes Hypercholesterolemia: Yes Liver Disease: No Seizures: No Thyroid Disease: No - Surgical History Abdominal Surgery: Yes Appendectomy: Yes Cardiac Surgery: Yes (stent placement) Cholecystectomy: No Lung Surgery: No Neurologic Surgery: No Orthopedic Surgery: Yes - Family Disease History Family Disease History: Heart Disease: Father, Mother - Suicide/Smoking/Psychosocial Hx Smoking History: Unknown if ever smoked Have you smoked in the past 12 months: No If you are a former smoker, when did you quit?: 1994 Hx Alcohol Use: No Drug/Substance Use Hx: No Substance Use Type: None Hx Substance Use Treatment: No Review of Systems - Review of Systems Able to Perform ROS?: Yes Is the patient limited [place] proficient: No Constitutional: Yes: Loss of Appetite ABD/GI: Yes: Nausea, Poor Appetite, Indigestion *Physical Exam - Vital Signs Last Vital Signs Temp Pulse Resp BP Pulse Ox 98 F 90 18 119/80 98 05/23/18 08:52 05/23/18 08:52 05/23/18 08:52 05/23/18 08:52 05/23/18 08:52 - Physical Exam General Appearance: Yes: Moderate Distress Respiratory/Chest: positive: Lungs Clear, Normal Breath Sounds Cardiovascular: positive: Regular Rhythm, Regular Rate, S1, S2 Gastrointestinal/Abdominal: positive: Tenderness ED Treatment Course - LABORATORY CBC & Chemistry Diagram: 05/23/18 10:49 05/23/18 17:20 Medical Decision Making - Medical Decision Making 05/23/18 12:28 CBC/CMP?lipase fluids gave znatac; no relief- will give tylneol add on troponin and EKG given DM / CAA history and epigastric pain giving another liter of fluids tylenol for pain pepcid ordering RUQ U/S to r/o gallstones trop negative 05/23/18 12:35 05/23/18 13:57 *DC/Admit/Observation/Transfer Diagnosis at time of Disposition: Abdominal pain, Epigastric pain - Discharge Dispostion Disposition: HOME Condition at time of disposition: Stable - Referrals Referrals: Noris Sinclair MD [Primary Care Provider] - - Patient Instructions Printed Discharge Instructions: DI for Gastroesophageal Reflux Disease (GERD) Additional Instructions: please follow up with dr sinclair within one week if you have any continued or worsening concerns please return to the emergency room immediately - Post Discharge Activity - Attestations Physician Attestion: 05/23/18 18:49 Jannet Carballo
[2018-05-23] MEDS ORDERED: SODIUM CHLORIDE 0.9% 500 ML INFUS.BAG IV ONE ×2 (10:18→12:33)
[2018-05-23] MEDS ORDERED: RANITIDINE HCL 150 MG TABLET (FP) ONE (10:53)
[2018-05-23 10:58] LABS: BASO % 0.8 % (0-2.0); EOS % 1.9 % (0-4.5); HEMOGLOBIN 15.7 GM/dL (10.7-15.3); LYMPH % 24.3 % (8-40); MCH 31.9 pg (25.7-33.7); MCHC 33.3 g/dl (32.0-36.0); MEAN CELL VOLUME 95.9 fl (80-96); MEAN PLT VOLUME 9.5 fl (7.5-11.1); MONO % 6.3 % (3.8-10.2); NEUT % 66.7 % (42.8-82.8); PLATELET COUNT 319 K/MM3 (134-434); RBC 4.91 M/mm3 (3.60-5.2); RDW 13.4 % (11.6-15.6); WHITE BLOOD COUNT 13.1 K/mm3 (4.0-10.0)
[2018-05-23 11:26] LABS: ALBUMIN 3.7 g/dl (3.4-5.0); ALK PHOS 113 U/L (45-117); ANION GAP 8 MMOL/L (8-16); BILIRUBIN,TOTAL 0.4 mg/dL (0.2-1); BLOOD UREA NITROGEN 28 mg/dL (7-18); CALCIUM 10.4 mg/dL (8.5-10.1); CHLORIDE 100 mmol/L (98-107); CO2 26 mmol/L (21-32); CREATININE 1.5 mg/dL (0.55-1.3); GLUCOSE,RANDOM 224 mg/dL (74-106); LIPASE 121 U/L (73-393); POTASSIUM 5.6 mmol/L (3.5-5.1); SGOT/AST 17 U/L (15-37); SGPT/ALT 16 U/L (13-61); SODIUM 134 mmol/L (136-145); TOT PROT 8.4 g/dl (6.4-8.2)
[2018-05-23] MEDS ORDERED: ACETAMINOPHEN 325 MG TABLET (FP) PO ONE (12:35)
[2018-05-23] MEDS ORDERED: FAMOTIDINE 20 MG/50 ML IVPB 20 MG/50 ML MG IVPB ONE ×2 (13:36→14:59)
[2018-05-23 18:32] LABS: ANION GAP 14 MMOL/L (8-16); BLOOD UREA NITROGEN 25 mg/dL (7-18); CALCIUM 8.9 mg/dL (8.5-10.1); CHLORIDE 108 mmol/L (98-107); CO2 16 mmol/L (21-32); CREATININE 1.2 mg/dL (0.55-1.3); GLUCOSE,RANDOM 125 mg/dL (74-106); POTASSIUM 5.4 mmol/L (3.5-5.1); SODIUM 138 mmol/L (136-145)
--- NOTE | 2018-05-23 18:57 | PDOC ---
Attending Attestation - Resident Resident Name: Jannet Carballo - ED Attending Attestation I have performed the following: I have examined & evaluated the patient, The case was reviewed & discussed with the resident, I agree w/resident's findings & plan, Exceptions are as noted - HPI HPI: 05/23/18 18:51 The patient is a 57 year old female, with a significant PMH of HTN, CAD s/p stent (last one 03/2017), and DM who presents to the emergency department for evaluation of epigastric pain, burning, and reflux since Wednesday. The patient states she was eating wonton soup on Wednesday night when the symptoms began and currently rates her abdominal pain a 9/10. Patient reports several episodes of nausea and dry heaving, as well as decreased PO. Patient notes taking a lot of nsaids the past month for back pain. She states the burning sensation radiates up her chest and she feels like "hot food" is coming up but she does not vomit. Denies history of gallstones. The patient denies chest pain, shortness of breath, headache and dizziness. Denies focal weakness/numbness Denies fever, chills, diarrhea and constipation. Denies dysuria, frequency, urgency and hematuria. Allergies: Iodine, Naproxen Past surgical history: Endoscopy (normal) Social history: None reported PCP: Jose - Physicial Exam PE: 05/23/18 18:52 GENERAL: Awake, alert, and fully oriented, in no acute distress. REsting comfortably in bed EYES: PERRLA, EOMI, sclera anicteric, conjunctiva clear ENT: Nares patent, oropharynx clear without exudates. Moist mucosa NECK: Normal ROM, supple, no lymphadenopathy, JVD, or masses LUNGS: Breath sounds equal, clear to auscultation bilaterally. No wheezes, and no crackles HEART: Regular rate and rhythm, normal S1 and S2, no murmurs, rubs or gallops ABDOMEN: Soft, +epigastric ttp, neg murphys sign, normoactive bowel sounds. No guarding, no rebound. No masses EXTREMITIES: Normal range of motion, no edema. No cords, erythema, or tenderness BACK: No midline spinal tenderness in cervical/thoracic/lumbar region NEUROLOGICAL: Normal speech, cranial nerves intact, equal strength and sensation SKIN: Warm, Dry, normal turgor, no rashes or lesions noted. - Medical Decision Making 05/23/18 14:56 57yo F hx CAD, GERD, DM presents to the ED with epigsatric burning, radiating up chest and nausea. Vitals wnl. DDx but not limited includes gerd vs gastritis vs pancreatitis vs cholecystitis vs ACS Plan for labs, US, symptom control, reassess Will obtain tropx2 given pts hx CAD 05/23/18 16:00 Labs with elevated K to 5.6, although per lab sample is "icteric" Bili wnl Per lab, it is not hemolyzed but icteric Remaining labs with mildly elevated creatinine, bun and mild leukocytosis Pt likely dehydrated, is currently getting 1L bolus EKG non ischemic epigastric pain improved with pepcid, ranitidine, acetaminophen US neg for cholecystitis Plan to rpt trop and bmp, reassess 05/23/18 19:02 rpt bmp with K 5.4, 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 I answered all of the patient's questions. The patient was satisfied with the care received and felt comfortable with the discharge plan and treatment plan. The patient will call their primary care physician within 24 hours to arrange follow-up and will return to the Emergency Department with any new, persistent or worsening symptoms. Heart Score/ECG Review #1 05/23/18 19:06 EKG read and interpreted by me: NSR, rate 83, normal axis and intervals, no ELY
[2018-05-23 19:13] VITALS: BP 122/75; PULSE 77
--- NOTE | 2018-05-24 14:24 | EKG ---
Test Reason : Blood Pressure : / mmHG Vent. Rate : 083 BPM Atrial Rate : 083 BPM P-R Int : 142 ms QRS Dur : 072 ms QT Int : 372 ms P-R-T Axes : 044 020 048 degrees QTc Int : 437 ms NORMAL SINUS RHYTHM NORMAL ECG WHEN COMPARED WITH ECG OF 06-NOV-2017 16:33, NO SIGNIFICANT CHANGE WAS FOUND Confirmed by MD Velarde Edward ([id number]) on 05/24/2018 2:24:03 PM Referred By: Confirmed By:Tani Velarde MD
== END 2018-05-23 19:13 | disposition home or self-care (01) ==
LOC: JER 08:41
PROC: 3E033GC Introduction of Other Therapeutic Substance into Peripheral Vein, Percutaneous Approach (ICD-10-PCS; principal; 2018-05-23)
DX: R10.13 Epigastric pain (principal); I25.10 Atherosclerotic heart disease of native coronary artery without angina pectoris; I10 Essential (primary) hypertension; I25.2 Old myocardial infarction; Z95.5 Presence of coronary angioplasty implant and graft; E11.9 Type 2 diabetes mellitus without complications; Z79.4 Long term (current) use of insulin; E78.5 Hyperlipidemia, unspecified; Z87.19 Personal history of other diseases of the digestive system
CPT/HCPCS: 36415; 76700-TC; 80048; 80053; 82962; 83690; 84484; 85025; 93005; 93010; 96365; 99283-25

== ENCOUNTER 2018-06-13 13:34 | Emergency (ER) | payer OTHER ==
[2018-06-13 13:53] VITALS: BMI 34.9
--- NOTE | 2018-06-13 16:09 | PDOC ---
History of Present Illness - General Chief Complaint: Pain Stated Complaint: SENT BY PCP Time Seen by Provider: 06/13/18 15:48 History Source: Patient Exam Limitations: No Limitations Past History - Travel Traveled outside of the country in the last 30 days: No Close contact w/someone who was outside of country & ill: No - Past Medical History Allergies/Adverse Reactions: Allergies Allergy/AdvReac Type Severity Reaction Status Date / Time iodine Allergy Severe Rash Verified 06/13/18 13:41 naproxen [From Naprosyn] Allergy Severe Verified 06/13/18 13:41 Home Medications: Ambulatory Orders Brimonidine Tartrate [Alphagan 0.2% -] 1 drop OU BID 05/17/17 Clopidogrel Bisulfate [Clopidogrel] 75 mg PO DAILY 05/17/17 Gabapentin 800 mg PO BID 05/17/17 Insulin Lispro [Humalog] 0 unit SQ TID 05/17/17 Isosorbide Dinitrate [Isordil -] 5 mg PO BID 05/17/17 Latanoprost 0.005% Eye Drops [Xalatan 0.005% Eye Drops -] 1 drop OU HS 05/17/17 Metoprolol Succinate 50 mg PO DAILY 05/17/17 Rosuvastatin [Crestor -] 20 mg PO HS 05/17/17 Timolol [Betimol] 5 ml OU BID 05/17/17 Aspirin [Aspirin EC] 81 mg PO ASDIR 07/06/17 Albuterol Sulfate [Proventil HFA Inhaler -] 1 - 2 inh PO QID PRN #1 hfa.aer.ad 08/04/17 Bactrim DS - 1 tab PO BID 06/06/18 Acetaminophen [Tylenol] 650 mg PO Q4H #30 tablet 06/13/18 Diazepam [Valium] 5 mg PO DAILY #7 tablet MDD 1 06/13/18 Methylprednisolone [Medrol Dose Tim] 4 mg PO ASDIR #21 tablet 06/13/18 Anemia: No Asthma: Yes Cancer: No Cardiac Disorders: Yes (H/O IA AND STENT PLACEMENT IN 08/09/13) CVA: No COPD: No DVT: No Dementia: No Diabetes: Yes (IDDM) GI Disorders: Yes (COLON POLYP) Disorders: Yes (cyst on right kidney) HTN: Yes Hypercholesterolemia: Yes Liver Disease: No Seizures: No Thyroid Disease: No - Surgical History Abdominal Surgery: Yes Appendectomy: Yes Cardiac Surgery: Yes (stent placement) Cholecystectomy: No Lung Surgery: No Neurologic Surgery: No Orthopedic Surgery: Yes - Family Disease History Family Disease History: Heart Disease: Father, Mother - Immunization History Immunization Up to Date: Yes - Suicide/Smoking/Psychosocial Hx Smoking History: Never smoked Have you smoked in the past 12 months: No If you are a former smoker, when did you quit?: 1994 Hx Alcohol Use: No Drug/Substance Use Hx: No Substance Use Type: None Hx Substance Use Treatment: No Review of Systems - Review of Systems Able to Perform ROS?: Yes Is the patient limited Cameroonian proficient: No *Physical Exam - Vital Signs Last Vital Signs Temp Pulse Resp BP Pulse Ox 97.6 F 60 16 141/77 98 06/13/18 13:41 06/13/18 13:41 06/13/18 13:41 06/13/18 13:41 06/13/18 13:41 ED Treatment Course - LABORATORY CBC & Chemistry Diagram: 06/13/18 16:50 06/13/18 16:50 *DC/Admit/Observation/Transfer Diagnosis at time of Disposition: Low back pain Qualifiers: Chronicity: acute Back pain laterality: bilateral Sciatica presence: with sciatica Sciatica laterality: bilateral sciatica Qualified Code(s): M54.42 - Lumbago with sciatica, left side; M54.41 - Lumbago with sciatica, right side - Discharge Dispostion Disposition: HOME Condition at time of disposition: Stable Decision to Admit order: No - Referrals Referrals: Noris Garcia MD [Primary Care Provider] - - Patient Instructions Printed Discharge Instructions: DI for Back Pain With Sciatica Additional Instructions: You have low back pain due to a muscle spasm. Please take the steroids as prescribed. Please take Valium 5mg every 8 hours for the first day. Then take the medication before you go to bed. Do not drive after taking this medication as it may make you sleepy. Take Tylenol as directed. You may use warm compresses on your back to help with her symptoms. Please follow-up with your primary care doctor. If your symptoms do not resolve in 3-5 days, follow-up with orthopedics. A referral has been provided for you. Please follow up with your neurospine surgeon this week. Return to the emergency department if you have worsening back pain, bladder or bowel incontinence, numbness and tingling in her legs, changes in the way you walk, or any new or worsening symptoms. - Post Discharge Activity Forms/Work/School Notes: Back to Work
[2018-06-13] MEDS ORDERED: DEXAMETHASONE LIQUID 0.5 MG/5 ML 240 ML BULK BOTTLE PO ONE (16:10)
[2018-06-13] MEDS ORDERED: LIDOCAINE 5% TOPICAL PATCH TP ONE (16:10)
[2018-06-13] MEDS ORDERED: ACETAMINOPHEN 325 MG TABLET (FP) PO ONE (16:11)
[2018-06-13] MEDS ORDERED: ACETAMINOPHEN 325 MG TABLET (FP) ONE (16:25)
[2018-06-13] MEDS ORDERED: LIDOCAINE 5% TOPICAL PATCH ONE (16:26)
[2018-06-13] MEDS ORDERED: DEXAMETHASONE SOD PHOSPHATE 10 MG/1 ML VIAL ONE (16:26)
[2018-06-13] MEDS ORDERED: diazePAM 5 MG TABLET ONE (16:34)
[2018-06-13 17:18] LABS: BASO % 0.5 % (0-2.0); EOS % 5.5 % (0-4.5); HEMATOCRIT 42.8 % (32.4-45.2); LYMPH % 37.1 % (8-40); MCH 31.7 pg (25.7-33.7); MCHC 32.8 g/dl (32.0-36.0); MEAN CELL VOLUME 96.9 fl (80-96); MEAN PLT VOLUME 9.9 fl (7.5-11.1); MONO % 6.7 % (3.8-10.2); NEUT % 50.2 % (42.8-82.8); PLATELET COUNT 317 K/MM3 (134-434); RBC 4.42 M/mm3 (3.60-5.2); RDW 13.3 % (11.6-15.6); WHITE BLOOD COUNT 8.8 K/mm3 (4.0-10.0)
[2018-06-13 17:50] LABS: INR 0.91 (0.83-1.09); PROTHROMBIN TIME (PATIENT) 10.7 SEC (9.7-13.0)
[2018-06-13 18:09] LABS: ALBUMIN 3.3 g/dl (3.4-5.0); ALK PHOS 145 U/L (45-117); ANION GAP 6 MMOL/L (8-16); BILIRUBIN,TOTAL 0.2 mg/dL (0.2-1); BLOOD UREA NITROGEN 38 mg/dL (7-18); CALCIUM 9.3 mg/dL (8.5-10.1); CHLORIDE 101 mmol/L (98-107); CO2 26 mmol/L (21-32); CREATININE 1.5 mg/dL (0.55-1.3); SGOT/AST 15 U/L (15-37); SGPT/ALT 19 U/L (13-61); SODIUM 133 mmol/L (136-145); TOT PROT 7.8 g/dl (6.4-8.2)
[2018-06-13 18:23] LABS: GLUCOSE,RANDOM 428 mg/dL (74-106)
[2018-06-13] MEDS ORDERED: diazePAM 5 MG TABLET PO ONE (18:27)
[2018-06-13 19:34] VITALS: BP 162/88; PULSE 71; TEMP 97.3
[2018-06-13] MEDS ORDERED: LIDOCAINE PATCH REMOVAL MC SCH (22:00)
== END 2018-06-13 19:47 | disposition home or self-care (01) ==
LOC: JER 13:34
DX: M54.41 Lumbago with sciatica, right side (principal); M54.42 Lumbago with sciatica, left side; M62.830 Muscle spasm of back; I25.10 Atherosclerotic heart disease of native coronary artery without angina pectoris; I10 Essential (primary) hypertension; Z95.5 Presence of coronary angioplasty implant and graft; I25.2 Old myocardial infarction; E78.00 Pure hypercholesterolemia, unspecified; E11.9 Type 2 diabetes mellitus without complications; Z79.4 Long term (current) use of insulin
CPT/HCPCS: 36415; 72131-TC; 80053; 85025; 85610; 86850; 86900; 86901; 99282-25; G0463-25

== ENCOUNTER 2018-07-28 09:29 | Day surgery (SDC) | payer OTHER ==
[2018-07-27 15:23] VITALS: BMI 33.9
[~2018-07-28 09:29] MED LIST: ceFAZolin SODIUM 1 GM VIAL IVPB ONE
[2018-07-28] MEDS ORDERED: LIDOCAINE HCL 1%, 10 MG/ML (20ML VIAL) ONE ×2 (10:10→13:11)
[2018-07-28] MEDS ORDERED: HEPARIN NA (PORCINE) 5,000 UNITS/ML 1ML VIAL ONE (10:10)
[2018-07-28] MEDS ORDERED: INSULIN (NOVOLOG) ASPART 100 UNITS/ML 10ML VIAL ONE (10:25)
[2018-07-28] MEDS ORDERED: INSULIN (NOVOLOG) ASPART 100 UNITS/ML 10ML VIAL SQ ONE (10:30)
[2018-07-28] MEDS ORDERED: MIDAZOLAM HCL 2 MG/2 ML SINGLE DOSE VIAL ONE ×2 (13:46→13:57)
[2018-07-28] MEDS ORDERED: LIDOCAINE HCL/PF 2% SDV 5ML VIAL ONE (13:46)
[2018-07-28] MEDS ORDERED: PROPOFOL 20 ML ONE ×2 (13:46)
[2018-07-28] MEDS ORDERED: ceFAZolin SODIUM 1 GM VIAL IVPB ONE (14:09)
[2018-07-28] MEDS ORDERED: ceFAZolin SODIUM 1 GM VIAL ONE (14:11)
[2018-07-28] MEDS ORDERED: methylPREDNISolone NA SUCC 125 MG/2 ML VIAL ONE (14:18)
[2018-07-28] MEDS ORDERED: oxyCODONE HCL 5 MG TABLET PO PRN ×2 (14:52)
[2018-07-28] MEDS ORDERED: ONDANSETRON 4 MG/2 ML VIAL IVPUSH PRN (14:52)
[2018-07-28] MEDS ORDERED: LACTATED RINGERS SOLUTION 1,000 ML IV SCH (15:00)
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
--- NOTE | 2018-07-28 15:15 | OP ---
Operative Note - Note: Operative Date: 07/28/18 Pre-Operative Diagnosis: RLE claudication Operation: CO2 aortogram, RLE angiogram Findings: Normal angio - SALESPERSON HEARING AIDS, SFA, Popliteal artery Peroneal artery occlusion with reconstitution. Peroneal artery is the only runoff. Post-Operative Diagnosis: Same as Pre-op Surgeon: Gokul Mckay Anesthesia: Fractional Estimated Blood Loss (mls): 20 Operative Report Dictated: Yes
--- NOTE | 2018-07-28 16:33 | OP ---
DATE OF OPERATION: 07/28/2018 PREOPERATIVE DIAGNOSIS: Right lower extremity claudication. POSTOPERATIVE DIAGNOSIS: Right lower extremity claudication. PROCEDURE PERFORMED: Carbon dioxide aortogram and CO2 right lower extremity angiogram. SURGEON: Gokul Kovacs DO ANESTHESIA: Fractional. BLOOD LOSS: 20 mL. INDICATIONS: The patient is a 57-year-old female who has uncontrolled diabetes and herniated disks in her back. She came into the office complaining of right lower extremity claudication. Preoperative ultrasound showed that she has tibial artery disease. It was decided that the patient would need an angiogram. DESCRIPTION OF PROCEDURE: The patient was consented for the procedure, understanding all risks, benefits and alternatives. She was then taken to the operating room. Once in the operating room, she was laid on the operating table in the supine manner. The areas of the left and right groin were prepped and draped in a sterile surgical manner. We then injected 10 mL of lidocaine 1% over the left common femoral artery. We then went ahead and used our Micropuncture needle and punctured the left common femoral artery. Micropuncture wire was inserted. Micropuncture sheath was inserted. A 0.035 floppy guidewire was inserted, and an additional 5-[place] sheath was inserted. We then placed the wire up into the aorta, followed by an Omni Flush catheter. We then went ahead and used CO2 due to the fact that the patient had a 1.5 creatinine. Using CO2, we did a CO2 aortogram, showing that aorta and iliac arteries were without any disease. We then took our 0.035 floppy guidewire and brought it down to the right common femoral artery and our Omni Flush catheter followed. We then shot a CO2 angiogram of the right lower extremity, showing that the common femoral artery, the profunda, and popliteal artery were patent. At this point we put a 0.035 stiff guidewire in; placed it all the way down to the knee. We then went ahead and placed a 0.035 x 135 Quick-Cross. Brought it down to the knee, and then we went ahead and using contrast diluted to a third, we shot an angiogram of the right tibial artery, showing that the below-knee popliteal artery is patent. TP trunk is patent but then occludes. The anterior tibial artery is not present. The posterior tibial artery is not present. There is a 20 cm occlusion of the posterior tibial artery that reconstitutes via collaterals that goes all the way down to the foot and gives branches off to the DP and PT. At this point, due to the fact that the occlusion is so long in the peroneal artery and since the peroneal artery is the only runoff, we do not want to try to open the proximal peroneal artery in case we dissect the [place] artery and then the patient has acute ischemia. The patient has enough collateral circulation feeding the foot. The patient's burning sensation and claudication are probably coming from her bulging disks and from her uncontrolled diabetic neuropathy. We will reach out to her physicians to treat her medically first. At this point we brought our Quick-Cross up and over. We then removed our 5-[place] sheath from the left groin. Pressure was held for 5 minutes. Afterwards there was no bleeding. The area was wet and dried, and Dermabond was placed. The patient tolerated the procedure with no complications. The patient was transferred to the PACU in stable condition. GOKUL KOVACS DO [id number]
[2018-07-28 17:59] VITALS: BP 142/79; PULSE 74; TEMP 97.4
== END 2018-07-28 18:15 | disposition home or self-care (01) ==
LOC: JASU-SURG 09:29
PROVIDERS: ATTEND Surgery Vascular Surgery
PROC: B41DYZZ Fluoroscopy of Aorta and Bilateral Lower Extremity Arteries using Other Contrast (ICD-10-PCS; principal; 2018-07-28 11:00)
DX: I70.211 Atherosclerosis of native arteries of extremities with intermittent claudication, right leg (principal); E11.51 Type 2 diabetes mellitus with diabetic peripheral angiopathy without gangrene; E11.65 Type 2 diabetes mellitus with hyperglycemia
CPT/HCPCS: 76000-TC-FY; 82962; 94760; J1644

== ENCOUNTER 2018-07-30 19:12 | Inpatient (IN) | payer OTHER ==
--- NOTE | 2018-07-30 19:53 | PDOC ---
History of Present Illness - General Chief Complaint: Lightheaded Stated Complaint: RT LEG PAIN/SENT BY PCP Time Seen by Provider: 07/30/18 19:47 - History of Present Illness Initial Comments: 57 yo F with PMH of PVD, HTN, HLD, CA s/p two stents , asthma, DM presenting with RLE pain. Patient had a recent angiogram on performed by her vascular specialist. Feeling lightheaded today like she is "drunk" and short of breath that is different from her asthma. 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 Her RLE pain is rated 8/10, described as "muscle cramping," and worsens when she walks. She has not taken anything over-the counter. Patient states she does not like taking opioid medications. No fevers, but endorses chills. No chest pain or abdominal pain. PCP: Dr. Garcia Vascular: Dr. Mckay Pain Management: Dr. Mathias (spelling? associated with [facility]) Cardio: Dr. Lopez Past History - Past Medical History Allergies/Adverse Reactions: Allergies Allergy/AdvReac Type Severity Reaction Status Date / Time iodine Allergy Severe Rash Verified 07/28/18 10:12 naproxen [From Naprosyn] Allergy Severe "hives,naus Verified 07/28/18 10:12 ea" Home Medications: Ambulatory Orders Brimonidine Tartrate [Alphagan 0.2% -] 1 drop OU BID 05/17/17 Gabapentin 800 mg PO BID 05/17/17 Insulin Lispro [Humalog] 0 unit SQ TID 05/17/17 Isosorbide Dinitrate [Isordil] 5 mg PO BID 05/17/17 Latanoprost 0.005% Eye Drops [Xalatan 0.005% Eye Drops -] 1 drop OU HS 05/17/17 Metoprolol Succinate 50 mg PO DAILY 05/17/17 Rosuvastatin [Crestor -] 20 mg PO HS 05/17/17 Timolol [Betimol] 5 ml OU BID 05/17/17 Albuterol Sulfate [Proventil HFA Inhaler -] 1 - 2 inh PO QID PRN #1 hfa.aer.ad 08/04/17 Acetaminophen [Tylenol] 650 mg PO Q4H #30 tablet 06/13/18 Amlodipine Besylate [Norvasc -] 5 mg PO DAILY 08/01/18 Anemia: No Asthma: Yes ("no recent problem") Cancer: No Cardiac Disorders: Yes (H/O CA AND STENT PLACEMENT IN ) CVA: No COPD: No DVT: No Dementia: No Diabetes: Yes (IDDM) GI Disorders: Yes (COLON POLYP) Disorders: Yes (cyst on right kidney) HTN: Yes Hypercholesterolemia: Yes Liver Disease: No Seizures: No Thyroid Disease: No - Surgical History Abdominal Surgery: Yes Appendectomy: Yes Cardiac Surgery: Yes (stent, angioplasty) Cholecystectomy: No Lung Surgery: No Neurologic Surgery: No Orthopedic Surgery: Yes - Family Disease History Family Disease History: Heart Disease: Father, Mother - Immunization History Immunization Up to Date: Yes - Suicide/Smoking/Psychosocial Hx Smoking History: Never smoked Have you smoked in the past 12 months: No If you are a former smoker, when did you quit?: 1994 Hx Alcohol Use: Yes (beer occas) Drug/Substance Use Hx: No Substance Use Type: Alcohol Hx Substance Use Treatment: No Review of Systems - Review of Systems Comments:: Constitutional: no fever, +chills HEENT: no throat pain, no dysphagia Cardiovascular: no chest pain, no palpitations Respiratory: no cough, +shortness of breath Gastrointestinal: no abdominal pain, +nausea Genitourinary: no dysuria, no frequency Musculoskeletal: +RLE pain, no LLE pain Skin: no rash, no itching Neurologic: +lightheaded, +weakness *Physical Exam - Vital Signs Last Vital Signs Temp Pulse Resp BP Pulse Ox 98.1 F 74 20 94/56 L 100 07/30/18 19:35 07/30/18 19:35 07/30/18 19:35 07/30/18 19:35 07/30/18 19:35 - Physical Exam Comments: General: Awake, alert, and fully oriented, somnolent Head: No signs of trauma Eyes: EOMI, sclera anicteric ENT: Dry mucus membranes Neck: Normal ROM, supple Lungs: Lungs clear, Normal breath sounds Cardio: Regular rhythm, S1 and S2 present Abdomen: Soft, nontender. No guarding, no rebound, no masses Upper extremities: Distal pulses present Lower extremities: Distal pulses unable to doppler in BLE, RLE is slightly colder than LLE up to mid-calf. Patient reports numbness on RLE. Equal strength. Area of angiogram insertion at left inguinal fold with small bruise but otherwise no overlying erythema/induration/fluctuance SKIN: Warm, Dry, normal turgor Neurologic: Cranial nerves II through XII grossly intact. Normal speech Back: Tender to palpation in lumbar area, midline, no step-offs/deformities/ fluctuance; no overlying wound or lesion ED Treatment Course - LABORATORY CBC & Chemistry Diagram: 08/01/18 06:30 08/01/18 06:30 Medical Decision Making - Medical Decision Making 57 yo F with PMH of PVD, HTN, HLD, CA s/p two stents , asthma, DM presenting with RLE pain. Patient had a recent angiogram on performed by her vascular specialist. VS significant for hypotension, 94/56 Labs, EKG Duplex arterial Ultrasound of RLE 07/30/18 20:33 EKG: rate 67, QTc 433, NSR Discussed case with Dr. Mckay who states she had no interventions performed on as she had a "clean angiogram." He has no further recommendations but states the patient has chronic pain issues and recently had an epidural procedure for lower back pain. In addition, patient was extremely hyperglycemic on the day of the procedure. Upon asking the patient, she had an epidural on Wednesday 07/26 performed by her appliance painter and refinisher Dr. Mathias at [facility]. This is the second one she has ever had. She points to her intergluteal cleft as the area of injection and has midline tenderness superior to that area overlying the lumbar spine. No urinary/stool incontinence. No saddle anesthesia. BGM is <300 07/30/18 21:07 CBC WBC 15.0 K/mm3 (4.0-10.0) H 07/30/18 20:50 RBC 4.36 M/mm3 (3.60-5.2) 07/30/18 20:50 Hgb 14.0 GM/dL (10.7-15.3) 07/30/18 20:50 Hct 41.8 % (32.4-45.2) 07/30/18 20:50 MCV 95.8 fl (80-96) 07/30/18 20:50 MCH 32.0 pg (25.7-33.7) 07/30/18 20:50 MCHC 33.4 g/dl (32.0-36.0) 07/30/18 20:50 RDW 13.4 % (11.6-15.6) 07/30/18 20:50 Plt Count 322 K/MM3 (134-434) 07/30/18 20:50 MPV 10.0 fl (7.5-11.1) 07/30/18 20:50 Absolute Neuts (auto) 9.5 K/mm3 (1.5-8.0) H 07/30/18 20:50 Neutrophils % 63.2 % (42.8-82.8) 07/30/18 20:50 Lymphocytes % 27.6 % (8-40) 07/30/18 20:50 Monocytes % 8.6 % (3.8-10.2) 07/30/18 20:50 Eosinophils % 0.3 % (0-4.5) D 07/30/18 20:50 Basophils % 0.3 % (0-2.0) 07/30/18 20:50 Nucleated RBC % 0 % (0-0) 07/30/18 20:50 Leukocytosis 15.0 No anemia CMP Sodium 134 mmol/L (136-145) L 07/30/18 20:50 Potassium 4.9 mmol/L (3.5-5.1) 07/30/18 20:50 Chloride 98 mmol/L (98-107) 07/30/18 20:50 Carbon Dioxide 27 mmol/L (21-32) 07/30/18 20:50 Anion Gap 9 MMOL/L (8-16) 07/30/18 20:50 BUN 58.9 mg/dL (7-18) H 07/30/18 20:50 Creatinine 2.7 mg/dL (0.55-1.3) H 07/30/18 20:50 Est GFR (CKD-EPI)AfAm 21.80 07/30/18 20:50 Est GFR (CKD-EPI)NonAf 18.81 07/30/18 20:50 POC Glucometer 273 UNITS (80-120) 07/30/18 21:27 Random Glucose 329 mg/dL (74-106) H* 07/30/18 20:50 Lactic Acid 1.8 mmol/L (0.4-2.0) 07/30/18 20:50 Calcium 9.4 mg/dL (8.5-10.1) 07/30/18 20:50 Total Bilirubin 0.2 mg/dL (0.2-1) 07/30/18 20:50 AST 13 U/L (15-37) L 07/30/18 20:50 ALT 18 U/L (13-61) 07/30/18 20:50 Alkaline Phosphatase 109 U/L (45-117) 07/30/18 20:50 Troponin I < 0.02 ng/ml (0.00-0.05) 07/30/18 20:50 Total Protein 7.1 g/dl (6.4-8.2) 07/30/18 20:50 Albumin 3.3 g/dl (3.4-5.0) L 07/30/18 20:50 Electrolytes unremarkable Cr 2.7 Patient with WADE, poor po intake vs contrast-induced nephropathy Acetone negative 07/30/18 22:[address] Garcia who accepted patient for admission for WADE Repeat vials BP 115/69, HR 72, Sat 97% As patient's BP has improved, will place in med/surg unit. 07/30/18 22:49 *DC/Admit/Observation/Transfer Diagnosis at time of Disposition: WADE (acute kidney injury) - Discharge Dispostion Disposition: HOME Condition at time of disposition: Guarded Decision to Admit order: Yes - Referrals - Patient Instructions - Post Discharge Activity
[2018-07-30] MEDS ORDERED: SODIUM CHLORIDE 1,000 ML IV STA (20:26)
[2018-07-30] MEDS ORDERED: ONDANSETRON 4 MG/2 ML VIAL IVPUSH ONE (20:26)
[2018-07-30] MEDS ORDERED: morphine CARPU-JECT 2 MG/1 ML DISP.SYRIN IVPUSH ONE (20:26)
[2018-07-30] MEDS ORDERED: MORPHINE SULFATE 2 MG/ML VIAL ONE (20:46)
[2018-07-30] MEDS ORDERED: ONDANSETRON 4 MG/2 ML VIAL ONE (20:47)
[2018-07-30 21:04] LABS: BASO % 0.3 % (0-2.0); EOS % 0.3 % (0-4.5); HEMATOCRIT 41.8 % (32.4-45.2); LYMPH % 27.6 % (8-40); MCHC 33.4 g/dl (32.0-36.0); MEAN CELL VOLUME 95.8 fl (80-96); MONO % 8.6 % (3.8-10.2); NEUT % 63.2 % (42.8-82.8); PLATELET COUNT 322 K/MM3 (134-434); RBC 4.36 M/mm3 (3.60-5.2); RDW 13.4 % (11.6-15.6)
[2018-07-30] MEDS ORDERED: SODIUM CHLORIDE 0.9% 1000 ML INFUS.BAG IV ONE ×2 (21:09→22:43)
[2018-07-30 21:15] LABS: EPI CELLS 9.8 /HPF (0-5/HPF); HYALINE CASTS 15 /lpf (0-8); URINE APPEARANCE CLOUDY; URINE BACTERIA 6.1 /hpf (NEGATIVE); URINE BILIRUBIN NEGATIVE (NEGATIVE); URINE COLOR DK YELLOW; URINE GLUCOSE (UA) NEGATIVE (NEGATIVE); URINE KETONE 1+ (NEGATIVE); URINE LEUK ESTERASE NEGATIVE (NEGATIVE); URINE NITRITE NEGATIVE (NEGATIVE); URINE PROTEIN 1+ (NEGATIVE); URINE RBC 3 /hpf (0-4); URINE WBC 5 /hpf (0-5)
[2018-07-30 21:15] LABS: INR 0.92 (0.83-1.09); PROTHROMBIN TIME (PATIENT) 10.8 SEC (9.7-13.0)
[2018-07-30 21:18] LABS: ACTIVATED PTT 28.2 SECONDS (25.2-36.5)
[2018-07-30 21:41] LABS: VENOUS PC02 43.2 mmHg (41-51); VENOUS PH 7.37 (7.31-7.41); VENOUS PO2 56.4 mmHg (30-40)
--- NOTE | 2018-07-30 21:42 | PDOC ---
Documentation entered by Cristopher Cruz SCRIBE, acting as scribe for Farhana Ku DO. Farhana Ku DO: This documentation has been prepared by the Anthony steele Daniel, SCRIBE, under my direction and personally reviewed by me in its entirety. I confirm that the documentation accurately reflects all work, treatment, procedures, and medical decision making performed by me. Attending Attestation - Resident Resident Name: ShantelBrookeJuana - ED Attending Attestation I have performed the following: I have examined & evaluated the patient, The case was reviewed & discussed with the resident, I agree w/resident's findings & plan, Exceptions are as noted - HPI HPI: 07/30/18 20:43 The patient is a 57 year old female with a past medical history of HTN, HLD, diabetes, [place] s/p 2 stents, and peripheral vascular disease here today for evaluation of right lower extremity pain. The patient reports that she had an angiogram and angioplasty on (07/28/18) performed by Dr. Dickey. She states that the next day she felt chills. She reports waking up today feeling lightheaded describing it as feeling like she is drunk and also reports right lower extremity pain that is 8/10, cramping, and worse with movement. Patient reports having had this pain before. She also notes decreased PO intake and shortness of breath. Patient denies headache. Denies fever. Denies chest pain. Denies nausea, vomiting, diarrhea, abdominal pain. Allergies: iodine, naproxen - Physicial Exam PE: 07/30/18 21:43 Constitutional: +morbid obesity. sleepy but arousable, oriented. No acute distress. Head: Normocephalic. Atraumatic Eyes: PERRL. EOMI. Conjunctivae are not pale. ENT: Mucous membranes are dry and intact. Posterior pharynx without exudates or erythema. Uvula midline. Neck: Supple. Full ROM. No lymphadenopathy. Cardiovascular: Regular rate. Regular rhythm. S1, S2 regular. Distal pulses are 2+ and symmetric. Pulmonary/Chest: +poor inspiratory effort. No evidence of respiratory distress. Clear to auscultation bilaterally No wheezing, rales or rhonchi. Abdominal: Soft and non-distended. There is no tenderness. No rebound, guarding or rigidity. No organomegaly. No palpable masses. Good bowel sounds. Back: No CVA tenderness. Musculoskeletal: No edema. No cyanosis. No clubbing. Full range of motion in all extremities. No calf tenderness. Radial/pedal pulses are intact and 2+ bilaterally Skin: +incision site at left groin with dermabond in place with no bruits, hematoma, or palpable masses. +right lower extremity slightly cooler than left by the foot. +slow capillary refill. Skin is warm and dry. No petechiae. No purpura. Neurological: Alert and oriented to person, place, and time. Cranial nerves II -XII are grossly intact. Normal speech. Strength is grossly symmetric. No sensory deficits. Psychiatric: Good eye contact. Normal interaction, affect and behavior. - Medical Decision Making 07/30/18 20:36 I, Dr. Farhana Ku, DO, attest that this document has been prepared under my direction and personally reviewed by me in its entirety. I further attest, that it accurately reflects all work, treatment, procedures and medical decision -making performed by me. 07/30/18 21:38 a/p: 57yo female with R leg pain -hx of claudication, s/p angiogram with Dr. Dickey on -incision site is well approx to L groin -pt denies change in her back pain, no erythema or ecchymosis to back, no loss of bowel or bladder, no f/c -hx of dm -hx of neuropathy -cool R foot, unable to obtain doppler pulses b/l feet -concern for worsening claudication -will send labs, ekg, cxr, arterial duplex ultraosund LE b/l -will discuss with Dr. Dickey 07/30/18 21:41 resident discussed the case with dr. dickey who states he does not think this is worsening of her claudication pt did have epidural injection to L low back on wednesday - pt denies change in back pain, no signs/symptoms of caude equina -hx of peripheral neuropathy pt appears very dehydrated will continue to monitor 07/30/18 21:42 elevated wbc, but pt had epidural injection with steroids on wednesday - poss stress reaction vs from the steroids 07/30/18 22:13 cxr clear pt with WADE elevated glucose had recent angiogram ? dehydration, wade from dehydration vs contrast induced nephropathy will need admission arterial ultrasound pending 07/30/18 22:44 resident discussed the case with Dr. Garcia 07/30/18 22:50 updated pt on results, pt willing to stay repeat bp 115/69 Heart Score/ECG Review - ECG Intrepretation Comment:: 07/30/18 21:42 sinus at 67, nl axis, nl interval, no acute st/t wave findings
[2018-07-30 22:02] LABS: ALBUMIN 3.3 g/dl (3.4-5.0); ANION GAP 9 MMOL/L (8-16); BILIRUBIN,TOTAL 0.2 mg/dL (0.2-1); BLOOD UREA NITROGEN 58.9 mg/dL (7-18); CALCIUM 9.4 mg/dL (8.5-10.1); CHLORIDE 98 mmol/L (98-107); CO2 27 mmol/L (21-32); CREATININE 2.7 mg/dL (0.55-1.3); POTASSIUM 4.9 mmol/L (3.5-5.1); SGOT/AST 13 U/L (15-37); SGPT/ALT 18 U/L (13-61); SODIUM 134 mmol/L (136-145); TOT PROT 7.1 g/dl (6.4-8.2)
[2018-07-30 22:03] LABS: ALK PHOS 109 U/L (45-117)
[2018-07-30 22:06] LABS: GLUCOSE,RANDOM 329 mg/dL (74-106)
[2018-07-30 22:30] LABS: ACETONE SERUM NEGATIVE (NEGATIVE)
[2018-07-31] MEDS: ACETAMINOPHEN 325 MG TABLET (FP) PO SCH ×6 (02:43→21:18)
[2018-07-31] MEDS: SODIUM CHLORIDE 1,000 ML IV SCH ×2 (02:44→16:23)
[2018-07-31 03:14] VITALS: BMI 36.0
[2018-07-31] MEDS ORDERED: INSULIN (NOVOLOG) ASPART 100 UNITS/ML 10ML VIAL ONE ×3 (05:55→21:25)
[2018-07-31] MEDS: INSULIN SLIDING SCALE (NOVOLOG) 1 VIAL SQ SCH ×4 (06:04→21:22)
[2018-07-31] MEDS: HEPARIN NA (PORCINE) 5,000 UNITS/ML 1ML VIAL SQ SCH ×2 (10:15→21:18)
[2018-07-31] MEDS: GABAPENTIN 400 MG CAPSULE (FP) PO SCH ×2 (10:15→21:17)
[2018-07-31] MEDS: BRIMONIDINE TARTRATE 0.2% OPHTHALMIC 5 ML BOTTLE OU SCH ×2 (10:16→21:16)
[2018-07-31] MEDS: ISOSORBIDE DINITRATE 5 MG TABLET PO SCH ×2 (10:16→21:58)
[2018-07-31] MEDS: TIMOLOL 0.25% OPHTHALMIC SOL 5 ML BOTTLE OU SCH ×2 (10:17→21:22)
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
--- NOTE | 2018-07-31 17:01 | EKG ---
Test Reason : Blood Pressure : / mmHG Vent. Rate : 067 BPM Atrial Rate : 067 BPM P-R Int : 132 ms QRS Dur : 088 ms QT Int : 410 ms P-R-T Axes : 044 025 052 degrees QTc Int : 433 ms NORMAL SINUS RHYTHM NORMAL ECG WHEN COMPARED WITH ECG OF 23-MAY-2018 12:32, NO SIGNIFICANT CHANGE WAS FOUND Confirmed by MD SANJUANA, ARMANDO ([id number]) on 07/31/2018 5:01:18 PM Referred By: Confirmed By:ARMANDO WEI MD
[2018-07-31] MEDS ORDERED: PT OWN MED DRAWER 7, Y5N ONE ×2 (21:04→21:56)
[2018-07-31] MEDS ORDERED: ROSUVASTATIN CA 20 MG TABLET (FP) PO SCH (22:00)
[2018-07-31] MEDS ORDERED: LATANOPROST 0.005% OPHTH SOLN 2.5ML BOTTLE OU SCH (22:00)
[2018-08-01] MEDS: ACETAMINOPHEN 325 MG TABLET (FP) PO SCH ×5 (02:53→17:09)
[2018-08-01] MEDS: SODIUM CHLORIDE 1,000 ML IV SCH ×2 (02:53→05:18)
[2018-08-01] MEDS: INSULIN SLIDING SCALE (NOVOLOG) 1 VIAL SQ SCH ×3 (06:23→16:50)
[2018-08-01] MEDS ORDERED: INSULIN (NOVOLOG) ASPART 100 UNITS/ML 10ML VIAL ONE ×4 (06:38→16:06)
[2018-08-01 07:01] LABS: BASO % 0.5 % (0-2.0); EOS % 2.3 % (0-4.5); HEMATOCRIT 37.7 % (32.4-45.2); HEMOGLOBIN 12.7 GM/dL (10.7-15.3); LYMPH % 39.4 % (8-40); MCH 32.3 pg (25.7-33.7); MCHC 33.8 g/dl (32.0-36.0); MEAN CELL VOLUME 95.6 fl (80-96); MEAN PLT VOLUME 9.9 fl (7.5-11.1); MONO % 5.7 % (3.8-10.2); NEUT % 52.1 % (42.8-82.8); PLATELET COUNT 276 K/MM3 (134-434); RBC 3.94 M/mm3 (3.60-5.2); RDW 13.5 % (11.6-15.6); WHITE BLOOD COUNT 11.1 K/mm3 (4.0-10.0)
[2018-08-01 07:27] LABS: BILIRUBIN,TOTAL 0.3 mg/dL (0.2-1); BLOOD UREA NITROGEN 36.5 mg/dL (7-18); CALCIUM 8.4 mg/dL (8.5-10.1); CREATININE 1.2 mg/dL (0.55-1.3); POTASSIUM 4.7 mmol/L (3.5-5.1); TOT PROT 6.2 g/dl (6.4-8.2)
--- NOTE | 2018-08-01 08:51 | CONSULT ---
- Consultation REQUESTING PROVIDER: CONSULT REQUEST: We have been asked to surgically evaluate this patient for right LE radicular pain. 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 Peroneal artery is the only runoff.) The patient was fine until she went to work on Wednesday and developed pain after several hours of standing. She describes the pain as "shocking" and shooting down her right leg extending over the dorsum of her foot. She denies any injury or specific incident associated with the onset. The pain was so severe that she presented to the ER on Wednesday evening. She denies any CP, SOB , fever chills, nausea or vomiting associated with onset of LE pain. Of note, patient had an epidural injection with her pain management doctor at [facility] last Wednesday. PMHX Anemia: No Asthma: Yes ("no recent problem") Cancer: No Cardiac Disorders: Yes (H/O [place] AND STENT PLACEMENT IN ) CVA: No COPD: No DVT: No Dementia: No Diabetes: Yes (IDDM) GI Disorders: Yes (COLON POLYP) Disorders: Yes (cyst on right kidney) HTN: Yes Hypercholesterolemia: Yes Liver Disease: No Seizures: No Thyroid Disease: No - Surgical History Abdominal Surgery: Yes Appendectomy: Yes Cardiac Surgery: Yes (stent, angioplasty-CABG) Cholecystectomy: No Lung Surgery: No Neurologic Surgery: No Orthopedic Surgery: Yes - Family Disease History Family Disease History: Heart Disease: Father, Mother - Immunization History Immunization Up to Date: Yes - Suicide/Smoking/Psychosocial Hx Smoking History: Never smoked Have you smoked in the past 12 months: No If you are a former smoker, when did you quit?: 1994 Hx Alcohol Use: Yes (beer occas) Drug/Substance Use Hx: No Substance Use Type: Alcohol Hx Substance Use Treatment: No Review of Systems - Review of Systems Comments:: Constitutional: no fever, HEENT: no throat pain, no dysphagia, Cardiovascular: no chest pain, no palpitations Respiratory: no cough, no SOB Gastrointestinal: no abdominal pain, Genitourinary: no dysuria, no frequency Musculoskeletal: +RLE pain, no LLE pain Skin: no rash, no itching Neurologic: LE Radiculopathy Home Medications Medication Instructions Recorded Brimonidine Tartrate [Alphagan 1 drop OU BID 05/17/17 0.2% -] Gabapentin 800 mg PO BID 05/17/17 Insulin Lispro [Humalog] 0 unit SQ TID 05/17/17 Isosorbide Dinitrate [Isordil] 5 mg PO BID 05/17/17 Latanoprost 0.005% Eye Drops 1 drop OU HS 05/17/17 [Xalatan 0.005% Eye Drops -] Metoprolol Succinate 50 mg PO DAILY 05/17/17 Rosuvastatin [Crestor -] 20 mg PO HS 05/17/17 Timolol [Betimol] 5 ml OU BID 05/17/17 Albuterol Sulfate [Proventil HFA 1 - 2 inh PO QID PRN #1 hfa.aer.ad 08/04/17 Inhaler -] Acetaminophen [Tylenol] 650 mg PO Q4H #30 tablet 06/13/18 Allergies Allergy/AdvReac Type Severity Reaction Status Date / Time iodine Allergy Severe Rash Verified 07/28/18 10:12 naproxen [From Naprosyn] Allergy Severe "hives,naus Verified 07/28/18 10:12 ea" PHYSICAL EXAM: GENERAL: Awake, alert, and fully oriented, in no acute distress. HEAD: Normal with no signs of trauma. EYES: sclera anicteric, conjunctiva clear. LUNGS: No auditory wheezes, No accessory muscle use on RA MUSCULOSKELETAL: moving all joints without limitation. No gross bony deformities LOWER EXTREMITIES: B/l LE thighs soft and supple with mild ttp of left thigh. Left groin sx site clean and dry with skin glue with surrounding tissue intact and no tracking erythema, edema or evidence of collection or d/c. B/L LE compartments soft, supple and non-tender, b/l feet warm and well perfused with + signal on doppler over b/l DP and PT pulses. No peripheral edema. NEUROLOGICAL: Normal speech, gait not observed. PSYCH: Cooperative. Good eye contact. Appropriate mood and affect. SKIN: Warm, dry, normal turgor, no rashes or lesions noted. Vital Signs Temperature 97.4 F L 08/01/18 06:20 Pulse Rate 63 08/01/18 06:20 Respiratory Rate 20 08/01/18 06:20 Blood Pressure 116/72 08/01/18 06:20 O2 Sat by Pulse Oximetry (%) 96 07/31/18 22:00 Lab Results WBC 11.1 K/mm3 (4.0-10.0) H 08/01/18 06:30 RBC 3.94 M/mm3 (3.60-5.2) 08/01/18 06:30 Hgb 12.7 GM/dL (10.7-15.3) 08/01/18 06:30 Hct 37.7 % (32.4-45.2) 08/01/18 06:30 MCV 95.6 fl (80-96) 08/01/18 06:30 MCHC 33.8 g/dl (32.0-36.0) 08/01/18 06:30 RDW 13.5 % (11.6-15.6) 08/01/18 06:30 Plt Count 276 K/MM3 (134-434) 08/01/18 06:30 Sodium 140 mmol/L (136-145) 08/01/18 06:30 Potassium 4.7 mmol/L (3.5-5.1) 08/01/18 06:30 Chloride 109 mmol/L (98-107) H 08/01/18 06:30 Carbon Dioxide 26 mmol/L (21-32) 08/01/18 06:30 Anion Gap 5 MMOL/L (8-16) L 08/01/18 06:30 BUN 36.5 mg/dL (7-18) H 08/01/18 06:30 Creatinine 1.2 mg/dL (0.55-1.3) 08/01/18 06:30 Random Glucose 209 mg/dL (74-106) H 08/01/18 06:30 Calcium 8.4 mg/dL (8.5-10.1) L 08/01/18 06:30 INR 0.92 (0.83-1.09) 07/30/18 20:50 Duplex Arterial Right LE 07/30/17: Abnormal flow in right LE suggests high grade stenosis Problem List - Problems (1) Leg pain Assessment/Plan: Right LE radicular pain s/p angiogram with + pulses on doppler in the setting of recent epidural likely neuropathic pain. Improving over time. No evidence for vascular intervention. 1) OOB with PT, encourage ambulation 2) Encourage IS 3) Pain control 4) f/u with pain mngt as outpatient 5) f/u with vascular as outpatient Evaluation and plan discussed with Dr Mckay Code(s): M79.606 - PAIN IN LEG, UNSPECIFIED Qualifiers: Laterality: bilateral Qualified Code(s): M79.604 - Pain in right leg; M79.605 - Pain in left leg
[2018-08-01] MEDS: GABAPENTIN 400 MG CAPSULE (FP) PO SCH (09:33)
[2018-08-01] MEDS: HEPARIN NA (PORCINE) 5,000 UNITS/ML 1ML VIAL SQ SCH (09:34)
[2018-08-01] MEDS: ISOSORBIDE DINITRATE 5 MG TABLET PO SCH (09:36)
[2018-08-01] MEDS: BRIMONIDINE TARTRATE 0.2% OPHTHALMIC 5 ML BOTTLE OU SCH (09:37)
[2018-08-01] MEDS: TIMOLOL 0.25% OPHTHALMIC SOL 5 ML BOTTLE OU SCH (09:37)
[2018-08-01] MEDS ORDERED: SODIUM CHLORIDE 1,000 ML IV SCH (11:20)
--- NOTE | 2018-08-01 11:20 | PN ---
Progress Note, Physician History of Present Illness: Pt seen and examined at bedside. She is awake and alert. She denies shortness of breath. - Current Medication List Current Medications: Active Medications Acetaminophen (Tylenol -) 650 mg PO Q4H [facility] Last Admin: 08/01/18 09:33 Dose: 650 mg Amlodipine Besylate (Norvasc -) 5 mg PO DAILY [facility] Last Admin: 08/01/18 11:08 Dose: 5 mg Brimonidine Tartrate (Alphagan 0.2% -) 1 drop OU BID [facility] Last Admin: 08/01/18 09:37 Dose: 1 drop Gabapentin (Neurontin -) 800 mg PO BID [facility] Last Admin: 08/01/18 09:33 Dose: 800 mg Heparin Sodium (Porcine) (Heparin -) 5,000 unit SQ BID [facility] Last Admin: 08/01/18 09:34 Dose: 5,000 unit Sodium Chloride (Normal Saline -) 1,000 mls @ 75 mls/hr IV ASDIR [facility] Last Admin: 08/01/18 05:18 Dose: 75 mls/hr Insulin Aspart (Novolog Vial Sliding Scale -) 1 vial SQ [facility]; Protocol Last Admin: 08/01/18 11:05 Dose: 6 units Isosorbide Dinitrate (Isordil -) 5 mg PO BID [facility] Last Admin: 08/01/18 09:36 Dose: 5 mg Latanoprost (Xalatan 0.005% Eye Drops -) 1 drop OU [facility] Last Admin: 07/31/18 21:57 Dose: 1 drop Metoprolol Succinate (Toprol Xl -) 50 mg PO DAILY [facility] Last Admin: 08/01/18 09:33 Dose: 50 mg Rosuvastatin Calcium (Crestor -) 20 mg PO [facility] Last Admin: 07/31/18 21:17 Dose: 20 mg Timolol Maleate (Timoptic 0.25%) 1 drop OU BID [facility] Last Admin: 08/01/18 09:37 Dose: 1 drop - Objective Vital Signs: Vital Signs Temperature 97.9 F 08/01/18 09:43 Pulse Rate 65 08/01/18 09:43 Respiratory Rate 20 08/01/18 09:43 Blood Pressure 161/77 08/01/18 09:43 O2 Sat by Pulse Oximetry (%) 96 08/01/18 09:00 Constitutional: Yes: Calm Eyes: Yes: Conjunctiva Clear HENT: Yes: Atraumatic Cardiovascular: Yes: S1, S2 Respiratory: Yes: CTA Bilaterally Gastrointestinal: Yes: Soft Genitourinary: Yes: WNL Musculoskeletal: Yes: WNL Edema: No Integumentary: Yes: WNL Neurological: Yes: Oriented Psychiatric: Yes: Oriented Labs: CBC, BMP 08/01/18 06:30 08/01/18 06:30 INR, PTT INR 0.92 (0.83-1.09) 07/30/18 20:50 Assessment/Plan Current Medications Generic Name Dose Route Start Last Admin Trade Name Freq PRN Reason Stop Dose Admin Acetaminophen 650 mg 07/31/18 02:00 08/01/18 09:33 Tylenol - PO 650 mg Q4H EDYTA Administration Amlodipine Besylate 5 mg 08/01/18 11:30 08/01/18 11:08 Norvasc - PO 5 mg DAILY EDYTA Administration Brimonidine Tartrate 1 drop 07/31/18 10:00 08/01/18 09:37 Alphagan 0.2% - OU 1 drop BID EDYTA Administration Gabapentin 800 mg 07/31/18 10:00 08/01/18 09:33 Neurontin - PO 800 mg BID EDYTA Administration Heparin Sodium (Porcine) 5,000 unit 07/31/18 10:00 08/01/18 09:34 Heparin - SQ 5,000 unit BID EDYTA Administration Sodium Chloride 1,000 mls @ 75 mls/hr 07/31/18 02:00 08/01/18 05:18 Normal Saline - IV 75 mls/hr ASDIR EDYTA Administration Insulin Aspart 1 vial 07/31/18 07:00 08/01/18 11:05 Novolog Vial Sliding Scale - SQ 6 units ACHS EDYTA Administration Protocol Isosorbide Dinitrate 5 mg 07/31/18 10:00 08/01/18 09:36 Isordil - PO 5 mg BID EDYTA Administration Latanoprost 1 drop 07/31/18 22:00 07/31/18 21:57 Xalatan 0.005% Eye Drops - OU 1 drop HS EDYTA Administration Metoprolol Succinate 50 mg 07/31/18 10:00 08/01/18 09:33 Toprol Xl - PO 50 mg DAILY EDYTA Administration Rosuvastatin Calcium 20 mg 07/31/18 22:00 07/31/18 21:17 Crestor - PO 20 mg HS EDYTA Administration Timolol Maleate 1 drop 07/31/18 10:00 08/01/18 09:37 Timoptic 0.25% OU 1 drop BID EDYTA Administration Impression 1. CKD 2. hyperkalemia 3. DM 4. CAD 5. claudication 6. dyspnea 7. HTN 8. neuropathy 9. WADE Plan - renal function has improved - will need outpt follow up - can decrease rate of fluids - will see in office for renal workup - will follow
[2018-08-01] MEDS ORDERED: amLODIPine BESYLATE 5 MG TABLET (FP) PO SCH (11:30)
[2018-08-01 18:09] VITALS: BP 148/80; PULSE 63; TEMP 98.4
[2018-08-01] MEDS ORDERED: PT OWN MED DRAWER 7, Y5N ONE (18:48)
--- NOTE | 2018-08-01 19:36 | DS ---
Physical Examination Vital Signs: Vital Signs Temperature 98.4 F 08/01/18 18:08 Pulse Rate 63 08/01/18 18:08 Respiratory Rate 20 08/01/18 18:08 Blood Pressure 148/80 08/01/18 18:08 O2 Sat by Pulse Oximetry (%) 96 08/01/18 09:00 Constitutional: Yes: No Distress HENT: Yes: Atraumatic Neck: Yes: Supple Cardiovascular: Yes: Regular Rate and Rhythm Respiratory: Yes: CTA Bilaterally Gastrointestinal: Yes: Normal Bowel Sounds Extremities: Yes: WNL Neurological: Yes: Alert, Oriented Labs: CBC, BMP 08/01/18 06:30 08/01/18 06:30 Discharge Summary Reason For Visit: ACUTE KIDNEY INJURY Current Active Problems WADE (acute kidney injury) (Acute) Condition: Guarded - Instructions Referrals: Gokul Mckay DO [Staff Physician] - - Home Medications Comprehensive Discharge Medication List: Ambulatory Orders Brimonidine Tartrate [Alphagan 0.2% -] 1 drop OU BID 05/17/17 Gabapentin 800 mg PO BID 05/17/17 Insulin Lispro [Humalog] 0 unit SQ TID 05/17/17 Isosorbide Dinitrate [Isordil] 5 mg PO BID 05/17/17 Latanoprost 0.005% Eye Drops [Xalatan 0.005% Eye Drops -] 1 drop OU HS 05/17/17 Metoprolol Succinate 50 mg PO DAILY 05/17/17 Rosuvastatin [Crestor -] 20 mg PO HS 05/17/17 Timolol [Betimol] 5 ml OU BID 05/17/17 Albuterol Sulfate [Proventil HFA Inhaler -] 1 - 2 inh PO QID PRN #1 hfa.aer.ad 08/04/17 Acetaminophen [Tylenol] 650 mg PO Q4H #30 tablet 06/13/18 Amlodipine Besylate [Norvasc -] 5 mg PO DAILY 08/01/18 id home
[2018-08-02] MEDS ORDERED: amLODIPine BESYLATE 5 MG TABLET (FP) PO SCH (10:00)
== END 2018-08-01 20:26 | disposition home or self-care (01) | DRG 469 ==
LOC: JER 19:12 → JERBED 22:51 → J6S 07-31 02:09
PROVIDERS: ADMIT Internal Medicine; ATTEND Internal Medicine
DX: N17.9 Acute kidney failure, unspecified (principal); E78.5 Hyperlipidemia, unspecified; R42 Dizziness and giddiness; I25.2 Old myocardial infarction; E11.51 Type 2 diabetes mellitus with diabetic peripheral angiopathy without gangrene; J45.909 Unspecified asthma, uncomplicated; I25.10 Atherosclerotic heart disease of native coronary artery without angina pectoris; E87.5 Hyperkalemia; I95.9 Hypotension, unspecified; G43.909 Migraine, unspecified, not intractable, without status migrainosus; M79.604 Pain in right leg; M79.605 Pain in left leg; N28.1 Cyst of kidney, acquired; I12.9 Hypertensive chronic kidney disease with stage 1 through stage 4 chronic kidney disease, or unspecified chronic kidney disease; E11.22 Type 2 diabetes mellitus with diabetic chronic kidney disease; N18.9 Chronic kidney disease, unspecified; Z95.5 Presence of coronary angioplasty implant and graft; Z79.4 Long term (current) use of insulin
CPT/HCPCS: 36415; 71045-TC-FY; 80053; 81003; 82009; 82803; 82947; 82962; 83605; 84484; 85025; 85610; 85730; 87040; 87086; 93005; 93010; 93925-TC; 97116-GP; 97161-GP; 99284-25; J1644; J7030

== ENCOUNTER 2018-08-31 22:37 | Inpatient (IN) | payer OTHER ==
--- NOTE | 2018-09-01 01:02 | PDOC ---
Attending Attestation - Resident Resident Name: GrantmatthiasJohn - ED Attending Attestation I have performed the following: I have examined & evaluated the patient, The case was reviewed & discussed with the resident, I agree w/resident's findings & plan - HPI HPI: 09/01/18 02:30 57-year-old female with right leg pain and history of claudication. Patient advised to come in by her vascular surgeon due to worsening symptoms and need for probable stent placement. Patient denies chest pain or shortness of breath. - Physicial Exam PE: 09/01/18 02:31 agree with resident exam - Medical Decision Making 09/01/18 02:31 57-year-old female with right leg pain Call placed to Dr. Mckay, patient's vascular surgeon due to cool extremity Dr. Mckay states that he knows the patient well, she has had similar symptoms including pain and temperature discrepancy for some time He is recommending heparin bolus and drip Plan for patient to probably have stent placement tomorrow He was advised that there was no palpable pulse and extremity was cool to touch Patient states there is no significant change just mildly worse pain
--- NOTE | 2018-09-01 01:19 | PDOC ---
History of Present Illness - General Chief Complaint: Pain, Acute Stated Complaint: RT LEG PAIN Time Seen by Provider: 09/01/18 00:57 History Source: Patient Exam Limitations: No Limitations - History of Present Illness Initial Comments: 09/01/18 01:14 57F with a PMH of PVD, HTN, HLD, NC s/p two stents, asthma, DM who presents to the ER with R LE pain. The patient states that she is due for an angioplasty of her R LE but the pain is unbearable. However, she denies any change in her pain. She denies weakness, numbness, tingling. Past History - Past Medical History Allergies/Adverse Reactions: Allergies Allergy/AdvReac Type Severity Reaction Status Date / Time iodine Allergy Severe Rash Verified 08/31/18 22:47 naproxen [From Naprosyn] Allergy Severe "hives,naus Verified 08/31/18 22:47 ea" Home Medications: Ambulatory Orders Brimonidine Tartrate [Alphagan 0.2% -] 1 drop OU BID 05/17/17 Gabapentin 800 mg PO TID 05/17/17 Insulin Lispro [Humalog] 0 unit SQ TID 05/17/17 Isosorbide Dinitrate [Isordil] 5 mg PO BID 05/17/17 Latanoprost 0.005% Eye Drops [Xalatan 0.005% Eye Drops -] 1 drop OU HS 05/17/17 Metoprolol Succinate 50 mg PO DAILY 05/17/17 Rosuvastatin [Crestor -] 20 mg PO HS 05/17/17 Timolol [Betimol] 5 ml OU BID 05/17/17 Albuterol Sulfate [Proventil HFA Inhaler -] 1 - 2 inh PO QID PRN #1 hfa.aer.ad 08/04/17 Acetaminophen [Tylenol] 650 mg PO Q4H #30 tablet 06/13/18 Amlodipine Besylate [Norvasc -] 5 mg PO DAILY 08/01/18 Anemia: No Asthma: Yes ("no recent problem") Cancer: No Cardiac Disorders: Yes (H/O NC AND STENT PLACEMENT IN ) CVA: No COPD: No CHF: No (2011 and 2016) DVT: No Dementia: No Diabetes: Yes (IDDM) GI Disorders: Yes (COLON POLYP) Disorders: Yes (cyst on right kidney) HTN: Yes Hypercholesterolemia: Yes Liver Disease: No Seizures: No Thyroid Disease: No - Surgical History Abdominal Surgery: Yes Appendectomy: Yes Cardiac Surgery: Yes (stent, angioplasty) Cholecystectomy: No Lung Surgery: No Neurologic Surgery: No Orthopedic Surgery: Yes (toe sx) - Family Disease History Family Disease History: Heart Disease: Father, Mother - Immunization History Immunization Up to Date: Yes - Suicide/Smoking/Psychosocial Hx Smoking History: Never smoked Have you smoked in the past 12 months: No If you are a former smoker, when did you quit?: 1994 Hx Alcohol Use: Yes (beer occas) Drug/Substance Use Hx: No Substance Use Type: Alcohol Hx Substance Use Treatment: No Review of Systems - Review of Systems Able to Perform ROS?: Yes Comments:: 09/01/18 01:17 GENERAL/CONSTITUTIONAL: No fever or chills. No weakness. HEAD, EYES, EARS, NOSE AND THROAT: No change in vision. No ear pain or discharge. No sore throat. CARDIOVASCULAR: No chest pain, palpitations, or lightheadedness. RESPIRATORY: No cough, wheezing, shortness of breath, or hemoptysis. GASTROINTESTINAL: No abdominal pain, nausea, vomiting, diarrhea, or constipation. GENITOURINARY: No dysuria, frequency, hematuria, or change in urination. MUSCULOSKELETAL: + for R LE pain. No neck or back pain. SKIN: No rash or lesions. NEUROLOGIC: No headache, numbness, tingling, focal weakness, loss of consciousness, or change in strength/sensation. Is the patient limited Bahamian proficient: No *Physical Exam - Vital Signs Last Vital Signs Temp Pulse Resp BP Pulse Ox 97.7 F 85 18 114/69 97 08/31/18 22:43 08/31/18 22:43 08/31/18 22:43 08/31/18 22:43 08/31/18 22:43 - Physical Exam Comments: 09/01/18 01:18 GENERAL: Well developed, well nourished. Awake and alert. No acute distress. HEENT: Normocephalic, atraumatic. Hearing grossly normal. Moist mucous membranes. PERRLA, EOMI. No conjunctival pallor. Sclera are non-icteric. Oropharynx is clear. NECK: Supple. Full ROM. No JVD. GENITOURINARY: No CVA tenderness bilaterally. MUSCULOSKELETAL: Normal range of motion at all joints. No bony deformities or tenderness. EXTREMITIES: R foot is cold without pulses. Neuro intact. No cyanosis. No clubbing. No edema. No calf tenderness or swelling. SKIN: Warm and dry. Normal capillary refill. No rashes. No jaundice. NEUROLOGICAL: Alert, awake, appropriate. Cranial nerves 2-12 intact. Normal speech. Gait is normal without ataxia. PSYCHIATRIC: Cooperative. Good eye contact. Appropriate mood and affect. ED Treatment Course - LABORATORY CBC & Chemistry Diagram: 09/01/18 01:37 09/01/18 01:37 Medical Decision Making - Medical Decision Making 09/01/18 01:19 57F with MMP presents with a cold, pulseless foot. Case d/w Dr. Mckay, vascular , who does not believe this requires acute intervention as the patient has had this same issue for 2 weeks. He agrees to heparanize pt. Will obtain pre-op labs and heparinize pt. 09/01/18 04:00 Pt endorsed to [facility] for admission. Cr elevated to 2.0 from 1.5, will hydrate. NPO order placed. *DC/Admit/Observation/Transfer Diagnosis at time of Disposition: Bilateral leg pain, Peripheral vascular disease - Discharge Dispostion Condition at time of disposition: Guarded Decision to Admit order: Yes - Referrals Referrals: Noris Garcia MD [Primary Care Provider] - - Patient Instructions - Post Discharge Activity
[2018-09-01] MEDS ORDERED: HEPARIN NA (PORCINE) 5,000 UNITS/ML 1ML VIAL IVPUSH PRN ×6 (01:21→14:55)
[2018-09-01] MEDS ORDERED: HEPARIN NA (PORCINE) 5,000 UNITS/ML 1ML VIAL IVPUSH ONE (01:21)
[2018-09-01] MEDS ORDERED: HEPARIN NA (PORCINE) 5,000 UNITS/ML 1ML VIAL ONE ×2 (01:26→10:39)
[2018-09-01] MEDS ORDERED: HEPARIN INFUSION - 25,000 UNITS/500 ML INFUS.BAG IVPB ONE ×2 (01:27→14:58)
[2018-09-01] MEDS ORDERED: HEPARIN INFUSION - 25,000 UNITS/500 ML INFUS.BAG IV SCH ×2 (01:30→14:55)
[2018-09-01] MEDS ORDERED: ACETAMINOPHEN INJECTION 100 ML IVPB ONE (01:33)
[2018-09-01] MEDS ORDERED: ACETAMINOPHEN 1000 MG/100 ML VIAL (NON FORMULARY) IVPB ONE (01:44)
[2018-09-01 01:56] LABS: BASO % 0.9 % (0-2.0); EOS % 3.7 % (0-4.5); HEMATOCRIT 42.7 % (32.4-45.2); HEMOGLOBIN 13.7 GM/dL (10.7-15.3); LYMPH % 34.3 % (8-40); MCH 31.6 pg (25.7-33.7); MEAN CELL VOLUME 98.5 fl (80-96); MEAN PLT VOLUME 9.7 fl (7.5-11.1); MONO % 8.1 % (3.8-10.2); PLATELET COUNT 320 K/MM3 (134-434); RBC 4.33 M/mm3 (3.60-5.2); RDW 13.7 % (11.6-15.6); WHITE BLOOD COUNT 13.1 K/mm3 (4.0-10.0)
[2018-09-01 02:07] LABS: INR 0.96 (0.83-1.09); PROTHROMBIN TIME (PATIENT) 11.3 SEC (9.7-13.0)
[2018-09-01 02:19] LABS: ALBUMIN 3.6 g/dl (3.4-5.0); BILIRUBIN,TOTAL 0.2 mg/dL (0.2-1); BLOOD UREA NITROGEN 47.5 mg/dL (7-18); CALCIUM 9.4 mg/dL (8.5-10.1); TOT PROT 7.7 g/dl (6.4-8.2)
[2018-09-01] MEDS ORDERED: SODIUM CHLORIDE 0.9% 1000 ML INFUS.BAG IV ONE (04:00)
[2018-09-01] MEDS ORDERED: SODIUM CHLORIDE 1,000 ML IV SCH (04:15)
--- NOTE | 2018-09-01 04:49 | HP ---
CHIEF COMPLAINT: Right leg pain PCP: Dr. Garcia HISTORY OF PRESENT ILLNESS: 57-year-old female with PMHX of HTN , HLD, IL s/p two stent, PVD , asthama, DM arrived to the ER for right leg pain with history of claudication. Patient arrived after being advised by vascular surgeon due to worsening symptom and likely needing angioplasty. Patient denies chest pain or shortness of breath. Information gathered from patient and chart review. ER course was notable for: (1) pre-op labs (2) IVF in place (3)case discussed with Dr. dickey, started on heparin drip, stent placement today Recent Travel: NO PAST MEDICAL HISTORY: HTN , HLD, IL s/p two stent, PVD , asthama, DM PAST SURGICAL HISTORY: post 2 cardiac stent, appendectomy, toe sx Social History: Smokin months no, h/o of smoking Alcohol: beer occasional Drugs: no Allergies iodine Allergy (Severe, Verified 08/31/18 22:47)Rash naproxen [From Naprosyn] Allergy (Severe, Verified 08/31/18 22:47) "hives,nausea " NAUSEA, ABDOMINAL PAIN, ITCHING HOME MEDICATIONS: Home Medications Medication Instructions Recorded Brimonidine Tartrate [Alphagan 1 drop OU BID 05/17/17 0.2% -] Gabapentin 800 mg PO TID 05/17/17 Insulin Lispro [Humalog] 0 unit SQ TID 05/17/17 Isosorbide Dinitrate [Isordil] 5 mg PO BID 05/17/17 Latanoprost 0.005% Eye Drops 1 drop OU HS 05/17/17 [Xalatan 0.005% Eye Drops -] Metoprolol Succinate 50 mg PO DAILY 05/17/17 Rosuvastatin [Crestor -] 20 mg PO HS 05/17/17 Timolol [Betimol] 5 ml OU BID 05/17/17 Albuterol Sulfate [Proventil HFA 1 - 2 inh PO QID PRN #1 hfa.aer.ad 08/04/17 Inhaler -] Acetaminophen [Tylenol] 650 mg PO Q4H #30 tablet 06/13/18 Amlodipine Besylate [Norvasc -] 5 mg PO DAILY 08/01/18 REVIEW OF SYSTEMS CONSTITUTIONAL: Absent: fever, chills, diaphoresis, generalized weakness, malaise, loss of appetite, weight change HEENT: Absent: rhinorrhea, nasal congestion, throat pain, throat swelling, difficulty swallowing, mouth swelling, ear pain, eye pain, visual changes CARDIOVASCULAR: Absent: chest pain, syncope, palpitations, irregular heart rate , lightheadedness, peripheral edema RESPIRATORY: Absent: cough, shortness of breath, dyspnea with exertion, orthopnea, wheezing, stridor, hemoptysis GASTROINTESTINAL: Absent: abdominal pain, abdominal distension, nausea, vomiting , diarrhea, constipation, melena, hematochezia GENITOURINARY: Absent: dysuria, frequency, urgency, hesitancy, hematuria, flank pain, genital pain MUSCULOSKELETAL: + RLE pain SKIN: Absent: rash or lesion NEUROLOGIC: Absent: headache, focal weakness or paresthesias, dizziness, unsteady gait, seizure, mental status changes, bladder or bowel incontinence PSYCHIATRIC: Absent: anxiety, depression, suicidal or homicidal ideation, hallucinations. PHYSICAL EXAMINATION Vital Signs - 24 hr 08/31/18 09/01/18 22:43 02:46 Temperature 97.7 F 98.1 F Pulse Rate 85 Pulse Rate [ 74 Right Radial] Respiratory 18 16 Rate Blood Pressure 114/69 Blood Pressure 99/63 [Left Arm] O2 Sat by Pulse 97 97 Oximetry (%) GENERAL: Awake, alert, and fully oriented, in no acute distress. HEENT: NC/AT, EOMI, PERRLA, No JVD LUNGS: Breath sounds equal, clear to auscultation bilaterally. No wheezes, and no crackles. No accessory muscle use. HEART: Regular rate and rhythm, normal S1 and S2 without murmur, rub or gallop. ABDOMEN: Soft, nontender, not distended, normoactive bowel sounds, no guarding, no rebound, no masses. MUSCULOSKELETAL: Normal range of motion at all joints. No bony deformities or tenderness. Extremity: R foot is cold to touch with out pulse, No cyanosis NEUROLOGICAL: Cranial nerves II-XII intact. Normal speech. Normal gait. PSYCHIATRIC: Cooperative. Good eye contact. Appropriate mood and affect. SKIN: Warm, dry, normal turgor, no rashes or lesions noted, normal capillary refill. Laboratory Results - last 24 hr 09/01/18 09/01/18 09/01/18 01:37 01:37 01:37 WBC 13.1 H RBC 4.33 Hgb 13.7 Hct 42.7 MCV 98.5 H MCH 31.6 MCHC 32.0 RDW 13.7 Plt Count 320 MPV 9.7 Absolute Neuts (auto) 6.9 Neutrophils % 53.0 Lymphocytes % 34.3 Monocytes % 8.1 Eosinophils % 3.7 Basophils % 0.9 Nucleated RBC % 0 PT with INR 11.30 INR 0.96 PTT (Actin FS) Sodium 136 Potassium 5.0 Chloride 100 Carbon Dioxide 28 Anion Gap 8 BUN 47.5 H Creatinine 2.0 H Est GFR (CKD-EPI)AfAm 31.33 Est GFR (CKD-EPI)NonAf 27.03 Random Glucose 415 H* Calcium 9.4 Total Bilirubin 0.2 AST 11 L ALT 19 Alkaline Phosphatase 158 H Total Protein 7.7 Albumin 3.6 Blood Type Antibody Screen 09/01/18 09/01/18 01:37 01:37 WBC RBC Hgb Hct MCV MCH MCHC RDW Plt Count MPV Absolute Neuts (auto) Neutrophils % Lymphocytes % Monocytes % Eosinophils % Basophils % Nucleated RBC % PT with INR INR PTT (Actin FS) 35.4 Sodium Potassium Chloride Carbon Dioxide Anion Gap BUN Creatinine Est GFR (CKD-EPI)AfAm Est GFR (CKD-EPI)NonAf Random Glucose Calcium Total Bilirubin AST ALT Alkaline Phosphatase Total Protein Albumin Blood Type O POSITIVE Antibody Screen Negative ASSESSMENT/PLAN: 57 female with PMHX of HTN , HLD, IL s/p two stent, PVD , asthma, DM arrived to ED with RLE pain, right foot present cold, pulseless finding were discussed with Dr. Dickey, vascular by ED provider - ordered to herainize patient and ordered pre-op labs PVD with RLE claudication - NPO, last meal yesterday at 10 pm - Continue with heparin drip - Pain management - Dr. dickey Vascular follow up, angioplasty WADE - Conitnue with IV fluids - monitor renal trend DM - monitor FSBS - continue with coverage with insulin HTN - monitor blood pressure closely Problem List - Problem (1) Peripheral vascular disease Code(s): I73.9 - PERIPHERAL VASCULAR DISEASE, UNSPECIFIED (2) Claudication of right lower extremity Code(s): I73.9 - PERIPHERAL VASCULAR DISEASE, UNSPECIFIED (3) WADE (acute kidney injury) Code(s): N17.9 - ACUTE KIDNEY FAILURE, UNSPECIFIED (4) Diabetes Code(s): E11.9 - TYPE 2 DIABETES MELLITUS WITHOUT COMPLICATIONS (5) Asthma Code(s): J45.909 - UNSPECIFIED ASTHMA, UNCOMPLICATED Qualifiers: Asthma severity: unspecified severity Asthma complication type: with acute exacerbation (6) HLD (hyperlipidemia) Code(s): E78.5 - HYPERLIPIDEMIA, UNSPECIFIED (7) HTN (hypertension) Code(s): I10 - ESSENTIAL (PRIMARY) HYPERTENSION Visit type - Emergency Visit Emergency Visit: Yes Care time: The patient presented to the Emergency Department on the above date and was hospitalized for further evaluation of their emergent condition. - New Patient This patient is new to me today: Yes Date on this admission: 09/01/18 - Critical Care Critical Care patient: No
[2018-09-01] MEDS: INSULIN SLIDING SCALE (NOVOLOG) 1 VIAL SQ SCH ×2 (09:24→17:04)
[2018-09-01] MEDS ORDERED: INSULIN (NOVOLOG) ASPART 100 UNITS/ML 10ML VIAL ONE (09:26)
--- NOTE | 2018-09-01 09:40 | PN ---
Progress Note (short form) - Note Progress Note: Vascular Surgery Patient well known and followed by Dr Mckay who was scheduled for right LE Angioplasty with stent today in the OR (08/31) presented to the ER last night 2/ 2 worsening right leg pain. The patient states the pain is the same distribution and quality over her right calf at rest and worse with ambulation. She denies any injury, fever, chills, N/V/D associated with the onset. She has been NPO since 10:00pm last night in anticipation for surgery. Vital Signs Temp 98.1 F 09/01/18 02:46 Pulse 82 09/01/18 07:53 Resp 15 09/01/18 07:53 BP 134/78 09/01/18 07:53 Pulse Ox 96 09/01/18 07:53 Intake & Output 08/31/18 08/31/18 09/01/18 11:59 23:59 11:59 Weight 215 lb Other: Height 5 ft 5 in 5 ft 5 in Body Mass Index (BMI) 35.7 Weight Measurement Method Est/Stated by Patient CBC, BMP 09/01/18 01:37 09/01/18 01:37 PE: A&Ox3, NAD unlabored resp on RA Right LE compartments soft, supple and tender to palpation throughout, leg, foot and toes warm to the touch, no palpable pulses, no rashes or lesion. Ultrasound arterial doppler 07/30/18: Abnormal flow of distal right LE suggestive of high grade stenosis Problem List - Problems (1) Peripheral vascular disease Assessment/Plan: 57 yo female with PVD plan for angioplasty today with Dr Mckay. 1) Continue NPO 2) pain control 3) bedrest 4) fall risk Code(s): I73.9 - PERIPHERAL VASCULAR DISEASE, UNSPECIFIED
[2018-09-01] MEDS ORDERED: LIDOCAINE HCL 1%, 10 MG/ML (20ML VIAL) ONE ×2 (10:39→11:09)
[2018-09-01] MEDS ORDERED: MIDAZOLAM HCL 2 MG/2 ML SINGLE DOSE VIAL ONE ×2 (12:00→12:23)
[2018-09-01] MEDS ORDERED: ceFAZolin SODIUM 1 GM VIAL IVPB ONE (12:15)
[2018-09-01] MEDS ORDERED: LIDOCAINE HCL 1%, 10 MG/ML (50 mL VIAL) IJ ONE (13:06)
[2018-09-01] MEDS ORDERED: ONDANSETRON 4 MG/2 ML VIAL IVPUSH PRN ×2 (13:21→14:55)
[2018-09-01] MEDS ORDERED: LACTATED RINGERS SOLUTION 1,000 ML IV SCH (13:30)
--- NOTE | 2018-09-01 13:48 | PN ---
Progress Note (short form) - Note Progress Note: Vascular Surgery S/P CO2 Aortogram, RLE angiogram. pt complaining of claudication symptoms along with cramping at rest secondary to spine issues. According to the aniogram pt has TP trunk and Prox peroneal artery occlusion. Could not cross lesion. Will re attempt with tibial artery cannulation. If that doesnt work, pt will need bypass. Cardiology eval for possible clearance for bypass. Gokul Mckay DO
--- NOTE | 2018-09-01 13:50 | OP ---
Operative Note - Note: Operative Date: 09/01/18 Pre-Operative Diagnosis: RLE claudication Operation: CO2 Aortogram, RLE CO2 angiogram Findings: TP trunk occlusion peroneal artery occlusion One vessel runoff is peroneal artery Post-Operative Diagnosis: Same as Pre-op Surgeon: Gokul Mckay Anesthesia: Fractional Estimated Blood Loss (mls): 50 Operative Report Dictated: Yes
--- NOTE | 2018-09-01 14:23 | OP ---
DATE OF OPERATION: 09/01/2018 PREOPERATIVE DIAGNOSIS: Right lower extremity claudication. POSTOPERATIVE DIAGNOSIS: Right lower extremity claudication. PROCEDURE: CO2 aortogram, CO2 right lower extremity angiogram. SURGEON: Gokul Kovacs DO ANESTHESIA: Fractional. BLOOD LOSS: 50 mL. FINDINGS: Right TP trunk and proximal peroneal artery occlusion. The patient is a 57-year-old female who comes in with right lower extremity claudication. She also has lots of cramping at rest secondary to her spine issues, and both disease processes are superimposed. She complains that when she walks, her calf becomes very tight. She had an ultrasound done in the past showing TP trunk occlusion. It was decided that she should get an angiogram. Patient was consented for the procedure, understanding all risks, benefits, and alternatives, then taken to the operating room. Once in the operating room, she was laid on the operating room table in supper manner, and the areas of the right and left groin were prepped and draped in sterile surgical manner. We then injected 10 mL of lidocaine 1% over the left common femoral artery. We then took our micropuncture needle, punctured the left common femoral artery. Micropuncture wire was inserted. Micropuncture sheath was inserted. After a traditional 5-[place] sheath was placed, a 0.035 floppy guidewire was introduced into the aorta, followed by Omni Flush catheter. We then shot a CO2 aortogram via hand injection, showing that the aorta and the iliacs were clean without any disease. We then used our 0.035 floppy guidewire and went up and over to the right common femoral artery, and our Quick-Cross was brought down to there. We then shot an angiogram from there by hand injection, which showed that the common femoral artery, the profunda, the SFA was patent. Popliteal artery was patent. Below-knee popliteal artery was patent. TP trunk was occluded. Proximal peroneal artery was occluded, and then, the peroneal artery reconstitutes and gives off branches into the foot. There is no AT or PT. At this point, it was decided that the right operation for this patient will need to be a bypass or peroneal access retrograde to see if we can open the peroneal artery. At this point, we brought the sheath up and over. At this point, we placed the sheath up and over, a 6 x 45 crossover sheath, and 5000 units of IV heparin were administered to the patient. We took a 0.035 stiff guidewire and placed it down to the below-knee popliteal artery, and using a Quick-Cross catheter, we tried to selectively cross our lesion, but we were unsuccessful. At this point, we decided to stop, and patient would either need a bypass or retrograde stick. We will do those procedures this week. At this point, we brought our sheath up and over. StarClose device was successfully deployed in the left common femoral artery. Pressure was held for 5 minutes. After there was no more bleeding, area was wet and dried, and Dermabond was placed. Patient tolerated the procedure with no complications. During the procedure, patient had received 5000 units of IV heparin. Patient transferred to PACU in stable condition. GOKUL KOVACS DO [id number]
[2018-09-01] MEDS ORDERED: ONDANSETRON 4 MG/2 ML VIAL ONE (14:36)
[2018-09-01 16:45] VITALS: BMI 36.0
[2018-09-01] MEDS: SODIUM CHLORIDE 1,000 ML IV SCH ×2 (16:50→23:54)
[2018-09-01] MEDS: LACTATED RINGERS SOLUTION 1,000 ML IV SCH (16:50)
[2018-09-01] MEDS ORDERED: oxyCODONE HCL 5 MG TABLET PO PRN (18:26)
[2018-09-01] MEDS ORDERED: ACETAMINOPHEN 325 MG TABLET (FP) PO PRN (18:26)
--- NOTE | 2018-09-01 18:33 | PN ---
Progress Note, Physician History of Present Illness: 57-year-old female with PMHX of HTN , HLD, ND s/p two stent, PVD , asthama, DM arrived to the ER for right leg pain with history of claudication. Patient arrived after being advised by vascular surgeon due to worsening symptom and likely needing angioplasty. Patient denies chest pain or shortness of breath. Information gathered from patient and chart review. - Current Medication List Current Medications: Active Medications Acetaminophen (Tylenol -) 650 mg PO Q6H PRN PRN Reason: FEVER Amlodipine Besylate (Norvasc -) 5 mg PO DAILY [facility] Brimonidine Tartrate (Alphagan 0.2% -) 1 drop OU BID [facility] Fentanyl (Sublimaze Injection -) 50 mcg IVPUSH [id number] PRN PRN Reason: PAIN-PACU ORDER X 4 DOSES ONLY Stop: 09/02/18 02:00 Last Admin: 09/01/18 15:00 Dose: 50 mcg Lactated Ringer's (Lactated Ringers Solution) 1,000 mls @ 75 mls/hr IV ASDIR [facility] Last Admin: 09/01/18 16:50 Dose: Not Given Sodium Chloride (Normal Saline -) 1,000 mls @ 125 mls/hr IV ASDIR [facility] Last Admin: 09/01/18 16:50 Dose: Not Given Insulin Aspart (Novolog Vial Sliding Scale -) [facility] Protocol Last Admin: 09/01/18 17:04 Dose: 8 units Isosorbide Dinitrate (Isordil -) 5 mg PO BID [facility] Latanoprost (Xalatan 0.005% Eye Drops -) 1 drop OU HS [facility] Metoprolol Succinate (Toprol Xl -) 50 mg PO DAILY [facility] Non-Formulary Medication (Gabapentin [Gabapentin]) 800 mg PO TID [facility] Non-Formulary Medication (Timolol [Betimol]) 5 ml OU BID [facility] Ondansetron HCl (Zofran Injection) 4 mg IVPUSH Q6H PRN PRN Reason: NAUSEA AND/OR VOMITING Last Admin: 09/01/18 14:35 Dose: 4 mg Oxycodone HCl (Roxicodone -) 10 mg PO Q6H PRN PRN Reason: PAIN Rosuvastatin Calcium (Crestor -) 20 mg PO HS [facility] - Objective Vital Signs: Vital Signs Temperature 97.9 F 09/01/18 16:33 Pulse Rate 78 09/01/18 16:33 Respiratory Rate 18 09/01/18 16:33 Blood Pressure 139/77 09/01/18 16:33 O2 Sat by Pulse Oximetry (%) 96 09/01/18 16:33 Constitutional: Yes: No Distress HENT: Yes: Atraumatic Neck: Yes: Supple Cardiovascular: Yes: Regular Rate and Rhythm Respiratory: Yes: CTA Bilaterally Gastrointestinal: Yes: Normal Bowel Sounds Neurological: Yes: Alert, Oriented Labs: CBC, BMP 09/01/18 01:37 09/01/18 01:37 INR, PTT INR 0.96 (0.83-1.09) 09/01/18 01:37 Problem List - Problems (1) Bilateral leg pain Assessment/Plan: prn pain meds s/p angiogram Code(s): M79.604 - PAIN IN RIGHT LEG; M79.605 - PAIN IN LEFT LEG (2) CAD (coronary artery disease) Code(s): I25.10 - ATHSCL HEART DISEASE OF [place] CORONARY ARTERY W/O ANG PCTRS (3) CKD (chronic kidney disease) Code(s): N18.9 - CHRONIC KIDNEY DISEASE, UNSPECIFIED (4) Claudication of right lower extremity Code(s): I73.9 - PERIPHERAL VASCULAR DISEASE, UNSPECIFIED (5) Diabetes Assessment/Plan: on insulin bgm Code(s): E11.9 - TYPE 2 DIABETES MELLITUS WITHOUT COMPLICATIONS (6) HLD (hyperlipidemia) Assessment/Plan: on meds stable Code(s): E78.5 - HYPERLIPIDEMIA, UNSPECIFIED (7) HTN (hypertension) Assessment/Plan: on meds Code(s): I10 - ESSENTIAL (PRIMARY) HYPERTENSION (8) Low back pain Assessment/Plan: on meds stable Code(s): M54.5 - LOW BACK PAIN Qualifiers: Chronicity: acute Back pain laterality: bilateral Sciatica presence: with sciatica Sciatica laterality: bilateral sciatica Qualified Code(s): M54.42 - Lumbago with sciatica, left side; M54.41 - Lumbago with sciatica, right side (9) Obesity Code(s): E66.9 - OBESITY, UNSPECIFIED (10) Peripheral vascular disease Code(s): I73.9 - PERIPHERAL VASCULAR DISEASE, UNSPECIFIED
[2018-09-01] MEDS: MORPHINE SULFATE 2 MG/ML VIAL IVPUSH PRN (19:54)
[2018-09-01] MEDS: amLODIPine BESYLATE 5 MG TABLET (FP) PO SCH (21:46)
[2018-09-01] MEDS: ISOSORBIDE DINITRATE 5 MG TABLET PO SCH (21:47)
[2018-09-01] MEDS: GABAPENTIN 400 MG CAPSULE (FP) PO SCH (21:47)
[2018-09-01] MEDS: BRIMONIDINE TARTRATE 0.2% OPHTHALMIC 5 ML BOTTLE OU SCH (21:47)
[2018-09-01] MEDS: ROSUVASTATIN CA 20 MG TABLET (FP) PO SCH (21:47)
[2018-09-01] MEDS: LATANOPROST 0.005% OPHTH SOLN 2.5ML BOTTLE OU SCH (21:48)
[2018-09-02] MEDS: HEPARIN NA (PORCINE) 5,000 UNITS/ML 1ML VIAL SQ SCH ×3 (06:13→22:00)
--- NOTE | 2018-09-02 08:22 | PN ---
Progress Note (short form) - Note Progress Note: Vascular Surgery POD #1 O2 Aortogram, RLE CO2 angiogram. According to the aniogram pt has TP trunk and Prox peroneal artery occlusion. Unable to cross lesion. Patient seen and examined at bedside. Patient states her right LE pain is slightly improved but still extremely TTP and she has not been OOB or ambulated yet. She is tolerating her diet and she denies any CP, SOB, N/V, fever or chills. Vital Signs Temp 98.5 F 09/02/18 06:00 Pulse 92 H 09/02/18 06:00 Resp 20 09/02/18 06:00 BP 145/84 09/02/18 06:00 Pulse Ox 96 09/01/18 16:50 Intake & Output 09/01/18 09/01/18 09/02/18 11:59 23:59 11:59 Intake Total 1400 Output Total 1050 Balance 350 Weight 216 lb 6 oz Intake: IV 800 Oral 600 Output: Urine 1000 Estimated Blood Loss 50 Other: Voiding Method Toilet # Unmeasured Voids Void 3 Height 5 ft 5 in Body Mass Index (BMI) 36.0 Weight Measurement Method Built in [facility] CBC, BMP 09/01/18 01:37 09/01/18 01:37 PE: A&Ox3, NAD unlabored resp on RA Right LE compartments soft, supple and tender to palpation throughout calf, leg , foot and toes warm to the touch, no palpable pulses, no rashes or lesion. Problem List - Problems (1) Peripheral vascular disease Assessment/Plan: POD#1 CO2 Aortogram, RLE CO2 angiogram unable to cross lesion. Dr Mckay to re- attempt with tibial artery cannulation or bypass as last option. 1) Cardiology clearance for possible bypass 2) OOb as tolerated 3) pain control 4) Surgery plan pending Code(s): I73.9 - PERIPHERAL VASCULAR DISEASE, UNSPECIFIED
[2018-09-02] MEDS ORDERED: PT OWN MED DRAWER 7, Y5N ONE (10:17)
[2018-09-02] MEDS: ISOSORBIDE DINITRATE 5 MG TABLET PO SCH ×2 (10:22→18:04)
[2018-09-02] MEDS: amLODIPine BESYLATE 5 MG TABLET (FP) PO SCH (10:22)
[2018-09-02] MEDS: MORPHINE SULFATE 2 MG/ML VIAL IVPUSH PRN ×2 (10:22→21:56)
[2018-09-02] MEDS: INSULIN SLIDING SCALE (NOVOLOG) 1 VIAL SQ SCH ×3 (12:24→16:54)
[2018-09-02] MEDS: BRIMONIDINE TARTRATE 0.2% OPHTHALMIC 5 ML BOTTLE OU SCH ×2 (12:25→22:03)
[2018-09-02] MEDS: GABAPENTIN 400 MG CAPSULE (FP) PO SCH ×3 (13:53→21:59)
--- NOTE | 2018-09-02 15:50 | PN ---
Progress Note (short form) - Note Progress Note: Vascular Surgery Pt seen and examined. Doing well. Has cramps in legs upon ambulation. Spoke to her about her back issues and how she has refused spinal cord stimulator in past. I believe the majority of her symptoms are neuropathic at rest, and she agrees. Pt is amenable to having pain management evaluate pt for spinal cord stimulator. Can try retrograde angiogram as outpt . Gokul Mckay DO
--- NOTE | 2018-09-02 16:35 | PN ---
Progress Note, Physician - Current Medication List Current Medications: Active Medications Acetaminophen (Tylenol -) 650 mg PO Q6H PRN PRN Reason: FEVER Amlodipine Besylate (Norvasc -) 5 mg PO DAILY [facility] Last Admin: 09/02/18 10:22 Dose: 5 mg Brimonidine Tartrate (Alphagan 0.2% -) 1 drop OU BID [facility] Last Admin: 09/02/18 12:25 Dose: 1 drop Gabapentin (Neurontin -) 800 mg PO TID [facility] Last Admin: 09/02/18 13:53 Dose: 800 mg Heparin Sodium (Porcine) (Heparin -) 5,000 unit SQ BID [facility] Last Admin: 09/02/18 12:24 Dose: 5,000 unit Lactated Ringer's (Lactated Ringers Solution) 1,000 mls @ 75 mls/hr IV ASDIR [facility] Last Admin: 09/01/18 16:50 Dose: Not Given Sodium Chloride (Normal Saline -) 1,000 mls @ 125 mls/hr IV ASDIR [facility] Last Admin: 09/01/18 23:54 Dose: 125 mls/hr Insulin Aspart (Novolog Vial Sliding Scale -) 1 vial SQ TIDAC [facility]; Protocol Last Admin: 09/02/18 12:24 Dose: 10 units Isosorbide Dinitrate (Isordil -) 5 mg PO BIDISORDIL [facility] Last Admin: 09/02/18 10:22 Dose: 5 mg Latanoprost (Xalatan 0.005% Eye Drops -) 1 drop OU HS [facility] Last Admin: 09/01/18 21:48 Dose: Not Given Metoprolol Succinate (Toprol Xl -) 50 mg PO DAILY [facility] Last Admin: 09/02/18 10:22 Dose: 50 mg Morphine Sulfate (Morphine Sulfate) 2 mg IVPUSH Q4H PRN PRN Reason: PAIN LEVEL 4 - 6 Last Admin: 09/02/18 10:22 Dose: 2 mg Non-Formulary Medication (Timolol [Betimol]) 5 ml OU BID [facility] Ondansetron HCl (Zofran Injection) 4 mg IVPUSH Q6H PRN PRN Reason: NAUSEA AND/OR VOMITING Last Admin: 09/01/18 14:35 Dose: 4 mg Rosuvastatin Calcium (Crestor -) 20 mg PO HS [facility] Last Admin: 09/01/18 21:47 Dose: 20 mg - Objective Vital Signs: Vital Signs Temperature 97.9 F 09/02/18 14:41 Pulse Rate 85 09/02/18 14:41 Respiratory Rate 20 09/02/18 14:41 Blood Pressure 137/81 09/02/18 14:41 O2 Sat by Pulse Oximetry (%) 96 09/02/18 09:00 Constitutional: Yes: No Distress HENT: Yes: Atraumatic Neck: Yes: Supple Cardiovascular: Yes: Regular Rate and Rhythm Respiratory: Yes: CTA Bilaterally Gastrointestinal: Yes: Normal Bowel Sounds Extremities: Yes: WNL Edema: No Peripheral Pulses WNL: Yes Neurological: Yes: Alert, Oriented Labs: CBC, BMP 09/01/18 01:37 09/01/18 01:37 INR, PTT INR 0.96 (0.83-1.09) 09/01/18 01:37 Problem List - Problems (1) Bilateral leg pain Assessment/Plan: prn pain meds s/p angiogram Code(s): M79.604 - PAIN IN RIGHT LEG; M79.605 - PAIN IN LEFT LEG (2) CAD (coronary artery disease) Code(s): I25.10 - ATHSCL HEART DISEASE OF [place] CORONARY ARTERY W/O ANG PCTRS (3) CKD (chronic kidney disease) Code(s): N18.9 - CHRONIC KIDNEY DISEASE, UNSPECIFIED (4) Claudication of right lower extremity Code(s): I73.9 - PERIPHERAL VASCULAR DISEASE, UNSPECIFIED (5) Diabetes Code(s): E11.9 - TYPE 2 DIABETES MELLITUS WITHOUT COMPLICATIONS (6) HLD (hyperlipidemia) Assessment/Plan: on meds stable Code(s): E78.5 - HYPERLIPIDEMIA, UNSPECIFIED (7) HTN (hypertension) Assessment/Plan: on meds Code(s): I10 - ESSENTIAL (PRIMARY) HYPERTENSION (8) Low back pain Assessment/Plan: on meds stable Code(s): M54.5 - LOW BACK PAIN Qualifiers: Chronicity: acute Back pain laterality: bilateral Sciatica presence: with sciatica Sciatica laterality: bilateral sciatica Qualified Code(s): M54.42 - Lumbago with sciatica, left side; M54.41 - Lumbago with sciatica, right side (9) Obesity Code(s): E66.9 - OBESITY, UNSPECIFIED (10) Peripheral vascular disease Code(s): I73.9 - PERIPHERAL VASCULAR DISEASE, UNSPECIFIED
--- NOTE | 2018-09-02 16:46 | PN ---
Progress Note (short form) - Note Progress Note: 57F POD1 s/p right lower leg angiogram under monitored anesthesia care. Pt states pain is well controlled and reports no anesthetic complications. AVSS. Will sign off at this time.
[2018-09-02] MEDS: SODIUM CHLORIDE 1,000 ML IV SCH ×2 (19:42→23:00)
[2018-09-02] MEDS: LACTATED RINGERS SOLUTION 1,000 ML IV SCH (19:42)
[2018-09-02] MEDS: ROSUVASTATIN CA 20 MG TABLET (FP) PO SCH (21:59)
[2018-09-02] MEDS: LATANOPROST 0.005% OPHTH SOLN 2.5ML BOTTLE OU SCH (22:09)
[2018-09-03] MEDS: INSULIN SLIDING SCALE (NOVOLOG) 1 VIAL SQ SCH ×4 (06:35→18:02)
[2018-09-03] MEDS: SODIUM CHLORIDE 1,000 ML IV SCH (06:37)
[2018-09-03] MEDS: GABAPENTIN 400 MG CAPSULE (FP) PO SCH ×3 (07:00→22:24)
[2018-09-03] MEDS ORDERED: PT OWN MED DRAWER 7, Y5N ONE ×2 (08:21→16:46)
[2018-09-03 08:41] LABS: HEMATOCRIT 33.7 % (32.4-45.2); HEMOGLOBIN 11.2 GM/dL (10.7-15.3); MCH 32.5 pg (25.7-33.7); MCHC 33.2 g/dl (32.0-36.0); MEAN CELL VOLUME 97.9 fl (80-96); MEAN PLT VOLUME 9.9 fl (7.5-11.1); PLATELET COUNT 280 K/MM3 (134-434); RBC 3.44 M/mm3 (3.60-5.2); RDW 13.5 % (11.6-15.6); WHITE BLOOD COUNT 11.3 K/mm3 (4.0-10.0)
[2018-09-03] MEDS: amLODIPine BESYLATE 5 MG TABLET (FP) PO SCH (10:14)
[2018-09-03] MEDS: HEPARIN NA (PORCINE) 5,000 UNITS/ML 1ML VIAL SQ SCH ×2 (10:15→22:24)
[2018-09-03] MEDS: ISOSORBIDE DINITRATE 5 MG TABLET PO SCH ×2 (10:15→17:24)
[2018-09-03] MEDS: BRIMONIDINE TARTRATE 0.2% OPHTHALMIC 5 ML BOTTLE OU SCH ×2 (14:37→22:23)
--- NOTE | 2018-09-03 16:56 | OP ---
DATE OF OPERATION: 09/01/2018 PREOPERATIVE DIAGNOSIS: Right lower extremity claudication. POSTOPERATIVE DIAGNOSIS: Right lower extremity claudication. PROCEDURE PERFORMED: Carbon dioxide aortogram, right lower extremity carbon dioxide angiogram. SURGEON: Gokul Kovacs DO ANESTHESIA: Fractional. BLOOD LOSS: 25 mL. INDICATIONS: The patient is a 57-year-old female who comes in complaining of right lower extremity claudication. Preoperatively ultrasound showed that she has tibial disease. She also has long-standing herniated disks and back pain, for which we spoke to her pain management doctors and she requires a spinal cord stimulator in order to help her with all the cramping that she has in her leg, that she usually gets after just walking a couple of feet. Her cramping is also present at rest. DESCRIPTION OF PROCEDURE: The patient was consented for the procedure, understanding all risks, benefits and alternatives. She was then brought to the operating room. Once in the operating room, the patient was laid on the operating table in the supine manner. The areas of the right and right groins were prepped and draped in a sterile surgical manner. We then injected 10 mL of lidocaine 1% over the left common femoral artery. We then punctured the left common femoral artery using our Micropuncture needle. Micropuncture wire was inserted. Micropuncture sheath was inserted, and a regular 0.035 floppy guidewire was inserted. An additional 5-Faroese sheath was then placed. We then placed the 0.035 floppy guidewire up into the aorta, followed by an Omni Flush catheter. We then shot a CO2 aortogram, showing that aorta and the iliac arteries were without any disease. We then placed our 0.035 floppy guidewire up and over to the right common femoral artery and Omni Flush catheter followed. We then shot an angiogram of the right lower extremity using CO2, showing that the common femoral artery, the profunda and the SFA were all patent. The popliteal artery was patent. The below-knee peroneal artery was patent; however, then it occludes and there is an occlusion of about 10 to 13 cm, and the only runoff the patient has is the peroneal artery going down and giving branches to the foot. At this point we placed a 0.035 stiff guidewire into the SFA and removed our Omni Flush catheter. A 6 x 45 crossover sheath was placed. Then 5000 units of IV heparin was administered to the patient. We then used a 0.035 floppy guidewire and a Quick-Cross catheter, and we tried to cross our occlusion below the knee. However, we were unsuccessful. At this point it was decided that either the patient needs a retrograde stick or the patient needs to be treated for her severe spine disease prior to actually offering the patient a bypass procedure. At this point we shot a completion CO2 angiogram, showing that the runoff was patent. We then removed our sheath, and a StarClose device was successfully deployed in the left common femoral artery. Pressure was held for 5 minutes. Afterwards there was no bleeding. The area was wet and dried, and Dermabond was placed. The patient tolerated the procedure. There were no complications. The patient was transferred to the PACU in stable condition. GOKUL KOVACS DO [id number]
--- NOTE | 2018-09-03 19:49 | PN ---
Progress Note, Physician - Current Medication List Current Medications: Active Medications Acetaminophen (Tylenol -) 650 mg PO Q6H PRN PRN Reason: FEVER Amlodipine Besylate (Norvasc -) 5 mg PO DAILY [facility] Last Admin: 09/03/18 10:14 Dose: 5 mg Brimonidine Tartrate (Alphagan 0.2% -) 1 drop OU BID [facility] Last Admin: 09/03/18 14:37 Dose: 1 drop Gabapentin (Neurontin -) 800 mg PO TID [facility] Last Admin: 09/03/18 14:36 Dose: 800 mg Heparin Sodium (Porcine) (Heparin -) 5,000 unit SQ BID [facility] Last Admin: 09/03/18 10:15 Dose: 5,000 unit Lactated Ringer's (Lactated Ringers Solution) 1,000 mls @ 75 mls/hr IV ASDIR [facility] Last Admin: 09/02/18 19:42 Dose: Not Given Sodium Chloride (Normal Saline -) 1,000 mls @ 125 mls/hr IV ASDIR [facility] Last Admin: 09/03/18 06:37 Dose: 125 mls/hr Insulin Aspart (Novolog Vial Sliding Scale -) 1 vial SQ TIDAC [facility]; Protocol Last Admin: 09/03/18 18:02 Dose: 6 units Isosorbide Dinitrate (Isordil -) 5 mg PO BIDISORDIL [facility] Last Admin: 09/03/18 17:24 Dose: 5 mg Latanoprost (Xalatan 0.005% Eye Drops -) 1 drop OU HS [facility] Last Admin: 09/02/18 22:09 Dose: Not Given Metoprolol Succinate (Toprol Xl -) 50 mg PO DAILY [facility] Last Admin: 09/03/18 10:14 Dose: 50 mg Morphine Sulfate (Morphine Sulfate) 2 mg IVPUSH Q4H PRN PRN Reason: PAIN LEVEL 4 - 6 Last Admin: 09/02/18 21:56 Dose: 2 mg Non-Formulary Medication (Timolol [Betimol]) 5 ml OU BID [facility] Ondansetron HCl (Zofran Injection) 4 mg IVPUSH Q6H PRN PRN Reason: NAUSEA AND/OR VOMITING Last Admin: 09/01/18 14:35 Dose: 4 mg Rosuvastatin Calcium (Crestor -) 20 mg PO HS [facility] Last Admin: 09/02/18 21:59 Dose: 20 mg - Objective Vital Signs: Vital Signs Temperature 98.1 F 09/03/18 13:00 Pulse Rate 88 09/03/18 13:00 Respiratory Rate 20 09/03/18 13:00 Blood Pressure 138/77 09/03/18 13:00 O2 Sat by Pulse Oximetry (%) 96 09/03/18 09:00 Constitutional: Yes: No Distress HENT: Yes: Atraumatic Neck: Yes: Supple Cardiovascular: Yes: Regular Rate and Rhythm Respiratory: Yes: CTA Bilaterally Gastrointestinal: Yes: Normal Bowel Sounds Extremities: Yes: WNL Edema: No Neurological: Yes: Alert, Oriented Labs: CBC, BMP 09/03/18 07:00 09/01/18 01:37 INR, PTT INR 0.96 (0.83-1.09) 09/01/18 01:37 Problem List - Problems (1) Bilateral leg pain Assessment/Plan: prn pain meds s/p angiogram Code(s): M79.604 - PAIN IN RIGHT LEG; M79.605 - PAIN IN LEFT LEG (2) CAD (coronary artery disease) Code(s): I25.10 - ATHSCL HEART DISEASE OF [place] CORONARY ARTERY W/O ANG PCTRS (3) CKD (chronic kidney disease) Code(s): N18.9 - CHRONIC KIDNEY DISEASE, UNSPECIFIED (4) Claudication of right lower extremity Code(s): I73.9 - PERIPHERAL VASCULAR DISEASE, UNSPECIFIED (5) Diabetes Assessment/Plan: on insulin bgm Code(s): E11.9 - TYPE 2 DIABETES MELLITUS WITHOUT COMPLICATIONS (6) HLD (hyperlipidemia) Code(s): E78.5 - HYPERLIPIDEMIA, UNSPECIFIED (7) HTN (hypertension) Assessment/Plan: on meds Code(s): I10 - ESSENTIAL (PRIMARY) HYPERTENSION (8) Low back pain Assessment/Plan: on meds stable Code(s): M54.5 - LOW BACK PAIN Qualifiers: Chronicity: acute Back pain laterality: bilateral Sciatica presence: with sciatica Sciatica laterality: bilateral sciatica Qualified Code(s): M54.42 - Lumbago with sciatica, left side; M54.41 - Lumbago with sciatica, right side (9) Obesity Code(s): E66.9 - OBESITY, UNSPECIFIED (10) Peripheral vascular disease Code(s): I73.9 - PERIPHERAL VASCULAR DISEASE, UNSPECIFIED
[2018-09-03] MEDS: ROSUVASTATIN CA 20 MG TABLET (FP) PO SCH (22:24)
[2018-09-03] MEDS: oxyCODONE HCL 5 MG TABLET PO PRN (22:28)
[2018-09-03] MEDS: LATANOPROST 0.005% OPHTH SOLN 2.5ML BOTTLE OU SCH (22:35)
[2018-09-04] MEDS: GABAPENTIN 400 MG CAPSULE (FP) PO SCH ×3 (06:11→21:57)
[2018-09-04] MEDS: INSULIN SLIDING SCALE (NOVOLOG) 1 VIAL SQ SCH ×2 (06:11→17:25)
[2018-09-04 08:42] LABS: ALBUMIN 3.1 g/dl (3.4-5.0); BILIRUBIN,TOTAL 0.2 mg/dL (0.2-1); BLOOD UREA NITROGEN 28.6 mg/dL (7-18); CALCIUM 9.3 mg/dL (8.5-10.1); CREATININE 1.2 mg/dL (0.55-1.3); TOT PROT 6.6 g/dl (6.4-8.2)
[2018-09-04 09:20] LABS: BASO % 0.4 % (0-2.0); EOS % 2.9 % (0-4.5); HEMOGLOBIN 13.1 GM/dL (10.7-15.3); LYMPH % 43.8 % (8-40); MCH 32.7 pg (25.7-33.7); MCHC 33.5 g/dl (32.0-36.0); MEAN CELL VOLUME 97.5 fl (80-96); MEAN PLT VOLUME 10.1 fl (7.5-11.1); MONO % 7.8 % (3.8-10.2); NEUT % 45.1 % (42.8-82.8); PLATELET COUNT 313 K/MM3 (134-434); RDW 13.7 % (11.6-15.6); WHITE BLOOD COUNT 10.7 K/mm3 (4.0-10.0)
[2018-09-04] MEDS ORDERED: PT OWN MED DRAWER 7, Y5N ONE ×3 (10:20→17:23)
[2018-09-04] MEDS: HEPARIN NA (PORCINE) 5,000 UNITS/ML 1ML VIAL SQ SCH ×2 (10:46→21:57)
[2018-09-04] MEDS: amLODIPine BESYLATE 5 MG TABLET (FP) PO SCH (10:46)
--- NOTE | 2018-09-04 11:30 | CON.CARD ---
Consult Consult Specialty:: cardiology Reason for Consultation:: PAD - History of Present Illness History of Present Illness: 57-year-old female with right leg pain and history of claudication,PR--> coronary stent 2011; (repeat stress test-->coronary angiogram with 2nd stent placed in [facility] 03/2017), glaucoma-->Xalatan (s/p retinal laser procedures), DM, HTN, hyperlipidemia, .bronchial asthma (smoked cigarettes 3 ppd x 2 yrs, 20 yrs ago). Patient advised to come in by her vascular surgeon due to worsening symptoms (intense pain in right foot-->calf on walking just a few steps; however , pt also has a constant pain throughout the leg she was told might be from her lower back) and need for probable stent placement. Patient denies chest pain or shortness of breath. Sister had PR-->coronary stents in her early 60s. Pt was doing cardiac rehabiliation post 03/2017 coronary stent (stopped midway through the 36 sessions after she hurt herself falling down stairs); until four months ago, she was doing regular exercises in a swimming pool without chest pain or dyspnea. Occasional alcoholic drink. Post-menopausal. - History Source History Provided By: Patient, Medical Record - Past Medical History DIRECTOR OF GLOBAL TALENT: Yes: Migraine Cardio/Vascular: Yes: CAD, HTN, Hyperlipdemia, PR Pulmonary: Yes: Asthma Renal/: Yes: Renal Inusuff, Other (hyperkalemia) Reproductive: Yes: Postmenopausal ...LMP: 11/13/13 ...: No Heme/Onc: No: Anemia Psych: Yes: Anxiety Endocrine: Yes: Diabetes Mellitus - Past Surgical History Past Surgical History: Yes: Appendectomy, , Stent (RCA (on two different occasions)) - Alcohol/Substance Use Hx Alcohol Use: Yes (beer occas) - Smoking History Smoking history: Former smoker Have you smoked in the past 12 months: No If you are a former smoker, when did you quit?: 1994 - Social History ADL: Independent 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 History of Recent Travel: No Home Medications - Allergies Allergies/Adverse Reactions: Allergies Allergy/AdvReac Type Severity Reaction Status Date / Time iodine Allergy Severe Rash Verified 08/31/18 22:47 naproxen [From Naprosyn] Allergy Severe "hives,naus Verified 08/31/18 22:47 ea" - Home Medications Home Medications: Ambulatory Orders Brimonidine Tartrate [Alphagan 0.2% -] 1 drop OU BID 05/17/17 Gabapentin 800 mg PO TID 05/17/17 Insulin Lispro [Humalog] 0 unit SQ TID 05/17/17 Isosorbide Dinitrate [Isordil] 5 mg PO BID 05/17/17 Latanoprost 0.005% Eye Drops [Xalatan 0.005% Eye Drops -] 1 drop OU HS 05/17/17 Metoprolol Succinate 50 mg PO DAILY 05/17/17 Rosuvastatin [Crestor -] 20 mg PO HS 05/17/17 Timolol [Betimol] 5 ml OU BID 05/17/17 Albuterol Sulfate [Proventil HFA Inhaler -] 1 - 2 inh PO QID PRN #1 [id number] 08/04/17 Acetaminophen [Tylenol] 650 mg PO Q4H #30 tablet 06/13/18 Amlodipine Besylate [Norvasc -] 5 mg PO DAILY 08/01/18 Family Disease History - Family Disease History Family Disease History: Diabetes: Mother, Sister, Other: Father, Sister Review of Systems - Review of Systems Constitutional: reports: No Symptoms Eyes: reports: No Symptoms HENT: reports: No Symptoms Neck: reports: No Symptoms Cardiovascular: reports: No Symptoms Respiratory: reports: No Symptoms Gastrointestinal: reports: No Symptoms Genitourinary: reports: No Symptoms Breasts: reports: No Symptoms Reported Musculoskeletal: reports: Extremity Pain, Muscle Pain Integumentary: reports: No Symptoms Neurological: reports: No Symptoms Endocrine: reports: No Symptoms Hematology/Lymphatic: reports: No Symptoms Psychiatric: reports: No Symptoms - Risk Factors Known Risk Factors: Yes: Age, Hypercholesterolemia, Hypertension, Physical Inactivity, Smoking (former), Other (prior coronary artery stents) Vital Signs: Vital Signs Temperature 98 F 09/04/18 06:00 Pulse Rate 77 09/04/18 06:00 Respiratory Rate 18 09/04/18 06:00 Blood Pressure 148/70 09/04/18 06:00 O2 Sat by Pulse Oximetry (%) 97 09/03/18 21:00 Constitutional: Yes: Anxious Eyes: Yes: WNL HENT: Yes: WNL Neck: Yes: WNL Respiratory: Yes: WNL Gastrointestinal: Yes: WNL Renal/: No: Anuria Cardiovascular: Yes: WNL JVD: No Carotid Bruit: No PMI: Non-Displaced Heart Sounds: Yes: S1, S2, S4 Musculoskeletal: Yes: Muscle Pain Extremities: Yes: Cool (right foot) Edema: No Peripheral Pulses WNL: No Peripheral Pulses: 1+ Right Dorsalis Pedis Integumentary: Yes: WNL Neurological: Yes: WNL ...Motor Strength: WNL Psychiatric: Yes: WNL - Other Data Labs, Other Data: CBC, BMP 09/04/18 06:45 09/04/18 06:45 INR, PTT INR 0.96 (0.83-1.09) 09/01/18 01:37 Imaging - Results Chest X-ray: Image Reviewed EKG: Image Reviewed Other: Report Reviewed (stress MIBI 05/2015: no ischemia; fair exercise tolerance) Problem List - Problems (1) Diabetes Assessment/Plan: Poor control of DM in the past; f/u HGBA1c. Pt says she is on lisinopril, but caution with elevated K+. Code(s): E11.9 - TYPE 2 DIABETES MELLITUS WITHOUT COMPLICATIONS (2) HLD (hyperlipidemia) Assessment/Plan: f/u lipid profile; aggressive lowering of LDL. Code(s): E78.5 - HYPERLIPIDEMIA, UNSPECIFIED (3) HTN (hypertension) Assessment/Plan: On metoprolol since 2011 PR (caution with PAD and asthma); on amlodipine. Would start ACEI (pt says she is on lisinopril), but caution due to borderline K +. For ECHO in am: LVEF, wall motion, valve status. Code(s): I10 - ESSENTIAL (PRIMARY) HYPERTENSION (4) Peripheral vascular disease Assessment/Plan: f/u with vascular surgeon Code(s): I73.9 - PERIPHERAL VASCULAR DISEASE, UNSPECIFIED (5) H/O heart artery stent Assessment/Plan: f/u record of prior cardiac stents and post-stent workup (e.g. pt had stress MIBI 05/31 in [facility] which did not show myocardial ischemia). Code(s): Z95.5 - PRESENCE OF CORONARY ANGIOPLASTY IMPLANT AND GRAFT (6) Sciatica Code(s): M54.30 - SCIATICA, UNSPECIFIED SIDE
[2018-09-04] MEDS: BRIMONIDINE TARTRATE 0.2% OPHTHALMIC 5 ML BOTTLE OU SCH ×2 (11:42→21:58)
[2018-09-04] MEDS: ISOSORBIDE DINITRATE 5 MG TABLET PO SCH ×2 (11:42→17:26)
--- NOTE | 2018-09-04 13:46 | PN ---
Progress Note (short form) - Note Progress Note: VAscular Surgery Pt seen and examined. Doing well. Cramping pain at rest. The majority of Pts pain is coming from her back. Pt needs eval by pain management. Pt has been offered a spinal cord stimulator by her pain management doctor recently. Pt needs that eval prior to any vascular intervention. Doing a angioplasty on her leg is not going to eleviate her neuropathic symptoms. Pt understands this. CARdiology to do ECHO julio morning. Gokul Mckay DO
[2018-09-04] MEDS ORDERED: INSULIN (NOVOLOG) ASPART 100 UNITS/ML 10ML VIAL ONE (16:48)
--- NOTE | 2018-09-04 16:49 | PN ---
Progress Note, Physician History of Present Illness: stable - Current Medication List Current Medications: Active Medications Acetaminophen (Tylenol -) 650 mg PO Q6H PRN PRN Reason: FEVER Amlodipine Besylate (Norvasc -) 5 mg PO DAILY [facility] Last Admin: 09/04/18 10:46 Dose: 5 mg Brimonidine Tartrate (Alphagan 0.2% -) 1 drop OU BID [facility] Last Admin: 09/04/18 11:42 Dose: 1 drop Gabapentin (Neurontin -) 800 mg PO TID [facility] Last Admin: 09/04/18 13:24 Dose: 800 mg Heparin Sodium (Porcine) (Heparin -) 5,000 unit SQ BID [facility] Last Admin: 09/04/18 10:46 Dose: 5,000 unit Lactated Ringer's (Lactated Ringers Solution) 1,000 mls @ 75 mls/hr IV ASDIR [facility] Last Admin: 09/02/18 19:42 Dose: Not Given Sodium Chloride (Normal Saline -) 1,000 mls @ 125 mls/hr IV ASDIR [facility] Last Admin: 09/03/18 06:37 Dose: 125 mls/hr Insulin Aspart (Novolog Vial Sliding Scale -) 1 vial SQ TIDAC [facility]; Protocol Last Admin: 09/04/18 06:11 Dose: 4 units Isosorbide Dinitrate (Isordil -) 5 mg PO BIDISORDIL [facility] Last Admin: 09/04/18 11:42 Dose: 5 mg Latanoprost (Xalatan 0.005% Eye Drops -) 1 drop OU HS [facility] Last Admin: 09/03/18 22:35 Dose: Not Given Metoprolol Succinate (Toprol Xl -) 50 mg PO DAILY [facility] Last Admin: 09/04/18 10:46 Dose: 50 mg Morphine Sulfate (Morphine Sulfate) 2 mg IVPUSH Q4H PRN PRN Reason: PAIN LEVEL 4 - 6 Last Admin: 09/02/18 21:56 Dose: 2 mg Non-Formulary Medication (Timolol [Betimol]) 5 ml OU BID [facility] Ondansetron HCl (Zofran Injection) 4 mg IVPUSH Q6H PRN PRN Reason: NAUSEA AND/OR VOMITING Last Admin: 09/01/18 14:35 Dose: 4 mg Oxycodone HCl (Roxicodone -) 5 mg PO Q6H PRN PRN Reason: PAIN LEVEL 7 - 10 Last Admin: 09/03/18 22:28 Dose: 5 mg Rosuvastatin Calcium (Crestor -) 20 mg PO HS [facility] Last Admin: 09/03/18 22:24 Dose: 20 mg - Objective Vital Signs: Vital Signs Temperature 97.8 F 09/04/18 14:28 Pulse Rate 75 09/04/18 14:28 Respiratory Rate 18 09/04/18 06:00 Blood Pressure 140/80 09/04/18 14:28 O2 Sat by Pulse Oximetry (%) 97 09/03/18 21:00 Constitutional: Yes: No Distress HENT: Yes: Atraumatic Neck: Yes: Supple Cardiovascular: Yes: Regular Rate and Rhythm Respiratory: Yes: CTA Bilaterally Gastrointestinal: Yes: Normal Bowel Sounds Extremities: Yes: WNL Edema: No Peripheral Pulses WNL: Yes Neurological: Yes: Alert, Oriented Labs: CBC, BMP 09/04/18 06:45 09/04/18 06:45 INR, PTT INR 0.96 (0.83-1.09) 09/01/18 01:37 Problem List - Problems (1) Bilateral leg pain Assessment/Plan: prn pain meds s/p angiogram Code(s): M79.604 - PAIN IN RIGHT LEG; M79.605 - PAIN IN LEFT LEG (2) CAD (coronary artery disease) Code(s): I25.10 - ATHSCL HEART DISEASE OF [place] CORONARY ARTERY W/O ANG PCTRS (3) CKD (chronic kidney disease) Code(s): N18.9 - CHRONIC KIDNEY DISEASE, UNSPECIFIED (4) Claudication of right lower extremity Code(s): I73.9 - PERIPHERAL VASCULAR DISEASE, UNSPECIFIED (5) Diabetes Assessment/Plan: on insulin bgm Code(s): E11.9 - TYPE 2 DIABETES MELLITUS WITHOUT COMPLICATIONS (6) HLD (hyperlipidemia) Assessment/Plan: on meds stable Code(s): E78.5 - HYPERLIPIDEMIA, UNSPECIFIED (7) HTN (hypertension) Assessment/Plan: on meds Code(s): I10 - ESSENTIAL (PRIMARY) HYPERTENSION (8) Low back pain Assessment/Plan: on meds stable Code(s): M54.5 - LOW BACK PAIN Qualifiers: Chronicity: acute Back pain laterality: bilateral Sciatica presence: with sciatica Sciatica laterality: bilateral sciatica Qualified Code(s): M54.42 - Lumbago with sciatica, left side; M54.41 - Lumbago with sciatica, right side (9) Obesity Code(s): E66.9 - OBESITY, UNSPECIFIED (10) Peripheral vascular disease Code(s): I73.9 - PERIPHERAL VASCULAR DISEASE, UNSPECIFIED Assessment/Plan DR KOVACS NOTE REVIEWED
[2018-09-04] MEDS: ROSUVASTATIN CA 20 MG TABLET (FP) PO SCH (21:58)
[2018-09-04] MEDS: oxyCODONE HCL 5 MG TABLET PO PRN (22:00)
[2018-09-04] MEDS: LATANOPROST 0.005% OPHTH SOLN 2.5ML BOTTLE OU SCH (22:01)
[2018-09-05] MEDS: INSULIN SLIDING SCALE (NOVOLOG) 1 VIAL SQ SCH ×5 (06:22→17:13)
[2018-09-05] MEDS: GABAPENTIN 400 MG CAPSULE (FP) PO SCH ×3 (06:22→21:28)
[2018-09-05 07:45] LABS: HEMATOCRIT 42.6 % (32.4-45.2); HEMOGLOBIN 14.3 GM/dL (10.7-15.3); MCH 32.6 pg (25.7-33.7); MCHC 33.6 g/dl (32.0-36.0); MEAN CELL VOLUME 96.8 fl (80-96); MEAN PLT VOLUME 9.7 fl (7.5-11.1); PLATELET COUNT 342 K/MM3 (134-434); RDW 13.6 % (11.6-15.6); WHITE BLOOD COUNT 10.3 K/mm3 (4.0-10.0)
[2018-09-05] MEDS ORDERED: PT OWN MED DRAWER 7, Y5N ONE ×5 (09:56→18:46)
--- NOTE | 2018-09-05 09:56 | PN ---
Progress Note, Physician History of Present Illness: Patient reports right calf claudication, vascular suspects pseudoclaudication, denies chest pain, dyspnea, palpitations, near or true syncope. - Current Medication List Current Medications: Active Medications Acetaminophen (Tylenol -) 650 mg PO Q6H PRN PRN Reason: FEVER Amlodipine Besylate (Norvasc -) 5 mg PO DAILY [facility] Last Admin: 09/04/18 10:46 Dose: 5 mg Brimonidine Tartrate (Alphagan 0.2% -) 1 drop OU BID [facility] Last Admin: 09/04/18 21:58 Dose: 1 drop Gabapentin (Neurontin -) 800 mg PO TID [facility] Last Admin: 09/05/18 06:22 Dose: 800 mg Heparin Sodium (Porcine) (Heparin -) 5,000 unit SQ BID [facility] Last Admin: 09/04/18 21:57 Dose: 5,000 unit Lactated Ringer's (Lactated Ringers Solution) 1,000 mls @ 75 mls/hr IV ASDIR [facility] Last Admin: 09/02/18 19:42 Dose: Not Given Sodium Chloride (Normal Saline -) 1,000 mls @ 125 mls/hr IV ASDIR [facility] Last Admin: 09/03/18 06:37 Dose: 125 mls/hr Insulin Aspart (Novolog Vial Sliding Scale -) 1 vial SQ TIDAC [facility]; Protocol Last Admin: 09/05/18 07:49 Dose: Not Given Isosorbide Dinitrate (Isordil -) 5 mg PO BIDISORDIL [facility] Last Admin: 09/04/18 17:26 Dose: 5 mg Latanoprost (Xalatan 0.005% Eye Drops -) 1 drop OU HS [facility] Last Admin: 09/04/18 22:01 Dose: Not Given Metoprolol Succinate (Toprol Xl -) 50 mg PO DAILY [facility] Last Admin: 09/04/18 10:46 Dose: 50 mg Morphine Sulfate (Morphine Sulfate) 2 mg IVPUSH Q4H PRN PRN Reason: PAIN LEVEL 4 - 6 Last Admin: 09/02/18 21:56 Dose: 2 mg Non-Formulary Medication (Timolol [Betimol]) 5 ml OU BID [facility] Ondansetron HCl (Zofran Injection) 4 mg IVPUSH Q6H PRN PRN Reason: NAUSEA AND/OR VOMITING Last Admin: 09/01/18 14:35 Dose: 4 mg Oxycodone HCl (Roxicodone -) 5 mg PO Q6H PRN PRN Reason: PAIN LEVEL 7 - 10 Last Admin: 09/04/18 22:00 Dose: 5 mg Rosuvastatin Calcium (Crestor -) 20 mg PO HS [facility] Last Admin: 09/04/18 21:58 Dose: 20 mg - Objective Vital Signs: Vital Signs Temperature 97.7 F 09/05/18 05:22 Pulse Rate 71 09/05/18 05:22 Respiratory Rate 18 09/05/18 05:22 Blood Pressure 115/60 09/05/18 05:22 O2 Sat by Pulse Oximetry (%) 97 09/04/18 21:00 Constitutional: Yes: No Distress, Calm Neck: Yes: Supple Cardiovascular: Yes: Regular Rate and Rhythm Respiratory: Yes: Regular, CTA Bilaterally Gastrointestinal: Yes: Normal Bowel Sounds, Soft, Abdomen, Obese Edema: No Labs: CBC, BMP 09/05/18 06:25 09/04/18 06:45 INR, PTT INR 0.96 (0.83-1.09) 09/01/18 01:37 Assessment/Plan 09/05/2018 Echo: Normal LV and RV size and fxn, LVEF 60-65%, tr MR, TR - Problems (1) Diabetes Assessment/Plan: Poor control of DM per HGBA1c. Pt says she is on lisinopril, but caution with elevated K+. Code(s): E11.9 - TYPE 2 DIABETES MELLITUS WITHOUT COMPLICATIONS (2) HLD (hyperlipidemia) Assessment/Plan: Crestor 20 qhs for aggressive lowering of LDL. Code(s): E78.5 - HYPERLIPIDEMIA, UNSPECIFIED (3) HTN (hypertension) Assessment/Plan: On metoprolol XL 50 qd since 2011 [place] (caution with PAD and asthma); on amlodipine 5 qd Would start ACEI (pt says she is on lisinopril), but caution due to borderline K +. Code(s): I10 - ESSENTIAL (PRIMARY) HYPERTENSION (4) Peripheral vascular disease Assessment/Plan: LE angio shows TP trunk occlusion, peroneal artery occlusion, one vessel runoff is peroneal artery Vascular surgeon input appreciated Code(s): I73.9 - PERIPHERAL VASCULAR DISEASE, UNSPECIFIED (5) H/O heart artery stent Assessment/Plan: f/u record of prior cardiac stents and post-stent workup (e.g. pt had stress MIBI 05/31 in [facility] which did not show myocardial ischemia). On isordil 5 bid Code(s): Z95.5 - PRESENCE OF CORONARY ANGIOPLASTY IMPLANT AND GRAFT (6) Sciatica Code(s): M54.30 - SCIATICA, UNSPECIFIED SIDE Pain management offered her spinal stimulatory, suspect pseudoclaudication Patient to f/u with Dr. Ravinder Martinez as outpatient heliotherapist [phone], review office records
[2018-09-05] MEDS: amLODIPine BESYLATE 5 MG TABLET (FP) PO SCH (10:03)
[2018-09-05] MEDS: ISOSORBIDE DINITRATE 5 MG TABLET PO SCH ×2 (10:03→17:16)
[2018-09-05] MEDS: HEPARIN NA (PORCINE) 5,000 UNITS/ML 1ML VIAL SQ SCH ×2 (10:03→21:29)
[2018-09-05] MEDS: BRIMONIDINE TARTRATE 0.2% OPHTHALMIC 5 ML BOTTLE OU SCH ×2 (10:04→21:29)
--- NOTE | 2018-09-05 12:52 | ECHO ---
Name: DEMARCO BERMEO Exam:Adult Echocardiogram Study Date: 09/05/2018 07:31 AM Age: 57 yrs Reason For Study: cardiac clearance Height: 65 in Weight: 215 lb BSA: 2.0 m2 MMode/2D Measurements & Calculations IVSd: 1.1 cm Ao root diam: 3.0 cm LVIDd: 3.6 cm LA dimension: 3.3 cm LVIDs: 2.5 cm ACS: 1.6 cm LVPWd: 1.0 cm IVSs: 1.4 cm LVPWs: 1.1 cm EDV(Teich): 55.6 ml ESV(Teich): 22.4 ml Doppler Measurements & Calculations MV E max sebastián: 72.6 cm/sec Ao V2 max: 116.4 cm/sec MV A max sebastián: 97.7 cm/sec Ao max P.4 mmHg MV E/A: 0.74 TR max sebastián: 203.1 cm/sec Med Peak E' Sebastián: 5.2 cm/sec TR max P.5 mmHg Med E/e': 14.1 Lat Peak E' Sebastián: 8.8 cm/sec Lat E/e': 8.3 Procedure The study was technically limited with all images being suboptimal in quality. Left Ventricle The left ventricular size, thickness and function are normal. Ejection Fraction = 60-65%. Grade I juliette stolic dysfunction, (abnormal relaxation pattern). Right Ventricle The right ventricle is normal in size and function. Atria The left atrial size is normal. Right atrial size is normal. Mitral Valve The mitral valve is grossly normal. There is moderate mitral annular calcification. There is trace mi tral regurgitation. Tricuspid Valve The tricuspid valve is not well visualized. There is trace tricuspid regurgitation. There was insuffi cient TR detected to calculate RV systolic pressure. Aortic Valve The aortic valve is not well visualized. No aortic regurgitation is present. Pulmonic Valve The pulmonic valve is not well visualized. Great Vessels The aortic root is normal size. Pericardium/Pleura There is no pericardial effusion. Interpretation Summary There is no comparison study available. The left ventricular size, thickness and function are normal The right ventricle is normal in size and function. Ejection Fraction = 60-65%. Grade I diastolic dysfunction, (abnormal relaxation pattern). There is trace mitral regurgitation. There is trace tricuspid regurgitation. John Sandoval MD 09/05/2018 12:51 PM
[2018-09-05] MEDS: LACTATED RINGERS SOLUTION 1,000 ML IV SCH (16:52)
[2018-09-05] MEDS: SODIUM CHLORIDE 1,000 ML IV SCH (16:52)
[2018-09-05] MEDS: TIMOLOL OU SCH ×2 (16:53→16:54)
--- NOTE | 2018-09-05 18:21 | PN ---
Progress Note, Physician - Current Medication List Current Medications: Active Medications Acetaminophen (Tylenol -) 650 mg PO Q6H PRN PRN Reason: FEVER Amlodipine Besylate (Norvasc -) 5 mg PO DAILY [facility] Last Admin: 09/05/18 10:03 Dose: 5 mg Brimonidine Tartrate (Alphagan 0.2% -) 1 drop OU BID [facility] Last Admin: 09/05/18 10:04 Dose: 1 drop Gabapentin (Neurontin -) 800 mg PO TID [facility] Last Admin: 09/05/18 13:23 Dose: 800 mg Heparin Sodium (Porcine) (Heparin -) 5,000 unit SQ BID [facility] Last Admin: 09/05/18 10:03 Dose: 5,000 unit Lactated Ringer's (Lactated Ringers Solution) 1,000 mls @ 75 mls/hr IV ASDIR [facility] Last Admin: 09/05/18 16:52 Dose: Not Given Sodium Chloride (Normal Saline -) 1,000 mls @ 125 mls/hr IV ASDIR [facility] Last Admin: 09/05/18 16:52 Dose: Not Given Insulin Aspart (Novolog Vial Sliding Scale -) 1 vial SQ TIDAC [facility]; Protocol Last Admin: 09/05/18 17:13 Dose: 8 units Isosorbide Dinitrate (Isordil -) 5 mg PO BIDISORDIL [facility] Last Admin: 09/05/18 17:16 Dose: 5 mg Latanoprost (Xalatan 0.005% Eye Drops -) 1 drop OU HS [facility] Last Admin: 09/04/18 22:01 Dose: Not Given Metoprolol Succinate (Toprol Xl -) 50 mg PO DAILY [facility] Last Admin: 09/05/18 10:03 Dose: 50 mg Morphine Sulfate (Morphine Sulfate) 2 mg IVPUSH Q4H PRN PRN Reason: PAIN LEVEL 4 - 6 Last Admin: 09/02/18 21:56 Dose: 2 mg Oxycodone HCl (Roxicodone -) 5 mg PO Q6H PRN PRN Reason: PAIN LEVEL 7 - 10 Last Admin: 09/04/18 22:00 Dose: 5 mg Rosuvastatin Calcium (Crestor -) 20 mg PO HS [facility] Last Admin: 09/04/18 21:58 Dose: 20 mg Timolol Maleate (Timoptic 0.5%) 1 drop OU BID [facility] - Objective Vital Signs: Vital Signs Temperature 97.9 F 09/05/18 14:44 Pulse Rate 71 09/05/18 14:44 Respiratory Rate 20 09/05/18 14:44 Blood Pressure 109/79 09/05/18 14:44 O2 Sat by Pulse Oximetry (%) 97 09/05/18 09:00 Constitutional: Yes: No Distress HENT: Yes: Atraumatic Neck: Yes: Supple Cardiovascular: Yes: Regular Rate and Rhythm Respiratory: Yes: CTA Bilaterally Gastrointestinal: Yes: Normal Bowel Sounds Extremities: Yes: WNL Edema: No Neurological: Yes: Alert, Oriented Labs: CBC, BMP 09/05/18 06:25 09/04/18 06:45 INR, PTT INR 0.96 (0.83-1.09) 09/01/18 01:37 Problem List - Problems (1) Bilateral leg pain Assessment/Plan: prn pain meds s/p angiogram Code(s): M79.604 - PAIN IN RIGHT LEG; M79.605 - PAIN IN LEFT LEG (2) CAD (coronary artery disease) Code(s): I25.10 - ATHSCL HEART DISEASE OF [place] CORONARY ARTERY W/O ANG PCTRS Qualifiers: Coronary Disease-Associated Artery/Lesion type: [place] artery [place] vs. transplanted heart: [place] heart Associated angina: without angina Qualified Code(s): I25.10 - Atherosclerotic heart disease of [place] coronary artery without angina pectoris (3) CKD (chronic kidney disease) Code(s): N18.9 - CHRONIC KIDNEY DISEASE, UNSPECIFIED (4) Claudication of right lower extremity Code(s): I73.9 - PERIPHERAL VASCULAR DISEASE, UNSPECIFIED (5) Diabetes Assessment/Plan: on insulin bgm Code(s): E11.9 - TYPE 2 DIABETES MELLITUS WITHOUT COMPLICATIONS (6) HLD (hyperlipidemia) Assessment/Plan: on meds stable Code(s): E78.5 - HYPERLIPIDEMIA, UNSPECIFIED Qualifiers: Hyperlipidemia type: pure hypercholesterolemia Qualified Code(s): E78.00 - Pure hypercholesterolemia, unspecified; E78.0 - Pure hypercholesterolemia (7) HTN (hypertension) Assessment/Plan: on meds Code(s): I10 - ESSENTIAL (PRIMARY) HYPERTENSION Qualifiers: Hypertension type: essential hypertension Qualified Code(s): I10 - Essential (primary) hypertension (8) Low back pain Assessment/Plan: on meds mri ...done dr keene for further plans Code(s): M54.5 - LOW BACK PAIN Qualifiers: Chronicity: acute Back pain laterality: bilateral Sciatica presence: with sciatica Sciatica laterality: bilateral sciatica Qualified Code(s): M54.42 - Lumbago with sciatica, left side; M54.41 - Lumbago with sciatica, right side (9) Obesity Code(s): E66.9 - OBESITY, UNSPECIFIED (10) Peripheral vascular disease Code(s): I73.9 - PERIPHERAL VASCULAR DISEASE, UNSPECIFIED
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
[2018-09-05] MEDS ORDERED: CYCLOBENZAPRINE HCL 10 MG TABLET (FP) PO PRN (21:11)
[2018-09-05] MEDS: ROSUVASTATIN CA 20 MG TABLET (FP) PO SCH (21:29)
[2018-09-05] MEDS: LATANOPROST 0.005% OPHTH SOLN 2.5ML BOTTLE OU SCH (21:30)
[2018-09-05] MEDS: TIMOLOL 0.5% OPHTHALMIC SOL 5 ML BOTTLE OU SCH (23:26)
[2018-09-06] MEDS: INSULIN SLIDING SCALE (NOVOLOG) 1 VIAL SQ SCH ×3 (06:19→16:48)
[2018-09-06] MEDS: GABAPENTIN 400 MG CAPSULE (FP) PO SCH ×4 (06:19→21:28)
[2018-09-06 07:27] LABS: HEMATOCRIT 39.5 % (32.4-45.2); HEMOGLOBIN 13.3 GM/dL (10.7-15.3); MCH 32.6 pg (25.7-33.7); MCHC 33.7 g/dl (32.0-36.0); MEAN CELL VOLUME 96.5 fl (80-96); MEAN PLT VOLUME 9.6 fl (7.5-11.1); PLATELET COUNT 317 K/MM3 (134-434); RBC 4.09 M/mm3 (3.60-5.2); RDW 13.4 % (11.6-15.6); WHITE BLOOD COUNT 10.8 K/mm3 (4.0-10.0)
--- NOTE | 2018-09-06 07:41 | PN ---
Progress Note (short form) - Note Progress Note: NEUROSURGERY CONSULT DICTATED Chart reviewed History obtained Pt examined H/o HTN , HLD, PR s/p stents, PVD , asthma, DM c/o right leg pain with history of 1 block claudication. Pain involved R ant/post thigh, ant/post calf/[place]. Stabbing and burning in nature. No weakness. No L LE symptoms. + Distal B LE numbness. Had EMG/NCS by Dr Kaba which shows reportedly peripheral neuropathy. PE: AF, VSS HEENT- NC/AT; Neck- supple; Cor- RR; Lungs- CTA; Abd- benign, + BS; Ext- no sign of DVT, pulses difficult to ascertain CN- intact; Motor- 5/5 B UE/LE; Sensation- intact LT, decreased B distal vibration; DTR- hyporeflexic B; Back- tender LS junction, + SLR on R at about 40 degrees Hgb A1C 10.7 CT LS spine : multilevel DDD, spondylosis, L5-S1 DDD and calcified B disc protrusion and facet hypertrophy; mild L5-S1 retrolisthesis MRI LS spine : multilevel DDD and facet arthrosis; central and predominantly L sided L5-S1 paracentral disc herniation with downwardly migrating disc fragment and mild thecal sac impingement L5-S1 DDD with retrolisthesis and calcified disc protrusion R LE symptoms more c/w vascular claudication (as MRI from showed L sided and not R sided disc protrusion/extrusion rather than R) Could consider trial of Lyrica since pt is at near highest dose of Neurontin Obtain EMG/NCS LE from Dr Kaba's if possible Given non-concordant clinical signs/symptoms with LS spine MRI, spinal cord stimulator (trial first then if successful permanent implant) is the better tx option over L5-S1 decompression and interbody fusion in this lady with significant medical co-morbidities
[2018-09-06] MEDS: HEPARIN NA (PORCINE) 5,000 UNITS/ML 1ML VIAL SQ SCH ×2 (10:39→21:28)
[2018-09-06] MEDS: amLODIPine BESYLATE 5 MG TABLET (FP) PO SCH (10:39)
[2018-09-06] MEDS: BRIMONIDINE TARTRATE 0.2% OPHTHALMIC 5 ML BOTTLE OU SCH ×2 (10:40→21:29)
[2018-09-06] MEDS: TIMOLOL 0.5% OPHTHALMIC SOL 5 ML BOTTLE OU SCH ×2 (10:40→21:29)
[2018-09-06] MEDS ORDERED: PT OWN MED DRAWER 7, Y5N ONE (10:41)
[2018-09-06] MEDS: ISOSORBIDE DINITRATE 5 MG TABLET PO SCH ×2 (10:42→17:43)
--- NOTE | 2018-09-06 10:44 | PN ---
Progress Note, Physician Chief Complaint: Events noted Complains of right claudication History of Present Illness: Patient was seen and examined. Awake and alert. Chart was reviewed Denies chest pain or SOB. Denies palpitations - Current Medication List Current Medications: Active Medications Acetaminophen (Tylenol -) 650 mg PO Q6H PRN PRN Reason: FEVER Amlodipine Besylate (Norvasc -) 5 mg PO DAILY [facility] Last Admin: 09/06/18 10:39 Dose: 5 mg Brimonidine Tartrate (Alphagan 0.2% -) 1 drop OU BID [facility] Last Admin: 09/06/18 10:40 Dose: 1 drop Cyclobenzaprine HCl (Flexeril -) 10 mg PO Q8H PRN PRN Reason: MUSCLE SPASMS Last Admin: 09/05/18 21:29 Dose: 10 mg Gabapentin (Neurontin -) 800 mg PO TID [facility] Last Admin: 09/06/18 06:19 Dose: 800 mg Heparin Sodium (Porcine) (Heparin -) 5,000 unit SQ BID [facility] Last Admin: 09/06/18 10:39 Dose: 5,000 unit Insulin Aspart (Novolog Vial Sliding Scale -) 1 vial SQ TIDAC [facility]; Protocol Last Admin: 09/06/18 06:19 Dose: 2 units Isosorbide Dinitrate (Isordil -) 5 mg PO BIDISORDIL [facility] Last Admin: 09/06/18 10:42 Dose: 5 mg Latanoprost (Xalatan 0.005% Eye Drops -) 1 drop OU HS [facility] Last Admin: 09/05/18 21:30 Dose: Not Given Metoprolol Succinate (Toprol Xl -) 50 mg PO DAILY [facility] Last Admin: 09/06/18 10:39 Dose: 50 mg Oxycodone HCl (Roxicodone -) 5 mg PO Q6H PRN PRN Reason: PAIN LEVEL 7 - 10 Last Admin: 09/04/18 22:00 Dose: 5 mg Rosuvastatin Calcium (Crestor -) 20 mg PO [facility] Last Admin: 09/05/18 21:29 Dose: 20 mg Timolol Maleate (Timoptic 0.5%) 1 drop OU BID [facility] Last Admin: 09/06/18 10:40 Dose: 1 drop - Objective Vital Signs: Vital Signs Temperature 98.9 F 09/06/18 08:23 Pulse Rate 93 H 09/06/18 08:23 Respiratory Rate 20 09/06/18 08:23 Blood Pressure 159/70 09/06/18 08:23 O2 Sat by Pulse Oximetry (%) 96 09/05/18 21:00 Eyes: Yes: PERRL HENT: Yes: Atraumatic Neck: Yes: Supple Cardiovascular: Yes: Regular Rate and Rhythm, S1, S2 Respiratory: Yes: CTA Bilaterally Gastrointestinal: Yes: Normal Bowel Sounds, Soft. No: Tenderness Edema: No Labs: CBC, BMP 09/06/18 06:30 09/04/18 06:45 Problem List - Problems (1) Displacement of lumbar intervertebral disc without myelopathy Code(s): M51.26 - OTHER INTERVERTEBRAL DISC DISPLACEMENT, LUMBAR REGION (2) H/O heart artery stent Code(s): Z95.5 - PRESENCE OF CORONARY ANGIOPLASTY IMPLANT AND GRAFT (3) Sciatica Code(s): M54.30 - SCIATICA, UNSPECIFIED SIDE (4) CAD (coronary artery disease) Code(s): I25.10 - ATHSCL HEART DISEASE OF [place] CORONARY ARTERY W/O ANG PCTRS (5) CKD (chronic kidney disease) Code(s): N18.9 - CHRONIC KIDNEY DISEASE, UNSPECIFIED (6) Claudication of right lower extremity Code(s): I73.9 - PERIPHERAL VASCULAR DISEASE, UNSPECIFIED (7) Diabetes Code(s): E11.9 - TYPE 2 DIABETES MELLITUS WITHOUT COMPLICATIONS (8) HLD (hyperlipidemia) Code(s): E78.5 - HYPERLIPIDEMIA, UNSPECIFIED (9) HTN (hypertension) Code(s): I10 - ESSENTIAL (PRIMARY) HYPERTENSION (10) Hyperkalemia Code(s): E87.5 - HYPERKALEMIA (11) Peripheral vascular disease Code(s): I73.9 - PERIPHERAL VASCULAR DISEASE, UNSPECIFIED Assessment/Plan 1. PAD with TP trunk and peroneal artery occlusion 2. HTN 3. Hypercholesterolemia 4. DM 5. Sciatica with lumbar disc disease 6. CAD s/p PCI/stent PLAN: 1. Vascular input noted 2. Continue Metoprolol ER 50 mg QD, Amlodipine 5 mg QD and Crestor 20 mg QD. Continue Isosorbide as tolerated 3. Lumbar MRI done. Further plans are to be followed 4. ACEI or ARB if clinically feasible and K is stable 5. Eventually will need ASA [employer]: Dr. Ravinder Martinez [phone] Mikhail Montgomery MD
[2018-09-06] MEDS ORDERED: INSULIN (NOVOLOG) ASPART 100 UNITS/ML 10ML VIAL ONE (10:56)
--- NOTE | 2018-09-06 11:57 | CONS ---
DATE OF CONSULTATION: 09/06/2018 REQUESTING PHYSICIAN: Noris Garcia MD SHEET CUTTING OPERATOR: Marcelino Lora MD, [facility]. CHIEF COMPLAINT: Right lower extremity claudication syndrome. HISTORY OF PRESENT ILLNESS: The patient is a 57-year-old right-handed female with history of multiple medical issues including [place] status post 2 stent placements, hypertension, asthma, diabetes, hypocholesterolemia, who has had lower back pain and right leg pain for well over 2 years by report. She has about 1 block general claudication syndrome, and she cannot walk beyond that. She has a stabbing and then a burning pain anterior and posterior thighs and calves including the shins. She has minimal left lower extremity symptoms. She denies leg weakness, but has some distal lower extremity numbness and tingling. She has no bowel or bladder dysfunction. An EMG was reportedly done by Dr. Kaba this year, which demonstrated some peripheral neuropathy by report. That report is not available to me. The patient had undergone physical therapy without relief. She has also tried anti-inflammatory medication and Neurontin without relief. She has tried 2 epidural steroid injections at [facility] with no relief either. PAST MEDICAL HISTORY: Significant for diabetes, coronary artery disease status post stent placement and [place], peripheral arterial disease, hypertension, hypocholesterolemia, asthma. MEDICATIONS: Current medications include Alphagan, Tylenol, subcutaneous heparin, Neurontin, Toprol XL, Timoptic, Flexeril, Norvasc, oxycodone, isosorbide dinitrate Xalatan eye drops, Crestor. ALLERGIES: IODINE, NAPROXEN. SOCIAL HISTORY: She does not smoke or drink. She lives at home. She does not work. REVIEW OF SYSTEMS: Otherwise negative for major constitutional, head and neck, cardiovascular, pulmonary, gastrointestinal, genitourinary, endocrinologic, neurologic, or psychologic problems except for the above. PHYSICAL EXAMINATION: Vital signs: Temperature is 98, blood pressure is 121/67 with a pulse rate of 81, O2 saturation is 96% on room air. HEENT: Examination shows her to be normocephalic, atraumatic, anicteric. Neck: Supple with no lymphadenopathy, no carotid bruit. Coronary: Examination demonstrates regular rhythm. Lungs: Clear bilaterally. Abdomen: Benign. Extremities: Examination shows no obvious signs of DVT. Distal pulses are symmetrically diminished. There is no coldness of her feet. Neurologic: She is awake and alert and oriented x4. Cranial nerve examination is intact 2 through 12. Motor examination shows 5/5 strength to bilateral upper and lower extremities. Sensory examination is intact to light touch. Distal lower extremity vibratory sensation is diminished bilaterally. Deep tendon reflexes are hyporeflexive throughout bilaterally. Examination of the lower back shows tenderness lumbosacral junction bilaterally. She has a positive straight leg raise on the right side 40 degrees. LABORATORY EXAMINATION: Shows the white blood cell count 10.3, hemoglobin 14.3, platelet count 242,000. INR 0.96 and PT is 35.4. Hemoglobin A1c is 10.7. Fingersticks run generally in the upper 200s to the mid 300s. CT scan of the lumbar from June 13, 2018, demonstrated multilevel degenerative disc disease, the most notable degeneration is at L5-S1 level where there is mild retrolisthesis. There is bilateral L5-S1 moderate foraminal stenosis secondary to prostatic hypertrophy. There is bilateral calcified mild disc protrusion at L5/ S1. There is also degenerative disc disease in lower thoracic and upper lumbar spine. MRI of the lumbar spine from October 2017 demonstrated the multilevel degenerative disc disease. There was a left-sided L5 paracentral disc protrusion with downwardly extruded disc fragment with mild thecal sac impingement. There mild L5-S1 retrolisthesis, multilevel facet arthrosis noted. IMPRESSION: 1. Hypertension/coronary artery disease status post stent placement. 2. Peripheral arterial disease. 3. Diabetes with diabetic peripheral neuropathy. 4. Asthma. 5. Hypocholesterolemia. 6. L5-S1 degenerative disc disease. RECOMMENDATIONS: The patient presented with over 1-year history of right lower extremity stabbing and burning pain. She also has concurrent lower back pain. The pain does not sound like sciatic in nature. It is more consistent with vascular claudication. The patient reportedly had an EMG done, which demonstrated peripheral neuropathy. It is uncertain if she has any component of lumbar radiculopathy on the EMG. A copy of that report could be helpful. She did have an MRI last October, demonstrating left-sided L5-S1 paracentral disc protrusion/extrusion with thecal sac impingement and proximal left S1 and foramenal L5 nerve root impingement. On the other hand, her symptoms are almost exclusively right-sided, which makes her clinical symptoms and signs non-concordant with prior MRI and current CT findings. Therefore, surgical outcome would likely be suboptimal even if surgery were performed. Given the retrolisthesis and degenerative disc disease, as well as history of disc herniation, bilateral discectomy/decompression and interbody will be needed to restore spinal anatomy. Given the above non-concordant symptomatology, consisting of prior MRI findings, and as well as her multiple medical comorbidities, surgery for lumbar spine is not deemed optimal at this time. She could be a candidate for spinal cord stimulator trial. Presently, patient is on high dose of gabapentin 800 mg 3 times a day, and if that is not helping her, she could be considered for a trial of Lyrica starting with 25 mg t.i.d. The above treatment options were discussed with the patient at bedside in details. All questions were answered. MARCELINO LORA M.D. [id number] MTDD
--- NOTE | 2018-09-06 16:07 | PN ---
Progress Note, Physician - Current Medication List Current Medications: Active Medications Acetaminophen (Tylenol -) 650 mg PO Q6H PRN PRN Reason: FEVER Amlodipine Besylate (Norvasc -) 5 mg PO DAILY [facility] Last Admin: 09/06/18 10:39 Dose: 5 mg Brimonidine Tartrate (Alphagan 0.2% -) 1 drop OU BID [facility] Last Admin: 09/06/18 10:40 Dose: 1 drop Cyclobenzaprine HCl (Flexeril -) 10 mg PO Q8H PRN PRN Reason: MUSCLE SPASMS Last Admin: 09/05/18 21:29 Dose: 10 mg Gabapentin (Neurontin -) 800 mg PO TID [facility] Last Admin: 09/06/18 15:20 Dose: Not Given Heparin Sodium (Porcine) (Heparin -) 5,000 unit SQ BID [facility] Last Admin: 09/06/18 10:39 Dose: 5,000 unit Insulin Aspart (Novolog Vial Sliding Scale -) 1 vial SQ TIDAC [facility]; Protocol Last Admin: 09/06/18 10:57 Dose: 8 units Isosorbide Dinitrate (Isordil -) 5 mg PO BIDISORDIL [facility] Last Admin: 09/06/18 10:42 Dose: 5 mg Latanoprost (Xalatan 0.005% Eye Drops -) 1 drop OU HS [facility] Last Admin: 09/05/18 21:30 Dose: Not Given Metoprolol Succinate (Toprol Xl -) 50 mg PO DAILY [facility] Last Admin: 09/06/18 10:39 Dose: 50 mg Oxycodone HCl (Roxicodone -) 5 mg PO Q6H PRN PRN Reason: PAIN LEVEL 7 - 10 Last Admin: 09/04/18 22:00 Dose: 5 mg Rosuvastatin Calcium (Crestor -) 20 mg PO HS [facility] Last Admin: 09/05/18 21:29 Dose: 20 mg Timolol Maleate (Timoptic 0.5%) 1 drop OU BID [facility] Last Admin: 09/06/18 10:40 Dose: 1 drop - Objective Vital Signs: Vital Signs Temperature 98.3 F 09/06/18 14:41 Pulse Rate 76 09/06/18 14:41 Respiratory Rate 20 09/06/18 14:41 Blood Pressure 118/76 09/06/18 14:41 O2 Sat by Pulse Oximetry (%) 97 09/06/18 09:00 Constitutional: Yes: No Distress HENT: Yes: Atraumatic Neck: Yes: Supple Cardiovascular: Yes: Regular Rate and Rhythm Respiratory: Yes: CTA Bilaterally Gastrointestinal: Yes: Normal Bowel Sounds Extremities: Yes: WNL Edema: No Peripheral Pulses WNL: Yes Neurological: Yes: Alert, Oriented Labs: CBC, BMP 09/06/18 06:30 09/04/18 06:45 INR, PTT INR 0.96 (0.83-1.09) 09/01/18 01:37 Problem List - Problems (1) Bilateral leg pain Assessment/Plan: prn pain meds s/p angiogram Code(s): M79.604 - PAIN IN RIGHT LEG; M79.605 - PAIN IN LEFT LEG (2) CAD (coronary artery disease) Code(s): I25.10 - ATHSCL HEART DISEASE OF [place] CORONARY ARTERY W/O ANG PCTRS Qualifiers: Coronary Disease-Associated Artery/Lesion type: [place] artery [place] vs. transplanted heart: [place] heart Associated angina: without angina Qualified Code(s): I25.10 - Atherosclerotic heart disease of [place] coronary artery without angina pectoris (3) CKD (chronic kidney disease) Code(s): N18.9 - CHRONIC KIDNEY DISEASE, UNSPECIFIED (4) Claudication of right lower extremity Code(s): I73.9 - PERIPHERAL VASCULAR DISEASE, UNSPECIFIED (5) Diabetes Assessment/Plan: on insulin bgm Code(s): E11.9 - TYPE 2 DIABETES MELLITUS WITHOUT COMPLICATIONS (6) HLD (hyperlipidemia) Code(s): E78.5 - HYPERLIPIDEMIA, UNSPECIFIED Qualifiers: Hyperlipidemia type: pure hypercholesterolemia Qualified Code(s): E78.00 - Pure hypercholesterolemia, unspecified; E78.0 - Pure hypercholesterolemia (7) HTN (hypertension) Assessment/Plan: on meds Code(s): I10 - ESSENTIAL (PRIMARY) HYPERTENSION Qualifiers: Hypertension type: essential hypertension Qualified Code(s): I10 - Essential (primary) hypertension (8) Low back pain Assessment/Plan: on meds mri ...done dr keene for further plans Code(s): M54.5 - LOW BACK PAIN Qualifiers: Chronicity: acute Back pain laterality: bilateral Sciatica presence: with sciatica Sciatica laterality: bilateral sciatica Qualified Code(s): M54.42 - Lumbago with sciatica, left side; M54.41 - Lumbago with sciatica, right side (9) Obesity Code(s): E66.9 - OBESITY, UNSPECIFIED (10) Peripheral vascular disease Code(s): I73.9 - PERIPHERAL VASCULAR DISEASE, UNSPECIFIED
[2018-09-06] MEDS: ROSUVASTATIN CA 20 MG TABLET (FP) PO SCH (21:29)
[2018-09-06] MEDS: LATANOPROST 0.005% OPHTH SOLN 2.5ML BOTTLE OU SCH (21:33)
[2018-09-07] MEDS: GABAPENTIN 400 MG CAPSULE (FP) PO SCH ×2 (06:00→17:28)
[2018-09-07] MEDS: INSULIN SLIDING SCALE (NOVOLOG) 1 VIAL SQ SCH ×3 (06:00→17:28)
[2018-09-07 07:40] LABS: HEMATOCRIT 38.5 % (32.4-45.2); HEMOGLOBIN 12.9 GM/dL (10.7-15.3); MCH 32.4 pg (25.7-33.7); MCHC 33.4 g/dl (32.0-36.0); PLATELET COUNT 312 K/MM3 (134-434); RBC 3.98 M/mm3 (3.60-5.2); RDW 13.4 % (11.6-15.6); WHITE BLOOD COUNT 11.1 K/mm3 (4.0-10.0)
[2018-09-07] MEDS ORDERED: INSULIN (NOVOLOG) ASPART 100 UNITS/ML 10ML VIAL ONE (10:49)
[2018-09-07] MEDS ORDERED: PT OWN MED DRAWER 7, Y5N ONE (10:49)
[2018-09-07] MEDS: HEPARIN NA (PORCINE) 5,000 UNITS/ML 1ML VIAL SQ SCH (10:52)
[2018-09-07] MEDS: amLODIPine BESYLATE 5 MG TABLET (FP) PO SCH (10:52)
[2018-09-07] MEDS: ISOSORBIDE DINITRATE 5 MG TABLET PO SCH ×2 (10:52→17:29)
[2018-09-07] MEDS: BRIMONIDINE TARTRATE 0.2% OPHTHALMIC 5 ML BOTTLE OU SCH (10:53)
[2018-09-07] MEDS: TIMOLOL 0.5% OPHTHALMIC SOL 5 ML BOTTLE OU SCH (10:54)
--- NOTE | 2018-09-07 10:59 | PN ---
Progress Note, Physician History of Present Illness: Patient reports right calf claudication vs pseudoclaudication, denies chest pain , dyspnea, palpitations, near or true syncope. - Current Medication List Current Medications: Active Medications Acetaminophen (Tylenol -) 650 mg PO Q6H PRN PRN Reason: FEVER Amlodipine Besylate (Norvasc -) 5 mg PO DAILY [facility] Last Admin: 09/07/18 10:52 Dose: 5 mg Brimonidine Tartrate (Alphagan 0.2% -) 1 drop OU BID [facility] Last Admin: 09/07/18 10:53 Dose: 1 drop Cyclobenzaprine HCl (Flexeril -) 10 mg PO Q8H PRN PRN Reason: MUSCLE SPASMS Last Admin: 09/05/18 21:29 Dose: 10 mg Gabapentin (Neurontin -) 800 mg PO TID [facility] Last Admin: 09/07/18 06:00 Dose: 800 mg Heparin Sodium (Porcine) (Heparin -) 5,000 unit SQ BID [facility] Last Admin: 09/07/18 10:52 Dose: 5,000 unit Insulin Aspart (Novolog Vial Sliding Scale -) 1 vial SQ TIDAC [facility]; Protocol Last Admin: 09/07/18 10:57 Dose: 8 units Isosorbide Dinitrate (Isordil -) 5 mg PO BIDISORDIL [facility] Last Admin: 09/07/18 10:52 Dose: 5 mg Latanoprost (Xalatan 0.005% Eye Drops -) 1 drop OU [facility] Last Admin: 09/06/18 21:33 Dose: Not Given Metoprolol Succinate (Toprol Xl -) 50 mg PO DAILY [facility] Last Admin: 09/07/18 10:52 Dose: 50 mg Rosuvastatin Calcium (Crestor -) 20 mg PO HS [facility] Last Admin: 09/06/18 21:29 Dose: 20 mg Timolol Maleate (Timoptic 0.5%) 1 drop OU BID [facility] Last Admin: 09/07/18 10:54 Dose: 1 drop - Objective Vital Signs: Vital Signs Temperature 98.2 F 09/07/18 09:15 Pulse Rate 89 09/07/18 09:15 Respiratory Rate 09/07/18 09:15 Blood Pressure 98/71 09/07/18 09:15 O2 Sat by Pulse Oximetry (%) 98 09/06/18 21:00 Constitutional: Yes: No Distress, Calm Neck: Yes: Supple Cardiovascular: Yes: Regular Rate and Rhythm Respiratory: Yes: Regular, CTA Bilaterally Gastrointestinal: Yes: Normal Bowel Sounds, Soft Edema: No Labs: CBC, BMP 09/07/18 06:34 09/04/18 06:45 INR, PTT INR 0.96 (0.83-1.09) 09/01/18 01:37 Problem List - Problems (1) H/O heart artery stent Code(s): Z95.5 - PRESENCE OF CORONARY ANGIOPLASTY IMPLANT AND GRAFT (2) Sciatica Code(s): M54.30 - SCIATICA, UNSPECIFIED SIDE Qualifiers: Laterality: right Qualified Code(s): M54.31 - Sciatica, right side (3) CAD (coronary artery disease) Code(s): I25.10 - ATHSCL HEART DISEASE OF [place] CORONARY ARTERY W/O ANG PCTRS Qualifiers: Coronary Disease-Associated Artery/Lesion type: [place] artery [place] vs. transplanted heart: [place] heart Associated angina: without angina Qualified Code(s): I25.10 - Atherosclerotic heart disease of [place] coronary artery without angina pectoris (4) Claudication of right lower extremity Code(s): I73.9 - PERIPHERAL VASCULAR DISEASE, UNSPECIFIED (5) HLD (hyperlipidemia) Code(s): E78.5 - HYPERLIPIDEMIA, UNSPECIFIED Qualifiers: Hyperlipidemia type: pure hypercholesterolemia Qualified Code(s): E78.00 - Pure hypercholesterolemia, unspecified; E78.0 - Pure hypercholesterolemia (6) HTN (hypertension) Code(s): I10 - ESSENTIAL (PRIMARY) HYPERTENSION Qualifiers: Hypertension type: essential hypertension Qualified Code(s): I10 - Essential (primary) hypertension (7) Peripheral vascular disease Code(s): I73.9 - PERIPHERAL VASCULAR DISEASE, UNSPECIFIED Assessment/Plan 09/05/2018 Echo: Normal LV and RV size and fxn, LVEF 60-65%, tr MR, TR 1. PAD with TP trunk and peroneal artery occlusion 2. HTN 3. Hypercholesterolemia 4. DM 5. Sciatica with lumbar disc disease 6. CAD s/p PCI/stent PLAN: 1. Continue Metoprolol ER 50 mg QD, Amlodipine 5 mg QD and Crestor 20 mg QD. Continue Isosorbide 5 bid as tolerated 2. Lumbar MRI reviewed, obtain EMG/NCS LE from Dr Sesar's if possible, appreciate NSG and pain management input 3. ACEI or ARB if clinically feasible and K is stable 4. Resume ASA 81 qd 5. Physical therapy eval and treat, Ibuprofen 600 mg PO BID PRN after meal, Flexeril and Lyrica 6. NSG input: Given non-concordant clinical signs/symptoms with LS spine MRI, spinal cord stimulator (trial first then if successful permanent implant) is the better tx option over L5-S1 decompression and interbody fusion in this lady with significant medical co-morbidities Video Network Engineer: Dr. Ravinder Martinez [phone]
[2018-09-07 12:07] LABS: HEMATOCRIT 38.4 % (32.4-45.2); MCH 32.9 pg (25.7-33.7); MCHC 33.9 g/dl (32.0-36.0); MEAN CELL VOLUME 97.2 fl (80-96); MEAN PLT VOLUME 9.5 fl (7.5-11.1); PLATELET COUNT 305 K/MM3 (134-434); RBC 3.95 M/mm3 (3.60-5.2); RDW 13.5 % (11.6-15.6); WHITE BLOOD COUNT 11.2 K/mm3 (4.0-10.0)
--- NOTE | 2018-09-07 12:24 | PN ---
Progress Note (short form) - Note Progress Note: NEUROSURGERY H/o HTN , HLD, [place] s/p stents, PVD , asthma, DM c/o right leg pain with history of 1 block claudication. Pain involved R ant/post thigh, ant/post calf/[place]. Stabbing and burning in nature. No weakness. No L LE symptoms. + Distal B LE numbness. Had EMG/NCS by Dr Kaba which only shows reportedly peripheral neuropathy. PE: AF, VSS HEENT- NC/AT; Neck- supple; Cor- RR; Lungs- CTA; Abd- benign, + BS; Ext- no sign of DVT, pulses difficult to ascertain CN- intact; Motor- 5/5 B UE/LE; Sensation- intact LT, decreased B distal vibration; DTR- hyporeflexic B; Back- tender LS junction, + SLR on R at about [address] LS spine : multilevel DDD, spondylosis, L5-S1 DDD and calcified B disc protrusion and facet hypertrophy; mild L5-S1 retrolisthesis MRI LS spine : multilevel DDD and facet arthrosis; central and predominantly L sided L5-S1 paracentral disc herniation with downwardly migrating disc fragment and mild thecal sac impingement New LS spine MRI: DDD; L L5-S1 paracentral disc protrusion, facet hypertrophy, with L > R L5-S1 foramenal narrowing L5-S1 DDD with retrolisthesis and calcified disc protrusion R LE symptoms more c/w vascular claudication (as repeat MRI shows similar L sided and not R sided disc protrusion/extrusion rather than R) Could consider trial of Lyrica since pt is at near highest dose of Neurontin Obtain EMG/NCS LE from Dr Kaba's if possible Given non-concordant clinical signs/symptoms with LS spine MRI findings, spinal cord stimulator by pain management (trial first then if successful permanent implant) is the better tx option over L5-S1 decompression and interbody fusion in this lady with significant medical co-morbidities
[2018-09-07 13:45] VITALS: BP 112/68; PULSE 77; TEMP 97.3
--- NOTE | 2018-09-07 19:25 | PN ---
Progress Note, Physician - Current Medication List Current Medications: Active Medications Acetaminophen (Tylenol -) 650 mg PO Q6H PRN PRN Reason: FEVER Amlodipine Besylate (Norvasc -) 5 mg PO DAILY [facility] Last Admin: 09/07/18 10:52 Dose: 5 mg Brimonidine Tartrate (Alphagan 0.2% -) 1 drop OU BID [facility] Last Admin: 09/07/18 10:53 Dose: 1 drop Cyclobenzaprine HCl (Flexeril -) 10 mg PO Q8H PRN PRN Reason: MUSCLE SPASMS Last Admin: 09/05/18 21:29 Dose: 10 mg Gabapentin (Neurontin -) 800 mg PO TID [facility] Last Admin: 09/07/18 17:28 Dose: 800 mg Heparin Sodium (Porcine) (Heparin -) 5,000 unit SQ BID [facility] Last Admin: 09/07/18 10:52 Dose: 5,000 unit Insulin Aspart (Novolog Vial Sliding Scale -) 1 vial SQ TIDAC [facility]; Protocol Last Admin: 09/07/18 17:28 Dose: 10 units Isosorbide Dinitrate (Isordil -) 5 mg PO BIDISORDIL [facility] Last Admin: 09/07/18 17:29 Dose: 5 mg Latanoprost (Xalatan 0.005% Eye Drops -) 1 drop OU [facility] Last Admin: 09/06/18 21:33 Dose: Not Given Metoprolol Succinate (Toprol Xl -) 50 mg PO DAILY [facility] Last Admin: 09/07/18 10:52 Dose: 50 mg Rosuvastatin Calcium (Crestor -) 20 mg PO HS [facility] Last Admin: 09/06/18 21:29 Dose: 20 mg Timolol Maleate (Timoptic 0.5%) 1 drop OU BID [facility] Last Admin: 09/07/18 10:54 Dose: 1 drop - Objective Vital Signs: Vital Signs Temperature 97.3 F L 09/07/18 13:44 Pulse Rate 77 09/07/18 13:44 Respiratory Rate 19 09/07/18 09:15 Blood Pressure 112/68 09/07/18 13:44 O2 Sat by Pulse Oximetry (%) 98 09/07/18 09:00 Constitutional: Yes: Anxious HENT: Yes: Atraumatic Neck: Yes: Supple Cardiovascular: Yes: Regular Rate and Rhythm Respiratory: Yes: CTA Bilaterally Gastrointestinal: Yes: Normal Bowel Sounds Extremities: Yes: WNL Edema: No Neurological: Yes: Alert, Oriented Labs: CBC, BMP 09/07/18 11:55 09/04/18 06:45 INR, PTT INR 0.96 (0.83-1.09) 09/01/18 01:37 Problem List - Problems (1) Bilateral leg pain Code(s): M79.604 - PAIN IN RIGHT LEG; M79.605 - PAIN IN LEFT LEG (2) CAD (coronary artery disease) Code(s): I25.10 - ATHSCL HEART DISEASE OF [place] CORONARY ARTERY W/O ANG PCTRS Qualifiers: Coronary Disease-Associated Artery/Lesion type: [place] artery [place] vs. transplanted heart: [place] heart Associated angina: without angina Qualified Code(s): I25.10 - Atherosclerotic heart disease of [place] coronary artery without angina pectoris (3) CKD (chronic kidney disease) Code(s): N18.9 - CHRONIC KIDNEY DISEASE, UNSPECIFIED (4) Claudication of right lower extremity Code(s): I73.9 - PERIPHERAL VASCULAR DISEASE, UNSPECIFIED (5) Diabetes Code(s): E11.9 - TYPE 2 DIABETES MELLITUS WITHOUT COMPLICATIONS (6) HLD (hyperlipidemia) Code(s): E78.5 - HYPERLIPIDEMIA, UNSPECIFIED Qualifiers: Hyperlipidemia type: pure hypercholesterolemia Qualified Code(s): E78.00 - Pure hypercholesterolemia, unspecified; E78.0 - Pure hypercholesterolemia (7) HTN (hypertension) Code(s): I10 - ESSENTIAL (PRIMARY) HYPERTENSION Qualifiers: Hypertension type: essential hypertension Qualified Code(s): I10 - Essential (primary) hypertension (8) Low back pain Code(s): M54.5 - LOW BACK PAIN Qualifiers: Chronicity: acute Back pain laterality: bilateral Sciatica presence: with sciatica Sciatica laterality: bilateral sciatica Qualified Code(s): M54.42 - Lumbago with sciatica, left side; M54.41 - Lumbago with sciatica, right side (9) Obesity Code(s): E66.9 - OBESITY, UNSPECIFIED (10) Peripheral vascular disease Code(s): I73.9 - PERIPHERAL VASCULAR DISEASE, UNSPECIFIED
--- NOTE | 2018-09-07 19:51 | PN ---
Progress Note (short form) - Note Progress Note: 57 yr old female with LBP with rt radic. Travis is better 4-6/10, improved mobility. MRI - reviewed Evaluation was done by Dr. Lora - andrade. Discussed in detail with patient . She will see her Pain Management Physician on Discharge She wants to go home . She will be out of work till her treatment with her pain physician. She is a good candidate for SCS. She will get PT as out patient. Thanks Dr. Elias Problem List - Problems (1) Inflammation of right sacroiliac joint Code(s): M46.1 - SACROILIITIS, NOT ELSEWHERE CLASSIFIED (2) Displacement of lumbar intervertebral disc without myelopathy Code(s): M51.26 - OTHER INTERVERTEBRAL DISC DISPLACEMENT, LUMBAR REGION
--- NOTE | 2018-09-07 20:13 | DS ---
Physical Examination Vital Signs: Vital Signs Temperature 97.3 F L 09/07/18 13:44 Pulse Rate 77 09/07/18 13:44 Respiratory Rate 19 09/07/18 09:15 Blood Pressure 112/68 09/07/18 13:44 O2 Sat by Pulse Oximetry (%) 98 09/07/18 09:00 Constitutional: Yes: No Distress HENT: Yes: Atraumatic Neck: Yes: Supple Cardiovascular: Yes: Regular Rate and Rhythm Respiratory: Yes: CTA Bilaterally Gastrointestinal: Yes: Normal Bowel Sounds Extremities: Yes: WNL Neurological: Yes: Alert, Oriented Labs: CBC, BMP 09/07/18 11:55 09/04/18 06:45 Discharge Summary Reason For Visit: PAIN LOWER EXTREMITY Current Active Problems Displacement of lumbar intervertebral disc without myelopathy (Acute) H/O heart artery stent (Acute) Inflammation of right sacroiliac joint (Acute) Sciatica (Acute) Condition: Guarded - Instructions Diet, Activity, Other Instructions: follow up with your pain management doctor for further care - Home Medications Comprehensive Discharge Medication List: Ambulatory Orders Brimonidine Tartrate [Alphagan 0.2% -] 1 drop OU BID 05/17/17 Gabapentin 800 mg PO TID 05/17/17 Insulin Lispro [Humalog] 0 unit SQ TID 05/17/17 Isosorbide Dinitrate [Isordil] 5 mg PO BID 05/17/17 Latanoprost 0.005% Eye Drops [Xalatan 0.005% Eye Drops -] 1 drop OU HS 05/17/17 Metoprolol Succinate 50 mg PO DAILY 05/17/17 Rosuvastatin [Crestor -] 20 mg PO HS 05/17/17 Albuterol Sulfate [Proventil HFA Inhaler -] 1 - 2 inh PO QID PRN #1 hfa.aer.ad 08/04/17 Acetaminophen [Tylenol] 650 mg PO Q4H #30 tablet 06/13/18 Amlodipine Besylate [Norvasc -] 5 mg PO DAILY 08/01/18 Timolol 0.5% [Timoptic 0.5%] 1 drop OU BID 09/05/18 [place] home follow up with your pain management group dr keene consult appreciated pain meds prescription given by him to patient
== END 2018-09-07 20:31 | disposition home or self-care (01) | DRG 181 ==
LOC: JER 22:37 → JERBED 09-01 03:14 → J6S 09-01 16:40
PROVIDERS: ADMIT Internal Medicine; ATTEND Internal Medicine
PROC: B41CZZZ Fluoroscopy of Pelvic Arteries (ICD-10-PCS; 2018-09-01)
PROC: B41DZZZ Fluoroscopy of Aorta and Bilateral Lower Extremity Arteries (ICD-10-PCS; 2018-09-01)
PROC: 047K3ZZ Dilation of Right Femoral Artery, Percutaneous Approach (ICD-10-PCS; principal; 2018-09-01 09:30)
DX: I70.211 Atherosclerosis of native arteries of extremities with intermittent claudication, right leg (principal); E11.22 Type 2 diabetes mellitus with diabetic chronic kidney disease; E11.42 Type 2 diabetes mellitus with diabetic polyneuropathy; E87.5 Hyperkalemia; N28.1 Cyst of kidney, acquired; I77.1 Stricture of artery; M51.26 Other intervertebral disc displacement, lumbar region; I12.9 Hypertensive chronic kidney disease with stage 1 through stage 4 chronic kidney disease, or unspecified chronic kidney disease; N18.9 Chronic kidney disease, unspecified; M46.1 Sacroiliitis, not elsewhere classified; M54.41 Lumbago with sciatica, right side; J45.909 Unspecified asthma, uncomplicated; I25.10 Atherosclerotic heart disease of native coronary artery without angina pectoris; E78.5 Hyperlipidemia, unspecified; E66.9 Obesity, unspecified; Z68.36 Body mass index [BMI] 36.0-36.9, adult; Z79.4 Long term (current) use of insulin; Z86.010 Personal history of colon polyps; Z87.891 Personal history of nicotine dependence; I25.2 Old myocardial infarction; Z95.5 Presence of coronary angioplasty implant and graft
CPT/HCPCS: 36415; 72148-TC; 76000-TC-FY; 80053; 80061; 82962; 83036; 83721; 84443; 85025; 85027; 85610; 85730; 86850; 86900; 86901; 93306-TC; 94760; 97116-GP; 97161-GP; 99283-25; J0131; J1644; J7030

== ENCOUNTER 2018-10-28 13:32 | Emergency (ER) | payer OTHER ==
[2018-10-28 13:48] VITALS: BP 120/78; PULSE 89; TEMP 98.6; BMI 34.9
--- NOTE | 2018-10-28 13:56 | PDOC ---
Rapid Medical Evaluation Chief Complaint: Pain, Acute Time Seen by Provider: 10/28/18 13:44 Medical Evaluation: Allergies Allergy/AdvReac Type Severity Reaction Status Date / Time iodine Allergy Severe Rash Verified 10/28/18 13:45 naproxen [From Naprosyn] Allergy Severe "hives,naus Verified 10/28/18 13:45 ea" Vital Signs Temp Pulse Resp BP Pulse Ox 98.6 F 89 16 120/78 100 10/28/18 13:40 10/28/18 13:40 10/28/18 13:40 10/28/18 13:40 10/28/18 13:40 10/28/18 13:51 Pt c/o: pain and redness to rt foot, intermittent numbness, sent by employee representative to consult dr dickey Pt on brief exam: noted erythema and mild edema to rt 1st toe and base dorsally , 2+ post tibial pule, FROM, no decreased warmth Pt ordered for: Art duplex Pt to proceed to the ED Discharge Disposition - Diagnosis Peripheral vascular disease - Discharge Dispostion Disposition: HOME Condition at time of disposition: Stable - Referrals Referrals: Harrison Johnson MD [Primary Care Provider] - Gokul Dickey MD [Non Staff, Medical] - 10/31/18 - Patient Instructions Printed Discharge Instructions: DI for Peripheral Vascular (Arterial) Disease Additional Instructions: Thank you for choosing [facility]. It was a pleasure taking care of you. Please follow-up with Dr. Dickey on 10/31 regarding your feet Return to the Emergency Department if your symptoms worsen or persist, you have severe pain in legs, change in color of extremities, unable to feel legs or other concerning symptoms. - Post Discharge Activity
--- NOTE | 2018-10-28 15:06 | PDOC ---
History of Present Illness - General Chief Complaint: Pain, Acute Stated Complaint: SENT BY DR. GALEANO Time Seen by Provider: 10/28/18 13:44 History Source: Patient Exam Limitations: No Limitations - History of Present Illness Initial Comments: 10/28/18 15:01 57 yo F w/ a h/o DM, HTN, HLD sent by Podiatry for evaluation by Dr. Dickey. Pt was at her routine remote inpatient coder visit getting her nails cut and was told that if she does not come to the ER now she will lose her foot. She c/o R foot/LE pain and occasional numbness for the past 2 weeks, (+)pain with ambulation. no other complaints today, no fever/chills, no NVD. Past History - Past Medical History Allergies/Adverse Reactions: Allergies Allergy/AdvReac Type Severity Reaction Status Date / Time iodine Allergy Severe Rash Verified 10/28/18 13:45 naproxen [From Naprosyn] Allergy Severe "hives,naus Verified 10/28/18 13:45 ea" Home Medications: Ambulatory Orders Brimonidine Tartrate [Alphagan 0.2% -] 1 drop OU BID 05/17/17 Gabapentin 800 mg PO TID 05/17/17 Insulin Lispro [Humalog] 0 unit SQ TID 05/17/17 Isosorbide Dinitrate [Isordil] 5 mg PO BID 05/17/17 Latanoprost 0.005% Eye Drops [Xalatan 0.005% Eye Drops -] 1 drop OU HS 05/17/17 Metoprolol Succinate 50 mg PO DAILY 05/17/17 Rosuvastatin [Crestor -] 20 mg PO HS 05/17/17 Albuterol Sulfate [Proventil HFA Inhaler -] 1 - 2 inh PO QID PRN #1 hfa.aer.ad 08/04/17 Acetaminophen [Tylenol] 650 mg PO Q4H #30 tablet 06/13/18 Amlodipine Besylate [Norvasc -] 5 mg PO DAILY 08/01/18 Timolol 0.5% [Timoptic 0.5%] 1 drop OU BID 09/05/18 Anemia: No Asthma: Yes ("no recent problem") Cancer: No Cardiac Disorders: Yes (H/O HI AND STENT PLACEMENT IN ) CVA: No COPD: No CHF: (2011 and 2016) DVT: No Dementia: No Diabetes: Yes (IDDM) GI Disorders: Yes (COLON POLYP) Disorders: Yes (cyst on right kidney) HTN: Yes Hypercholesterolemia: Yes Liver Disease: No Seizures: No Thyroid Disease: No - Surgical History Abdominal Surgery: Yes Appendectomy: Yes Cardiac Surgery: Yes (stent, angioplasty) Cholecystectomy: No Lung Surgery: No Neurologic Surgery: No Orthopedic Surgery: Yes (toe sx) - Family Disease History Family Disease History: Heart Disease: Father, Mother - Immunization History Immunization Up to Date: Yes - Suicide/Smoking/Psychosocial Hx Smoking History: Never smoked Have you smoked in the past 12 months: No If you are a former smoker, when did you quit?: 1994 Hx Alcohol Use: No Drug/Substance Use Hx: No Substance Use Type: Alcohol Hx Substance Use Treatment: No Review of Systems - Review of Systems Able to Perform ROS?: Yes Constitutional: No: Chills, Fever, Malaise, Night Sweats HEENTM: No: Eye Pain, Recent change in vision, Throat Pain Respiratory: No: Cough, Shortness of Breath Cardiac (ROS): No: Chest Pain, Palpitations, Chest Tightness ABD/GI: No: Diarrhea, Nausea, Vomiting, Abdominal cramping : No: Dysuria, Hematuria Musculoskeletal: No: Back Pain Integumentary: No: Rash Neurological: Yes: Numbness (R foot). No: Headache, Dizziness Psychiatric: No: Change in Appetite Endocrine: No: Unexplained Weight Loss *Physical Exam - Vital Signs Last Vital Signs Temp Pulse Resp BP Pulse Ox 98.6 F 89 16 120/78 100 10/28/18 13:40 10/28/18 13:40 10/28/18 13:40 10/28/18 13:40 10/28/18 13:40 - Physical Exam General Appearance: Yes: Nourished. No: Apparent Distress HEENT: positive: RILEY, Normal ENT Inspection, Normal Voice. negative: Pale Conjunctivae, Scleral Icterus (R), Scleral Icterus (L) Neck: positive: Supple. negative: Decreased range of motion, Tender midline Respiratory/Chest: negative: Respiratory Distress, Accessory Muscle Use Cardiovascular: positive: Regular Rate Extremity: positive: Normal Capillary Refill, Normal Range of Motion, Other ( RLE with mild erythema to the great toe, no fluctuance, no streaking, non palpable pulses bilaterally. Diffuse non focal RLE tenderness going up to the calf. FROM RLE, 5/5 strength, full sensory function). negative: Pedal Edema Integumentary: positive: Normal Color, Dry. negative: Jaundice, Rash Neurologic: positive: Fully Oriented, Alert, Normal Mood/Affect Medical Decision Making - Medical Decision Making 10/28/18 15:06 57 yo F here for vascuar consult by Dr. dickey, sent by podiatry for evaluation due to RLE pain, toe redness. WIll page Dr. Dickey. 10/28/18 16:26 CHange of shift, care of patient signed over to LAILA Sifuentes who will follow up with Woody Hoffman and continue treatment. *DC/Admit/Observation/Transfer Diagnosis at time of Disposition: Acute foot pain - Referrals Referrals: Harrison Johnson MD [Primary Care Provider] - - Patient Instructions - Post Discharge Activity
[2018-10-28] MEDS ORDERED: ACETAMINOPHEN 325 MG TABLET (FP) PO ONE (17:07)
--- NOTE | 2018-10-28 17:16 | PDOC ---
*Physical Exam - Vital Signs Last Vital Signs Temp Pulse Resp BP Pulse Ox 98.6 F 89 16 120/78 100 10/28/18 13:40 10/28/18 13:40 10/28/18 13:40 10/28/18 13:40 10/28/18 13:40 Medical Decision Making - Medical Decision Making Patient signed out to me by LAILA Bishop pending results of RLE doppler Findings show decreased flow within superficial femoral and popliteal arteries, seen in prior US as well D/W Dr. Mckay, patient's vascular doctor, who recommends patient f/u outpatient with him on 10/31 Patient reassessed and explained results 10/28/18 17:13 *DC/Admit/Observation/Transfer Diagnosis at time of Disposition: Peripheral vascular disease - Discharge Dispostion Disposition: HOME Condition at time of disposition: Stable Decision to Admit order: No - Referrals Referrals: Harrison Johnson MD [Primary Care Provider] - Gokul Mckay MD [Non Staff, Medical] - 10/31/18 - Patient Instructions Additional Instructions: Thank you for choosing [facility]. It was a pleasure taking care of you. Please follow-up with Dr. Mckay on 10/31 regarding your feet Return to the Emergency Department if your symptoms worsen or persist, you have severe pain in legs, change in color of extremities, unable to feel legs or other concerning symptoms. - Post Discharge Activity
--- NOTE | 2018-10-28 17:28 | PDOC ---
*Physical Exam - Vital Signs Last Vital Signs Temp Pulse Resp BP Pulse Ox 98.6 F 89 16 120/78 100 10/28/18 13:40 10/28/18 13:40 10/28/18 13:40 10/28/18 13:40 10/28/18 13:40 Medical Decision Making - Medical Decision Making 10/28/18 16:36 Pt seen by Midlevel Provider under my direct supervision Pt interviewed and examined Ancillary studies reviewed I agree with plan as outlined by Midlevel Provider *DC/Admit/Observation/Transfer Diagnosis at time of Disposition: Peripheral vascular disease - Discharge Dispostion Disposition: HOME Condition at time of disposition: Stable - Referrals Referrals: Harrison Johnson MD [Primary Care Provider] - Gokul Mckay MD [Non Staff, Medical] - 10/31/18 - Patient Instructions Printed Discharge Instructions: DI for Peripheral Vascular (Arterial) Disease Additional Instructions: Thank you for choosing [facility]. It was a pleasure taking care of you. Please follow-up with Dr. Mckay on 10/31 regarding your feet Return to the Emergency Department if your symptoms worsen or persist, you have severe pain in legs, change in color of extremities, unable to feel legs or other concerning symptoms. - Post Discharge Activity
== END 2018-10-28 17:36 | disposition home or self-care (01) ==
LOC: JER 13:32
DX: M79.671 Pain in right foot (principal); I10 Essential (primary) hypertension; E78.00 Pure hypercholesterolemia, unspecified; E11.9 Type 2 diabetes mellitus without complications
CPT/HCPCS: 93926-TC; 99281-25

== ENCOUNTER 2019-03-06 17:13 | Inpatient (IN) | payer OTHER ==
[2019-03-06 17:41] VITALS: BMI 28.9
--- NOTE | 2019-03-06 18:08 | PDOC ---
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 The pain is described as pressure, constant. Pt reports NB/NB vomiting, diarrhea with black stools, urinary frequency, dysuria and dizziness over the past 5 months that has worsened today. Denies F/C cough, SOB, denies calf tenderness or swelling Past History - Past Medical History Allergies/Adverse Reactions: Allergies Allergy/AdvReac Type Severity Reaction Status Date / Time iodine Allergy Severe Rash Verified 03/06/19 17:33 naproxen [From Naprosyn] Allergy Severe "hives,naus Verified 03/06/19 17:33 ea" Home Medications: Ambulatory Orders Brimonidine Tartrate [Alphagan 0.2% -] 1 drop OU BID 05/17/17 Gabapentin 100 mg PO HS 05/17/17 Latanoprost 0.005% Eye Drops [Xalatan 0.005% Eye Drops -] 1 drop OU HS 05/17/17 Metoprolol Succinate 50 mg PO DAILY 05/17/17 Albuterol Sulfate [Proventil HFA Inhaler -] 1 - 2 inh PO QID PRN #1 hfa.aer.ad 08/04/17 Acetaminophen [Tylenol] 650 mg PO Q4H #30 tablet 06/13/18 Timolol 0.5% [Timoptic 0.5%] 1 drop OU BID 09/05/18 Clopidogrel Bisulfate [Clopidogrel] 75 mg PO DAILY 03/06/19 Cyanocobalamin Vit B-12 Inj. [Redisol] 1,000 mcg IJ MONTHLY 03/06/19 Famotidine 20 mg PO DAILY 03/06/19 Insulin (LOG) Aspart [NovoLOG -] 0 unit SQ DAILY PRN 03/06/19 Loperamide HCl [Loperamide] 2 mg PO PRN PRN 03/06/19 Melatonin 10 mg PO HS 03/06/19 Multivitamin [Multiple Vitamins] 1 each PO DAILY 03/06/19 Oxycodone HCl 5 mg PO PRN PRN 03/06/19 Anemia: No Asthma: Yes ("no recent problem") Cancer: No Cardiac Disorders: Yes (H/O VT AND STENT PLACEMENT IN ) CVA: No COPD: No CHF: (2011 and 2016) DVT: No Dementia: No Diabetes: Yes (IDDM) GI Disorders: Yes (COLON POLYP) Disorders: Yes (cyst on right kidney) HTN: Yes Hypercholesterolemia: Yes Liver Disease: No Seizures: No Thyroid Disease: No - Surgical History Abdominal Surgery: Yes Appendectomy: Yes Cardiac Surgery: Yes (stent, angioplasty) Cholecystectomy: No Lung Surgery: No Neurologic Surgery: No Orthopedic Surgery: Yes (toe sx) - Immunization History Immunization Up to Date: Yes - Psycho Social/Smoking Cessation Hx Smoking History: Never smoked Have you smoked in the past 12 months: No If you are a former smoker, when did you quit?: 1994 Hx Alcohol Use: No Drug/Substance Use Hx: No Substance Use Type: Alcohol Hx Substance Use Treatment: No Review of Systems - Review of Systems Constitutional: Yes: Symptoms Reported HEENTM: Yes: Symptoms Reported Respiratory: Yes: Symptoms reported Cardiac (ROS): Yes: Symptoms Reported ABD/GI: Yes: Symptoms Reported : Yes: Symptoms Reported Musculoskeletal: Yes: Symptoms Reported Integumentary: Yes: Symptoms Reported Neurological: Yes: Symptoms reported *Physical Exam - Vital Signs Last Vital Signs Temp Pulse Resp BP Pulse Ox 98.5 F 98 H 18 105/77 100 03/06/19 17:20 03/06/19 17:20 03/06/19 17:20 03/06/19 17:20 03/06/19 17:20 - Physical Exam General Appearance: Yes: Nourished, Appropriately Dressed. No: Apparent Distress HEENT: positive: EOMI Neck: positive: Supple. negative: Rigid Respiratory/Chest: positive: Lungs Clear, Normal Breath Sounds. negative: Respiratory Distress, Accessory Muscle Use Cardiovascular: positive: Regular Rhythm, Regular Rate, S1, S2. negative: Edema , JVD, Murmur Gastrointestinal/Abdominal: positive: Tender (distractable), Flat, Soft. 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 The pain is described as pressure, constant. Pt reports NB/NB vomiting, diarrhea with black stools, urinary frequency, dysuria and dizziness over the past 5 months that has worsened today. Denies F/C cough, SOB, denies calf tenderness or swelling Pt has multiple risk factors for ACS with complaints of chest pain that feels like pressure Pt to be admitted for ACS work up Trops neg, EKG NSR without acute changes CXR no acute changes Discussed case with hospitalist, agree to admission Discharge - Discharge Information Problems reviewed: Yes Clinical Impression/Diagnosis: Ruled out for myocardial infarction Condition: Stable - Admission Yes - Follow up/Referral Referrals: Noris Garcia MD [Primary Care Provider] - - Patient Discharge Instructions - Post Discharge Activity
--- NOTE | 2019-03-06 18:18 | PDOC ---
Attending Attestation - Resident Resident Name: GaudenciotonnyAndrea - ED Attending Attestation I have performed the following: I have examined & evaluated the patient, The case was reviewed & discussed with the resident, I agree w/resident's findings & plan, Exceptions are as noted - HPI HPI: 58 yo F history HTN, DM, HL, ND s/p 2 stents, asthma, R BKA December 2018 presents with epigastric pain radiating into the cvhest. She has had multiple episodes of NBNB vomiting, diarrhea. She called 911 from rehab today. - Physicial Exam PE: GENERAL: Awake, alert, and fully oriented, in no acute distress. Obese HEAD: No signs of trauma EYES: PERRLA, EOMI, sclera anicteric, conjunctiva clear ENT: Auricles normal inspection, hearing grossly normal, nares patent, oropharynx clear without exudates. Moist mucosa NECK: Normal ROM, supple, no lymphadenopathy, JVD, or masses LUNGS: Breath sounds equal, clear to auscultation bilaterally. No wheezes, and no crackles HEART: Regular rate and rhythm, normal S1 and S2, no murmurs, rubs or gallops ABDOMEN: Soft, +epigastric tenderness, normoactive bowel sounds. No guarding, no rebound. No masses EXTREMITIES: +R BKA, stump with jenny in place, no drainage. Remainder of extremities with normal range of motion, no edema. No clubbing or cyanosis. No cords, erythema, or tenderness NEUROLOGICAL: Cranial nerves II through XII grossly intact. Normal speech. Motor and sensation intact SKIN: Warm, dry, normal turgor, no rashes or lesions noted. - Medical Decision Making Pt with persistent N/V in rehab. Will obtain CT a/p to further evaluate. DDx includes GERD vs pancreatitis vs ACS vs intraabdominal infectious process.
[2019-03-06] MEDS ORDERED: MAG HYDROX/AL HYDROX/SIMETH 30 ML UNIT-DOSE CUP PO ONE (18:21)
[2019-03-06] MEDS ORDERED: ONDANSETRON 4 MG/2 ML VIAL IVPUSH ONE (18:21)
[2019-03-06] MEDS ORDERED: ACETAMINOPHEN 1000 MG/100 ML VIAL (NON FORMULARY) IVPB ONE (18:21)
[2019-03-06] MEDS ORDERED: FAMOTIDINE 20 MG/50 ML IVPB 20 MG/50 ML MG IVPB ONE ×2 (18:22→18:27)
[2019-03-06] MEDS ORDERED: ACETAMINOPHEN INJECTION 100 ML IVPB ONE (18:26)
[2019-03-06] MEDS ORDERED: MAG HYDROX/AL HYDROX/SIMETH 30 ML UNIT-DOSE CUP ONE (18:26)
[2019-03-06] MEDS ORDERED: ONDANSETRON 4 MG/2 ML VIAL ONE (18:26)
[2019-03-06] MEDS ORDERED: SODIUM CHLORIDE 1,000 ML IV STA (18:50)
[2019-03-06 19:00] LABS: BASO % 0.7 % (0-2.0); EOS % 5.1 % (0-4.5); HEMATOCRIT 31.8 % (32.4-45.2); HEMOGLOBIN 10.4 GM/dL (10.7-15.3); LYMPH % 36.2 % (8-40); MCH 30.1 pg (25.7-33.7); MCHC 32.8 g/dl (32.0-36.0); MEAN CELL VOLUME 91.9 fl (80-96); MEAN PLT VOLUME 8.9 fl (7.5-11.1); MONO % 10.2 % (3.8-10.2); NEUT % 47.8 % (42.8-82.8); PLATELET COUNT 460 K/MM3 (134-434); RBC 3.46 M/mm3 (3.60-5.2); RDW 16.9 % (11.6-15.6); WHITE BLOOD COUNT 7.7 K/mm3 (4.0-10.0)
[2019-03-06 19:21] LABS: INR 1.06 (0.83-1.09); PROTHROMBIN TIME (PATIENT) 12.5 SEC (9.7-13.0)
[2019-03-06 19:26] LABS: BILIRUBIN,TOTAL 0.3 mg/dL (0.2-1); BLOOD UREA NITROGEN 12.6 mg/dL (7-18); CREATININE 1.2 mg/dL (0.55-1.3); MAGNESIUM 1.7 mg/dL (1.8-2.4); POTASSIUM 3.4 mmol/L (3.5-5.1); TOT PROT 6.4 g/dl (6.4-8.2)
[2019-03-06 20:39] LABS: EPI CELLS 29.4 /HPF (0-5/HPF); HYALINE CASTS 57 /lpf (0-8); URINE APPEARANCE CLOUDY; URINE BILIRUBIN NEGATIVE (NEGATIVE); URINE COLOR YELLOW; URINE GLUCOSE (UA) NEGATIVE (NEGATIVE); URINE KETONE NEGATIVE (NEGATIVE); URINE LEUK ESTERASE TRACE (NEGATIVE); URINE NITRITE NEGATIVE (NEGATIVE); URINE PROTEIN 3+ (NEGATIVE); URINE RBC 2 /hpf (0-4); URINE UROBILINOGEN 0.2 mg/dL (0.2-1.0); URINE WBC 65 /hpf (0-5)
--- NOTE | 2019-03-06 23:06 | PN ---
Teaching Attending Note Name of Resident: Andrea Owens ATTENDING PHYSICIAN STATEMENT I saw and evaluated the patient. I reviewed the resident's note and discussed the case with the resident. I agree with the resident's findings and plan as documented. SUBJECTIVE: Patient is a 58 year old woman with a PMH of HTN, NIDDM, HLD, [place] (s/p 2 stents in the RCA), Asthma and Right BKA (12/2018) presents to the ER for non exertional epigastric pain with radiation into the chest for 5 months. The pain is described as cramping, constant for 5 months without exertional symptoms. Patient reports NB/NB vomiting, diarrhea with black stools, urinary frequency, dysuria and dizziness over the past 5 months that has worsened today. Recently hospitalized at [facility] for ?postop infection and got IV vancomycin. Denies fever, chills, cough, SOB, calf tenderness or swelling. Denies alcohol, tobacco or illicit drug use. No sick contacts or recent travels. FH of CAD, DM and HTN. OBJECTIVE: Alert and not orthostatic Vital Signs Period Temp Pulse Resp BP Sys/Tucker Pulse Ox Last 24 Hr 98.5 F 98-100 18-18 105-142/75-77 100-100 HEENT: No Jaundice, eye redness or discharge, PERRLA, EOMI. Normocephalic, atraumatic. External ears are normal and hearing is grossly intact. No nasal discharge. Neck: Supple, nontender. No palpable adenopathy or thyromegaly. No JVD Chest: Good effort. Clear to auscultation and percussion. Heart: Regular. No S3, rub or murmur Abdomen: Not distended, soft, LLQ tenderness and no HSM. No rebound or guarding. Normal bowel sounds. Ext: Peripheral pulses intact. No leg edema. Right BKA. Skin: Warm and dry. No petechiae, rash or ecchymosis. Neuro: Alert. Oriented x3. CN 2-12 grossly intact. Sensation grossly intact in all four extremities and DTR are symmetric. Psych: Appropriate mood and affect. Good insight. Home Medications Medication Instructions Recorded Brimonidine Tartrate [Alphagan 1 drop OU BID 05/17/17 0.2% -] Gabapentin 100 mg PO HS 05/17/17 Latanoprost 0.005% Eye Drops 1 drop OU HS 05/17/17 [Xalatan 0.005% Eye Drops -] Metoprolol Succinate 50 mg PO DAILY 05/17/17 Albuterol Sulfate [Proventil HFA 1 - 2 inh PO QID PRN #1 hfa.aer.ad 08/04/17 Inhaler -] Acetaminophen [Tylenol] 650 mg PO Q4H #30 tablet 06/13/18 Timolol 0.5% [Timoptic 0.5%] 1 drop OU BID 09/05/18 Clopidogrel Bisulfate [Clopidogrel] 75 mg PO DAILY 03/06/19 Cyanocobalamin Vit B-12 Inj. 1,000 mcg IJ MONTHLY 03/06/19 [Redisol] Famotidine 20 mg PO DAILY 03/06/19 Insulin (LOG) Aspart [NovoLOG -] 0 unit SQ DAILY PRN 03/06/19 Loperamide HCl [Loperamide] 2 mg PO PRN PRN 03/06/19 Melatonin 10 mg PO HS 03/06/19 Multivitamin [Multiple Vitamins] 1 each PO DAILY 03/06/19 Oxycodone HCl 5 mg PO PRN PRN 03/06/19 Abnormal Lab Results 03/06/19 03/06/19 03/06/19 18:37 18:37 20:08 RBC 3.46 L Hgb 10.4 L Hct 31.8 L D RDW 16.9 H Plt Count 460 H D Eosinophils % 5.1 H Potassium 3.4 L Anion Gap 6 L Random Glucose 162 H Magnesium 1.7 L Alkaline Phosphatase 209 H Albumin 2.0 L Lipase 69 L Urine Protein 3+ H ASSESSMENT AND PLAN: 1. Abdominal pain syndrome - Cause unclear. Diabetic gastropathy, IBD or antibiotics-related gastroenteritis are possible causes. No acute abnormality on CXR. CT abdomen/pelvis without contrast showed "small gallstones with no evidence of cholecystitis, right nonobstructing renal stones and thickening of urinary bladder wall consistent with cystitis". Will send stool for C.Diff toxin , Ova&Parasites and other stool studies. Consult GI for EGD and Colonoscopy. may need repeat CT scan of abdomen/pelvis, but this time WITH CONTRAST. Hypokalemia and hypomagnesemia are likely due to diarrheal losses. Will give IV MgSO4 and PO KCL. Got GI cocktail, zofran, tylenol and IV NS in the ER. EKG shows NSR with no significant ST-T wave changes and prolonged QTc. Will treat with IV Rocephin for UTI - though urinary indices are inconclusive for UTI, she has dysuria. Will continue comprehensive care for all of patients comorbid conditions. 2. Uncontrolled DM For now, we will hold the home diabetes drugs and implement sliding scale insulin regimen. Provide comprehensive diabetes care with patient teaching and counseling about the importance of adherence to prescribed diabetes regimen, euglycemia, eye care and foot care. 3. Anemia - Cause unclear. Will do basic anemia work up including serial stool guaiacs, reticulocyte count and iron studies. Would benefit from Procrit therapy once iron replete. 4. Overweight Counseled on the risks associated with being overweight. Will provide patient all the necessary assistance, counseling and positive reinforcement to facilitate weight loss. Consult paper finisher. 5. Hypertension - Has proteinuria so should be on an ACEI or ARB - in place of Metoprolol. Restart suitable outpatient antihypertensive drugs when clinically appropriate. 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 Nonpharmacologic measures to control hypertension like weight loss, salt restriction and exercise discussed. Importance of adherence to treatment regimen and attainment of normotension emphasized. 6. DVT prophylaxis - Lovenox 40 mg SQ q 24 hours. 7. Advance directives - Full code
[2019-03-07] MEDS ORDERED: MAGNESIUM SULF 50% (8.12 MEQ/2 ML-1 GM VIAL) IVPB ONE (02:33)
[2019-03-07] MEDS ORDERED: LACTATED RINGERS SOLUTION 1,000 ML IV SCH (02:45)
[2019-03-07] MEDS ORDERED: MAGNESIUM 1GM/D5W - 1 GM/100 ML IVPB IVPB ONE (03:31)
[2019-03-07] MEDS ORDERED: KCL 10 MEQ IVPB 30 MEQ/300 ML INFUS.BAG IVPB ONE (03:31)
[2019-03-07] MEDS: SODIUM CHLORIDE 1,000 ML IV SCH (03:51)
[2019-03-07] MEDS: KCL 10 MEQ IVPB 10 MEQ/100 ML INFUS.BAG IVPB SCH ×3 (03:52→05:54)
--- NOTE | 2019-03-07 05:18 | HP ---
CHIEF COMPLAINT: Epigastric pain with vomiting and diarrhea for the past 5 months Dysuria for the past few days PCP: Dr. Garcia HISTORY OF PRESENT ILLNESS: This is a 58 year old female with PMH significant for HTN, HLD, multiple MIs, PAD (s/p righ sided below the knee amputation), and osteomyelitis. She presented to the ER with complaints of epigastric pain with vomiting and diarrhea for the past 5 months, worsening over the past few days. The epigastric pain with diarrhea first began in October, with no identifiable inciting events. The pain was gradual in onset, intermittent in nature, 8/10 in intensity, sharp in quality, radiating upwards towards her chest , not related to positional changes, PO intake, or breathing. The diarrhea has been 2-3x per day,watery, brown, foul smelling, with no blood noticed. The vomiting occurs 1x per day, usually greenish and "bile colored", and once she noticed some streaks of blood, a few weeks ago. She endorses dysuria since the past few days, but no hematuria, chest pain, SOB, palpitations, AMS, confusion, fevers, chills, or constipation. She underwent right sided below the knee amputation at [facility] on Jan 10 2019 , after which she was transferred to a rehab center. She stayed at the rehab center (does not remember name) for 1 month, when she developed infection at her post surgical site, and was admitted to [place] for 2 weeks and was treated with Vancomycin, as per the patient. Since her D/C from [place], she has been staying at [facility] rehab. She called an ambulance today when her symptoms got worse. ER course was notable for: (1) CT AP without contrast: Gallstones without cholecystits, rt renal stone with no evidence of hydronephrosis, possible granulomas in anterior abdominal wall (2) H&H 10.4, 31.8 (3) UA protein 3+ Recent Travel: denies PAST MEDICAL HISTORY: As listed in HPI PAST SURGICAL HISTORY: 2x stent placements, 2011 and 2016 Social History: Smoking: quit 25 years ago, smoked 3ppd for 3 years before that Alcohol: 1 glass of wine/ month Drugs: denies Allergies iodine Allergy (Severe, Verified 03/06/19 17:33) Rash naproxen [From Naprosyn] Allergy (Severe, Verified 03/06/19 17:33) "hives,nausea" NAUSEA, ABDOMINAL PAIN, ITCHING HOME MEDICATIONS: Home Medications Medication Instructions Recorded Brimonidine Tartrate [Alphagan 1 drop OU BID 05/17/17 0.2% -] Gabapentin 100 mg PO HS 05/17/17 Latanoprost 0.005% Eye Drops 1 drop OU HS 05/17/17 [Xalatan 0.005% Eye Drops -] Metoprolol Succinate 50 mg PO DAILY 05/17/17 Albuterol Sulfate [Proventil HFA 1 - 2 inh PO QID PRN #1 hfa.aer.ad 08/04/17 Inhaler -] Acetaminophen [Tylenol] 650 mg PO Q4H #30 tablet 06/13/18 Timolol 0.5% [Timoptic 0.5%] 1 drop OU BID 09/05/18 Clopidogrel Bisulfate [Clopidogrel] 75 mg PO DAILY 03/06/19 Cyanocobalamin Vit B-12 Inj. 1,000 mcg IJ MONTHLY 03/06/19 [Redisol] Famotidine 20 mg PO DAILY 03/06/19 Insulin (LOG) Aspart [NovoLOG -] 0 unit SQ DAILY PRN 03/06/19 Loperamide HCl [Loperamide] 2 mg PO PRN PRN 03/06/19 Melatonin 10 mg PO HS 03/06/19 Multivitamin [Multiple Vitamins] 1 each PO DAILY 03/06/19 Oxycodone HCl 5 mg PO PRN PRN 03/06/19 REVIEW OF SYSTEMS CONSTITUTIONAL: Absent: fever, chills, diaphoresis, generalized weakness, malaise, loss of appetite, weight change HEENT: Absent: rhinorrhea, nasal congestion, throat pain, throat swelling, difficulty swallowing, mouth swelling, ear pain, eye pain, visual changes CARDIOVASCULAR: Absent: chest pain, syncope, palpitations, irregular heart rate, lightheadedness , peripheral edema RESPIRATORY: Absent: cough, shortness of breath, dyspnea with exertion, orthopnea, wheezing, stridor, hemoptysis GASTROINTESTINAL: epigastric pain, nausea, vomiting, diarrhea Absent: abdominal pain, abdominal distension, nausea, vomiting, diarrhea, constipation, melena, hematochezia GENITOURINARY: dysuria Absent: dysuria, frequency, urgency, hesitancy, hematuria, flank pain, genital pain MUSCULOSKELETAL: Absent: myalgia, arthralgia, joint swelling, back pain, neck pain SKIN: Absent: rash, itching, pallor HEMATOLOGIC/IMMUNOLOGIC: Absent: easy bleeding, easy bruising, lymphadenopathy, frequent infections ENDOCRINE: Absent: unexplained weight gain, unexplained weight loss, heat intolerance, cold intolerance NEUROLOGIC: Absent: headache, focal weakness or paresthesias, dizziness, unsteady gait, seizure, mental status changes, bladder or bowel incontinence PSYCHIATRIC: Absent: anxiety, depression, suicidal or homicidal ideation, hallucinations. PHYSICAL EXAMINATION Vital Signs - 24 hr 03/06/19 03/06/19 03/07/19 17:20 22:50 04:40 Temperature 98.5 F Pulse Rate 98 H Pulse Rate [ 100 H Apical] Respiratory 18 18 Rate Blood Pressure 105/77 Blood Pressure 142/75 [Right Arm] O2 Sat by Pulse 100 100 98 Oximetry (%) GENERAL: AOx3 HEAD: Normal with no signs of trauma. EYES: Pupils equal, round and reactive to light, extraocular movements intact, sclera anicteric, conjunctiva clear. No lid lag. EARS, NOSE, THROAT: Ears normal, nares patent, oropharynx clear without exudates. Moist mucous membranes. NECK: Normal range of motion, supple without lymphadenopathy, JVD, or masses. LUNGS: Breath sounds equal, clear to auscultation bilaterally. No wheezes, and no crackles. No accessory muscle use. HEART: Regular rate and rhythm, normal S1 and S2 without murmur, rub or gallop. ABDOMEN: Soft, LLQ rebound tenderness but no tenderness to palpation, Rovsing's , Psoas, Grover's negative, normoactive BS MUSCULOSKELETAL: Normal range of motion at all joints. No bony deformities or tenderness. No CVA tenderness. UPPER EXTREMITIES: 2+ pulses, warm, well-perfused. No cyanosis. No clubbing. No peripheral edema. LOWER EXTREMITIES: BKA on right, amputation site clean, no discharge or erythema NEUROLOGICAL: motor 5/5, sensations intact PSYCHIATRIC: Cooperative. Good eye contact. Appropriate mood and affect. SKIN: Warm, dry, normal turgor, no rashes or lesions noted, normal capillary refill. Laboratory Results - last 24 hr 03/06/19 03/06/19 03/06/19 18:37 18:37 18:37 WBC 7.7 RBC 3.46 L Hgb 10.4 L Hct 31.8 L D MCV 91.9 MCH 30.1 MCHC 32.8 RDW 16.9 H Plt Count 460 H D MPV 8.9 Absolute Neuts (auto) 3.7 Neutrophils % 47.8 Lymphocytes % 36.2 Monocytes % 10.2 Eosinophils % 5.1 H Basophils % 0.7 Nucleated RBC % 0 PT with INR 12.50 INR 1.06 PTT (Actin FS) 33.0 Sodium Potassium Chloride Carbon Dioxide Anion Gap BUN Creatinine Est GFR (CKD-EPI)AfAm Est GFR (CKD-EPI)NonAf Random Glucose Calcium Magnesium Total Bilirubin AST ALT Alkaline Phosphatase Creatine Kinase 32 Troponin I < 0.02 Total Protein Albumin Lipase Urine Color Urine Appearance Urine pH Ur Specific Clark Urine Protein Urine Glucose (UA) Urine Ketones Urine Blood Urine Nitrite Urine Bilirubin Urine Urobilinogen Ur Leukocyte Esterase Urine WBC (Auto) Urine RBC (Auto) Urine Casts (Auto) U Pathogenic Cast Auto U Epithel Cells (Auto) Urine Bacteria (Auto) Stool Occult Blood 03/06/19 03/06/19 03/06/19 18:37 20:08 20:08 WBC RBC Hgb Hct MCV MCH MCHC RDW Plt Count MPV Absolute Neuts (auto) Neutrophils % Lymphocytes % Monocytes % Eosinophils % Basophils % Nucleated RBC % PT with INR INR PTT (Actin FS) Sodium 137 Potassium 3.4 L Chloride 99 Carbon Dioxide 32 Anion Gap 6 L BUN 12.6 Creatinine 1.2 Est GFR (CKD-EPI)AfAm 57.69 Est GFR (CKD-EPI)NonAf 49.78 Random Glucose 162 H Calcium 9.0 Magnesium 1.7 L Total Bilirubin 0.3 AST 33 ALT 14 Alkaline Phosphatase 209 H Creatine Kinase Troponin I Total Protein 6.4 Albumin 2.0 L Lipase 69 L Urine Color Yellow Urine Appearance Cloudy Urine pH 5.0 Ur Specific Clark 1.021 Urine Protein 3+ H Urine Glucose (UA) Negative Urine Ketones Negative Urine Blood Trace Urine Nitrite Negative Urine Bilirubin Negative Urine Urobilinogen 0.2 Ur Leukocyte Esterase Trace Urine WBC (Auto) 65 Urine RBC (Auto) 2 Urine Casts (Auto) 57 U Pathogenic Cast Auto None seen U Epithel Cells (Auto) 29.4 Urine Bacteria (Auto) 10.0 Stool Occult Blood Negative ASSESSMENT/PLAN: 58 year old female with PMH significant for HTN, HLD, multiple MIs, PAD (s/p righ sided below the knee amputation), and osteomyelitis. She presented to the ER with complaints of epigastric pain with vomiting and diarrhea for the past 5 months, worsening over the past few days. #Abdominal pain with diarrhea - May be IBD vs diabetic gastropathy vs gastroenteritis vs C Diff infection - CT AP without contrast: CT AP without contrast: Gallstones without cholecystits, rt renal stone with no evidence of hydronephrosis, possible granulomas in anterior abdominal wall, urinary bladder thickening consistent with cystitis - GI consult placed for possible EGD/colonoscopy (Dr. Montoya) - C Diff antigen test, stool for ova and parasites - Trop was done to r/o ACS/ EKG showed no new ST T wave changes, will re-check in AM to r/o ACS #UTI - CT AP without contrast: urinary bladder thickening consistent with cystitis - UA: Trace blood and LE with 29 epithelial cells, repeat ordered - Started on Ceftriaxone 1gm (avoid Levofloxacin due to elevated QTc of 482 #Anemia - Normocytic, H&H 10.4/ 31.8, was 13/38 in July 2018 - May be due to poor nutrition - Iron studies ordered #Hx of DM - BGM ACHS - Novolog SS started #Hx of HTN - Will resume home meds once confirmed - Would benefit from addition of GAGANDEEP inhibitor due to hx of DM #Hypokalemia - K 3.4, likely due to fluid losses from diarrhea/vomiting - KCl 30meQ IV ordered - Will continue to monitor #Hypomagnesia - May be due to fluid losses from diarrhea/vomiting - IVPB MgSO4 1gm repleted #FEN - N/S @ 75 - Monitor K, Mg - Na controlled, BM diet #DVT - Lovenox Visit type - Emergency Visit Emergency Visit: Yes ED Registration Date: 03/07/19 Care time: The patient presented to the Emergency Department on the above date and was hospitalized for further evaluation of their emergent condition. - New Patient This patient is new to me today: Yes Date on this admission: 03/07/19 - Critical Care Critical Care patient: No ATTENDING PHYSICIAN STATEMENT I saw and evaluated the patient. I reviewed the resident's note and discussed the case with the resident. I agree with the resident's findings and plan as documented. SUBJECTIVE: OBJECTIVE: ASSESSMENT AND PLAN:
[2019-03-07 08:07] LABS: HEMATOCRIT 32.6 % (32.4-45.2); HEMOGLOBIN 10.8 GM/dL (10.7-15.3); MCH 30.8 pg (25.7-33.7); MCHC 33.1 g/dl (32.0-36.0); MEAN CELL VOLUME 93.3 fl (80-96); PLATELET COUNT 477 K/MM3 (134-434); RBC 3.49 M/mm3 (3.60-5.2); RDW 16.8 % (11.6-15.6); WHITE BLOOD COUNT 8.9 K/mm3 (4.0-10.0)
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
[2019-03-07 08:34] LABS: ALBUMIN 1.9 g/dl (3.4-5.0); ALK PHOS 210 U/L (45-117); ANION GAP 8 MMOL/L (8-16); BILIRUBIN,TOTAL 0.3 mg/dL (0.2-1); BLOOD UREA NITROGEN 10.5 mg/dL (7-18); CALCIUM 8.7 mg/dL (8.5-10.1); CHLORIDE 106 mmol/L (98-107); CO2 26 mmol/L (21-32); CREATININE 1.2 mg/dL (0.55-1.3); GLUCOSE,RANDOM 157 mg/dL (74-106); IRON SERUM 63 ug/dL (50-175); MAGNESIUM 1.9 mg/dL (1.8-2.4); PHOSPHOROUS 3.6 mg/dL (2.5-4.9); POTASSIUM 3.7 mmol/L (3.5-5.1); SGOT/AST 33 U/L (15-37); SGPT/ALT 13 U/L (13-61); SODIUM 140 mmol/L (136-145); TOT PROT 6.5 g/dl (6.4-8.2); TOTAL IRON BINDING CAPACITY 172 ug/dL (250-450)
[2019-03-07] MEDS: ENOXAPARIN NA (PORCINE) 40 MG/0.4 ML DISP.SYRIN SQ SCH (09:41)
[2019-03-07] MEDS: INSULIN SLIDING SCALE (NOVOLOG) 1 VIAL SQ SCH ×4 (09:45→22:51)
[2019-03-07] MEDS: CEFTRIAXONE 1 GM in DEXTROSE 5%-WATER - 50 ML IVPB SCH (09:47)
[2019-03-07] MEDS ORDERED: PANTOPRAZOLE SODIUM 40 MG VIAL ONE (10:52)
[2019-03-07] MEDS: PANTOPRAZOLE SODIUM 40 MG VIAL IVPUSH SCH (10:58)
--- NOTE | 2019-03-07 11:29 | EKG ---
Test Reason : Blood Pressure : / mmHG Vent. Rate : 096 BPM Atrial Rate : 096 BPM P-R Int : 114 ms QRS Dur : 072 ms QT Int : 382 ms P-R-T Axes : 033 019 064 degrees QTc Int : 482 ms POOR DATA QUALITY, INTERPRETATION MAY BE ADVERSELY AFFECTED NORMAL SINUS RHYTHM NORMAL ECG WHEN COMPARED WITH ECG OF 30-JUL-2018 20:31, QT HAS LENGTHENED Confirmed by Miguel Angel Molina MD ([id number]) on 03/07/2019 11:29:12 AM Referred By: Confirmed By:Miguel Angel Molina MD
[2019-03-07] MEDS: SIMETHICONE 80 MG TAB.CHEW (FP) PO PRN ×2 (13:13→22:00)
--- NOTE | 2019-03-07 17:01 | PN ---
Progress Note, Physician Chief Complaint: noted - Current Medication List Current Medications: Active Medications Enoxaparin Sodium (Lovenox -) 40 mg SQ DAILY [facility] Last Admin: 03/07/19 09:41 Dose: 40 mg Ceftriaxone Sodium 1 gm/ (Dextrose) 50 mls @ 100 mls/hr IVPB DAILY [facility]; Protocol Last Admin: 03/07/19 09:47 Dose: 100 mls/hr Sodium Chloride (Normal Saline -) 1,000 mls @ 75 mls/hr IV ASDIR [facility] Last Admin: 03/07/19 03:51 Dose: 75 mls/hr Insulin Aspart (Novolog Vial Sliding Scale -) 1 vial SQ ACHS [facility]; Protocol Last Admin: 03/07/19 11:35 Dose: Not Given Pantoprazole Sodium (Protonix Iv) 40 mg IVPUSH DAILY [facility] Last Admin: 03/07/19 10:58 Dose: 40 mg Simethicone (Mylicon -) 80 mg PO QID PRN PRN Reason: GAS Last Admin: 03/07/19 13:13 Dose: 80 mg - Objective Vital Signs: Vital Signs Temperature 97.9 F 03/07/19 12:57 Pulse Rate 94 H 03/07/19 12:57 Respiratory Rate 03/07/19 12:57 Blood Pressure 124/56 L 03/07/19 12:57 O2 Sat by Pulse Oximetry (%) 98 03/07/19 04:40 Constitutional: Yes: No Distress HENT: Yes: Atraumatic Neck: Yes: Supple Cardiovascular: Yes: Regular Rate and Rhythm Respiratory: Yes: CTA Bilaterally Gastrointestinal: Yes: Normal Bowel Sounds Extremities: Yes: Other (R bka) Edema: No Neurological: Yes: Alert, Oriented Labs: CBC, BMP 03/07/19 07:20 03/07/19 07:20 INR, PTT INR 1.06 (0.83-1.09) 03/06/19 18:37 Problem List - Problems (1) Diarrhea Assessment/Plan: c diff pending Code(s): R19.7 - DIARRHEA, UNSPECIFIED (2) Abdominal pain Assessment/Plan: improving Code(s): R10.9 - UNSPECIFIED ABDOMINAL PAIN (3) CKD (chronic kidney disease) Code(s): N18.9 - CHRONIC KIDNEY DISEASE, UNSPECIFIED (4) Diabetes Assessment/Plan: on insulin and bgms Code(s): E11.9 - TYPE 2 DIABETES MELLITUS WITHOUT COMPLICATIONS (5) HLD (hyperlipidemia) Code(s): E78.5 - HYPERLIPIDEMIA, UNSPECIFIED Qualifiers: Hyperlipidemia type: pure hypercholesterolemia Qualified Code(s): E78.00 - Pure hypercholesterolemia, unspecified; E78.0 - Pure hypercholesterolemia (6) HTN (hypertension) Assessment/Plan: on meds monitor bp Code(s): I10 - ESSENTIAL (PRIMARY) HYPERTENSION Qualifiers: Hypertension type: essential hypertension Qualified Code(s): I10 - Essential (primary) hypertension
[2019-03-07] MEDS: ACETAMINOPHEN 325 MG TABLET (FP) PO PRN (21:00)
[2019-03-07] MEDS ORDERED: ACETAMINOPHEN 325 MG TABLET (FP) ONE (21:19)
[2019-03-08] MEDS ORDERED: ACETAMINOPHEN 325 MG TABLET (FP) ONE ×2 (04:53→08:24)
[2019-03-08] MEDS: INSULIN SLIDING SCALE (NOVOLOG) 1 VIAL SQ SCH ×4 (06:42→22:17)
[2019-03-08 08:11] LABS: CARCINOEMBRYONIC ANTIGEN 1.4 ng/mL (0.0-4.7)
[2019-03-08] MEDS: SIMETHICONE 80 MG TAB.CHEW (FP) PO PRN (08:31)
[2019-03-08] MEDS: ACETAMINOPHEN 325 MG TABLET (FP) PO PRN (08:31)
--- NOTE | 2019-03-08 08:54 | PN ---
Progress Note, Physician History of Present Illness: GI FOLLOW UP NOTE Patient examined and case discussed with Dr Montoya Patient still complain of abdominal pain with 2 episodes of vomiting and multiple episodes of diarrhea. Denies dysphagia, rectal bleeding, or melena. Labs shows elevated Ca 19-9 67, no leukocytosis, and is afebrile. - Current Medication List Current Medications: Active Medications Acetaminophen (Tylenol -) 650 mg PO Q6H PRN PRN Reason: FEVER Last Admin: 03/08/19 08:31 Dose: 650 mg Enoxaparin Sodium (Lovenox -) 40 mg SQ DAILY [facility] Last Admin: 03/07/19 09:41 Dose: 40 mg Ceftriaxone Sodium 1 gm/ (Dextrose) 50 mls @ 100 mls/hr IVPB DAILY [facility]; Protocol Last Admin: 03/07/19 09:47 Dose: 100 mls/hr Sodium Chloride (Normal Saline -) 1,000 mls @ 75 mls/hr IV ASDIR [facility] Last Admin: 03/07/19 03:51 Dose: 75 mls/hr Insulin Aspart (Novolog Vial Sliding Scale -) 1 vial SQ ACHS [facility]; Protocol Last Admin: 03/08/19 06:42 Dose: Not Given Pantoprazole Sodium (Protonix Iv) 40 mg IVPUSH DAILY [facility] Last Admin: 03/07/19 10:58 Dose: 40 mg Simethicone (Mylicon -) 80 mg PO QID PRN PRN Reason: GAS Last Admin: 03/08/19 08:31 Dose: 80 mg - Objective Vital Signs: Vital Signs Temperature 98.0 F 03/08/19 05:50 Pulse Rate 100 H 03/08/19 05:50 Respiratory Rate 17 03/08/19 05:50 Blood Pressure 140/73 03/08/19 05:50 O2 Sat by Pulse Oximetry (%) 97 03/07/19 21:00 Constitutional: Yes: No Distress, Calm Eyes: Yes: Conjunctiva Clear HENT: Yes: Atraumatic Cardiovascular: Yes: Tachycardia Respiratory: Yes: Regular, CTA Bilaterally Gastrointestinal: Yes: Normal Bowel Sounds, Soft, Tenderness (diffuse), Tenderness, Epigastrium Extremities: Yes: Amputation (R BKA) Wound/Incision: Yes: Ivan Intact, Open to air Neurological: Yes: Alert, Oriented Psychiatric: Yes: Alert, Oriented Labs: CBC, BMP 03/07/19 07:20 03/07/19 07:20 INR, PTT INR 1.06 (0.83-1.09) 03/06/19 18:37 <Roseline Alexander - Last Filed: 03/08/19 08:55> - Current Medication List Current Medications: Active Medications Acetaminophen (Tylenol -) 650 mg PO Q6H PRN PRN Reason: FEVER Last Admin: 03/08/19 08:31 Dose: 650 mg Brimonidine Tartrate (Alphagan 0.2% -) 1 drop OU BID [facility] Enoxaparin Sodium (Lovenox -) 40 mg SQ DAILY [facility] Last Admin: 03/08/19 09:45 Dose: 40 mg Ceftriaxone Sodium 1 gm/ (Dextrose) 50 mls @ 100 mls/hr IVPB DAILY [facility]; Protocol Last Admin: 03/08/19 10:30 Dose: 100 mls/hr Sodium Chloride (Normal Saline -) 1,000 mls @ 75 mls/hr IV ASDIR [facility] Last Admin: 03/08/19 12:04 Dose: Not Given Insulin Aspart (Novolog Vial Sliding Scale -) 1 vial SQ ACHS [facility]; Protocol Last Admin: 03/08/19 16:54 Dose: Not Given Latanoprost (Xalatan 0.005% Eye Drops -) 1 drop OU HS [facility] Metoclopramide HCl (Reglan Injection -) 10 mg IVPB Q8H-IV [facility] Metoprolol Succinate (Toprol Xl -) 50 mg PO DAILY [facility] Pantoprazole Sodium (Protonix Iv) 40 mg IVPUSH DAILY [facility] Last Admin: 03/08/19 10:29 Dose: 40 mg Simethicone (Mylicon -) 80 mg PO QID PRN PRN Reason: GAS Last Admin: 03/08/19 08:31 Dose: 80 mg Timolol Maleate (Timoptic 0.5%) 1 drop OU BID [facility] - Objective Vital Signs: Vital Signs Temperature 98.4 F 03/08/19 16:30 Pulse Rate 114 H 03/08/19 16:30 Respiratory Rate 18 03/08/19 16:30 Blood Pressure 150/84 03/08/19 16:30 O2 Sat by Pulse Oximetry (%) 97 03/08/19 09:00 Labs: CBC, BMP 03/07/19 07:20 03/07/19 07:20 INR, PTT INR 1.06 (0.83-1.09) 03/06/19 18:37 <Gavin Montoya - Last Filed: 03/08/19 19:08> Problem List - Problems (1) Diarrhea Assessment/Plan: -Cdiff results pending, pending collection for Stool ova and parasite, calpoprectin, stool WBC, and stool culture -IV hydration Code(s): R19.7 - DIARRHEA, UNSPECIFIED (2) Abdominal pain Assessment/Plan: -IV hydration -IV Pantoprazole -Simethicone -CTAP shows small gallstones without CT evidence of acute cholecystitis, a few diverticula in the sigmoid colon without evidence acute diverticulitis Code(s): R10.9 - UNSPECIFIED ABDOMINAL PAIN (3) Elevated CA 19-9 level Assessment/Plan: -CA 19-9 67 -Abdominal MRI ordered Code(s): R97.8 - OTHER ABNORMAL TUMOR MARKERS <Roseline Alexander - Last Filed: 03/08/19 08:55> - Problems (1) Diarrhea Assessment/Plan: low fiber lactose free Code(s): R19.7 - DIARRHEA, UNSPECIFIED (2) Abdominal pain Code(s): R10.9 - UNSPECIFIED ABDOMINAL PAIN (3) Unintentional weight loss Code(s): R63.4 - ABNORMAL WEIGHT LOSS (4) Intractable nausea and vomiting Assessment/Plan: R> Reglan 10 mg IVPB q 8 hours cardiology consult Code(s): R11.2 - NAUSEA WITH VOMITING, UNSPECIFIED <Gavin Montoya - Last Filed: 03/08/19 19:08>
[2019-03-08] MEDS: ENOXAPARIN NA (PORCINE) 40 MG/0.4 ML DISP.SYRIN SQ SCH (09:45)
[2019-03-08] MEDS: PANTOPRAZOLE SODIUM 40 MG VIAL IVPUSH SCH (10:29)
[2019-03-08] MEDS: CEFTRIAXONE 1 GM in DEXTROSE 5%-WATER - 50 ML IVPB SCH (10:30)
[2019-03-08] MEDS: SODIUM CHLORIDE 1,000 ML IV SCH (12:04)
--- NOTE | 2019-03-08 17:22 | PN ---
Progress Note, Physician Chief Complaint: noted - Current Medication List Current Medications: Active Medications Acetaminophen (Tylenol -) 650 mg PO Q6H PRN PRN Reason: FEVER Last Admin: 03/08/19 08:31 Dose: 650 mg Brimonidine Tartrate (Alphagan 0.2% -) 1 drop OU BID EDYTA Enoxaparin Sodium (Lovenox -) 40 mg SQ DAILY [facility] Last Admin: 03/08/19 09:45 Dose: 40 mg Ceftriaxone Sodium 1 gm/ (Dextrose) 50 mls @ 100 mls/hr IVPB DAILY [facility]; Protocol Last Admin: 03/08/19 10:30 Dose: 100 mls/hr Sodium Chloride (Normal Saline -) 1,000 mls @ 75 mls/hr IV ASDIR [facility] Last Admin: 03/08/19 12:04 Dose: Not Given Insulin Aspart (Novolog Vial Sliding Scale -) 1 vial SQ ACHS [facility]; Protocol Last Admin: 03/08/19 16:54 Dose: Not Given Latanoprost (Xalatan 0.005% Eye Drops -) 1 drop OU HS [facility] Metoprolol Succinate (Toprol Xl -) 50 mg PO DAILY [facility] Pantoprazole Sodium (Protonix Iv) 40 mg IVPUSH DAILY [facility] Last Admin: 03/08/19 10:29 Dose: 40 mg Simethicone (Mylicon -) 80 mg PO QID PRN PRN Reason: GAS Last Admin: 03/08/19 08:31 Dose: 80 mg Timolol Maleate (Timoptic 0.5%) 1 drop OU BID [facility] - Objective Vital Signs: Vital Signs Temperature 98.4 F 03/08/19 16:30 Pulse Rate 114 H 03/08/19 16:30 Respiratory Rate 18 03/08/19 16:30 Blood Pressure 150/84 03/08/19 16:30 O2 Sat by Pulse Oximetry (%) 97 03/08/19 09:00 Constitutional: Yes: No Distress HENT: Yes: Atraumatic Neck: Yes: Supple Cardiovascular: Yes: Regular Rate and Rhythm Respiratory: Yes: CTA Bilaterally Gastrointestinal: Yes: Normal Bowel Sounds Extremities: Yes: Other (R bka) Neurological: Yes: Alert, Oriented Labs: CBC, BMP 03/07/19 07:20 03/07/19 07:20 INR, PTT INR 1.06 (0.83-1.09) 03/06/19 18:37 Problem List - Problems (1) Diarrhea Assessment/Plan: c diff pending Code(s): R19.7 - DIARRHEA, UNSPECIFIED (2) Abdominal pain Assessment/Plan: improving Code(s): R10.9 - UNSPECIFIED ABDOMINAL PAIN (3) CKD (chronic kidney disease) Code(s): N18.9 - CHRONIC KIDNEY DISEASE, UNSPECIFIED (4) Diabetes Assessment/Plan: on insulin and bgms Code(s): E11.9 - TYPE 2 DIABETES MELLITUS WITHOUT COMPLICATIONS (5) HLD (hyperlipidemia) Code(s): E78.5 - HYPERLIPIDEMIA, UNSPECIFIED Qualifiers: Hyperlipidemia type: pure hypercholesterolemia Qualified Code(s): E78.00 - Pure hypercholesterolemia, unspecified; E78.0 - Pure hypercholesterolemia (6) HTN (hypertension) Assessment/Plan: on meds monitor bp Code(s): I10 - ESSENTIAL (PRIMARY) HYPERTENSION Qualifiers: Hypertension type: essential hypertension Qualified Code(s): I10 - Essential (primary) hypertension
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
[2019-03-08] MEDS: METOCLOPRAMIDE HCL INJECTION 10 MG/2 ML VIAL IVPB SCH (21:56)
[2019-03-08] MEDS: BRIMONIDINE TARTRATE 0.2% OPHTHALMIC 5 ML BOTTLE OU SCH (22:00)
[2019-03-08] MEDS: TIMOLOL 0.5% OPHTHALMIC SOL 5 ML BOTTLE OU SCH (22:01)
[2019-03-08] MEDS: LATANOPROST 0.005% OPHTH SOLN 2.5ML BOTTLE OU SCH (22:01)
[2019-03-08] MEDS: MORPHINE SULFATE 2 MG/ML VIAL IVPUSH PRN (22:02)
[2019-03-09] MEDS: SODIUM CHLORIDE 1,000 ML IV SCH ×2 (05:17→22:30)
[2019-03-09] MEDS: METOCLOPRAMIDE HCL INJECTION 10 MG/2 ML VIAL IVPB SCH ×3 (05:17→17:23)
[2019-03-09] MEDS: MORPHINE SULFATE 2 MG/ML VIAL IVPUSH PRN ×2 (05:18→18:51)
[2019-03-09] MEDS: INSULIN SLIDING SCALE (NOVOLOG) 1 VIAL SQ SCH ×4 (06:16→21:49)
[2019-03-09 08:17] LABS: BLOOD UREA NITROGEN 7.9 mg/dL (7-18); CALCIUM 8.5 mg/dL (8.5-10.1); CREATININE 1.1 mg/dL (0.55-1.3); MAGNESIUM 1.5 mg/dL (1.8-2.4); POTASSIUM 4.1 mmol/L (3.5-5.1)
--- NOTE | 2019-03-09 08:40 | PN ---
Progress Note, Physician History of Present Illness: GI FOLLOW UP NOTE Patient examined and case discussed with Dr Montoya Patient states abdominal pain is improving. She had 2 episodes of non-bloody diarrhea yesterday and no further reports of vomiting. Denies dysphagia, rectal bleeding, or melena. Labs shows elevated Ca 19-9 67, Abdominal MRI initially ordered but unable to have done because she is allergic to iodine. - Current Medication List Current Medications: Active Medications Acetaminophen (Tylenol -) 650 mg PO Q6H PRN PRN Reason: FEVER Last Admin: 03/08/19 08:31 Dose: 650 mg Brimonidine Tartrate (Alphagan 0.2% -) 1 drop OU BID [facility] Last Admin: 03/08/19 22:00 Dose: 1 drop Enoxaparin Sodium (Lovenox -) 40 mg SQ DAILY [facility] Last Admin: 03/08/19 09:45 Dose: 40 mg Ceftriaxone Sodium 1 gm/ (Dextrose) 50 mls @ 100 mls/hr IVPB DAILY [facility]; Protocol Last Admin: 03/08/19 10:30 Dose: 100 mls/hr Sodium Chloride (Normal Saline -) 1,000 mls @ 75 mls/hr IV ASDIR [facility] Last Admin: 03/09/19 05:17 Dose: 75 mls/hr Insulin Aspart (Novolog Vial Sliding Scale -) 1 vial SQ ACHS [facility]; Protocol Last Admin: 03/09/19 06:16 Dose: Not Given Latanoprost (Xalatan 0.005% Eye Drops -) 1 drop OU HS [facility] Last Admin: 03/08/19 22:01 Dose: 1 drop Metoclopramide HCl (Reglan Injection -) 10 mg IVPB Q8H-IV [facility] Last Admin: 03/09/19 05:17 Dose: 10 mg Metoprolol Succinate (Toprol Xl -) 50 mg PO DAILY [facility] Morphine Sulfate (Morphine Sulfate) 1 mg IVPUSH Q6H PRN PRN Reason: PAIN LEVEL 4-6 Last Admin: 03/09/19 05:18 Dose: 1 mg Pantoprazole Sodium (Protonix Iv) 40 mg IVPUSH DAILY [facility] Last Admin: 03/08/19 10:29 Dose: 40 mg Simethicone (Mylicon -) 80 mg PO QID PRN PRN Reason: GAS Last Admin: 03/08/19 08:31 Dose: 80 mg Timolol Maleate (Timoptic 0.5%) 1 drop OU BID [facility] Last Admin: 03/08/19 22:01 Dose: 1 drop - Objective Vital Signs: Vital Signs Temperature 98.4 F 03/09/19 06:00 Pulse Rate 103 H 03/09/19 06:00 Respiratory Rate 18 03/09/19 06:00 Blood Pressure 133/60 03/09/19 06:00 O2 Sat by Pulse Oximetry (%) 98 03/08/19 21:00 Constitutional: Yes: No Distress, Calm Eyes: Yes: Conjunctiva Clear HENT: Yes: Atraumatic Cardiovascular: Yes: Regular Rate and Rhythm Respiratory: Yes: Regular, CTA Bilaterally Gastrointestinal: Yes: Normal Bowel Sounds, Soft, Tenderness (RUQ/RLQ) Extremities: Yes: Amputation (R BKA) Edema: No Neurological: Yes: Alert, Oriented Psychiatric: Yes: Alert, Oriented Labs: CBC, BMP 03/07/19 07:20 03/09/19 06:10 INR, PTT INR 1.06 (0.83-1.09) 03/06/19 18:37 <Roseline Alexander - Last Filed: 03/09/19 08:35> - Current Medication List Current Medications: Active Medications Acetaminophen (Tylenol -) 650 mg PO Q6H PRN PRN Reason: FEVER Last Admin: 03/08/19 08:31 Dose: 650 mg Bacitracin (Bacitracin -) 1 applic TP DAILY [facility] Brimonidine Tartrate (Alphagan 0.2% -) 1 drop OU BID [facility] Last Admin: 03/09/19 09:29 Dose: 1 drop Duloxetine HCl (Cymbalta -) 20 mg PO DAILY [facility] Enoxaparin Sodium (Lovenox -) 40 mg SQ DAILY [facility] Last Admin: 03/09/19 09:19 Dose: 40 mg Ceftriaxone Sodium 1 gm/ (Dextrose) 50 mls @ 100 mls/hr IVPB DAILY [facility]; Protocol Last Admin: 03/09/19 09:20 Dose: 100 mls/hr Sodium Chloride (Normal Saline -) 1,000 mls @ 75 mls/hr IV ASDIR [facility] Last Admin: 03/09/19 05:17 Dose: 75 mls/hr Insulin Aspart (Novolog Vial Sliding Scale -) 1 vial SQ ACHS [facility]; Protocol Last Admin: 03/09/19 17:23 Dose: Not Given Latanoprost (Xalatan 0.005% Eye Drops -) 1 drop OU HS [facility] Last Admin: 03/08/19 22:01 Dose: 1 drop Metoclopramide HCl (Reglan Injection -) 10 mg IVPB Q8H-IV [facility] Last Admin: 03/09/19 17:23 Dose: 10 mg Metoprolol Succinate (Toprol Xl -) 50 mg PO DAILY [facility] Last Admin: 03/09/19 09:20 Dose: 50 mg Morphine Sulfate (Morphine Sulfate) 1 mg IVPUSH Q6H PRN PRN Reason: PAIN LEVEL 4-6 Last Admin: 03/09/19 05:18 Dose: 1 mg Pantoprazole Sodium (Protonix Iv) 40 mg IVPUSH DAILY [facility] Last Admin: 03/09/19 09:19 Dose: 40 mg Rosuvastatin Calcium (Crestor -) 5 mg PO HS [facility] Simethicone (Mylicon -) 80 mg PO QID PRN PRN Reason: GAS Last Admin: 03/08/19 08:31 Dose: 80 mg Timolol Maleate (Timoptic 0.5%) 1 drop OU BID [facility] Last Admin: 03/09/19 09:33 Dose: 1 drop - Objective Vital Signs: Vital Signs Temperature 98.6 F 03/09/19 15:04 Pulse Rate 103 H 03/09/19 14:00 Respiratory Rate 19 03/09/19 14:00 Blood Pressure 142/57 L 03/09/19 14:00 O2 Sat by Pulse Oximetry (%) 98 03/09/19 10:41 Labs: CBC, BMP 03/07/19 07:20 03/09/19 06:10 INR, PTT INR 1.06 (0.83-1.09) 03/06/19 18:37 <Gavin Montoya - Last Filed: 03/09/19 17:32> Problem List - Problems (1) Diarrhea Code(s): R19.7 - DIARRHEA, UNSPECIFIED (2) Abdominal pain Code(s): R10.9 - UNSPECIFIED ABDOMINAL PAIN (3) Elevated CA 19-9 level Code(s): R97.8 - OTHER ABNORMAL TUMOR MARKERS <Roseline Alexander - Last Filed: 03/09/19 08:35> - Problems (1) Diarrhea Assessment/Plan: resolving Code(s): R19.7 - DIARRHEA, UNSPECIFIED (2) Abdominal pain Assessment/Plan: resolving Code(s): R10.9 - UNSPECIFIED ABDOMINAL PAIN (3) Unintentional weight loss Code(s): R63.4 - ABNORMAL WEIGHT LOSS (4) Intractable nausea and vomiting Code(s): R11.2 - NAUSEA WITH VOMITING, UNSPECIFIED (5) Intractable vomiting Assessment/Plan: R>continue Reglan Zofran PRN Code(s): R11.10 - VOMITING, UNSPECIFIED (6) Elevated CA 19-9 level Assessment/Plan: MRCP Code(s): R97.8 - OTHER ABNORMAL TUMOR MARKERS <Gavin Montoya - Last Filed: 03/09/19 17:32>
[2019-03-09] MEDS ORDERED: cefTRIAXone SODIUM 1 GM VIAL ONE (09:13)
[2019-03-09] MEDS ORDERED: PT OWN MED DRAWER 7, Y5N ONE (09:13)
[2019-03-09] MEDS ORDERED: DEXTROSE 5%-WATER - 50 ML IVPB ONE (09:14)
[2019-03-09] MEDS: PANTOPRAZOLE SODIUM 40 MG VIAL IVPUSH SCH (09:19)
[2019-03-09] MEDS: ENOXAPARIN NA (PORCINE) 40 MG/0.4 ML DISP.SYRIN SQ SCH (09:19)
[2019-03-09] MEDS: CEFTRIAXONE 1 GM in DEXTROSE 5%-WATER - 50 ML IVPB SCH (09:20)
[2019-03-09] MEDS: BRIMONIDINE TARTRATE 0.2% OPHTHALMIC 5 ML BOTTLE OU SCH ×2 (09:29→21:45)
[2019-03-09] MEDS: TIMOLOL 0.5% OPHTHALMIC SOL 5 ML BOTTLE OU SCH ×2 (09:33→21:51)
--- NOTE | 2019-03-09 10:56 | PN ---
Progress Note, Physician Chief Complaint: Pt A&Ox3; No chest alvarez; + abdominal discomfort. History of Present Illness: 58 yo woman with PMHx of HTN, DM, HLD, AL s/p 2 stents in the RCA (the latest ), splenic artery and additional arterial calcifications, gallstones, diverticulosis, bronchia asthma, s/p BKA Rt (12/2018),sedentary lifestyle, overweight (though recently has lost 40 lbs from "not eating", allergy to naproxyn (though has been taking "a lot of ibuprofen") who now presents to the ED for non exertional epigastric pain with radiation into the chest for 5 months. The pain is described as pressure-like, constant. Pt reports nausea and vomiting, diarrhea with black stools, urinary frequency, dysuria and dizziness over the past 5 months that has worsened today. Denies F/C cough, SOB, denies calf tenderness or swelling - Current Medication List Current Medications: Active Medications Acetaminophen (Tylenol -) 650 mg PO Q6H PRN PRN Reason: FEVER Last Admin: 03/08/19 08:31 Dose: 650 mg Brimonidine Tartrate (Alphagan 0.2% -) 1 drop OU BID [facility] Last Admin: 03/09/19 09:29 Dose: 1 drop Enoxaparin Sodium (Lovenox -) 40 mg SQ DAILY [facility] Last Admin: 03/09/19 09:19 Dose: 40 mg Ceftriaxone Sodium 1 gm/ (Dextrose) 50 mls @ 100 mls/hr IVPB DAILY [facility]; Protocol Last Admin: 03/09/19 09:20 Dose: 100 mls/hr Sodium Chloride (Normal Saline -) 1,000 mls @ 75 mls/hr IV ASDIR EDYTA Last Admin: 03/09/19 05:17 Dose: 75 mls/hr Insulin Aspart (Novolog Vial Sliding Scale -) 1 vial SQ ACHS [facility]; Protocol Last Admin: 03/09/19 06:16 Dose: Not Given Latanoprost (Xalatan 0.005% Eye Drops -) 1 drop OU HS [facility] Last Admin: 03/08/19 22:01 Dose: 1 drop Metoclopramide HCl (Reglan Injection -) 10 mg IVPB Q8H-IV [facility] Last Admin: 03/09/19 09:19 Dose: 10 mg Metoprolol Succinate (Toprol Xl -) 50 mg PO DAILY [facility] Last Admin: 03/09/19 09:20 Dose: 50 mg Morphine Sulfate (Morphine Sulfate) 1 mg IVPUSH Q6H PRN PRN Reason: PAIN LEVEL 4-6 Last Admin: 03/09/19 05:18 Dose: 1 mg Pantoprazole Sodium (Protonix Iv) 40 mg IVPUSH DAILY [facility] Last Admin: 03/09/19 09:19 Dose: 40 mg Rosuvastatin Calcium (Crestor -) 5 mg PO [facility] Simethicone (Mylicon -) 80 mg PO QID PRN PRN Reason: GAS Last Admin: 03/08/19 08:31 Dose: 80 mg Timolol Maleate (Timoptic 0.5%) 1 drop OU BID [facility] Last Admin: 03/09/19 09:33 Dose: 1 drop - Objective Vital Signs: Vital Signs Temperature 98.0 F 03/09/19 09:36 Pulse Rate 115 H 03/09/19 09:36 Respiratory Rate 18 03/09/19 10:41 Blood Pressure 161/95 03/09/19 09:36 O2 Sat by Pulse Oximetry (%) 98 03/09/19 10:41 Constitutional: Yes: Anxious Eyes: Yes: WNL HENT: Yes: WNL Neck: Yes: WNL Cardiovascular: Yes: Regular Rate and Rhythm, S1, S2, S4 Respiratory: Yes: WNL Gastrointestinal: Yes: WNL Labs: CBC, BMP 03/07/19 07:20 03/09/19 06:10 INR, PTT INR 1.06 (0.83-1.09) 03/06/19 18:37 Problem List - Problems (1) Proteinuria Code(s): R80.9 - PROTEINURIA, UNSPECIFIED (2) Diarrhea Code(s): R19.7 - DIARRHEA, UNSPECIFIED (3) Elevated CA 19-9 level Code(s): R97.8 - OTHER ABNORMAL TUMOR MARKERS (4) Intractable nausea and vomiting Code(s): R11.2 - NAUSEA WITH VOMITING, UNSPECIFIED (5) Type 2 diabetes mellitus with foot ulcer Assessment/Plan: Add SGLT-2 inhibitor (DM; hx CAD with stents). Code(s): E11.621 - TYPE 2 DIABETES MELLITUS WITH FOOT ULCER; L97.509 - NON- PRESSURE CHRONIC ULCER OTH PRT UNSP FOOT W UNSP SEVERITY (6) URI (upper respiratory infection) Code(s): J06.9 - ACUTE UPPER RESPIRATORY INFECTION, UNSPECIFIED (7) Overweight Code(s): E66.3 - OVERWEIGHT (8) Old myocardial infarct Code(s): I25.2 - OLD MYOCARDIAL INFARCTION (9) Coronary artery disease Code(s): I25.10 - ATHSCL HEART DISEASE OF [place] CORONARY ARTERY W/O ANG PCTRS (10) Diabetes Code(s): E11.9 - TYPE 2 DIABETES MELLITUS WITHOUT COMPLICATIONS (11) Hypoalbuminemia Code(s): E88.09 - OTH DISORDERS OF PLASMA-PROTEIN METABOLISM, NEC (12) HLD (hyperlipidemia) Assessment/Plan: start statin (LDL 99 mg/dl); aggressive lowering of LDL, triglycerides. Code(s): E78.5 - HYPERLIPIDEMIA, UNSPECIFIED Qualifiers: Hyperlipidemia type: pure hypercholesterolemia Qualified Code(s): E78.00 - Pure hypercholesterolemia, unspecified; E78.0 - Pure hypercholesterolemia (13) Prolonged QT interval Assessment/Plan: EKG 03/06/2019: NSR; mildly prolonged corrected QT (QTc) of 482 msec (post- pubertal woman normal QTc range may extend to 480 msec). Pt requires an antiemetic (metaclopromide) that may cause prolongation. Recommend: Daily EKG. Maintain electrolytes WNL, particularly K and Mg. Peruse medication list, and avoid those that may increase QT. Pt refused EKG in early am because of feeling nauseus; agress to it now. QTc improved 482-->467 now). F/u EKG serially while on Reglan (would not use > 3 months to avoid tardive dyskinesia). Mg 1.5: replete, and keep 2.0-2.4 Keep K 4.0-4.5 Keep PO4 and Ca2+ WNL. Code(s): R94.31 - ABNORMAL ELECTROCARDIOGRAM [ECG] [EKG] (14) NSAID long-term use Assessment/Plan: Pt says she has allergy to naproxyn (rash), but has been taking "a lot" of ibuprofen for ?years. ?Contributer to pt's gastric problems. She was told to stop all NSAIDs, (except baby ASA, when cleared by GI: for CAD, PCI, hx AL). Code(s): Z79.1 - FDC (CURRENT) USE OF NON-STEROIDAL NON-INFLAM (NSAID) (15) Hypomagnesemia Assessment/Plan: level 1.5. Replete, and keep Mg 2.0-2.4 Code(s): E83.42 - HYPOMAGNESEMIA
--- NOTE | 2019-03-09 10:57 | CON.PSY ---
Psychiatry Consult Chief Complaint: 58 [place] old female admitted [facility] for Cardiac issues. Patient seen for Psych eval for Depression. Reports feeling depressed sinc4 her Leg amputation. Symptoms: reports: Depressed Mood - Previous Psychiatric Treatment Outpatient: None Inpatient: None - Previous Substance Abuse Treatment Outpatient: None Inpatient: None - Current Medications Current Medications: Active Medications Acetaminophen (Tylenol -) 650 mg PO Q6H PRN PRN Reason: FEVER Last Admin: 03/08/19 08:31 Dose: 650 mg Brimonidine Tartrate (Alphagan 0.2% -) 1 drop OU BID [facility] BEDS AT [facility] Last Admin: 03/09/19 09:29 Dose: 1 drop Duloxetine HCl (Cymbalta -) 20 mg PO DAILY [facility] Enoxaparin Sodium (Lovenox -) 40 mg SQ DAILY [facility] 234 BEDS AT [facility] Last Admin: 03/09/19 09:19 Dose: 40 mg Ceftriaxone Sodium 1 gm/ (Dextrose) 50 mls @ 100 mls/hr IVPB DAILY [facility] 234 BEDS AT [facility]; Protocol Last Admin: 03/09/19 09:20 Dose: 100 mls/hr Sodium Chloride (Normal Saline -) 1,000 mls @ 75 mls/hr IV ASDIR [facility]S [facility]CLUDE 234 BEDS AT [facility] Last Admin: 03/09/19 05:17 Dose: 75 mls/hr Insulin Aspart (Novolog Vial Sliding Scale -) 1 vial SQ ACHS [facility] 234 BEDS AT [facility]; Protocol Last Admin: 03/09/19 06:16 Dose: Not Given Latanoprost (Xalatan 0.005% Eye Drops -) 1 drop OU HS [facility] 234 BEDS AT [facility] Last Admin: 03/08/19 22:01 Dose: 1 drop Metoclopramide HCl (Reglan Injection -) 10 mg IVPB Q8H-IV [facility] Last Admin: 03/09/19 09:19 Dose: 10 mg Metoprolol Succinate (Toprol Xl -) 50 mg PO DAILY [facility] 234 BEDS AT [facility] Last Admin: 03/09/19 09:20 Dose: 50 mg Morphine Sulfate (Morphine Sulfate) 1 mg IVPUSH Q6H PRN PRN Reason: PAIN LEVEL 4-6 Last Admin: 03/09/19 05:18 Dose: 1 mg Pantoprazole Sodium (Protonix Iv) 40 mg IVPUSH DAILY [facility] 234 BEDS AT [facility] Last Admin: 03/09/19 09:19 Dose: 40 mg Rosuvastatin Calcium (Crestor -) 5 mg PO HS [facility] 234 BEDS AT [facility] Simethicone (Mylicon -) 80 mg PO QID PRN PRN Reason: GAS Last Admin: 03/08/19 08:31 Dose: 80 mg Timolol Maleate (Timoptic 0.5%) 1 drop OU BID [facility] Last Admin: 03/09/19 09:33 Dose: 1 drop - Allergies Allergies: Allergies Allergy/AdvReac Type Severity Reaction Status Date / Time iodine Allergy Severe Rash Verified 03/06/19 17:33 naproxen [From Naprosyn] Allergy Severe "hives,naus Verified 03/06/19 17:33 ea" - Current Living Status Usual Living Arrangement: With Child - Current Mental Status Evaluation Appearance: Well Groomed Attitude: Cooperative - Affect Affect: Constrictive Appropriateness: Appropriate to Content - Mood Mood: Depressed - Speech/Language Expressive: Coherent - Psychomotor Activity Psychomotor Activity: Normal - Thought Process Thought Process: Intact - Thought Content Hallucinations: Absent Delusions: Absent - Self Perception Self Perception: No Impairment - Cognition Attention: Alert Orientation: Time Memory, Immediate Recall: Intact Memory, Short Term: 3/3 Memory, Remote with Promptin/3 - Concentration Serial Sevens Intact: No Simple Calculations Intact: Yes - Abstraction Proverb Interpretation: Intact Judgement: Intact - Impulse Control Impulse Control: Good Control - Suicidal Ideation Suicidal Ideation: No - Homicidal Ideation Homicidal Ideation: No Assessment/Plan 1) Start Cymbalta 20 mg po od for Depression.
[2019-03-09] MEDS ORDERED: MAGNESIUM 4GM/H20 - 4 GM/100 ML IVPB IVPB ONE (11:00)
[2019-03-09 11:43] LABS: PHOSPHOROUS 4.2 mg/dL (2.5-4.9)
--- NOTE | 2019-03-09 15:01 | PN ---
Progress Note (short form) - Note Progress Note: Called to evaluate patient a 58 year old female for staple removal who is s/p Right Below Knee Amputation. The patient states that she underwent her Right BKA on December 31, 2018 at [facility] and that some jenny and sutures were removed prior her discharge to a rehab facility. She states that she has not seen her surgeon since her initial discharge. She denies any complaints secondary to surgery. Vital Signs Temp 98.0 F 03/09/19 09:36 Pulse 103 H 03/09/19 14:00 Resp 19 03/09/19 14:00 BP 142/57 L 03/09/19 14:00 Pulse Ox 98 03/09/19 10:41 Intake & Output 03/08/19 03/09/19 03/09/19 23:59 11:59 23:59 Intake Total 350 575 Balance 350 575 Weight 174 lb Intake: IV 300 525 Normal Saline - 1,000 ml 300 525 @ 75 mls/hr IV ASDIR EDYTA Rx#:[id number] IVPB 50 50 Other: Voiding Method Diaper Incontinent Height 5 ft 5 in Body Mass Index (BMI) 28.9 Weight Measurement Method Estimated by Patient CBC, BMP 03/07/19 07:20 03/09/19 06:10 Physical Examination (performed at bedside) General: Well developed, well nurtured, female in no acute distress. Extremities: Right BKA site is dry and intact with jenny in place. No active discharge or fluctuance. There is mild incisional tenderness to palpation. Procedure: Jenny were removed from the BKA site. The patient tolerated the procedure well without any distress. The wound remained intact and was covered with xeroform and curlex Assessment and Plan: 58 YO Female s/p Right Below Knee Amputation now with staple removal performed at bedside. Wound care: Once a day dressing change of Bacitracin and Curlex.
--- NOTE | 2019-03-09 15:10 | EKG ---
Test Reason : Blood Pressure : / mmHG Vent. Rate : 105 BPM Atrial Rate : 105 BPM P-R Int : 132 ms QRS Dur : 066 ms QT Int : 354 ms P-R-T Axes : 042 011 042 degrees QTc Int : 467 ms SINUS TACHYCARDIA OTHERWISE NORMAL ECG WHEN COMPARED WITH ECG OF 06-MAR-2019 18:01, NO SIGNIFICANT CHANGE WAS FOUND Confirmed by CARLIN LLANOS MD ([id number]) on 03/09/2019 3:09:41 PM Referred By: Confirmed By:CARLIN LLAONS MD
--- NOTE | 2019-03-09 16:45 | PN ---
Progress Note, Physician - Current Medication List Current Medications: Active Medications Acetaminophen (Tylenol -) 650 mg PO Q6H PRN PRN Reason: FEVER Last Admin: 03/08/19 08:31 Dose: 650 mg Bacitracin (Bacitracin -) 1 applic TP DAILY [facility] Brimonidine Tartrate (Alphagan 0.2% -) 1 drop OU BID [facility] Last Admin: 03/09/19 09:29 Dose: 1 drop Duloxetine HCl (Cymbalta -) 20 mg PO DAILY [facility] Enoxaparin Sodium (Lovenox -) 40 mg SQ DAILY [facility] Last Admin: 03/09/19 09:19 Dose: 40 mg Ceftriaxone Sodium 1 gm/ (Dextrose) 50 mls @ 100 mls/hr IVPB DAILY [facility]; Protocol Last Admin: 03/09/19 09:20 Dose: 100 mls/hr Sodium Chloride (Normal Saline -) 1,000 mls @ 75 mls/hr IV ASDIR [facility] Last Admin: 03/09/19 05:17 Dose: 75 mls/hr Insulin Aspart (Novolog Vial Sliding Scale -) 1 vial SQ ACHS [facility]; Protocol Last Admin: 03/09/19 12:00 Dose: 2 unit Latanoprost (Xalatan 0.005% Eye Drops -) 1 drop OU HS [facility] Last Admin: 03/08/19 22:01 Dose: 1 drop Metoclopramide HCl (Reglan Injection -) 10 mg IVPB Q8H-IV [facility] Last Admin: 03/09/19 09:19 Dose: 10 mg Metoprolol Succinate (Toprol Xl -) 50 mg PO DAILY [facility] Last Admin: 03/09/19 09:20 Dose: 50 mg Morphine Sulfate (Morphine Sulfate) 1 mg IVPUSH Q6H PRN PRN Reason: PAIN LEVEL 4-6 Last Admin: 03/09/19 05:18 Dose: 1 mg Pantoprazole Sodium (Protonix Iv) 40 mg IVPUSH DAILY [facility] Last Admin: 03/09/19 09:19 Dose: 40 mg Rosuvastatin Calcium (Crestor -) 5 mg PO HS [facility] Simethicone (Mylicon -) 80 mg PO QID PRN PRN Reason: GAS Last Admin: 03/08/19 08:31 Dose: 80 mg Timolol Maleate (Timoptic 0.5%) 1 drop OU BID [facility] Last Admin: 03/09/19 09:33 Dose: 1 drop - Objective Vital Signs: Vital Signs Temperature 98.6 F 03/09/19 15:04 Pulse Rate 103 H 03/09/19 14:00 Respiratory Rate 19 03/09/19 14:00 Blood Pressure 142/57 L 03/09/19 14:00 O2 Sat by Pulse Oximetry (%) 98 03/09/19 10:41 Constitutional: Yes: No Distress HENT: Yes: Atraumatic Neck: Yes: Supple Cardiovascular: Yes: Regular Rate and Rhythm Respiratory: Yes: CTA Bilaterally Gastrointestinal: Yes: Tenderness, Rebound (epigastric) Neurological: Yes: Alert, Oriented Labs: CBC, BMP 03/07/19 07:20 03/09/19 06:10 INR, PTT INR 1.06 (0.83-1.09) 03/06/19 18:37 Problem List - Problems (1) Diarrhea Assessment/Plan: c diff negative Code(s): R19.7 - DIARRHEA, UNSPECIFIED (2) Abdominal pain Assessment/Plan: improving Code(s): R10.9 - UNSPECIFIED ABDOMINAL PAIN (3) CKD (chronic kidney disease) Code(s): N18.9 - CHRONIC KIDNEY DISEASE, UNSPECIFIED (4) Diabetes Code(s): E11.9 - TYPE 2 DIABETES MELLITUS WITHOUT COMPLICATIONS (5) HLD (hyperlipidemia) Code(s): E78.5 - HYPERLIPIDEMIA, UNSPECIFIED Qualifiers: Hyperlipidemia type: pure hypercholesterolemia Qualified Code(s): E78.00 - Pure hypercholesterolemia, unspecified; E78.0 - Pure hypercholesterolemia (6) HTN (hypertension) Assessment/Plan: on meds monitor bp Code(s): I10 - ESSENTIAL (PRIMARY) HYPERTENSION Qualifiers: Hypertension type: essential hypertension Qualified Code(s): I10 - Essential (primary) hypertension
[2019-03-09] MEDS: ONDANSETRON 4 MG/2 ML VIAL IVPB SCH ×2 (18:55→21:41)
[2019-03-09] MEDS: SIMETHICONE 80 MG TAB.CHEW (FP) PO PRN (20:33)
[2019-03-09] MEDS: ROSUVASTATIN CA 5 MG TABLET (FP) PO SCH (21:40)
[2019-03-09] MEDS: LATANOPROST 0.005% OPHTH SOLN 2.5ML BOTTLE OU SCH (21:44)
[2019-03-10] MEDS: MORPHINE SULFATE 2 MG/ML VIAL IVPUSH PRN ×3 (00:45→20:29)
[2019-03-10] MEDS: ONDANSETRON 4 MG/2 ML VIAL IVPB SCH ×2 (01:20→05:59)
[2019-03-10] MEDS: INSULIN SLIDING SCALE (NOVOLOG) 1 VIAL SQ SCH ×4 (06:00→21:23)
--- NOTE | 2019-03-10 08:41 | PN ---
Progress Note, Physician History of Present Illness: GI FOLLOW UP NOTE Patient examined and case discussed with Dr Montoya Patient complains of pain to RUQ. She had 2 episodes of non-bloody diarrhea and one episode of vomiting yesterday. Denies dysphagia, rectal bleeding, or melena. Elevated Ca 19-9 67, Abdominal MRI initially ordered but unable to have done because she is allergic to iodine, will order Abdominal MRI without contrast. Abdominal US was ordered for RUQ pain. - Current Medication List Current Medications: Active Medications Acetaminophen (Tylenol -) 650 mg PO Q6H PRN PRN Reason: FEVER Last Admin: 03/08/19 08:31 Dose: 650 mg Bacitracin (Bacitracin -) 1 applic TP DAILY [facility] Brimonidine Tartrate (Alphagan 0.2% -) 1 drop OU BID [facility] Last Admin: 03/09/19 21:45 Dose: 1 drop Duloxetine HCl (Cymbalta -) 20 mg PO DAILY [facility] Enoxaparin Sodium (Lovenox -) 40 mg SQ DAILY [facility] Last Admin: 03/09/19 09:19 Dose: 40 mg Ceftriaxone Sodium 1 gm/ (Dextrose) 50 mls @ 100 mls/hr IVPB DAILY [facility]; Protocol Last Admin: 03/09/19 09:20 Dose: 100 mls/hr Sodium Chloride (Normal Saline -) 1,000 mls @ 75 mls/hr IV ASDIR [facility] Last Admin: 03/09/19 22:30 Dose: 75 mls/hr Insulin Aspart (Novolog Vial Sliding Scale -) 1 vial SQ ACHS [facility]; Protocol Last Admin: 03/10/19 06:00 Dose: Not Given Latanoprost (Xalatan 0.005% Eye Drops -) 1 drop OU HS [facility] Last Admin: 03/09/19 21:44 Dose: 1 drop Metoclopramide HCl (Reglan Injection -) 10 mg IVPUSH Q6H PRN PRN Reason: NAUSEA AND/OR VOMITING Metoprolol Succinate (Toprol Xl -) 50 mg PO DAILY [facility] Last Admin: 03/09/19 09:20 Dose: 50 mg Morphine Sulfate (Morphine Sulfate) 1 mg IVPUSH Q6H PRN PRN Reason: PAIN LEVEL 4-6 Last Admin: 03/10/19 00:45 Dose: 1 mg Pantoprazole Sodium (Protonix Iv) 40 mg IVPUSH DAILY [facility] Last Admin: 03/09/19 09:19 Dose: 40 mg Rosuvastatin Calcium (Crestor -) 5 mg PO HS [facility] Last Admin: 03/09/19 21:40 Dose: 5 mg Simethicone (Mylicon -) 80 mg PO QID PRN PRN Reason: GAS Last Admin: 03/09/19 20:33 Dose: 80 mg Timolol Maleate (Timoptic 0.5%) 1 drop OU BID [facility] Last Admin: 03/09/19 21:51 Dose: 1 drop - Objective Vital Signs: Vital Signs Temperature 97.8 F 03/10/19 05:20 Pulse Rate 94 H 03/10/19 05:20 Respiratory Rate 20 03/10/19 05:20 Blood Pressure 116/71 03/10/19 05:20 O2 Sat by Pulse Oximetry (%) 100 03/09/19 21:00 Constitutional: Yes: No Distress, Calm Eyes: Yes: Conjunctiva Clear HENT: Yes: Atraumatic Cardiovascular: Yes: Regular Rate and Rhythm Respiratory: Yes: Regular, CTA Bilaterally Gastrointestinal: Yes: Normal Bowel Sounds, Soft, Tenderness (RUQ, LUQ) Neurological: Yes: Alert, Oriented Psychiatric: Yes: Alert, Oriented Labs: CBC, BMP 03/07/19 07:20 03/09/19 06:10 INR, PTT INR 1.06 (0.83-1.09) 03/06/19 18:37 Microbiology 03/07/19 16:00 Stool Clostridioides difficile Antigen - Final 03/07/19 16:00 Stool Clostridioides difficile Toxin Assay - Final 03/06/19 20:08 Urine - Urine - Catheterized Urine Culture - Final NO GROWTH OBTAINED Problem List - Problems (1) Diarrhea Assessment/Plan: -Cdiff results neg, pending collection for Stool ova and parasite, calpoprectin , stool WBC, -stool culture neg -IV hydration Code(s): R19.7 - DIARRHEA, UNSPECIFIED (2) Abdominal pain Assessment/Plan: -IV hydration -IV Pantoprazole -Simethicone -CTAP shows small gallstones without CT evidence of acute cholecystitis, a few diverticula in the sigmoid colon without evidence acute diverticulitis -Abd US pending Code(s): R10.9 - UNSPECIFIED ABDOMINAL PAIN (3) Elevated CA 19-9 level Assessment/Plan: -CA 19-9 67 -Abdominal MRI ordered Code(s): R97.8 - OTHER ABNORMAL TUMOR MARKERS
[2019-03-10] MEDS ORDERED: PT OWN MED DRAWER 7, Y5N ONE (09:49)
[2019-03-10] MEDS ORDERED: cefTRIAXone SODIUM 1 GM VIAL ONE (09:49)
[2019-03-10] MEDS ORDERED: DEXTROSE 5%-WATER - 50 ML IVPB ONE (09:50)
[2019-03-10] MEDS: CEFTRIAXONE 1 GM in DEXTROSE 5%-WATER - 50 ML IVPB SCH (09:56)
[2019-03-10] MEDS: ENOXAPARIN NA (PORCINE) 40 MG/0.4 ML DISP.SYRIN SQ SCH (09:57)
[2019-03-10] MEDS: PANTOPRAZOLE SODIUM 40 MG VIAL IVPUSH SCH (09:57)
[2019-03-10] MEDS: DULoxetine HCL 20 MG CAPSULE.DR PO SCH (09:57)
[2019-03-10] MEDS: BRIMONIDINE TARTRATE 0.2% OPHTHALMIC 5 ML BOTTLE OU SCH ×2 (09:58→21:22)
[2019-03-10] MEDS: BACITRACIN 15 GM TUBE TOPICAL OINTMENT TP SCH (09:58)
[2019-03-10] MEDS: TIMOLOL 0.5% OPHTHALMIC SOL 5 ML BOTTLE OU SCH ×2 (09:58→21:22)
[2019-03-10] MEDS ORDERED: ONDANSETRON 4 MG/2 ML VIAL IVPB PRN (10:00)
--- NOTE | 2019-03-10 11:00 | PN ---
Progress Note, Physician - Current Medication List Current Medications: Active Medications Acetaminophen (Tylenol -) 650 mg PO Q6H PRN PRN Reason: FEVER Last Admin: 03/08/19 08:31 Dose: 650 mg Bacitracin (Bacitracin -) 1 applic TP DAILY [facility] Last Admin: 03/10/19 09:58 Dose: 1 applic Brimonidine Tartrate (Alphagan 0.2% -) 1 drop OU BID [facility] Last Admin: 03/10/19 09:58 Dose: 1 drop Duloxetine HCl (Cymbalta -) 20 mg PO DAILY [facility] Last Admin: 03/10/19 09:57 Dose: 20 mg Enoxaparin Sodium (Lovenox -) 40 mg SQ DAILY [facility] Last Admin: 03/10/19 09:57 Dose: 40 mg Ceftriaxone Sodium 1 gm/ (Dextrose) 50 mls @ 100 mls/hr IVPB DAILY [facility]; Protocol Last Admin: 03/10/19 09:56 Dose: 100 mls/hr Sodium Chloride (Normal Saline -) 1,000 mls @ 75 mls/hr IV ASDIR [facility] Last Admin: 03/09/19 22:30 Dose: 75 mls/hr Insulin Aspart (Novolog Vial Sliding Scale -) 1 vial SQ ACHS [facility]; Protocol Last Admin: 03/10/19 06:00 Dose: Not Given Latanoprost (Xalatan 0.005% Eye Drops -) 1 drop OU HS [facility] Last Admin: 03/09/19 21:44 Dose: 1 drop Metoclopramide HCl (Reglan Injection -) 10 mg IVPUSH Q6H PRN PRN Reason: NAUSEA AND/OR VOMITING Metoprolol Succinate (Toprol Xl -) 50 mg PO DAILY [facility] Last Admin: 03/10/19 09:57 Dose: 50 mg Morphine Sulfate (Morphine Sulfate) 1 mg IVPUSH Q6H PRN PRN Reason: PAIN LEVEL 4-6 Last Admin: 03/10/19 10:25 Dose: 1 mg Pantoprazole Sodium (Protonix Iv) 40 mg IVPUSH DAILY [facility] Last Admin: 03/10/19 09:57 Dose: 40 mg Rosuvastatin Calcium (Crestor -) 5 mg PO HS [facility] Last Admin: 03/09/19 21:40 Dose: 5 mg Simethicone (Mylicon -) 80 mg PO QID PRN PRN Reason: GAS Last Admin: 03/09/19 20:33 Dose: 80 mg Timolol Maleate (Timoptic 0.5%) 1 drop OU BID [facility] Last Admin: 03/10/19 09:58 Dose: 1 drop - Objective Vital Signs: Vital Signs Temperature 97.8 F 03/10/19 05:20 Pulse Rate 94 H 03/10/19 05:20 Respiratory Rate 03/10/19 05:20 Blood Pressure 116/71 03/10/19 05:20 O2 Sat by Pulse Oximetry (%) 100 03/09/19 21:00 Constitutional: Yes: No Distress HENT: Yes: Atraumatic Neck: Yes: Supple Cardiovascular: Yes: Regular Rate and Rhythm Respiratory: Yes: CTA Bilaterally Gastrointestinal: Yes: Tenderness, Rebound Extremities: Yes: Other ( R) Neurological: Yes: Alert, Oriented Labs: CBC, BMP 03/07/19 07:20 03/09/19 06:10 INR, PTT INR 1.06 (0.83-1.09) 03/06/19 18:37 Problem List - Problems (1) Diarrhea Assessment/Plan: c diff negative resolving Code(s): R19.7 - DIARRHEA, UNSPECIFIED (2) Abdominal pain Assessment/Plan: improving for mri us gb done Code(s): R10.9 - UNSPECIFIED ABDOMINAL PAIN (3) CKD (chronic kidney disease) Code(s): N18.9 - CHRONIC KIDNEY DISEASE, UNSPECIFIED (4) Diabetes Assessment/Plan: on insulin and bgms Code(s): E11.9 - TYPE 2 DIABETES MELLITUS WITHOUT COMPLICATIONS (5) HLD (hyperlipidemia) Code(s): E78.5 - HYPERLIPIDEMIA, UNSPECIFIED Qualifiers: Hyperlipidemia type: pure hypercholesterolemia Qualified Code(s): E78.00 - Pure hypercholesterolemia, unspecified; E78.0 - Pure hypercholesterolemia (6) HTN (hypertension) Code(s): I10 - ESSENTIAL (PRIMARY) HYPERTENSION Qualifiers: Hypertension type: essential hypertension Qualified Code(s): I10 - Essential (primary) hypertension
[2019-03-10] MEDS: METOCLOPRAMIDE HCL INJECTION 10 MG/2 ML VIAL IVPUSH PRN (13:40)
[2019-03-10] MEDS: SODIUM CHLORIDE 1,000 ML IV SCH (20:37)
[2019-03-10] MEDS: ROSUVASTATIN CA 5 MG TABLET (FP) PO SCH (21:21)
[2019-03-10] MEDS: LATANOPROST 0.005% OPHTH SOLN 2.5ML BOTTLE OU SCH (21:23)
[2019-03-10] MEDS: SIMETHICONE 80 MG TAB.CHEW (FP) PO PRN (23:43)
[2019-03-11] MEDS: METOCLOPRAMIDE HCL INJECTION 10 MG/2 ML VIAL IVPUSH PRN ×3 (00:15→16:27)
[2019-03-11] MEDS: SODIUM CHLORIDE 1,000 ML IV SCH ×2 (03:30→22:45)
--- NOTE | 2019-03-11 04:26 | PN ---
Progress Note, Physician Chief Complaint: Pt A&Ox3; No chest alvarez; +diarrhea; nausea. History of Present Illness: 58 yo woman with PMHx of HTN, DM, HLD, OR s/p 2 stents in the RCA (the latest ), splenic artery and additional arterial calcifications, gallstones, diverticulosis, bronchia asthma, s/p BKA Rt (12/2018),sedentary lifestyle, overweight (though recently has lost 40 lbs from "not eating", allergy to naproxyn (though has been taking "a lot of ibuprofen") who now presents to the ED for non exertional epigastric pain with radiation into the chest for 5 months. The pain is described as pressure-like, constant. Pt reports nausea and vomiting, diarrhea with black stools, urinary frequency, dysuria and dizziness over the past 5 months that has worsened today. Denies F/C cough, SOB, denies calf tenderness or swelling - Current Medication List Current Medications: Active Medications Acetaminophen (Tylenol -) 650 mg PO Q6H PRN PRN Reason: FEVER Last Admin: 03/08/19 08:31 Dose: 650 mg Bacitracin (Bacitracin -) 1 applic TP DAILY [facility] Last Admin: 03/10/19 09:58 Dose: 1 applic Brimonidine Tartrate (Alphagan 0.2% -) 1 drop OU BID [facility] Last Admin: 03/10/19 21:22 Dose: 1 drop Duloxetine HCl (Cymbalta -) 20 mg PO DAILY [facility] Last Admin: 03/10/19 09:57 Dose: 20 mg Enoxaparin Sodium (Lovenox -) 40 mg SQ DAILY [facility] Last Admin: 03/10/19 09:57 Dose: 40 mg Ceftriaxone Sodium 1 gm/ (Dextrose) 50 mls @ 100 mls/hr IVPB DAILY [facility]; Protocol Last Admin: 03/10/19 09:56 Dose: 100 mls/hr Sodium Chloride (Normal Saline -) 1,000 mls @ 75 mls/hr IV ASDIR [facility] Last Admin: 03/10/19 20:37 Dose: Not Given Insulin Aspart (Novolog Vial Sliding Scale -) 1 vial SQ ACHS [facility]; Protocol Last Admin: 03/10/19 21:23 Dose: Not Given Latanoprost (Xalatan 0.005% Eye Drops -) 1 drop OU HS [facility] Last Admin: 03/10/19 21:23 Dose: 1 drop Metoclopramide HCl (Reglan Injection -) 10 mg IVPUSH Q6H PRN PRN Reason: NAUSEA AND/OR VOMITING Last Admin: 03/11/19 00:15 Dose: 10 mg Metoprolol Succinate (Toprol Xl -) 50 mg PO DAILY [facility] Last Admin: 03/10/19 09:57 Dose: 50 mg Morphine Sulfate (Morphine Sulfate) 1 mg IVPUSH Q6H PRN PRN Reason: PAIN LEVEL 4-6 Last Admin: 03/10/19 20:29 Dose: 1 mg Pantoprazole Sodium (Protonix Iv) 40 mg IVPUSH DAILY [facility] Last Admin: 03/10/19 09:57 Dose: 40 mg Rosuvastatin Calcium (Crestor -) 5 mg PO [facility] Last Admin: 03/10/19 21:21 Dose: 5 mg Simethicone (Mylicon -) 80 mg PO QID PRN PRN Reason: GAS Last Admin: 03/10/19 23:43 Dose: 80 mg Timolol Maleate (Timoptic 0.5%) 1 drop OU BID [facility] Last Admin: 03/10/19 21:22 Dose: 1 drop - Objective Vital Signs: Vital Signs Temperature 98 F 03/11/19 02:00 Pulse Rate 98 H 03/11/19 02:00 Respiratory Rate 18 03/11/19 02:00 Blood Pressure 156/79 03/11/19 02:00 O2 Sat by Pulse Oximetry (%) 100 03/10/19 21:00 Constitutional: Yes: Anxious Eyes: Yes: WNL HENT: Yes: WNL Neck: Yes: WNL Cardiovascular: Yes: S1, S2, S4 Respiratory: Yes: WNL Gastrointestinal: Yes: WNL ...Rectal Exam: Yes: Deferred Genitourinary: No: Anuria Musculoskeletal: Yes: Joint Stiffness, Muscle Weakness Extremities: Yes: WNL Edema: No Peripheral Pulses WNL: Yes Integumentary: Yes: WNL Neurological: Yes: Alert, Oriented, Weakness Psychiatric: Yes: Alert, Oriented Labs: CBC, BMP 03/07/19 07:20 03/09/19 06:10 INR, PTT INR 1.06 (0.83-1.09) 03/06/19 18:37 - ....Imaging Chest X-ray: Image Reviewed Problem List - Problems (1) Proteinuria Code(s): R80.9 - PROTEINURIA, UNSPECIFIED (2) Diarrhea Assessment/Plan: for MRI without contrast (diarrhea; abdominal pain). Code(s): R19.7 - DIARRHEA, UNSPECIFIED (3) Elevated CA 19-9 level Code(s): R97.8 - OTHER ABNORMAL TUMOR MARKERS (4) Intractable nausea and vomiting Code(s): R11.2 - NAUSEA WITH VOMITING, UNSPECIFIED (5) Type 2 diabetes mellitus with foot ulcer Assessment/Plan: Add SGLT-2 inhibitor (DM; hx CAD with stents). Code(s): E11.621 - TYPE 2 DIABETES MELLITUS WITH FOOT ULCER; L97.509 - NON- PRESSURE CHRONIC ULCER OTH PRT UNSP FOOT W UNSP SEVERITY (6) URI (upper respiratory infection) Code(s): J06.9 - ACUTE UPPER RESPIRATORY INFECTION, UNSPECIFIED (7) Overweight Code(s): E66.3 - OVERWEIGHT (8) Old myocardial infarct Code(s): I25.2 - OLD MYOCARDIAL INFARCTION (9) Coronary artery disease Code(s): I25.10 - ATHSCL HEART DISEASE OF [place] CORONARY ARTERY W/O ANG PCTRS (10) Diabetes Code(s): E11.9 - TYPE 2 DIABETES MELLITUS WITHOUT COMPLICATIONS (11) Hypoalbuminemia Code(s): E88.09 - OTH DISORDERS OF PLASMA-PROTEIN METABOLISM, NEC (12) HLD (hyperlipidemia) Assessment/Plan: start statin (LDL 99 mg/dl); aggressive lowering of LDL, triglycerides. Code(s): E78.5 - HYPERLIPIDEMIA, UNSPECIFIED Qualifiers: Hyperlipidemia type: pure hypercholesterolemia Qualified Code(s): E78.00 - Pure hypercholesterolemia, unspecified; E78.0 - Pure hypercholesterolemia (13) Prolonged QT interval Assessment/Plan: EKG 03/06/2019: NSR; mildly prolonged corrected QT (QTc) of 482 msec (post- pubertal woman normal QTc range may extend to 480 msec). Pt requires an antiemetic (metaclopromide) that may cause prolongation. Recommend: Daily EKG. Maintain electrolytes WNL, particularly K and Mg. Peruse medication list, and avoid those that may increase QT. Pt refused EKG in early am because of feeling nauseus; agress to it now. QTc improved 482-->467 now). F/u EKG serially while on Reglan (would not use > 3 months to avoid tardive dyskinesia). Mg 1.5: replete, and keep 2.0-2.4 Keep K 4.0-4.5 Keep PO4 and Ca2+ WNL. Code(s): R94.31 - ABNORMAL ELECTROCARDIOGRAM [ECG] [EKG] (14) NSAID long-term use Assessment/Plan: Pt did not realize that ibuprofen might also be a cause of abdominal pain, bleed. She has been taking "a lot of it for a long time". 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
[2019-03-11] MEDS: INSULIN SLIDING SCALE (NOVOLOG) 1 VIAL SQ SCH ×4 (06:31→22:22)
[2019-03-11] MEDS ORDERED: DEXTROSE 5%-WATER - 50 ML IVPB ONE ×2 (08:45→08:47)
[2019-03-11] MEDS ORDERED: cefTRIAXone SODIUM 1 GM VIAL ONE ×2 (08:45→08:47)
[2019-03-11] MEDS: PANTOPRAZOLE SODIUM 40 MG VIAL IVPUSH SCH (09:03)
[2019-03-11] MEDS: DULoxetine HCL 20 MG CAPSULE.DR PO SCH (09:03)
[2019-03-11] MEDS: CEFTRIAXONE 1 GM in DEXTROSE 5%-WATER - 50 ML IVPB SCH (09:03)
[2019-03-11] MEDS: ENOXAPARIN NA (PORCINE) 40 MG/0.4 ML DISP.SYRIN SQ SCH (09:43)
[2019-03-11] MEDS: BRIMONIDINE TARTRATE 0.2% OPHTHALMIC 5 ML BOTTLE OU SCH ×2 (09:43→22:22)
[2019-03-11] MEDS: TIMOLOL 0.5% OPHTHALMIC SOL 5 ML BOTTLE OU SCH ×2 (09:43→22:23)
[2019-03-11] MEDS: BACITRACIN 15 GM TUBE TOPICAL OINTMENT TP SCH (09:43)
--- NOTE | 2019-03-11 10:35 | PN ---
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 - Current Medication List Current Medications: Active Medications Acetaminophen (Tylenol -) 650 mg PO Q6H PRN PRN Reason: FEVER Last Admin: 03/08/19 08:31 Dose: 650 mg Bacitracin (Bacitracin -) 1 applic TP DAILY [facility] Last Admin: 03/11/19 09:43 Dose: 1 applic Brimonidine Tartrate (Alphagan 0.2% -) 1 drop OU BID [facility] Last Admin: 03/11/19 09:43 Dose: 1 drop Duloxetine HCl (Cymbalta -) 20 mg PO DAILY [facility] Last Admin: 03/11/19 09:03 Dose: 20 mg Enoxaparin Sodium (Lovenox -) 40 mg SQ DAILY [facility] Last Admin: 03/11/19 09:43 Dose: 40 mg Ceftriaxone Sodium 1 gm/ (Dextrose) 50 mls @ 100 mls/hr IVPB DAILY [facility]; Protocol Last Admin: 03/11/19 09:03 Dose: 100 mls/hr Sodium Chloride (Normal Saline -) 1,000 mls @ 75 mls/hr IV ASDIR [facility] Last Admin: 03/11/19 03:30 Dose: 75 mls/hr Insulin Aspart (Novolog Vial Sliding Scale -) 1 vial SQ ACHS [facility]; Protocol Last Admin: 03/11/19 06:31 Dose: Not Given Latanoprost (Xalatan 0.005% Eye Drops -) 1 drop OU HS [facility] Last Admin: 03/10/19 21:23 Dose: 1 drop Metoclopramide HCl (Reglan Injection -) 10 mg IVPUSH Q6H PRN PRN Reason: NAUSEA AND/OR VOMITING Last Admin: 03/11/19 00:15 Dose: 10 mg Metoprolol Succinate (Toprol Xl -) 50 mg PO DAILY [facility] Last Admin: 03/11/19 09:04 Dose: 50 mg Morphine Sulfate (Morphine Sulfate) 1 mg IVPUSH Q6H PRN PRN Reason: PAIN LEVEL 4-6 Last Admin: 03/10/19 20:29 Dose: 1 mg Pantoprazole Sodium (Protonix Iv) 40 mg IVPUSH DAILY [facility] Last Admin: 03/11/19 09:03 Dose: 40 mg Rosuvastatin Calcium (Crestor -) 5 mg PO HS [facility] Last Admin: 03/10/19 21:21 Dose: 5 mg Simethicone (Mylicon -) 80 mg PO QID PRN PRN Reason: GAS Last Admin: 03/10/19 23:43 Dose: 80 mg Timolol Maleate (Timoptic 0.5%) 1 drop OU BID [facility] Last Admin: 03/11/19 09:43 Dose: 1 drop - Objective Vital Signs: Vital Signs Temperature 98.4 F 03/11/19 09:00 Pulse Rate 92 H 03/11/19 09:00 Respiratory Rate 03/11/19 09:00 Blood Pressure 203/98 H 03/11/19 09:00 O2 Sat by Pulse Oximetry (%) 100 03/11/19 09:00 Constitutional: Yes: Anxious, Mild Distress Neck: Yes: Supple Cardiovascular: Yes: Regular Rate and Rhythm Respiratory: Yes: Regular, CTA Bilaterally Gastrointestinal: Yes: Soft, Hypoactive Bowel Sounds, Vomiting Edema: No Labs: CBC, BMP 03/07/19 07:20 03/09/19 06:10 INR, PTT INR 1.06 (0.83-1.09) 03/06/19 18:37 - ....Imaging Ultrasound: Report Reviewed (Fatty liver, gallstones) EKG: Report Reviewed (ST @ 105 QTc 467 msec Tele: ST) Assessment/Plan Problem List - Problems (1) Proteinuria Code(s): R80.9 - PROTEINURIA, UNSPECIFIED (2) Diarrhea Assessment/Plan: for MRI without contrast (diarrhea; abdominal pain). Code(s): R19.7 - DIARRHEA, UNSPECIFIED (3) Elevated CA 19-9 level Code(s): R97.8 - OTHER ABNORMAL TUMOR MARKERS (4) Intractable nausea and vomiting Code(s): R11.2 - NAUSEA WITH VOMITING, UNSPECIFIED (5) Type 2 diabetes mellitus with foot ulcer Assessment/Plan: Add SGLT-2 inhibitor (DM; hx CAD with stents). Code(s): E11.621 - TYPE 2 DIABETES MELLITUS WITH FOOT ULCER; L97.509 - NON- PRESSURE CHRONIC ULCER OTH PRT UNSP FOOT W UNSP SEVERITY (6) URI (upper respiratory infection) Code(s): J06.9 - ACUTE UPPER RESPIRATORY INFECTION, UNSPECIFIED (7) Overweight Code(s): E66.3 - OVERWEIGHT (8) Old myocardial infarct Code(s): I25.2 - OLD MYOCARDIAL INFARCTION Continue Toprol XL 50 qd (9) Coronary artery disease Code(s): I25.10 - ATHSCL HEART DISEASE OF [place] CORONARY ARTERY W/O ANG PCTRS (10) Diabetes Code(s): E11.9 - TYPE 2 DIABETES MELLITUS WITHOUT COMPLICATIONS (11) Hypoalbuminemia Code(s): E88.09 - OTH DISORDERS OF PLASMA-PROTEIN METABOLISM, NEC (12) HLD (hyperlipidemia) Assessment/Plan: started Crestor 5 qd (LDL 99 mg/dl); aggressive lowering of LDL, triglycerides. Code(s): E78.5 - HYPERLIPIDEMIA, UNSPECIFIED Qualifiers: Hyperlipidemia type: pure hypercholesterolemia Qualified Code(s): E78.00 - Pure hypercholesterolemia, unspecified; E78.0 - Pure hypercholesterolemia (13) Prolonged QT interval Assessment/Plan: EKG 03/09/2019: NSR; corrected QT (QTc) of 467 msec (post-pubertal woman normal QTc range may extend to 480 msec). Pt requires an antiemetic (metaclopromide) that may cause prolongation. Recommend: Maintain electrolytes WNL, particularly K and Mg. Peruse medication list, and avoid those that may increase QT. Pt refused EKG in early am because of feeling nauseus; agress to it now. QTc improved 482-->467 now). F/u EKG serially while on Reglan (would not use > 3 months to avoid tardive dyskinesia). Mg 1.5: replete, and keep 2.0-2.4 Keep K 4.0-4.5 Keep PO4 and Ca2+ WNL. Code(s): R94.31 - ABNORMAL ELECTROCARDIOGRAM [ECG] [EKG] (14) NSAID long-term use Assessment/Plan: Pt did not realize that ibuprofen might also be a cause of abdominal pain, bleed. She has been taking "a lot of it for a long time". Code(s): Z79.1 - INTERMEDIATE (CURRENT) USE OF NON-STEROIDAL NON-INFLAM (NSAID) (15) Hypomagnesemia Code(s): E83.42 - HYPOMAGNESEMIA
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
--- NOTE | 2019-03-11 11:21 | PN ---
Progress Note, Physician - Current Medication List Current Medications: Active Medications Acetaminophen (Tylenol -) 650 mg PO Q6H PRN PRN Reason: FEVER Last Admin: 03/08/19 08:31 Dose: 650 mg Bacitracin (Bacitracin -) 1 applic TP DAILY [facility] Last Admin: 03/11/19 09:43 Dose: 1 applic Brimonidine Tartrate (Alphagan 0.2% -) 1 drop OU BID [facility] Last Admin: 03/11/19 09:43 Dose: 1 drop Duloxetine HCl (Cymbalta -) 20 mg PO DAILY [facility] Last Admin: 03/11/19 09:03 Dose: 20 mg Enoxaparin Sodium (Lovenox -) 40 mg SQ DAILY [facility] Last Admin: 03/11/19 09:43 Dose: 40 mg Ceftriaxone Sodium 1 gm/ (Dextrose) 50 mls @ 100 mls/hr IVPB DAILY [facility]; Protocol Last Admin: 03/11/19 09:03 Dose: 100 mls/hr Sodium Chloride (Normal Saline -) 1,000 mls @ 75 mls/hr IV ASDIR [facility] Last Admin: 03/11/19 03:30 Dose: 75 mls/hr Insulin Aspart (Novolog Vial Sliding Scale -) 1 vial SQ ACHS [facility]; Protocol Last Admin: 03/11/19 06:31 Dose: Not Given Latanoprost (Xalatan 0.005% Eye Drops -) 1 drop OU HS [facility] Last Admin: 03/10/19 21:23 Dose: 1 drop Metoclopramide HCl (Reglan Injection -) 10 mg IVPUSH Q6H PRN PRN Reason: NAUSEA AND/OR VOMITING Last Admin: 03/11/19 00:15 Dose: 10 mg Metoprolol Succinate (Toprol Xl -) 50 mg PO DAILY [facility] Last Admin: 03/11/19 09:04 Dose: 50 mg Morphine Sulfate (Morphine Sulfate) 1 mg IVPUSH Q6H PRN PRN Reason: PAIN LEVEL 4-6 Last Admin: 03/10/19 20:29 Dose: 1 mg Pantoprazole Sodium (Protonix Iv) 40 mg IVPUSH DAILY [facility] Last Admin: 03/11/19 09:03 Dose: 40 mg Rosuvastatin Calcium (Crestor -) 5 mg PO HS [facility] Last Admin: 03/10/19 21:21 Dose: 5 mg Simethicone (Mylicon -) 80 mg PO QID PRN PRN Reason: GAS Last Admin: 03/10/19 23:43 Dose: 80 mg Timolol Maleate (Timoptic 0.5%) 1 drop OU BID [facility] Last Admin: 03/11/19 09:43 Dose: 1 drop - Objective Vital Signs: Vital Signs Temperature 98.4 F 03/11/19 09:00 Pulse Rate 92 H 03/11/19 09:00 Respiratory Rate 20 03/11/19 09:00 Blood Pressure 203/98 H 03/11/19 09:00 O2 Sat by Pulse Oximetry (%) 100 03/11/19 09:00 HENT: Yes: Atraumatic Neck: Yes: Supple Cardiovascular: Yes: Regular Rate and Rhythm Respiratory: Yes: CTA Bilaterally Gastrointestinal: Yes: Normal Bowel Sounds Edema: No Neurological: Yes: Alert, Oriented Labs: CBC, BMP 03/07/19 07:20 03/09/19 06:10 INR, PTT INR 1.06 (0.83-1.09) 03/06/19 18:37 Problem List - Problems (1) Diarrhea Assessment/Plan: c diff negative resolving Code(s): R19.7 - DIARRHEA, UNSPECIFIED (2) Abdominal pain Assessment/Plan: improving for mri us gb done Code(s): R10.9 - UNSPECIFIED ABDOMINAL PAIN (3) CKD (chronic kidney disease) Code(s): N18.9 - CHRONIC KIDNEY DISEASE, UNSPECIFIED (4) Diabetes Code(s): E11.9 - TYPE 2 DIABETES MELLITUS WITHOUT COMPLICATIONS (5) HLD (hyperlipidemia) Code(s): E78.5 - HYPERLIPIDEMIA, UNSPECIFIED Qualifiers: Hyperlipidemia type: pure hypercholesterolemia Qualified Code(s): E78.00 - Pure hypercholesterolemia, unspecified; E78.0 - Pure hypercholesterolemia (6) HTN (hypertension) Assessment/Plan: on meds monitor bp Code(s): I10 - ESSENTIAL (PRIMARY) HYPERTENSION Qualifiers: Hypertension type: essential hypertension Qualified Code(s): I10 - Essential (primary) hypertension
[2019-03-11] MEDS: MORPHINE SULFATE 2 MG/ML VIAL IVPUSH PRN (17:49)
[2019-03-11] MEDS: ROSUVASTATIN CA 5 MG TABLET (FP) PO SCH (22:23)
[2019-03-11] MEDS: LATANOPROST 0.005% OPHTH SOLN 2.5ML BOTTLE OU SCH (22:23)
[2019-03-12] MEDS: METOCLOPRAMIDE HCL INJECTION 10 MG/2 ML VIAL IVPUSH PRN ×4 (00:33→20:49)
[2019-03-12] MEDS: INSULIN SLIDING SCALE (NOVOLOG) 1 VIAL SQ SCH ×4 (06:40→21:19)
[2019-03-12] MEDS ORDERED: DEXTROSE 5%-WATER - 50 ML IVPB ONE (09:21)
[2019-03-12] MEDS ORDERED: cefTRIAXone SODIUM 1 GM VIAL ONE (09:21)
[2019-03-12] MEDS: PANTOPRAZOLE SODIUM 40 MG VIAL IVPUSH SCH (09:24)
[2019-03-12] MEDS: CEFTRIAXONE 1 GM in DEXTROSE 5%-WATER - 50 ML IVPB SCH (09:24)
[2019-03-12] MEDS: BACITRACIN 15 GM TUBE TOPICAL OINTMENT TP SCH (09:25)
[2019-03-12] MEDS: DULoxetine HCL 20 MG CAPSULE.DR PO SCH (09:25)
[2019-03-12] MEDS: TIMOLOL 0.5% OPHTHALMIC SOL 5 ML BOTTLE OU SCH ×2 (09:25→21:18)
[2019-03-12] MEDS: BRIMONIDINE TARTRATE 0.2% OPHTHALMIC 5 ML BOTTLE OU SCH ×2 (09:26→21:17)
[2019-03-12] MEDS: SIMETHICONE 80 MG TAB.CHEW (FP) PO PRN ×2 (09:27→18:50)
[2019-03-12] MEDS: ENOXAPARIN NA (PORCINE) 40 MG/0.4 ML DISP.SYRIN SQ SCH (09:34)
[2019-03-12] MEDS ORDERED: NITROGLYCERIN SUBLINGUAL 1/150 0.4 MG TAB ONE (10:27)
--- NOTE | 2019-03-12 10:48 | PN ---
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 - Current Medication List Current Medications: Active Medications Acetaminophen (Tylenol -) 650 mg PO Q6H PRN PRN Reason: FEVER Last Admin: 03/08/19 08:31 Dose: 650 mg Bacitracin (Bacitracin -) 1 applic TP DAILY [facility] Last Admin: 03/12/19 09:25 Dose: 1 applic Brimonidine Tartrate (Alphagan 0.2% -) 1 drop OU BID [facility] Last Admin: 03/12/19 09:26 Dose: 1 drop Duloxetine HCl (Cymbalta -) 20 mg PO DAILY [facility] Last Admin: 03/12/19 09:25 Dose: 20 mg Enoxaparin Sodium (Lovenox -) 40 mg SQ DAILY [facility] Last Admin: 03/12/19 09:34 Dose: Not Given Ceftriaxone Sodium 1 gm/ (Dextrose) 50 mls @ 100 mls/hr IVPB DAILY [facility]; Protocol Last Admin: 03/12/19 09:24 Dose: 100 mls/hr Sodium Chloride (Normal Saline -) 1,000 mls @ 75 mls/hr IV ASDIR [facility] Last Admin: 03/11/19 22:45 Dose: 75 mls/hr Insulin Aspart (Novolog Vial Sliding Scale -) 1 vial SQ ACHS [facility]; Protocol Last Admin: 03/12/19 06:40 Dose: Not Given Latanoprost (Xalatan 0.005% Eye Drops -) 1 drop OU HS [facility] Last Admin: 03/11/19 22:23 Dose: Not Given Metoclopramide HCl (Reglan Injection -) 10 mg IVPUSH Q6H PRN PRN Reason: NAUSEA AND/OR VOMITING Last Admin: 03/12/19 06:32 Dose: 10 mg Metoprolol Succinate (Toprol Xl -) 50 mg PO DAILY [facility] Last Admin: 03/12/19 09:25 Dose: 50 mg Pantoprazole Sodium (Protonix Iv) 40 mg IVPUSH DAILY [facility] Last Admin: 03/12/19 09:24 Dose: 40 mg Rosuvastatin Calcium (Crestor -) 5 mg PO HS [facility] Last Admin: 03/11/19 22:23 Dose: 5 mg Simethicone (Mylicon -) 80 mg PO QID PRN PRN Reason: GAS Last Admin: 03/12/19 09:27 Dose: 80 mg Timolol Maleate (Timoptic 0.5%) 1 drop OU BID [facility] Last Admin: 03/12/19 09:25 Dose: 1 drop - Objective Vital Signs: Vital Signs Temperature 98.6 F 03/12/19 06:00 Pulse Rate 101 H 03/12/19 06:00 Respiratory Rate 18 03/12/19 06:00 Blood Pressure 159/97 03/12/19 06:00 O2 Sat by Pulse Oximetry (%) 100 03/11/19 21:00 Constitutional: Yes: No Distress, Calm Neck: Yes: Supple Cardiovascular: Yes: Regular Rate and Rhythm Respiratory: Yes: Regular, CTA Bilaterally Gastrointestinal: Yes: Normal Bowel Sounds, Soft Extremities: Yes: Amputation (Right BKA) Edema: No Labs: CBC, BMP 03/07/19 07:20 03/09/19 06:10 INR, PTT INR 1.06 (0.83-1.09) 03/06/19 18:37 Assessment/Plan Problem List - Problems (1) Proteinuria Code(s): R80.9 - PROTEINURIA, UNSPECIFIED (2) Diarrhea Assessment/Plan: for MRI without contrast (diarrhea; abdominal pain). Code(s): R19.7 - DIARRHEA, UNSPECIFIED (3) Elevated CA 19-9 level Code(s): R97.8 - OTHER ABNORMAL TUMOR MARKERS (4) Intractable nausea and vomiting Code(s): R11.2 - NAUSEA WITH VOMITING, UNSPECIFIED (5) Type 2 diabetes mellitus with foot ulcer Assessment/Plan: Add SGLT-2 inhibitor (DM; hx CAD with stents). Code(s): E11.621 - TYPE 2 DIABETES MELLITUS WITH FOOT ULCER; L97.509 - NON- PRESSURE CHRONIC ULCER OTH PRT UNSP FOOT W UNSP SEVERITY (6) URI (upper respiratory infection) Code(s): J06.9 - ACUTE UPPER RESPIRATORY INFECTION, UNSPECIFIED (7) Overweight Code(s): E66.3 - OVERWEIGHT (8) Old myocardial infarct Code(s): I25.2 - OLD MYOCARDIAL INFARCTION Continue Toprol XL 50 qd (9) Coronary artery disease Code(s): I25.10 - ATHSCL HEART DISEASE OF [place] CORONARY ARTERY W/O ANG PCTRS (10) Diabetes Code(s): E11.9 - TYPE 2 DIABETES MELLITUS WITHOUT COMPLICATIONS (11) Hypoalbuminemia Code(s): E88.09 - OTH DISORDERS OF PLASMA-PROTEIN METABOLISM, NEC (12) HLD (hyperlipidemia) Assessment/Plan: started Crestor 5 qd (LDL 99 mg/dl); aggressive lowering of LDL, triglycerides. Code(s): E78.5 - HYPERLIPIDEMIA, UNSPECIFIED Qualifiers: Hyperlipidemia type: pure hypercholesterolemia Qualified Code(s): E78.00 - Pure hypercholesterolemia, unspecified; E78.0 - Pure hypercholesterolemia (13) Prolonged QT interval Assessment/Plan: EKG 03/09/2019: NSR; corrected QT (QTc) of 467 msec (post-pubertal woman normal QTc range may extend to 480 msec). Pt requires an antiemetic (metaclopromide) that may cause prolongation. Recommend: Maintain electrolytes WNL, particularly K and Mg. Peruse medication list, and avoid those that may increase QT. Pt refused EKG in early am because of feeling nauseus; agress to it now. QTc improved 482-->467 now). F/u EKG serially while on Reglan (would not use > 3 months to avoid tardive dyskinesia). Mg 1.5: replete, and keep 2.0-2.4 Keep K 4.0-4.5 Keep PO4 and Ca2+ WNL. Code(s): R94.31 - ABNORMAL ELECTROCARDIOGRAM [ECG] [EKG] (14) NSAID long-term use Assessment/Plan: Pt did not realize that ibuprofen might also be a cause of abdominal pain, bleed. She has been taking "a lot of it for a long time". Code(s): Z79.1 - MCC (CURRENT) USE OF NON-STEROIDAL NON-INFLAM (NSAID) (15) Hypomagnesemia Code(s): E83.42 - HYPOMAGNESEMIA (16) Gallbladder mass Assessment/Plan: GB mass vs. gb sludge with borderline CBD await MRI of the upper abdomen Code(s): K82.8 - OTHER SPECIFIED DISEASES OF GALLBLADDER
--- NOTE | 2019-03-12 12:37 | EKG ---
Test Reason : Blood Pressure : / mmHG Vent. Rate : 077 BPM Atrial Rate : 077 BPM P-R Int : 120 ms QRS Dur : 070 ms QT Int : 426 ms P-R-T Axes : 041 018 042 degrees QTc Int : 482 ms NORMAL SINUS RHYTHM PROLONGED QT ABNORMAL ECG WHEN COMPARED WITH ECG OF 09-MAR-2019 10:54, NO SIGNIFICANT CHANGE WAS FOUND Confirmed by RICHARD PETERSEN MD ([id number]) on 03/12/2019 12:36:50 PM Referred By: Matty CHUA Confirmed By:RICHARD PETERSEN MD
--- NOTE | 2019-03-12 16:23 | PN ---
Progress Note, Physician - Current Medication List Current Medications: Active Medications Acetaminophen (Tylenol -) 650 mg PO Q6H PRN PRN Reason: FEVER Last Admin: 03/08/19 08:31 Dose: 650 mg Bacitracin (Bacitracin -) 1 applic TP DAILY [facility] Last Admin: 03/12/19 09:25 Dose: 1 applic Brimonidine Tartrate (Alphagan 0.2% -) 1 drop OU BID [facility] Last Admin: 03/12/19 09:26 Dose: 1 drop Duloxetine HCl (Cymbalta -) 20 mg PO DAILY [facility] Last Admin: 03/12/19 09:25 Dose: 20 mg Enoxaparin Sodium (Lovenox -) 40 mg SQ DAILY [facility] Last Admin: 03/12/19 09:34 Dose: Not Given Ceftriaxone Sodium 1 gm/ (Dextrose) 50 mls @ 100 mls/hr IVPB DAILY [facility]; Protocol Last Admin: 03/12/19 09:24 Dose: 100 mls/hr Sodium Chloride (Normal Saline -) 1,000 mls @ 75 mls/hr IV ASDIR [facility] Last Admin: 03/11/19 22:45 Dose: 75 mls/hr Insulin Aspart (Novolog Vial Sliding Scale -) 1 vial SQ ACHS [facility]; Protocol Last Admin: 03/12/19 12:55 Dose: 4 unit Latanoprost (Xalatan 0.005% Eye Drops -) 1 drop OU HS [facility] Last Admin: 03/11/19 22:23 Dose: Not Given Metoclopramide HCl (Reglan Injection -) 10 mg IVPUSH Q6H PRN PRN Reason: NAUSEA AND/OR VOMITING Last Admin: 03/12/19 12:57 Dose: 10 mg Metoprolol Succinate (Toprol Xl -) 50 mg PO DAILY [facility] Last Admin: 03/12/19 09:25 Dose: 50 mg Pantoprazole Sodium (Protonix Iv) 40 mg IVPUSH DAILY [facility] Last Admin: 03/12/19 09:24 Dose: 40 mg Rosuvastatin Calcium (Crestor -) 5 mg PO HS [facility] Last Admin: 03/11/19 22:23 Dose: 5 mg Simethicone (Mylicon -) 80 mg PO QID PRN PRN Reason: GAS Last Admin: 03/12/19 09:27 Dose: 80 mg Timolol Maleate (Timoptic 0.5%) 1 drop OU BID [facility] Last Admin: 03/12/19 09:25 Dose: 1 drop - Objective Vital Signs: Vital Signs Temperature 99.3 F 03/12/19 14:00 Pulse Rate 96 H 03/12/19 14:00 Respiratory Rate 18 03/12/19 14:00 Blood Pressure 126/72 03/12/19 14:00 O2 Sat by Pulse Oximetry (%) 100 03/12/19 09:00 Constitutional: Yes: No Distress HENT: Yes: Atraumatic Neck: Yes: Supple Cardiovascular: Yes: Regular Rate and Rhythm Respiratory: Yes: CTA Bilaterally Gastrointestinal: Yes: Normal Bowel Sounds Extremities: Yes: Other (R bka) Edema: No Neurological: Yes: Alert, Oriented Labs: CBC, BMP 03/07/19 07:20 03/09/19 06:10 INR, PTT INR 1.06 (0.83-1.09) 03/06/19 18:37 Problem List - Problems (1) Diarrhea Assessment/Plan: c diff negative resolving Code(s): R19.7 - DIARRHEA, UNSPECIFIED (2) Abdominal pain Assessment/Plan: improving us gb done NEED MRI WITH CONTRAST Code(s): R10.9 - UNSPECIFIED ABDOMINAL PAIN (3) CKD (chronic kidney disease) Code(s): N18.9 - CHRONIC KIDNEY DISEASE, UNSPECIFIED (4) Diabetes Code(s): E11.9 - TYPE 2 DIABETES MELLITUS WITHOUT COMPLICATIONS (5) HLD (hyperlipidemia) Code(s): E78.5 - HYPERLIPIDEMIA, UNSPECIFIED Qualifiers: Hyperlipidemia type: pure hypercholesterolemia Qualified Code(s): E78.00 - Pure hypercholesterolemia, unspecified; E78.0 - Pure hypercholesterolemia (6) HTN (hypertension) Code(s): I10 - ESSENTIAL (PRIMARY) HYPERTENSION Qualifiers: Hypertension type: essential hypertension Qualified Code(s): I10 - Essential (primary) hypertension
--- NOTE | 2019-03-12 20:07 | PN ---
Progress Note, Physician Chief Complaint: GB mass History of Present Illness: Continues to have mild epigastric pain and occasional nausea. Had one episode of diarrhea MRI showed a 1.6 cm GB mass but recommended to have MRI w/ contrast. Patient is refusing because she is allergic to IV contrast but not clear if it was for a CT scan or MRI. - Current Medication List Current Medications: Active Medications Acetaminophen (Tylenol -) 650 mg PO Q6H PRN PRN Reason: FEVER Last Admin: 03/08/19 08:31 Dose: 650 mg Bacitracin (Bacitracin -) 1 applic TP DAILY [facility] Last Admin: 03/12/19 09:25 Dose: 1 applic Brimonidine Tartrate (Alphagan 0.2% -) 1 drop OU BID [facility] Last Admin: 03/12/19 09:26 Dose: 1 drop Duloxetine HCl (Cymbalta -) 20 mg PO DAILY [facility] Last Admin: 03/12/19 09:25 Dose: 20 mg Enoxaparin Sodium (Lovenox -) 40 mg SQ DAILY [facility] Last Admin: 03/12/19 09:34 Dose: Not Given Gabapentin (Neurontin -) 100 mg PO TID [facility] Ceftriaxone Sodium 1 gm/ (Dextrose) 50 mls @ 100 mls/hr IVPB DAILY [facility]; Protocol Last Admin: 03/12/19 09:24 Dose: 100 mls/hr Sodium Chloride (Normal Saline -) 1,000 mls @ 75 mls/hr IV ASDIR [facility] Last Admin: 03/11/19 22:45 Dose: 75 mls/hr Insulin Aspart (Novolog Vial Sliding Scale -) 1 vial SQ ACHS [facility]; Protocol Last Admin: 03/12/19 17:05 Dose: Not Given Latanoprost (Xalatan 0.005% Eye Drops -) 1 drop OU HS [facility] Last Admin: 03/11/19 22:23 Dose: Not Given Metoclopramide HCl (Reglan Injection -) 10 mg IVPUSH Q6H PRN PRN Reason: NAUSEA AND/OR VOMITING Last Admin: 03/12/19 12:57 Dose: 10 mg Metoprolol Succinate (Toprol Xl -) 50 mg PO DAILY [facility] Last Admin: 03/12/19 09:25 Dose: 50 mg Pantoprazole Sodium (Protonix Iv) 40 mg IVPUSH DAILY [facility] Last Admin: 01/26/20 09:24 Dose: 40 mg Rosuvastatin Calcium (Crestor -) 5 mg PO HS [facility] Last Admin: 03/11/19 22:23 Dose: 5 mg Simethicone (Mylicon -) 80 mg PO QID PRN PRN Reason: GAS Last Admin: 03/12/19 18:50 Dose: 80 mg Timolol Maleate (Timoptic 0.5%) 1 drop OU BID [facility] Last Admin: 03/12/19 09:25 Dose: 1 drop - Objective Vital Signs: Vital Signs Temperature 99.3 F 03/12/19 18:00 Pulse Rate 95 H 03/12/19 18:00 Respiratory Rate 18 03/12/19 18:00 Blood Pressure 136/77 03/12/19 18:00 O2 Sat by Pulse Oximetry (%) 100 03/12/19 09:00 Constitutional: Yes: No Distress HENT: Yes: Normocephalic Neck: Yes: Supple Respiratory: Yes: CTA Bilaterally Gastrointestinal: Yes: Soft, Tenderness, Epigastrium, Other (NO RUQ TENDERNESS) ...Rectal Exam: Yes: Deferred Labs: CBC, BMP 03/07/19 07:20 03/09/19 06:10 INR, PTT INR 1.06 (0.83-1.09) 03/06/19 18:37 - ....Imaging MRI: Report Reviewed, Image Reviewed (1.6 cm GB mass) Problem List - Problems (1) Gallbladder mass Assessment/Plan: MRI of the upper abdomen with contrast Recommend referral to tertiary care center with hepatobiliary surgery service ( i.e., [facility]) for further management as patient may need radical cholecystectomy with partial liver resection as definitive treatment Code(s): K82.8 - OTHER SPECIFIED DISEASES OF GALLBLADDER
[2019-03-12] MEDS: ROSUVASTATIN CA 5 MG TABLET (FP) PO SCH (21:18)
[2019-03-12] MEDS: GABAPENTIN 100 MG CAPSULE PO SCH (21:18)
[2019-03-12] MEDS: LATANOPROST 0.005% OPHTH SOLN 2.5ML BOTTLE OU SCH (21:18)
[2019-03-13] MEDS: SODIUM CHLORIDE 1,000 ML IV SCH (03:00)
[2019-03-13] MEDS: GABAPENTIN 100 MG CAPSULE PO SCH ×2 (05:23→13:14)
[2019-03-13] MEDS: INSULIN SLIDING SCALE (NOVOLOG) 1 VIAL SQ SCH ×2 (06:13→12:18)
--- NOTE | 2019-03-13 08:27 | PN ---
Progress Note, Physician History of Present Illness: GI FOLLOW UP NOTE Patient examined and case discussed with Dr Montoya Patient states having one episode of vomiting and non-bloody diarrhea. She states her abdominal pain is improving with medication. Abdominal US shows fatty liver vs hepatocellular disease, borderline dilatation of CBD, 0.2x1.3cm masslike density within the gallbladder, that was not seen on prior abdominal US 05/2018. Abdominal MRI ordered and shows distended gallbladder with multiple gallstones , there is a mass in the gallbladder seen in posterior aspect measuring 1.6cm. Surgery consult was placed. - Current Medication List Current Medications: Active Medications Acetaminophen (Tylenol -) 650 mg PO Q6H PRN PRN Reason: FEVER Last Admin: 03/08/19 08:31 Dose: 650 mg Bacitracin (Bacitracin -) 1 applic TP DAILY [facility] Last Admin: 03/12/19 09:25 Dose: 1 applic Brimonidine Tartrate (Alphagan 0.2% -) 1 drop OU BID [facility] Last Admin: 03/12/19 21:17 Dose: 1 drop Duloxetine HCl (Cymbalta -) 20 mg PO DAILY [facility] Last Admin: 03/12/19 09:25 Dose: 20 mg Enoxaparin Sodium (Lovenox -) 40 mg SQ DAILY [facility] Last Admin: 03/12/19 09:34 Dose: Not Given Gabapentin (Neurontin -) 100 mg PO TID [facility] Last Admin: 03/13/19 05:23 Dose: 100 mg Ceftriaxone Sodium 1 gm/ (Dextrose) 50 mls @ 100 mls/hr IVPB DAILY [facility]; Protocol Last Admin: 03/12/19 09:24 Dose: 100 mls/hr Sodium Chloride (Normal Saline -) 1,000 mls @ 75 mls/hr IV ASDIR [facility] Last Admin: 03/13/19 03:00 Dose: 75 mls/hr Insulin Aspart (Novolog Vial Sliding Scale -) 1 vial SQ ACHS [facility]; Protocol Last Admin: 03/13/19 06:13 Dose: Not Given Latanoprost (Xalatan 0.005% Eye Drops -) 1 drop OU HS [facility] Last Admin: 03/12/19 21:18 Dose: 1 drop Metoclopramide HCl (Reglan Injection -) 10 mg IVPUSH Q6H PRN PRN Reason: NAUSEA AND/OR VOMITING Last Admin: 03/12/19 20:49 Dose: 10 mg Metoprolol Succinate (Toprol Xl -) 50 mg PO DAILY [facility] Last Admin: 03/12/19 09:25 Dose: 50 mg Pantoprazole Sodium (Protonix Iv) 40 mg IVPUSH DAILY [facility] Last Admin: 03/12/19 09:24 Dose: 40 mg Rosuvastatin Calcium (Crestor -) 5 mg PO HS [facility] Last Admin: 03/12/19 21:18 Dose: 5 mg Simethicone (Mylicon -) 80 mg PO QID PRN PRN Reason: GAS Last Admin: 03/12/19 18:50 Dose: 80 mg Timolol Maleate (Timoptic 0.5%) 1 drop OU BID [facility] Last Admin: 03/12/19 21:18 Dose: Not Given - Objective Vital Signs: Vital Signs Temperature 98.2 F 03/13/19 06:00 Pulse Rate 98 H 03/13/19 06:00 Respiratory Rate 18 03/13/19 06:00 Blood Pressure 154/94 03/13/19 06:00 O2 Sat by Pulse Oximetry (%) 100 03/12/19 21:00 Constitutional: Yes: No Distress, Calm Eyes: Yes: Conjunctiva Clear HENT: Yes: Atraumatic Cardiovascular: Yes: Regular Rate and Rhythm Respiratory: Yes: Regular, CTA Bilaterally Gastrointestinal: Yes: Normal Bowel Sounds, Soft, Tenderness (ruq, rlq), Tenderness, Epigastrium Musculoskeletal: Yes: Muscle Weakness Extremities: Yes: WNL Edema: No Neurological: Yes: Alert, Oriented Psychiatric: Yes: Alert, Oriented Labs: CBC, BMP 03/07/19 07:20 03/09/19 06:10 INR, PTT INR 1.06 (0.83-1.09) 03/06/19 18:37 Problem List - Problems (1) Diarrhea Assessment/Plan: -Cdiff results neg, pending collection for Stool ova and parasite, calpoprectin , stool WBC, -stool culture neg -IV hydration Code(s): R19.7 - DIARRHEA, UNSPECIFIED (2) Abdominal pain Assessment/Plan: -IV hydration -IV Pantoprazole -Simethicone -CTAP shows small gallstones without CT evidence of acute cholecystitis, a few diverticula in the sigmoid colon without evidence acute diverticulitis -Abd US shows fatty liver vs hepatocellular disease, borderline dilatation of CBD, 0.2x1.3cm masslike density within the gallbladder, that was not seen on prior abdominal US 05/2018 -Abdominal MRI Abdominal MRI ordered and shows distended gallbladder with multiple gallstones , there is a mass in the gallbladder seen in posterior aspect measuring 1.6cm -Surgery was consulted and recommend transfer to tertiary center Code(s): R10.9 - UNSPECIFIED ABDOMINAL PAIN (3) Elevated CA 19-9 level Assessment/Plan: -CA 19-9 67 -Abdominal MRI shows distended gallbladder with multiple gallstones , there is a mass in the gallbladder seen in posterior aspect measuring 1.6cm -Surgery was consulted and recommend transfer to tertiary center Code(s): R97.8 - OTHER ABNORMAL TUMOR MARKERS
[2019-03-13] MEDS ORDERED: DEXTROSE 5%-WATER - 50 ML IVPB ONE (09:36)
[2019-03-13] MEDS ORDERED: cefTRIAXone SODIUM 1 GM VIAL ONE (09:36)
[2019-03-13] MEDS: BACITRACIN 15 GM TUBE TOPICAL OINTMENT TP SCH (09:44)
[2019-03-13] MEDS: PANTOPRAZOLE SODIUM 40 MG VIAL IVPUSH SCH (09:44)
[2019-03-13] MEDS: CEFTRIAXONE 1 GM in DEXTROSE 5%-WATER - 50 ML IVPB SCH (09:44)
[2019-03-13] MEDS: ENOXAPARIN NA (PORCINE) 40 MG/0.4 ML DISP.SYRIN SQ SCH (09:44)
[2019-03-13] MEDS: DULoxetine HCL 20 MG CAPSULE.DR PO SCH (09:44)
[2019-03-13] MEDS: METOCLOPRAMIDE HCL INJECTION 10 MG/2 ML VIAL IVPUSH PRN (09:47)
[2019-03-13] MEDS: SIMETHICONE 80 MG TAB.CHEW (FP) PO PRN (09:47)
--- NOTE | 2019-03-13 10:14 | PN ---
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 The pain is described as cramping, constant for 5 months without exertional symptoms. Patient reports NB/NB vomiting, diarrhea with black stools, urinary frequency, dysuria and dizziness over the past 5 months that has worsened today. Recently hospitalized at [facility] for ?postop infection and got IV vancomycin. Denies fever, chills, cough, SOB, calf tenderness or swelling. Denies alcohol, tobacco or illicit drug use. No sick contacts or recent travels. FH of CAD, DM and HTN. - Current Medication List Current Medications: Active Medications Acetaminophen (Tylenol -) 650 mg PO Q6H PRN PRN Reason: FEVER Last Admin: 03/08/19 08:31 Dose: 650 mg Bacitracin (Bacitracin -) 1 applic TP DAILY [facility] Last Admin: 03/13/19 09:44 Dose: 1 applic Brimonidine Tartrate (Alphagan 0.2% -) 1 drop OU BID [facility] Last Admin: 03/12/19 21:17 Dose: 1 drop Duloxetine HCl (Cymbalta -) 20 mg PO DAILY [facility] Last Admin: 03/13/19 09:44 Dose: 20 mg Enoxaparin Sodium (Lovenox -) 40 mg SQ DAILY [facility] Last Admin: 03/13/19 09:44 Dose: 40 mg Gabapentin (Neurontin -) 100 mg PO TID [facility] Last Admin: 03/13/19 05:23 Dose: 100 mg Ceftriaxone Sodium 1 gm/ (Dextrose) 50 mls @ 100 mls/hr IVPB DAILY [facility]; Protocol Last Admin: 03/13/19 09:44 Dose: 100 mls/hr Sodium Chloride (Normal Saline -) 1,000 mls @ 75 mls/hr IV ASDIR [facility] Last Admin: 03/13/19 03:00 Dose: 75 mls/hr Insulin Aspart (Novolog Vial Sliding Scale -) 1 vial SQ ACHS [facility]; Protocol Last Admin: 03/13/19 06:13 Dose: Not Given Latanoprost (Xalatan 0.005% Eye Drops -) 1 drop OU HS [facility] Last Admin: 03/12/19 21:18 Dose: 1 drop Metoclopramide HCl (Reglan Injection -) 10 mg IVPUSH Q6H PRN PRN Reason: NAUSEA AND/OR VOMITING Last Admin: 03/13/19 09:47 Dose: 10 mg Metoprolol Succinate (Toprol Xl -) 50 mg PO DAILY [facility] Last Admin: 03/13/19 09:44 Dose: 50 mg Pantoprazole Sodium (Protonix Iv) 40 mg IVPUSH DAILY [facility] Last Admin: 03/13/19 09:44 Dose: 40 mg Rosuvastatin Calcium (Crestor -) 5 mg PO HS [facility] Last Admin: 03/12/19 21:18 Dose: 5 mg Simethicone (Mylicon -) 80 mg PO QID PRN PRN Reason: GAS Last Admin: 03/13/19 09:47 Dose: 80 mg Timolol Maleate (Timoptic 0.5%) 1 drop OU BID [facility] Last Admin: 03/12/19 21:18 Dose: Not Given - Objective Vital Signs: Vital Signs Temperature 98.2 F 03/13/19 06:00 Pulse Rate 98 H 03/13/19 06:00 Respiratory Rate 18 03/13/19 06:00 Blood Pressure 154/94 03/13/19 06:00 O2 Sat by Pulse Oximetry (%) 100 03/12/19 21:00 Eyes: Yes: WNL, Conjunctiva Clear, EOM Intact HENT: Yes: WNL, Atraumatic, Normocephalic Neck: Yes: WNL, Supple, Trachea Midline Cardiovascular: Yes: WNL, Regular Rate and Rhythm, S1, S2 Respiratory: Yes: WNL, Regular, CTA Bilaterally Gastrointestinal: Yes: WNL, Normal Bowel Sounds Genitourinary: Yes: WNL Musculoskeletal: Yes: WNL Extremities: Yes: Amputation (R BKA) Edema: No Integumentary: Yes: WNL Neurological: Yes: WNL, Alert, Oriented ...Motor Strength: WNL Psychiatric: Yes: WNL Labs: CBC, BMP 03/07/19 07:20 03/09/19 06:10 INR, PTT INR 1.06 (0.83-1.09) 03/06/19 18:37 Problem List - Problems (1) Diarrhea Code(s): R19.7 - DIARRHEA, UNSPECIFIED (2) Elevated CA 19-9 level Code(s): R97.8 - OTHER ABNORMAL TUMOR MARKERS (3) Intractable nausea and vomiting Code(s): R11.2 - NAUSEA WITH VOMITING, UNSPECIFIED (4) Ruled out for myocardial infarction Code(s): Z03.89 - ENCNTR FOR OBS FOR OTH SUSPECTED DISEASES AND COND RULED OUT (5) Unintentional weight loss Code(s): R63.4 - ABNORMAL WEIGHT LOSS (6) WADE (acute kidney injury) Code(s): N17.9 - ACUTE KIDNEY FAILURE, UNSPECIFIED (7) Abdominal pain Code(s): R10.9 - UNSPECIFIED ABDOMINAL PAIN (8) Asthma Code(s): J45.909 - UNSPECIFIED ASTHMA, UNCOMPLICATED Qualifiers: Asthma severity: unspecified severity Asthma complication type: with acute exacerbation (9) Bilateral leg pain Code(s): M79.604 - PAIN IN RIGHT LEG; M79.605 - PAIN IN LEFT LEG (10) Breast abscess Code(s): N61.1 - ABSCESS OF THE BREAST AND NIPPLE (11) Bronchospasm Code(s): J98.01 - ACUTE BRONCHOSPASM (12) CAD (coronary artery disease) Code(s): I25.10 - ATHSCL HEART DISEASE OF [place] CORONARY ARTERY W/O ANG PCTRS Qualifiers: Coronary Disease-Associated Artery/Lesion type: [place] artery [place] vs. transplanted heart: [place] heart Associated angina: without angina Qualified Code(s): I25.10 - Atherosclerotic heart disease of [place] coronary artery without angina pectoris (13) CKD (chronic kidney disease) Code(s): N18.9 - CHRONIC KIDNEY DISEASE, UNSPECIFIED (14) Cellulitis of great toe, right Code(s): L03.031 - CELLULITIS OF RIGHT TOE (15) Chest pain Code(s): R07.9 - CHEST PAIN, UNSPECIFIED Qualifiers: Chest pain type: unspecified Qualified Code(s): R07.9 - Chest pain, unspecified (16) Claudication of right lower extremity Code(s): I73.9 - PERIPHERAL VASCULAR DISEASE, UNSPECIFIED (17) Coronary artery disease Code(s): I25.10 - ATHSCL HEART DISEASE OF [place] CORONARY ARTERY W/O ANG PCTRS (18) Current use of steroid medication Code(s): Z79.52 - PRIMARY SPECIAL EDUCATOR (CURRENT) USE OF SYSTEMIC STEROIDS (19) Diabetes Code(s): E11.9 - TYPE 2 DIABETES MELLITUS WITHOUT COMPLICATIONS (20) Diabetic neuropathy Code(s): E11.40 - TYPE 2 DIABETES MELLITUS WITH DIABETIC NEUROPATHY, UNSP (21) Displacement of lumbar intervertebral disc without myelopathy Code(s): M51.26 - OTHER INTERVERTEBRAL DISC DISPLACEMENT, LUMBAR REGION (22) Epigastric pain Code(s): R10.13 - EPIGASTRIC PAIN (23) Facial tingling Code(s): R20.2 - PARESTHESIA OF SKIN (24) Fever Code(s): R50.9 - FEVER, UNSPECIFIED Qualifiers: Fever type: unspecified Qualified Code(s): R50.9 - Fever, unspecified (25) H/O heart artery stent Code(s): Z95.5 - PRESENCE OF CORONARY ANGIOPLASTY IMPLANT AND GRAFT (26) HLD (hyperlipidemia) Code(s): E78.5 - HYPERLIPIDEMIA, UNSPECIFIED Qualifiers: Hyperlipidemia type: pure hypercholesterolemia Qualified Code(s): E78.00 - Pure hypercholesterolemia, unspecified; E78.0 - Pure hypercholesterolemia (27) HTN (hypertension) Code(s): I10 - ESSENTIAL (PRIMARY) HYPERTENSION Qualifiers: Hypertension type: essential hypertension Qualified Code(s): I10 - Essential (primary) hypertension (28) Hyperglycemia, unspecified Code(s): R73.9 - HYPERGLYCEMIA, UNSPECIFIED (29) Hyperkalemia Code(s): E87.5 - HYPERKALEMIA (30) Inflammation of right sacroiliac joint Code(s): M46.1 - SACROILIITIS, NOT ELSEWHERE CLASSIFIED (31) Left shoulder pain Code(s): M25.512 - PAIN IN LEFT SHOULDER (32) Leg pain Code(s): M79.606 - PAIN IN LEG, UNSPECIFIED Qualifiers: Laterality: bilateral Qualified Code(s): M79.604 - Pain in right leg; M79.605 - Pain in left leg (33) Leukocytosis Code(s): D72.829 - ELEVATED WHITE BLOOD CELL COUNT, UNSPECIFIED Qualifiers: Leukocytosis type: other Qualified Code(s): D72.828 - Other elevated white blood cell count (34) Low back pain Code(s): M54.5 - LOW BACK PAIN Qualifiers: Chronicity: acute Back pain laterality: bilateral Sciatica presence: with sciatica Sciatica laterality: bilateral sciatica Qualified Code(s): M54.42 - Lumbago with sciatica, left side; M54.41 - Lumbago with sciatica, right side (35) Lower extremity weakness Code(s): R29.898 - OTH SYMPTOMS AND SIGNS INVOLVING THE MUSCULOSKELETAL SYSTEM Qualifiers: Laterality: bilateral Qualified Code(s): R29.898 - Other symptoms and signs involving the musculoskeletal system (36) Migraine headache Code(s): G43.909 - MIGRAINE, UNSP, NOT INTRACTABLE, WITHOUT STATUS MIGRAINOSUS (37) Nausea & vomiting Code(s): R11.2 - NAUSEA WITH VOMITING, UNSPECIFIED Qualifiers: Vomiting type: unspecified Vomiting Intractability: intractable Qualified Code(s): R11.2 - Nausea with vomiting, unspecified (38) Neuropathy Code(s): G62.9 - POLYNEUROPATHY, UNSPECIFIED (39) Obesity Code(s): E66.9 - OBESITY, UNSPECIFIED (40) Peripheral vascular disease Code(s): I73.9 - PERIPHERAL VASCULAR DISEASE, UNSPECIFIED (41) Poorly controlled diabetes mellitus Code(s): E11.65 - TYPE 2 DIABETES MELLITUS WITH HYPERGLYCEMIA (42) RUQ abdominal pain Code(s): R10.11 - RIGHT UPPER QUADRANT PAIN (43) Restless leg syndrome Code(s): G25.81 - RESTLESS LEGS SYNDROME (44) Sciatica Code(s): M54.30 - SCIATICA, UNSPECIFIED SIDE Qualifiers: Laterality: right Qualified Code(s): M54.31 - Sciatica, right side (45) Sleep apnea Code(s): G47.30 - SLEEP APNEA, UNSPECIFIED (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 Code(s): K83.4 - SPASM OF SPHINCTER OF ODDI (47) Spinal stenosis Code(s): M48.00 - SPINAL STENOSIS, SITE UNSPECIFIED (48) Spinal stenosis Code(s): M48.00 - SPINAL STENOSIS, SITE UNSPECIFIED (49) Status migrainosus Code(s): G43.901 - MIGRAINE, UNSP, NOT INTRACTABLE, WITH STATUS MIGRAINOSUS (50) Tachycardia Code(s): R00.0 - TACHYCARDIA, UNSPECIFIED (51) Type 2 diabetes mellitus with foot ulcer Code(s): E11.621 - TYPE 2 DIABETES MELLITUS WITH FOOT ULCER; L97.509 - NON- PRESSURE CHRONIC ULCER OTH PRT UNSP FOOT W UNSP SEVERITY (52) URI (upper respiratory infection) Code(s): J06.9 - ACUTE UPPER RESPIRATORY INFECTION, UNSPECIFIED (53) Wound cellulitis Code(s): L03.90 - CELLULITIS, UNSPECIFIED Assessment/Plan - Problems (1) Proteinuria Code(s): R80.9 - PROTEINURIA, UNSPECIFIED (2) Diarrhea Assessment/Plan: for MRI without contrast (diarrhea; abdominal pain). Code(s): R19.7 - DIARRHEA, UNSPECIFIED (3) Elevated CA 19-9 level Code(s): R97.8 - OTHER ABNORMAL TUMOR MARKERS (4) Intractable nausea and vomiting Code(s): R11.2 - NAUSEA WITH VOMITING, UNSPECIFIED (5) Type 2 diabetes mellitus with foot ulcer Assessment/Plan: Add SGLT-2 inhibitor (DM; hx CAD with stents). Code(s): E11.621 - TYPE 2 DIABETES MELLITUS WITH FOOT ULCER; L97.509 - NON- PRESSURE CHRONIC ULCER OTH PRT UNSP FOOT W UNSP SEVERITY (6) URI (upper respiratory infection) Code(s): J06.9 - ACUTE UPPER RESPIRATORY INFECTION, UNSPECIFIED (7) Overweight Code(s): E66.3 - OVERWEIGHT (8) Old myocardial infarct Code(s): I25.2 - OLD MYOCARDIAL INFARCTION Continue Toprol XL 50 qd (9) Coronary artery disease Code(s): I25.10 - ATHSCL HEART DISEASE OF [place] CORONARY ARTERY W/O ANG PCTRS (10) Diabetes Code(s): E11.9 - TYPE 2 DIABETES MELLITUS WITHOUT COMPLICATIONS (11) Hypoalbuminemia Code(s): E88.09 - OTH DISORDERS OF PLASMA-PROTEIN METABOLISM, NEC (12) HLD (hyperlipidemia) Assessment/Plan: started Crestor 5 qd (LDL 99 mg/dl); aggressive lowering of LDL, triglycerides. Code(s): E78.5 - HYPERLIPIDEMIA, UNSPECIFIED Qualifiers: Hyperlipidemia type: pure hypercholesterolemia Qualified Code(s): E78.00 - Pure hypercholesterolemia, unspecified; E78.0 - Pure hypercholesterolemia (13) Prolonged QT interval Assessment/Plan: EKG 03/09/2019: NSR; corrected QT (QTc) of 467 msec (post-pubertal woman normal QTc range may extend to 480 msec). Pt requires an antiemetic (metaclopromide) that may cause prolongation. Recommend: Maintain electrolytes WNL, particularly K and Mg. Peruse medication list, and avoid those that may increase QT. Pt refused EKG in early am because of feeling nauseus; agress to it now. QTc improved 482-->467 now). F/u EKG serially while on Reglan (would not use > 3 months to avoid tardive dyskinesia). Mg 1.5: replete, and keep 2.0-2.4 Keep K 4.0-4.5 Keep PO4 and Ca2+ WNL. Code(s): R94.31 - ABNORMAL ELECTROCARDIOGRAM [ECG] [EKG] (14) NSAID long-term use Assessment/Plan: Pt did not realize that ibuprofen might also be a cause of abdominal pain, bleed. She has been taking "a lot of it for a long time". Code(s): Z79.1 - [facility] (CURRENT) USE OF NON-STEROIDAL NON-INFLAM (NSAID) (15) Hypomagnesemia Code(s): E83.42 - HYPOMAGNESEMIA
[2019-03-13 11:31] VITALS: BP 169/91; PULSE 104; TEMP 98.6
[2019-03-13] MEDS: TIMOLOL 0.5% OPHTHALMIC SOL 5 ML BOTTLE OU SCH (11:54)
[2019-03-13] MEDS: BRIMONIDINE TARTRATE 0.2% OPHTHALMIC 5 ML BOTTLE OU SCH (11:54)
--- NOTE | 2019-03-13 12:30 | DS ---
Physical Examination Vital Signs: Vital Signs Temperature 98.6 F 03/13/19 10:00 Pulse Rate 104 H 03/13/19 10:00 Respiratory Rate 20 03/13/19 10:00 Blood Pressure 169/91 03/13/19 10:00 O2 Sat by Pulse Oximetry (%) 100 03/13/19 09:00 Constitutional: Yes: No Distress HENT: Yes: Atraumatic Neck: Yes: Supple Cardiovascular: Yes: Regular Rate and Rhythm Respiratory: Yes: CTA Bilaterally Gastrointestinal: Yes: Normal Bowel Sounds Extremities: Yes: Other (R bka) Neurological: Yes: Alert, Oriented Labs: CBC, BMP 03/07/19 07:20 03/09/19 06:10 Discharge Summary Problems reviewed: Yes Reason For Visit: RULED OUT FOR MYOCARDIAL INFARCTION Current Active Problems Diarrhea (Acute) Elevated CA 19-9 level (Acute) Gallbladder mass (Acute) Gallbladder mass (Acute) Hypoalbuminemia (Acute) Hypomagnesemia (Acute) Intractable nausea and vomiting (Acute) Intractable vomiting (Acute) NSAID long-term use (Acute) Old myocardial infarct (Acute) Overweight (Acute) Prolonged QT interval (Acute) Proteinuria (Acute) Ruled out for myocardial infarction (Acute) Unintentional weight loss (Acute) Condition: Stable - Instructions Referrals: Noris Garcia MD [Primary Care Provider] - Disposition: TRANSFER ACUTE CARE/OTHER HOSP - Home Medications Comprehensive Discharge Medication List: Ambulatory Orders Brimonidine Tartrate [Alphagan 0.2% -] 1 drop OU BID 05/17/17 Gabapentin 100 mg PO HS 05/17/17 Latanoprost 0.005% Eye Drops [Xalatan 0.005% Eye Drops -] 1 drop OU HS 05/17/17 Metoprolol Succinate 50 mg PO DAILY 05/17/17 Albuterol Sulfate [Proventil HFA Inhaler -] 1 - 2 inh PO QID PRN #1 [id number] 08/04/17 Acetaminophen [Tylenol] 650 mg PO Q4H #30 tablet 06/13/18 Timolol 0.5% [Timoptic 0.5%] 1 drop OU BID 09/05/18 Clopidogrel Bisulfate [Clopidogrel] 75 mg PO DAILY 03/06/19 Cyanocobalamin Vit B-12 Inj. [Vitamin B12 Injection -] 1,000 mcg IJ MONTHLY 01/ 20/20 Famotidine 20 mg PO DAILY 03/06/19 Insulin (LOG) Aspart [NovoLOG -] 0 unit SQ DAILY PRN 03/06/19 Loperamide HCl [Loperamide] 2 mg PO PRN PRN 03/06/19 Melatonin 10 mg PO HS 03/06/19 Multivitamin [Multiple Vitamins] 1 each PO DAILY 03/06/19 Oxycodone HCl 5 mg PO PRN PRN 03/06/19 dc to tertiary care for further management of GB mass
== END 2019-03-13 13:24 | disposition short-term general hospital (02) ==
LOC: JER 17:13 → JERBED 03-07 01:00 → OBSVTOIN 03-07 02:36 → JERBED 03-07 09:00 → J4W 03-08 17:14 → JERBED 03-11 09:19 → J4W 03-11 09:20
PROVIDERS: ADMIT Internal Medicine; ATTEND Internal Medicine
DX: K82.8 Other specified diseases of gallbladder (principal); E78.5 Hyperlipidemia, unspecified; I25.2 Old myocardial infarction; J45.909 Unspecified asthma, uncomplicated; N28.1 Cyst of kidney, acquired; R11.2 Nausea with vomiting, unspecified; D64.9 Anemia, unspecified; E11.65 Type 2 diabetes mellitus with hyperglycemia; E66.3 Overweight; Z68.29 Body mass index [BMI] 29.0-29.9, adult; E11.51 Type 2 diabetes mellitus with diabetic peripheral angiopathy without gangrene; N39.0 Urinary tract infection, site not specified; I12.9 Hypertensive chronic kidney disease with stage 1 through stage 4 chronic kidney disease, or unspecified chronic kidney disease; E11.22 Type 2 diabetes mellitus with diabetic chronic kidney disease; K80.80 Other cholelithiasis without obstruction; R97.8 Other abnormal tumor markers; N18.9 Chronic kidney disease, unspecified; E87.6 Hypokalemia; E11.69 Type 2 diabetes mellitus with other specified complication; M86.9 Osteomyelitis, unspecified; E88.09 Other disorders of plasma-protein metabolism, not elsewhere classified; R10.9 Unspecified abdominal pain; E83.42 Hypomagnesemia; R63.4 Abnormal weight loss; R19.7 Diarrhea, unspecified; I25.10 Atherosclerotic heart disease of native coronary artery without angina pectoris; K76.0 Fatty (change of) liver, not elsewhere classified; R94.31 Abnormal electrocardiogram [ECG] [EKG]; G43.909 Migraine, unspecified, not intractable, without status migrainosus; K57.30 Diverticulosis of large intestine without perforation or abscess without bleeding; F41.9 Anxiety disorder, unspecified; Z95.5 Presence of coronary angioplasty implant and graft; Z89.511 Acquired absence of right leg below knee; Z79.1 Long term (current) use of non-steroidal anti-inflammatories (NSAID)
CPT/HCPCS: 36415; 71045-TC-FY; 74176-TC; 74181-TC; 76705-TC; 80048; 80053; 80061; 81003; 82272; 82378; 82550; 82962; 83036; 83540; 83550; 83690; 83721; 83735; 84100; 84484; 85025; 85027; 85610; 85730; 86301; 86304; 87045; 87046; 87086; 87177; 87209; 87324; 87449; 93005; 93010; 99285-25; G0378; J0131; J7030